=== PATIENT | male | born 1995 | race Caucasian/White ===

== ENCOUNTER 2020-06-29 09:13 | Outpatient (REF) | payer OTHER, SELFPAY ==
[2020-06-29 10:14] LABS: MANUAL DIFF FLAG NO
[2020-06-29 10:26] LABS: Basophils Percent Auto 0.3 % (0-2); Eosinophils Absolute Auto 1.6 X10*3/uL (0.0-0.4); Eosinophils Percent Auto 12.5 % (0-4); Hemoglobin 11.7 g/dl (14.0-18.0); Imm Gran Abs Auto 0.05 X10*3/uL (0.00-0.03); Imm Gran Pct Auto 0.4 % (0.0-0.4); Lymphocytes Absolute Auto 2.5 X10*3/uL (1.2-4.9); Lymphocytes Percent Auto 20.1 % (20-40); Mean Corpuscular HGB Conc 30.8 g/dl (31.0-36.0); Mean Corpuscular Hemoglobin 24.1 pg (27.0-33.0); Mean Corpuscular Volume 78.2 fL (80-98); Mean Platelet Volume 10.4 fL (9.4-12.4); Monocytes Absolute Auto 0.8 X10*3/uL (0.1-1.2); Monocytes Percent Auto 6.5 % (2-11); Neutrophils Absolute Auto 7.6 X10*3/uL (2.0-8.3); Neutrophils Percent Auto 60.2 % (45-73); Platelet Count 355 X10*3/uL (160-400); Red Blood Count 4.86 X10*6/uL (4.60-5.80); Red Cell Distribution Width 15.2 % (11.0-16.0); White Blood Count 12.6 X10*3/uL (4.8-10.8)
[2020-06-29 10:36] LABS: Estimated Average Glucose 120 mg/dL; Hemoglobin A1c % 5.8 %; Total Hemoglobin (HGBA1C) 3124.3799 umol/L
[2020-06-29 10:47] LABS: Alanine Aminotransferase 30 U/L (0-40); Albumin Level 3.9 g/dL (3.5-5.0); Alkaline Phosphatase 106 U/L (39-117); Anion Gap 12 (12-20); Aspartate Amino Transferase 20 U/L (5-37); Bilirubin Total 0.4 mg/dL (0.0-1.0); Blood Urea Nitrogen 6 mg/dL (9-16); Calcium 9.1 mg/dL (8.4-10.2); Carbon Dioxide 25 mmol/L (22-29); Chloride 106 mmol/L (96-108); Cholesterol 170 mg/dL; Estimated Glomerular Filt Rate > 60; Glucose Fasting 97 mg/dL (60-99); HDL Cholesterol 33 mg/dL; LDL Cholesterol Calculated 105 mg/dl; Potassium 4.4 mmol/l (3.3-5.1); Sodium 139 mmol/L (135-145); Total Protein 7.9 g/dL (6.5-8.0); Triglycerides 164 mg/dL
[2020-06-29 10:54] LABS: TSH reflex Free T4 2.85 mIU/mL (0.32-4.0)
== END 2020-06-29 09:14 | disposition home or self-care (01) ==
LOC: HO.LAB 09:13
PROVIDERS: PCP Physician Assistant; Visit Provider Physician Assistant
DX: L73.9 Follicular disorder, unspecified (principal); E66.01 Morbid (severe) obesity due to excess calories; Z68.41 Body mass index [BMI] 40.0-44.9, adult
CPT/HCPCS: 36415; 80053; 80061; 83036; 84443; 85025

== ENCOUNTER 2020-11-12 15:00 | Outpatient (REF) | payer OTHER, SELFPAY ==
[2020-11-12 15:21] LABS: Hematocrit 32.6 % (42-52); Hemoglobin 9.6 g/dl (14.0-18.0); Mean Corpuscular HGB Conc 29.4 g/dl (31.0-36.0); Mean Corpuscular Hemoglobin 20.9 pg (27.0-33.0); Mean Platelet Volume 9.4 fL (9.4-12.4); Platelet Count 561 X10*3/uL (160-400); Red Blood Count 4.59 X10*6/uL (4.60-5.80); Red Cell Distribution Width 16.8 % (11.0-16.0); White Blood Count 11.9 X10*3/uL (4.8-10.8)
[2020-11-12 15:48] LABS: Alanine Aminotransferase 26 U/L (0-40); Alkaline Phosphatase 100 U/L (39-117); Anion Gap 12 (12-20); Aspartate Amino Transferase 21 U/L (5-37); Bilirubin Direct < 0.2 mg/dL (0.0-0.5); Bilirubin Total 0.5 mg/dL (0.0-1.0); Blood Urea Nitrogen 7 mg/dL (9-16); C Reactive Protein 0.64 mg/dL (< or = 0.50); Calcium 9.6 mg/dL (8.4-10.2); Carbon Dioxide 24 mmol/L (22-29); Chloride 106 mmol/L (96-108); Cholesterol 165 mg/dL; Estimated Glomerular Filt Rate > 60; Glucose Random 79 mg/dL (60-115); HDL Cholesterol 36 mg/dL; LDL Cholesterol Calculated 96 mg/dl; Potassium 4.4 mmol/L (3.3-5.1); Sodium 138 mmol/L (135-145); Total Protein 8.1 g/dL (6.5-8.0); Triglycerides 167 mg/dL
== END 2020-11-12 15:01 | disposition home or self-care (01) ==
LOC: HO.LAB 15:00
PROVIDERS: PCP Physician Assistant; Visit Provider Internal Medicine
DX: F20.9 Schizophrenia, unspecified (principal); M25.50 Pain in unspecified joint
CPT/HCPCS: 36415; 80048; 80061; 80076; 85027; 86140

== ENCOUNTER 2020-11-24 09:06 | Outpatient (REF) | payer OTHER, SELFPAY ==
[2020-11-24 09:59] LABS: Retic HGB Equivalent 20.1 pg (30.0-35.0); Reticulocyte Percent 1.1 % (0.5-1.8); Reticulocytes Absolute 0.046 X10*6/uL (0.026-0.095)
[2020-11-24 10:51] LABS: Ferritin 11 ng/mL (20-250)
== END 2020-11-24 09:07 | disposition home or self-care (01) ==
LOC: HO.LAB 09:06
PROVIDERS: PCP Physician Assistant; Visit Provider Internal Medicine
DX: D50.9 Iron deficiency anemia, unspecified (principal)
CPT/HCPCS: 36415; 82728; 85045

== ENCOUNTER 2020-12-25 21:27 | Observation (INO) | payer OTHER, SELFPAY ==
[2020-12-25 22:00] VITALS: BP 134/96; PULSE 100; RESP 16; O2SAT 99; BMI 38.0
[2020-12-26] VITALS (11 sets, daily range): BP systolic 105–166; BP diastolic 61–85; PULSE 78–105; RESP 16–20; TEMP 36.4–36.9; O2SAT 97–98
--- NOTE | 2020-12-26 00:01 | ED_ITS ---
HPI - General Adult General Chief complaint: General Medical Stated complaint: HEADACHE,NAUSEA Time Seen by Provider: 12/25/20 23:32 Source: patient Mode of arrival: ambulatory Limitations: no limitations History of Present Illness HPI narrative: Patient comes emergency room complaining of a headache, generalized malaise. Patient states that he is known to have anemia which was diagnosed on December 17. Patient was seen by Hematology/Oncology, patient is scheduled for an iron infusion on January 03. Patient states that ?he cannot make it until his appointment. Patient also complaining of diarrhea for 10 days, states it is black. Patient also has an appointment coming up in 2 days with gastroenterology for colonoscopy. Related Data Home Medications Medication Instructions Recorded Confirmed diphenhydramine HCl 50 mg capsule 50 mg PO BEDTIME 06/05/20 12/17/20 olanzapine 5 mg tablet 5 mg PO BEDTIME 11/12/20 12/17/20 clobetasol 1 appl TOPICAL DAILY 12/17/20 12/17/20 Previous Rx's Medication Instructions Recorded doxycycline hyclate 100 mg tablet 100 mg PO BID 14 Days #28 tab 08/27/20 triamcinolone acetonide 0.1 % 1 appl TOPICAL BID 15 Days #60 ml 12/19/20 lotion Allergies Allergy/AdvReac Type Severity Reaction Status Date / Time aripiprazole [From Abilify] Allergy Unknown Unknown Verified 11/26/20 09:04 asenapine [From Saphris] Allergy Unknown Unknown Verified 11/26/20 09:04 ziprasidone [From Geodon] Allergy Unknown Unknown Verified 11/26/20 09:04 paliperidone [From Invega] Allergy Agitated Verified 12/17/20 10:22 Review of Systems Review of Systems: Constitutional : No Weight loss, No Fever, No Chills, No Night Sweats, complaining of generalized fatigue, malaise ENT/Mouth : No Hearing loss, No Ear Pain, No Nasal Congestion, No Sinus Pain, No Hoarseness, No sore throat, No Rhinorrhea, No Swallowing Difficulty Eyes: No Eye Pain, No Swelling, No Redness, No Foreign Body, No Discharge, No Vision Changes Cardiovascular : No Chest Pain, No SOB, No Dyspnea on Exertion, No Orthopnea, No Edema, No Palpitations Respiratory : No Cough, No Sputum, No Wheezing, No Smoke Exposure, No Dyspnea Gastrointestinal : No Nausea, No Vomiting, No Diarrhea, No Constipation, No abdominal Pain, No Hematochezia, No Melena Genitourinary : no irregular bleeding, No Dysuria, No Urinary Frequency, No Hematuria, No Urinary Incontinence, No Urgency, No Flank Pain, No Urinary Flow Changes, No Hesitancy Musculoskeletal : No joint pain, No Myalgias, No Joint Swelling Skin : No Skin Lesions, No rash Neuro : No Weakness, No Numbness, No Paresthesias, No Loss of Consciousness, complaining of dizziness, lightheadedness, No Headache Psych : No Anxiety/Panic, No Depression, No SI/HI/AH/VH, No Social Issues, Heme/Lymph: No Bruising, No Bleeding,No Lymphadenopathy Endocrine : No Polyuria, No Polydipsia, No Temperature Intolerance PMF Past Medical History Medical History Iron deficiency anemia Surgical History No pertinent past surgical history Family History Family History Father No problems noted. Mother No problems noted. Social History Social History (Updated 12/17/20 @ 10:20 by Angle Rowe) Alcohol intake: never Advance Directives: No Advance Directives Information Provided: No Physical Exam Vital Signs: Vital Signs: Last Vital Signs Pulse 104 H 12/26/20 02:32 Resp 16 12/25/20 22:00 BP 130/81 12/26/20 02:32 Pulse Ox 99 12/25/20 22:00 Body Mass Index 38.0 Appearance: Alert. Oriented X3. No acute distress. Eyes: Pupils equal, round and reactive to light. ENT: Pharynx normal. Neck: Normal inspection. Neck supple. No lymph nodes noted. No crepitus CVS: Normal heart rate and rhythm. Pulses normal. Normal S1 and S2 Respiratory: No respiratory distress. Breath sounds normal. No Wheezing. No rales Abdomen: Soft and nontender. No rigidity. No distention. NOEMI: Brown stool, no palpable hemorrhoids, no external hemorrhoids Skin: Skin warm and dry. Normal skin color. Normal skin turgor. Capillary refill 3 seconds approximately Extremities: No lower extremity edema. No Lacerations. No Rash Neuro: Oriented X 3. No motor deficit. No sensory deficit. Moving all extermities. No slurred speech. Course Course Course Narrative: Patient's hemoglobin keeps dropping. Patient is known to have black stool for several months. Patient states that he does not feel well. I discussed the patient with our hospitalist Dr. Smith, we will get him admitted, try to get the colonoscopy done as soon as possible. Now patient is NPO. Also, there this morning, it is possible that patient may get a Hematology/Oncology consult, to check if we can get the iron infusion started and improve patient's symptoms. At this time, blood transfusion is not indicated. Medical Decision Making Lab Data Result diagrams: 12/26/20 00:44 12/26/20 00:44 Labs: Lab Results 12/26/20 12/26/20 12/26/20 Range/Units 00:19 00:44 00:44 WBC 14.5 H (4.8-10.8) X10*3/uL RBC 4.48 L (4.60-5.80) X10*6/uL Hgb 9.0 L (14.0-18.0) g/dl Hct 29.9 L (42-52) % MCV 66.7 L (80-98) fL MCH 20.1 L (27.0-33.0) pg MCHC 30.1 L (31.0-36.0) g/dl RDW 16.9 H (11.0-16.0) % Plt Count 495 H (160-400) X10*3/uL MPV 9.5 (9.4-12.4) fL Immature Gran % (Auto) 0.6 H (0.0-0.4) % Neut % (Auto) 57.8 (45-73) % Lymph % (Auto) 24.7 (20-40) % [place] % (Auto) 7.5 (2-11) % Eos % (Auto) 9.2 H (0-4) % Baso % (Auto) 0.2 (0-2) % Lymph # (Auto) 3.6 (1.2-4.9) X10*3/uL [place] # (Auto) 1.1 (0.1-1.2) X10*3/uL Eos # (Auto) 1.3 H (0.0-0.4) X10*3/uL Baso # (Auto) 0.0 (0.0-0.2) X10*3/uL Abs Immat Gran (auto) 0.08 H (0.00-0.03) X10*3/uL Absolute Neuts (auto) 8.4 H (2.0-8.3) X10*3/uL Absolute Nucleated RBC 0.000 (0.0-0.012) X10*3/uL Nucleated RBC % (auto) 0.0 (0.0-0.2) /100WBC Sodium 140 (135-145) mmol/L Potassium 4.6 (3.3-5.1) mmol/L Chloride 105 (96-108) mmol/L Carbon Dioxide 26 (22-29) mmol/L Anion Gap 14 (12-20) BUN 4 L (9-16) mg/dL Creatinine 0.84 (0.5-1.4) mg/dL Estim Creat Clear Calc 162.8 Estimated GFR > 60 Random Glucose 98 (60-115) mg/dL Calcium 9.0 D (8.4-10.2) mg/dL Total Bilirubin 0.3 (0.0-1.0) mg/dL Direct Bilirubin < 0.2 (0.0-0.5) mg/dL AST 13 (5-37) U/L ALT 15 (0-40) U/L Alkaline Phosphatase 113 (39-117) U/L Total Protein 7.4 (6.5-8.0) g/dL Albumin 3.7 (3.5-5.0) g/dL Stool Occult Blood POSITIVE (NEGATIVE) Discharge Plan Discharge Clinical Impression: GI bleed, Anemia, Weakness Patient Disposition: Admitted As Inpatient Prescriptions: No Action triamcinolone acetonide 0.1 % lotion 1 appl topical BID 15 Days Qty: 60 RF: 1 clobetasol 0.05 % solution 1 appl topical DAILY RF: 0 doxycycline hyclate 100 mg tablet 100 mg PO BID 14 Days Qty: 28 RF: 0 olanzapine 5 mg tablet 5 mg PO BEDTIME RF: 0 diphenhydramine HCl 50 mg capsule 50 mg PO BEDTIME RF: 0
[2020-12-26 00:28] LABS: OBS Int Ctl Valid YES; OBS1 POSITIVE (NEGATIVE)
[2020-12-26 00:51] LABS: MANUAL DIFF FLAG NO
[2020-12-26 00:53] LABS: Basophils Percent Auto 0.2 % (0-2); Eosinophils Absolute Auto 1.3 X10*3/uL (0.0-0.4); Eosinophils Percent Auto 9.2 % (0-4); Hematocrit 29.9 % (42-52); Imm Gran Abs Auto 0.08 X10*3/uL (0.00-0.03); Imm Gran Pct Auto 0.6 % (0.0-0.4); Lymphocytes Absolute Auto 3.6 X10*3/uL (1.2-4.9); Lymphocytes Percent Auto 24.7 % (20-40); Mean Corpuscular HGB Conc 30.1 g/dl (31.0-36.0); Mean Corpuscular Hemoglobin 20.1 pg (27.0-33.0); Mean Corpuscular Volume 66.7 fL (80-98); Mean Platelet Volume 9.5 fL (9.4-12.4); Monocytes Absolute Auto 1.1 X10*3/uL (0.1-1.2); Monocytes Percent Auto 7.5 % (2-11); Neutrophils Absolute Auto 8.4 X10*3/uL (2.0-8.3); Neutrophils Percent Auto 57.8 % (45-73); Platelet Count 495 X10*3/uL (160-400); Red Blood Count 4.48 X10*6/uL (4.60-5.80); Red Cell Distribution Width 16.9 % (11.0-16.0); White Blood Count 14.5 X10*3/uL (4.8-10.8)
[2020-12-26 01:23] LABS: Alanine Aminotransferase 15 U/L (0-40); Albumin Level 3.7 g/dL (3.5-5.0); Alkaline Phosphatase 113 U/L (39-117); Anion Gap 14 (12-20); Aspartate Amino Transferase 13 U/L (5-37); Bilirubin Direct < 0.2 mg/dL (0.0-0.5); Bilirubin Total 0.3 mg/dL (0.0-1.0); Blood Urea Nitrogen 4 mg/dL (9-16); Carbon Dioxide 26 mmol/L (22-29); Chloride 105 mmol/L (96-108); Creatinine Clr Calc Pharmacy 162.8; Estimated Glomerular Filt Rate > 60; Glucose Random 98 mg/dL (60-115); Potassium 4.6 mmol/L (3.3-5.1); Sodium 140 mmol/L (135-145); Total Protein 7.4 g/dL (6.5-8.0)
--- NOTE | 2020-12-26 05:51 | P.HPHOSP_ITS ---
History of Present Illness Date of Service: 12/26/20 Chief Complaint: fatigue Past medical history of iron deficiency anemia presents to the hospital with complaints of worsening fatigue, nausea, loss of appetite.. Ricky reports that he has been suffering from iron deficiency anemia and scheduled for iron infusio n but he felt that he was too weak and fatigued and could not wait for his appointment. He reports that he also has had a loss of appetite recently as well as having nausea and vomiting every time he ate. Patient is also complaining of bloody diarrhea for the past 3 weeks. He reports that he also has an appointment with a business applications analyst for evaluation of that. He denies any chest pain, no abdominal pain, no urinary symptoms, and no lower extremity edema. No numbness tingling or weakness. No fever or chills, no recent travel, no recent sick contacts. On arrival to the ED hemodynamically stable with no significant abnormal vitals Labs are significant for WBC count of 14.5, hemoglobin of 9 (dropped from 9.5 on the 24th), MCV of 66.7, stool occult blood positive. Past medical history as below lung confirmed patient Review of Systems Review of Systems: Yes all other systems are reviewed and are negative [facility] Medical History Iron deficiency anemia Family History Father No problems noted. Mother No problems noted. Surgical History No pertinent past surgical history Social History Alcohol intake: never Advance Directives: No Advance Directives Information Provided: No Meds Allergies Allergy/AdvReac Type Severity Reaction Status Date / Time aripiprazole [From Abilify] Allergy Unknown Unknown Verified 11/26/20 09:04 asenapine [From Saphris] Allergy Unknown Unknown Verified 11/26/20 09:04 ziprasidone [From Geodon] Allergy Unknown Unknown Verified 11/26/20 09:04 paliperidone [From Invega] Allergy Agitated Verified 12/17/20 10:22 Home Medications Medication Instructions Recorded Confirmed Last Taken Type olanzapine 5 mg tablet 5 mg PO BEDTIME 11/12/20 12/26/20 1 Day Ago History ~12/25/20 clobetasol 1 appl TOPICAL DAILY 12/17/20 12/26/20 Unknown History Physical Exam Vital Signs and Narrative: Vital Signs: Last Vital Signs Temp 98.5 F 12/26/20 03:49 Pulse 88 12/26/20 03:49 Resp 18 12/26/20 04:00 BP 139/67 12/26/20 03:49 Pulse Ox 98 12/26/20 03:49 Body Mass Index 38.0 Const: General: cooperative and no acute distress Orientation/consciousness: patient oriented x3 Eyes: General: appearance normal, both eyes and all related structures Resp: Effort & Inspection: normal respiratory effort and able to speak in complete sentences Cardio: Rate: regular rate Rhythm: regular rhythm GI: Palpation (GI): Soft to palpation Auscultation: normal bowel sounds Skin: General skin exam: no rashes or lesions noted Neuro: General: patient oriented x3 Cognition (Neuro): normal cognition Extrem: General: Yes normal to inspection and Yes no pedal edema Results Labs CBC and Chem 7: 12/26/20 00:44 12/26/20 00:44 Labs: Laboratory Results - last 24 hr 12/26/20 12/26/20 12/26/20 00:19 00:44 00:44 MCV 66.7 L MCH 20.1 L MCHC 30.1 L RDW 16.9 H Plt Count 495 H MPV 9.5 Immature Gran % (Auto) 0.6 H Neut % (Auto) 57.8 Lymph % (Auto) 24.7 [place] % (Auto) 7.5 Eos % (Auto) 9.2 H Baso % (Auto) 0.2 Lymph # (Auto) 3.6 [place] # (Auto) 1.1 Eos # (Auto) 1.3 H Baso # (Auto) 0.0 Abs Immat Gran (auto) 0.08 H Absolute Neuts (auto) 8.4 H Absolute Nucleated RBC 0.000 Nucleated RBC % (auto) 0.0 Anion Gap 14 Estim Creat Clear Calc 162.8 Estimated GFR > 60 Random Glucose 98 Calcium 9.0 D Total Bilirubin 0.3 Direct Bilirubin < 0.2 AST 13 ALT 15 Alkaline Phosphatase 113 Total Protein 7.4 Albumin 3.7 Stool Occult Blood POSITIVE Assessment and Plan (1) GI bleed: Status: Acute (2) Weakness: Status: Acute (3) Iron deficiency anemia: Status: Acute This is a 25-year-old male with past medical history of iron deficiency anemia presents the hospital with complaints of fatigue as well as bloody diarrhea # iron deficiency anemia - patient is scheduled for parenteral iron infusion but reports that he was feeling too fatigued to wait for his appointment - will consult Hematology-Oncology - continue iron supplement orally - hemoglobin currently stable at 9, dropped from 9.5 about 1 week ago - will infuse with a threshold of hemoglobin less than 7 # hematochezia - denies any abdominal pain but given his bloody diarrhea possibly secondary to use IBD versus internal hemorrhoids - patient has an appointment with Gastroenterology outpatient but given his anemia and fatigue will consult Gastroenterology for possible inpatient procedure - denies any use of NSAIDs # weakness - most likely secondary to dehydration including diarrhea as well as fatigue secondary to iron deficiency anemia - Hematology-Oncology in Gastroenterology both consulted for the above recent DVT prophylaxis: Early ambulation
[2020-12-26 07:56] LABS: COVID-19 Test Negative (Negative)
--- NOTE | 2020-12-26 08:36 | PC.NURSE ---
This RN did not administer patients 9am doxycycline today, upon attempting to administer the medication patient states that he already took it today. This RN made patient aware not to take home meds while in the hospital, patient states he does not have any more medication with him.
[2020-12-26] MEDS: 0.9 % Sodium Chloride Flush 3 ML SYRINGE IVFLUSH ×2 (08:38→16:54)
--- NOTE | 2020-12-26 10:02 | PC.NURSE ---
called [facility], awaiting call back to give report
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
--- NOTE | 2020-12-26 13:02 | MHC.SHP ---
Pre-Procedural Eval Section B Chief Complaint: Iron def anemia Allergies: Allergies Allergy/AdvReac Type Severity Reaction Status Date / Time aripiprazole [From Abilify] Allergy Unknown Unknown Verified 11/26/20 09:04 asenapine [From Saphris] Allergy Unknown Unknown Verified 11/26/20 09:04 ziprasidone [From Geodon] Allergy Unknown Unknown Verified 11/26/20 09:04 paliperidone [From Invega] Allergy Agitated Verified 12/17/20 10:22 Plan I have reviewed the history and physical and performed a pertinent physical examination on my patient. No changes have occurred unless specified.
--- NOTE | 2020-12-26 14:21 | MHC.SHP ---
Pre-Procedural Eval Section A The patient is an INPATIENT: Yes Changes since office visit: No Cold of Flu in the past 2 weeks, No New Medical Problems, No Changes in Medication and No Patient answered all questions The History & Physical has been completed within 30 days and I have reviewed it.: Yes Section B Chief Complaint: Iron def anemia Allergies: Allergies Allergy/AdvReac Type Severity Reaction Status Date / Time aripiprazole [From Abilify] Allergy Unknown Unknown Verified 11/26/20 09:04 asenapine [From Saphris] Allergy Unknown Unknown Verified 11/26/20 09:04 ziprasidone [From Geodon] Allergy Unknown Unknown Verified 11/26/20 09:04 paliperidone [From Invega] Allergy Agitated Verified 12/17/20 10:22 Plan I have reviewed the history and physical and performed a pertinent physical examination on my patient. No changes have occurred unless specified.
--- NOTE | 2020-12-26 14:22 | PM.EVENT ---
Event Note Date of Service: 12/26/20 Event Note: GI consult dictated Iron def anemia and heme positive stools with n&v x 2 days and hematochezia x 6 years EGD and colonoscopy scheduled for tomorrow for further evaluation Pt understands risks and benefits and agrees to proceed.
[2020-12-26] MEDS: PEG 3350/Na Sulf,Bicarb,Cl/KCL 4,000 ML SOLN.RECON 240 ML PO (16:49)
[2020-12-26] MEDS: OLANZapine 5 MG TABLET PO (20:07)
--- NOTE | 2020-12-26 20:31 | PC.NURSE ---
patient drank [id number] ml of the bowel prep. Pt is refusing to drink more of the bowel prep,stated that he has been having loose stools all day. Pt is not refusing the procedure that is ordered but he is refusing to drink more of the bowel prep. RN educated patient regarding the purpose of the bowel prep.
[2020-12-27] VITALS (8 sets, daily range): BP systolic 103–153; BP diastolic 63–94; PULSE 84–110; RESP 12–20; TEMP 36.1–36.7; O2SAT 97–99
[2020-12-27] MEDS: 0.9 % Sodium Chloride Flush 3 ML SYRINGE IVFLUSH ×2 (01:01→09:10)
--- NOTE | 2020-12-27 01:03 | CONS_ITS ---
DATE OF SERVICE: 12/26/2020 REFERRING PHYSICIAN: Mary Smith REASON FOR CONSULTATION: Anemia and Hemoccult-positive stools. HISTORY OF PRESENT ILLNESS: The patient is a pleasant 25-year-old man who was admitted to the hospital after presenting to the emergency room with complaints of generalized weakness, fatigue, and nausea and vomiting for 24 to 48 hours prior to admission. He reports chronic hematochezia over the last 6 years with bright red blood associated with bowel movements, usually in the amount of approximately half a cup by his report. There has been no associated rectal bleeding, although stools have been loose over the past several weeks prior to admission. He was evaluated as an outpatient and found to be anemic with a hematocrit of 32.6 earlier in November, this was slightly lower at 29.9 on evaluation in the ER yesterday. MCV was low at 66.7, and iron studies showed a saturation of 3% with a ferritin of 4. He was started on oral iron supplementation and referred for GI evaluation. He was also scheduled to have intravenous iron infusion. The patient denies any melena. He has had hematochezia as above, which has been a chronic problem. He denies a prior history of peptic ulcer disease and does not use NSAIDs, tobacco or alcohol on a regular basis. He has no chronic GERD symptoms. PAST MEDICAL HISTORY: 1. Iron deficiency anemia. 2. Schizophrenia with depressive component. 3. Folliculitis. CURRENT MEDICATIONS: His current medication list is reviewed in the chart. ALLERGIES: MULTIPLE PSYCHIATRIC MEDICATION ALLERGIES ARE REVIEWED FAMILY HISTORY: He denies any family history of GI malignancy. SOCIAL HISTORY: There is no current tobacco, alcohol, or substance abuse. He does not work. REVIEW OF SYSTEMS: SKIN: No pruritus. HEENT: Negative. CARDIOPULMONARY: He denies shortness of breath or chest pain. GASTROINTESTINAL: As above. GENITOURINARY: Negative. NEUROPSYCHIATRIC: Negative. PHYSICAL EXAMINATION: GENERAL: Shows a pleasant male, lying comfortably in bed. VITAL SIGNS: Reviewed in the electronic medical record and are stable. SKIN: Anicteric. HEENT: Shows no scleral icterus. NECK: Without lymphadenopathy or thyromegaly. LUNGS: Clear. HEART: Shows a regular rate and rhythm. S1, S2. No murmur. ABDOMEN: Soft without focal masses or tenderness. Bowel sounds are present. No organomegaly is noted. EXTREMITIES: Without edema. LABORATORY DATA: Reviewed. He had no imaging studies on admission. IMPRESSION: Iron deficiency anemia with Hemoccult-positive stools in the setting of recent upper gastrointestinal symptoms and chronic hematochezia. At this point, he appears stable and has not required blood transfusion. There has been no GI bleeding reported since admission. He should have further evaluation including upper GI endoscopy as well as colonoscopy because of his iron deficiency anemia. Hemoccult-positive stools and multiple GI complaints. I have discussed this with him including risks and benefits of both procedures. He understands and agrees to proceed. This will be arranged for tomorrow. Thanks for asking me to see him. I will follow him in the hospital with you. MD KATJA Ryan/DARLYN / [phone]
[2020-12-27 06:25] LABS: MANUAL DIFF FLAG NO
[2020-12-27 06:48] LABS: Basophils Percent Auto 0.2 % (0-2); Eosinophils Absolute Auto 1.3 X10*3/uL (0.0-0.4); Eosinophils Percent Auto 10.2 % (0-4); Hematocrit 28.9 % (42-52); Hemoglobin 8.6 g/dl (14.0-18.0); Imm Gran Abs Auto 0.06 X10*3/uL (0.00-0.03); Imm Gran Pct Auto 0.5 % (0.0-0.4); Lymphocytes Absolute Auto 2.4 X10*3/uL (1.2-4.9); Lymphocytes Percent Auto 18.8 % (20-40); Mean Corpuscular HGB Conc 29.8 g/dl (31.0-36.0); Mean Corpuscular Hemoglobin 19.9 pg (27.0-33.0); Mean Corpuscular Volume 66.7 fL (80-98); Monocytes Absolute Auto 1.1 X10*3/uL (0.1-1.2); Monocytes Percent Auto 8.1 % (2-11); Neutrophils Absolute Auto 8.1 X10*3/uL (2.0-8.3); Neutrophils Percent Auto 62.2 % (45-73); Platelet Count 490 X10*3/uL (160-400); Red Blood Count 4.33 X10*6/uL (4.60-5.80)
[2020-12-27 06:55] LABS: Anion Gap 11 (12-20); Blood Urea Nitrogen 4 mg/dL (9-16); Calcium 9.1 mg/dL (8.4-10.2); Carbon Dioxide 28 mmol/L (22-29); Chloride 106 mmol/L (96-108); Creatinine Clr Calc Pharmacy 179.9; Estimated Glomerular Filt Rate > 60; Glucose Random 87 mg/dL (60-115); Potassium 4.5 mmol/L (3.3-5.1); Sodium 140 mmol/L (135-145)
--- NOTE | 2020-12-27 07:13 | HO.ANESPROP2 ---
[facility] Active Problems Active Problems: All Active Problems (Updated 12/26/20 @ 03:10 by More Boyd MD) GI bleed (Acute) Anemia (Acute) Weakness (Acute) Iron deficiency anemia (Acute) Arthralgia (Acute) Obese (Acute) HLD (hyperlipidemia) (Acute) Folliculitis (Acute) Schizophrenia (Acute) Annual physical exam (Acute) Past Medical History Medical History Iron deficiency anemia Family History Family History Father No problems noted. Mother No problems noted. Surgical History Surgical History No pertinent past surgical history Social History Social History Alcohol intake: never Patient Tobacco Use Status: Never used Tobacco Use of substances other than those prescribed or required for medical reasons: No Are you DNR?: No Advance Directives: No Advance Directives Information Provided: No Meds Allergies Allergy/AdvReac Type Severity Reaction Status Date / Time aripiprazole [From Abilify] Allergy Unknown Unknown Verified 11/26/20 09:04 asenapine [From Saphris] Allergy Unknown Unknown Verified 11/26/20 09:04 ziprasidone [From Geodon] Allergy Unknown Unknown Verified 11/26/20 09:04 paliperidone [From Invega] Allergy Agitated Verified 12/17/20 10:22 Active Medications: Current Medications Generic Name Dose Route Start Last Admin Trade Name Freq PRN Reason Stop Dose Admin Acetaminophen 650 mg 12/26/20 05:59 Acetaminophen 325 Mg Tablet PO Q6H PRN Pain, Mild (Pain Scale 1-3) Docusate Sodium 100 mg 12/26/20 05:59 Docusate Sodium 100 Mg Capsule PO DAILY PRN Constipation Doxycycline Hyclate 100 mg 12/26/20 09:00 12/26/20 20:07 Doxycycline Hyclate 100 Mg Tablet PO 100 mg BID EVIN Administration Olanzapine 5 mg 12/26/20 21:00 12/26/20 20:07 Olanzapine 5 Mg Tablet PO 5 mg BEDTIME EVIN Administration Ondansetron HCl 4 mg 12/26/20 05:59 Ondansetron Hcl 4 Mg/2 Ml Vial IVPUSH Q8H PRN Nausea and Vomiting Sodium Chloride 3 ml 12/26/20 08:00 12/27/20 01:01 0.9 % Sodium Chloride Flush 3 Ml Sy[facility] Administration Home Medications Medication Instructions Recorded Confirmed Last Taken Type olanzapine 5 mg tablet 5 mg PO BEDTIME 11/12/20 12/26/20 1 Day Ago History ~12/25/20 clobetasol 1 appl TOPICAL DAILY 12/17/20 12/26/20 Unknown History ketoconazole 1 appl TOPICAL DIRECTED 12/26/20 12/26/20 Unknown History Exam Exam Date and Time: December 27, 2020 0713 Height,Weight and Vital Signs: Height 5 ft 8 in Weight 113.398 kg Last Vital Signs Temp 97.9 F 12/27/20 06:47 Pulse 95 12/27/20 06:47 Resp 18 12/27/20 06:47 BP 153/92 H 12/27/20 06:47 Pulse Ox 97 12/27/20 06:47 Pertinent Lab Results Pertinent Lab Results: Laboratory Tests 12/26/20 12/26/20 12/26/20 00:19 00:44 00:44 WBC 14.5 H RBC 4.48 L Hgb 9.0 L Hct 29.9 L MCV 66.7 L MCH 20.1 L MCHC 30.1 L RDW 16.9 H Plt Count 495 H MPV 9.5 Immature Gran % (Auto) 0.6 H Neut % (Auto) 57.8 Lymph % (Auto) 24.7 [place] % (Auto) 7.5 Eos % (Auto) 9.2 H Baso % (Auto) 0.2 Lymph # (Auto) 3.6 [place] # (Auto) 1.1 Eos # (Auto) 1.3 H Baso # (Auto) 0.0 Abs Immat Gran (auto) 0.08 H Absolute Neuts (auto) 8.4 H Absolute Nucleated RBC 0.000 Nucleated RBC % (auto) 0.0 Sodium 140 Potassium 4.6 Chloride 105 Carbon Dioxide 26 Anion Gap 14 BUN 4 L Creatinine 0.84 Estim Creat Clear Calc 162.8 Estimated GFR > 60 Random Glucose 98 Calcium 9.0 D Total Bilirubin 0.3 Direct Bilirubin < 0.2 AST 13 ALT 15 Alkaline Phosphatase 113 Total Protein 7.4 Albumin 3.7 Stool Occult Blood POSITIVE COVID-19 (SHANITA) COVID-19 Clin Com 12/26/20 12/27/20 12/27/20 07:20 05:40 05:40 WBC 13.0 H RBC 4.33 L Hgb 8.6 L Hct 28.9 L MCV 66.7 L MCH 19.9 L MCHC 29.8 L RDW 17.0 H Plt Count 490 H MPV 10.0 Immature Gran % (Auto) 0.5 H Neut % (Auto) 62.2 Lymph % (Auto) 18.8 L [place] % (Auto) 8.1 Eos % (Auto) 10.2 H Baso % (Auto) 0.2 Lymph # (Auto) 2.4 [place] # (Auto) 1.1 Eos # (Auto) 1.3 H Baso # (Auto) 0.0 Abs Immat Gran (auto) 0.06 H Absolute Neuts (auto) 8.1 Absolute Nucleated RBC 0.000 Nucleated RBC % (auto) 0.0 Sodium 140 Potassium 4.5 Chloride 106 Carbon Dioxide 28 Anion Gap 11 L BUN 4 L Creatinine 0.76 Estim Creat Clear Calc 179.9 Estimated GFR > 60 Random Glucose 87 Calcium 9.1 Total Bilirubin Direct Bilirubin AST ALT Alkaline Phosphatase Total Protein Albumin Stool Occult Blood COVID-19 (SHANITA) Negative COVID-19 Clin Com See Note Airway Mallampati Class: II TM Dist: >3cm Neck ROM: Full
[2020-12-27] MEDS: Lactated Ringers 1,000 ML 100 ML IVCONT (07:24)
[2020-12-27] MEDS: Sodium Phosphate,Mono-Dibasic 133 ML ENEMA PR (07:33)
--- NOTE | 2020-12-27 07:39 | PC.NURSE ---
PT TO SSS REPORTS ONLY TOOK TWO CUPS OF PREP. REPORTS CLEAR YELLOW. dR AWAD HERE INFORMED. FLEETS ORDERED/GIVEN. PT ANGELITA WELL. CLEAR YELLOW WITH SMALL SPECKS OF STOOL AND A LITTLE BLOOD NOTED. IV INFILTRATED. REMOVED AND NEW ONE ACCESSED.
--- NOTE | 2020-12-27 08:27 | P.BOP_ITS ---
Brief Operative Note Date of Service: 12/27/20 Pre-op diagnosis: sidney, heme pos Post-op diagnosis: same (gastritis, colitis) Procedure: egd colonoscopy with biopsy Surgeon: Jasvir Jorgensen Anesthesia: MAC Was an Project Finance Analyst used for this Procedure?: No Estimated blood loss (mL): 5 Pathology: other (bxs antrum, duodenum, ti, r colon, l colon and rectum) Condition: stable Disposition: PACU
--- NOTE | 2020-12-27 08:29 | PM.EVENT ---
Event Note Date of Service: 12/27/20 Event Note: GI op note dictated EGD shows gastritis pancolitis on colonoscopy c/w possible UC vs acute colitis stool obtained for c&s, o&p biopsies obtained plan start ppi for gastritis mesalamine for colitis f/u biopsies and stool tests.
[2020-12-27] MEDS: Omeprazole 20 MG CAPSULE.DR PO (09:09)
[2020-12-27] MEDS: Mesalamine 400 MG CAP.DRTAB. 800 MG PO ×2 (09:09→14:48)
--- NOTE | 2020-12-27 09:54 | OP_ITS ---
SURGEON: Jasvir Jorgensen MD INDICATIONS: Iron-deficiency anemia and Hemoccult-positive stools. PREOPERATIVE DIAGNOSIS: POSTOPERATIVE DIAGNOSIS: PROCEDURE PERFORMED: 1. Upper endoscopy with biopsy. 2. Colonoscopy to the terminal ileum with biopsy. ESTIMATED BLOOD LOSS: COMPLICATIONS: ANESTHESIA: ASSISTANTS: SPECIMENS: MEDICATIONS: Monitored anesthesia care. DESCRIPTION OF PROCEDURE: History and physical performed. The risks and benefits of the procedure were explained to the patient. Informed consent was obtained. The patient was placed in the left lateral decubitus position. The Olympus video gastroscope was introduced into the esophagus, stomach, and duodenum. Examination was performed and the scope was removed. He was repositioned for colonoscopy. A digital rectal exam was performed and was found to be normal. The Olympus pediatric video colonoscope was introduced into the rectum and advanced to the cecum without difficulty. The cecum was identified by transillumination, palpation, and identification of ileocecal valve. Examination was performed and the scope was removed. He tolerated both procedures well and was taken to recovery area in stable condition. FINDINGS: UPPER ENDOSCOPY: Esophagus: The esophagus was normal. There was no esophagitis. Stomach: The stomach showed gastritis with focal areas of erythema and superficial erosion. There was no ulceration. Biopsies were obtained from the antrum. Duodenum: The bulb and second portion were normal. Biopsies were obtained from the second portion because of the patient's history of iron-deficiency anemia. COLONOSCOPY: The terminal ileum was normal. The visualized colonic mucosa showed a pancolitis with erythema, edema, and superficial ulceration as well as loss of vascular pattern. The mucosa was somewhat friable. The colitis seemed most active in the left colon and sigmoid with lesser inflammatory changes mainly in the right colon. There were no skip areas, although the colitis was somewhat patchy in the sigmoid. Biopsies were obtained from the terminal ileum, which was normal and from the right colon, left colon, and rectum. Retroflexed examination was normal. IMPRESSION: 1. Gastritis. 2. Colitis. RECOMMENDATIONS: 1. Follow up the biopsy results. 2. Begin mesalamine. 3. Proton pump inhibitor for gastritis. 4. Stool specimens were obtained for culture, sensitivity, and parasite testing. MD KATJA Ryan/DARLYN / [id number]
--- NOTE | 2020-12-27 09:54 | MHC.CM.PN ---
pt lives alone in [facility] apt, on the 1st floor of this house is the [facility] office. hence , pt is active c [facility] , the counselors provide transportation for needed appointments and will likely provide transportation home at dc. pt denies the need for vna. he does not use any AD c ambulation. dc plan is to return to [facility] apt. , no other svcs. cm to cont. to follow.
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
--- NOTE | 2020-12-27 18:49 | PC.NURSE ---
IV REMOVED. NURSE TO NURSE FOR INPATIENT PSYCH GIVEN. DISCHARGE PAPERWORK GIVEN TO CARE TEAM. OFF UNIT TO TRANSFER AT 1849.
== END 2020-12-27 18:49 ==
LOC: HO.ED 12-26 03:10 → HO.EDOVER 12-26 06:01 → HO.IMC 12-26 08:48 → HO.PADLT16 12-27 16:21 → HO.IMC 12-27 16:45
PROVIDERS: Internal Medicine Gastroenterology; Admitting Provider Internal Medicine; Emergency Provider Emergency Medicine; PCP Physician Assistant; Visit Provider Internal Medicine
PROC: (CPT 45380; principal; 2020-12-27 07:30)
DX: K92.2 Gastrointestinal hemorrhage, unspecified (principal); R53.1 Weakness; D50.9 Iron deficiency anemia, unspecified; R53.83 Other fatigue; R51.9 Headache, unspecified; K52.9 Noninfective gastroenteritis and colitis, unspecified; R19.5 Other fecal abnormalities; E66.9 Obesity, unspecified; E78.5 Hyperlipidemia, unspecified; L73.9 Follicular disorder, unspecified; F20.9 Schizophrenia, unspecified; Z68.38 Body mass index [BMI] 38.0-38.9, adult; Z20.822 Contact with and (suspected) exposure to COVID-19; Z88.8 Allergy status to other drugs, medicaments and biological substances; Z79.899 Other long term (current) drug therapy
CPT/HCPCS: 45380; 43239; 36415; 80048; 80076; 82272; 85025; 87045; 87046; 87635; 88305; 88341; 88342; 96360; 96361; 96374; 99219; 99222; 99284; 99285; J2250

== ENCOUNTER 2020-12-27 18:51 | Inpatient (IN) | payer OTHER, SELFPAY ==
[2020-12-27 20:44] VITALS: BP 144/72; PULSE 108; RESP 19; TEMP 36.8; O2SAT 98
--- NOTE | 2020-12-27 21:46 | PC.NURSE ---
PT became upset when having to wait for medication. Swearing at staff and talking under his breath at the nurses station. PT redirected, refused to leave the nurses station. PT reached over nurses station and pushed computer monitor off the desk stating doretha valle you think this is a joke, this is my life PT then walked away from nurses station, paced the hallway. Pt returned to nurses station, apologized for pushing monitor and stated I just black out, i've been thinking about it for a while, eventually you don't get your way you just black out Pt agreeable to take his scheduled medications at this time.
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
[2020-12-27] MEDS: OLANZapine 5 MG TABLET PO (21:52)
[2020-12-27] MEDS: Mesalamine 400 MG CAP.DRTAB. 800 MG PO (21:52)
[2020-12-28 06:00] VITALS: BP 116/67; PULSE 97; RESP 18; TEMP 36.4; O2SAT 96
[2020-12-28] MEDS: Omeprazole 20 MG CAPSULE.DR PO (06:45)
[2020-12-28] MEDS: Mesalamine 400 MG CAP.DRTAB. 800 MG PO ×3 (08:19→20:03)
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
[2020-12-28 18:00] VITALS: BP 121/85; PULSE 90; O2SAT 99
[2020-12-28] MEDS: OLANZapine 7.5 MG TABLET PO (20:03)
[2020-12-29 06:00] VITALS: BP 133/76; PULSE 123; RESP 16; O2SAT 98
[2020-12-29] MEDS: Omeprazole 20 MG CAPSULE.DR PO (06:49)
[2020-12-29] MEDS: Mesalamine 400 MG CAP.DRTAB. 800 MG PO ×3 (08:04→20:07)
[2020-12-29] MEDS: OLANZapine 7.5 MG TABLET PO (20:08)
[2020-12-29 20:24] VITALS: BP 139/101; PULSE 121; RESP 18; O2SAT 96
--- NOTE | 2020-12-29 20:50 | HO.PSYCHPN ---
Subjective Subjective Date of Service: 12/29/20 Reason For Visit: Schizophrenia Subjective Notes: Conditional Voluntary Healthcare Proxy: No Guardianship: No Medical Problems Affecting Mental Status: Yes Interim History: Pt reports he is OK . He is concerned that he has an appt for an iron infusion on 01/03 and he will not be able to make the appointment. It is at [facility]. Discussed calling the department on Thursday to inform them he is in patient so they may make arrangements. Medication Compliance: Yes Side effects from medications: No Attending Groups: Intermittent Review of Systems Psychiatric: Reports anxiety, Reports difficulty concentrating and Reports suicidal ideation (denies) Mental Status Exam Mental Status Exam Patient Appearance: Appropriate Patient Orientation: Person, Place, Time and Situation Level of Consciousness: Alert Patient Behavior: Appropriate, Cooperative and Suspicious Mood Description: Withdrawn Affect Description: Withdrawn Patient Cognition Impaired: No Ability to Follow Directions: Good Speech Pattern: Spontaneous Speech Memory Description: Episodic Impaired Hallucinations: None (denies) Delusions: Paranoid Ideation Thought Process: Distracted Thought Content: positive for [place] and positive for Circumstantial Judgement: Fair Diagnostics Vital Signs (24Hr): Vital Signs - 24 hr 12/29/20 06:00 12/29/20 20:24 Pulse Rate 123 H 121 H Respiratory Rate 16 18 Blood Pressure 133/76 139/101 H Pulse Oximetry 98 96 Medications Medications Current Medications Generic Name Dose Route Start Last Admin Trade Name Freq PRN Reason Stop Dose Admin Acetaminophen 650 mg 12/27/20 19:10 Acetaminophen 325 Mg Tablet PO Q6H PRN Pain, Mild (Pain Scale 1-3) Docusate Sodium 100 mg 12/27/20 19:10 Docusate Sodium 100 Mg Capsule PO DAILY PRN Constipation Doxycycline Hyclate 100 mg 12/28/20 09:00 12/29/20 20:08 Doxycycline Hyclate 100 Mg Tablet PO 100 mg Q12H EVIN Administration Mesalamine 800 mg 12/27/20 21:00 12/29/20 20:07 Mesalamine 400 Mg Cap.Drtab. PO 800 mg TID EVIN Administration Non-Formulary Medication 1 appl 12/28/20 09:00 Clobetasol TOPICAL DAILY [facility] Olanzapine 7.5 mg 12/28/20 21:00 12/29/20 20:08 Olanzapine 7.5 Mg Tablet PO 7.5 mg BEDTIME [facility] Administration Olanzapine 5 mg 12/28/20 10:49 Olanzapine 5 Mg Tablet PO Q4H PRN Psychosis Omeprazole 20 mg 12/28/20 06:30 12/29/20 06:49 Omeprazole 20 Mg Capsule. PO 20 mg DAILY@0630 EVIN Administration Trolamine Salicylate/Aloe Vera 1 appl 12/28/20 20:44 12/28/20 21:51 Trolamine Salicylate 10%/Aloe Cream 35.4 Gm TOPICAL 1 appl QID PRN Administration Pain, Moderate (Pain Scale 4-6 Allergies Allergies Allergy/AdvReac Type Severity Reaction Status Date / Time aripiprazole [From Abilify] Allergy Unknown Unknown Verified 11/26/20 09:04 asenapine [From Saphris] Allergy Unknown Unknown Verified 11/26/20 09:04 ziprasidone [From Geodon] Allergy Unknown Unknown Verified 11/26/20 09:04 paliperidone [From Invega] Allergy Agitated Verified 12/17/20 10:22 Assessment & Plan Assessment & Plan (1) Schizophrenia: Qualifiers: Schizophrenia type: paranoid schizophrenia Qualified Code(s): F20.0 - Paranoid schizophrenia Status: Acute Code(s): F20.9 - Schizophrenia, unspecified Assessment and Plan: Young descendant male with Schizophrenia with several admission for psychotic agitation and violence, admitted for exacerbation of aggressive behavior and psychosis after lowering his Zyprexa. Plan: 1 Continue Zyprexa 7.5 mg po qhs 2. Gather collateral information Greater than 50% of the session was spent on counseling and/or coordination of care Reason for contiued inpatient stay Substantial Risk for: harm to self, harm to others, inability to function, rapid decompensation and med/psych decompensation
[2020-12-30] MEDS: Omeprazole 20 MG CAPSULE.DR PO (07:13)
[2020-12-30 08:00] VITALS: BP 151/100; PULSE 122; RESP 18; TEMP 36.8; O2SAT 95
[2020-12-30] MEDS: Mesalamine 400 MG CAP.DRTAB. 800 MG PO ×3 (08:00→20:08)
[2020-12-30 19:54] VITALS: BP 126/79; PULSE 100; RESP 18; O2SAT 98
[2020-12-30] MEDS: OLANZapine 5 MG TABLET PO (20:08)
--- NOTE | 2020-12-30 21:24 | P.PNPSI_ITS ---
Subjective Subjective Date of Service: 12/30/20 Reason For Visit: Schizophrenia Subjective Notes: Conditional Voluntary Healthcare Proxy: No Guardianship: No Medical Problems Affecting Mental Status: No Interim History: Pt expressed anger that Olanzapine was increased on 12/28 without his consent. He demands it be decreased to 5 mg citing all of the work he has put in to bring his medications to a effective level. Medication Compliance: Yes Side effects from medications: No Attending Groups: No Review of Systems Reports behavioral changes Psychiatric: Reports behavioral changes, Reports irritability and Reports suicidal ideation (denies) Mental Status Exam Mental Status Exam Patient Appearance: Appropriate Patient Orientation: Person, Place, Time and Situation Level of Consciousness: Alert Patient Behavior: Talkative and Resistive to Care Mood Description: Angry Affect Description: Flat Patient Cognition Impaired: No Ability to Follow Directions: Fair Speech Pattern: Spontaneous Speech Memory Description: Episodic Impaired Hallucinations: None (denies) Delusions: Paranoid Ideation Thought Process: Rumination Thought Content: positive for [place] and positive for Suicidal Ideation (denies) Depressive Symptoms: Increased Irritability Abnormal Motor Activity Signs and Symptoms: Agitation Judgement: Fair Diagnostics Vital Signs (24Hr): Vital Signs - 24 hr 12/30/20 08:00 12/30/20 19:54 Temperature 98.3 F Pulse Rate 122 H 100 Respiratory Rate 18 18 Blood Pressure 151/100 H 126/79 Pulse Oximetry 95 98 Medications Medications Current Medications Generic Name Dose Route Start Last Admin Trade Name Freq PRN Reason Stop Dose Admin Acetaminophen 650 mg 12/27/20 19:10 Acetaminophen 325 Mg Tablet PO Q6H PRN Pain, Mild (Pain Scale 1-3) Docusate Sodium 100 mg 12/27/20 19:10 Docusate Sodium 100 Mg Capsule PO DAILY PRN Constipation Doxycycline Hyclate 100 mg 12/28/20 09:00 12/30/20 20:09 Doxycycline Hyclate 100 Mg Tablet PO 100 mg Q12H EVIN Administration Mesalamine 800 mg 12/27/20 21:00 12/30/20 20:08 Mesalamine 400 Mg Cap.Drtab. PO 800 mg TID EVIN Administration Non-Formulary Medication 1 appl 12/28/20 09:00 Clobetasol TOPICAL DAILY EVIN Olanzapine 5 mg 12/28/20 10:49 Olanzapine 5 Mg Tablet PO Q4H PRN Psychosis Olanzapine 5 mg 12/30/20 21:00 06/06/21 20:08 Olanzapine 5 Mg Tablet PO 5 mg BEDTIME EVIN Administration Omeprazole 20 mg 12/28/20 06:30 12/30/20 07:13 Omeprazole 20 Mg Capsule. PO 20 mg DAILY@0630 EVIN Administration Trolamine Salicylate/Aloe Vera 1 appl 12/28/20 20:44 12/28/20 21:51 Trolamine Salicylate 10%/Aloe Cream 35.4 Gm TOPICAL 1 appl QID PRN Administration Pain, Moderate (Pain Scale 4-6 Allergies Allergies Allergy/AdvReac Type Severity Reaction Status Date / Time aripiprazole [From Abilify] Allergy Unknown Unknown Verified 11/26/20 09:04 asenapine [From Saphris] Allergy Unknown Unknown Verified 11/26/20 09:04 ziprasidone [From Geodon] Allergy Unknown Unknown Verified 11/26/20 09:04 paliperidone [From Invega] Allergy Agitated Verified 12/17/20 10:22 Assessment & Plan Assessment & Plan (1) Schizophrenia: Qualifiers: Schizophrenia type: paranoid schizophrenia Qualified Code(s): F20.0 - Paranoid schizophrenia Status: Acute Code(s): F20.9 - Schizophrenia, unspecified Assessment and Plan: Young descendant male with Schizophrenia with several admission for psychotic agitation and violence, admitted for exacerbation of aggressive behavior and psychosis after lowering his Zyprexa. Plan: 1 Decrease Zyprexa to 5 mg po qhs- he will only accept this dosage and is angry about the increase on 12/28. 2. Gather collateral information Greater than 50% of the session was spent on counseling and/or coordination of care Reason for contiued inpatient stay Substantial Risk for: inability to function and rapid decompensation
[2020-12-31] MEDS: Omeprazole 20 MG CAPSULE.DR PO (06:10)
[2020-12-31] MEDS: Mesalamine 400 MG CAP.DRTAB. 800 MG PO ×3 (08:27→20:01)
[2020-12-31 08:29] VITALS: BP 143/96; PULSE 106; RESP 17; TEMP 36.6; O2SAT 98
--- NOTE | 2020-12-31 08:36 | HO.PSYCHPN ---
Subjective Subjective Date of Service: 12/31/20 Reason For Visit: Schizophrenia Interim History: The patient remains irritable. He didn't want to go back to Zyprexa 7.5 mg but he was disorganized and psychotic with 5 mg. We will contact his [facility] high risk case manager and ancillary support team. Over the weekend a peer was disruptive and he was angry and agitated but there was no need of PRN. He agreed to keep Zyprexa 5 mg on the meantime until we get collateral information from [facility]. Mental Status Exam Mental Status Exam Patient Appearance: Disheveled and Unkempt Patient Orientation: Person, Place, Time and Situation Level of Consciousness: Awake and Appropriate Patient Behavior: Suspicious Mood Description: Blunted and Angry Affect Description: Labile Patient Cognition Impaired: No Ability to Follow Directions: Fair Speech Pattern: Clear Memory Description: Intact Hallucinations: None Delusions: Not Present Thought Process: Evasive Thought Content: positive for Circumstantial Judgement: Poor Diagnostics Vital Signs (24Hr): Vital Signs - 24 hr 12/30/20 19:54 12/31/20 08:29 Temperature 97.8 F Pulse Rate 100 106 H Respiratory Rate 18 17 Blood Pressure 126/79 143/96 H Pulse Oximetry 98 98 Medications Medications Current Medications Generic Name Dose Route Start Last Admin Trade Name Freq PRN Reason Stop Dose Admin Acetaminophen 650 mg 12/27/20 19:10 Acetaminophen 325 Mg Tablet PO Q6H PRN Pain, Mild (Pain Scale 1-3) Docusate Sodium 100 mg 12/27/20 19:10 Docusate Sodium 100 Mg Capsule PO DAILY PRN Constipation Doxycycline Hyclate 100 mg 12/28/20 09:00 12/31/20 08:27 Doxycycline Hyclate 100 Mg Tablet PO 100 mg Q12H EVIN Administration Mesalamine 800 mg 12/27/20 21:00 12/31/20 08:27 Mesalamine 400 Mg Cap.Drtab. PO 800 mg TID EVIN Administration Non-Formulary Medication 1 appl 12/28/20 09:00 Clobetasol TOPICAL DAILY EVIN Olanzapine 5 mg 12/28/20 10:49 Olanzapine 5 Mg Tablet PO Q4H PRN Psychosis Olanzapine 5 mg 12/30/20 21:00 12/30/20 20:08 Olanzapine 5 Mg Tablet PO 5 mg BEDTIME EVIN Administration Omeprazole 20 mg 12/28/20 06:30 12/31/20 06:10 Omeprazole 20 Mg Capsule. PO 20 mg DAILY@0630 EVIN Administration Trolamine Salicylate/Aloe Vera 1 appl 12/28/20 20:44 12/28/20 21:51 Trolamine Salicylate 10%/Aloe Cream 35.4 Gm TOPICAL 1 appl QID PRN Administration Pain, Moderate (Pain Scale 4-6 Allergies Allergies Allergy/AdvReac Type Severity Reaction Status Date / Time aripiprazole [From Abilify] Allergy Unknown Unknown Verified 11/26/20 09:04 asenapine [From Saphris] Allergy Unknown Unknown Verified 11/26/20 09:04 ziprasidone [From Geodon] Allergy Unknown Unknown Verified 11/26/20 09:04 paliperidone [From Invega] Allergy Agitated Verified 12/17/20 10:22 Assessment & Plan Assessment & Plan (1) Schizophrenia: Qualifiers: Schizophrenia type: paranoid schizophrenia Qualified Code(s): F20.0 - Paranoid schizophrenia Status: Acute Code(s): F20.9 - Schizophrenia, unspecified Assessment and Plan: Young descendant male with Schizophrenia with several admission for psychotic agitation and violence, admitted for exacerbation of aggressive behavior and psychosis after lowering his Zyprexa. Plan: 1 Keep Zyprexa to 5 mg po qhs- he will only accept this dosage until we get collateral information. 2. Gather collateral information Greater than 50% of the session was spent on counseling and/or coordination of care Reason for contiued inpatient stay Substantial Risk for: harm to self, harm to others, inability to function, rapid decompensation and med/psych decompensation
[2020-12-31 18:00] VITALS: RESP 18
[2020-12-31] MEDS: OLANZapine 5 MG TABLET PO (20:01)
[2021-01-01] MEDS: Omeprazole 20 MG CAPSULE.DR PO (08:16)
[2021-01-01] MEDS: Mesalamine 400 MG CAP.DRTAB. 800 MG PO ×2 (08:18→14:34)
[2021-01-01 10:50] VITALS: BP 140/75; PULSE 106; O2SAT 93
--- NOTE | 2021-01-01 13:28 | HO.PSYCHPN ---
Subjective Subjective Date of Service: 01/01/21 Reason For Visit: Schizophrenia Interim History: The patient was active and attended groups but he seems internally preoccupied. He denies auditory hallucinations or delusions. He doesn't want to go back home yet. [facility] staff wanted him to go back to 7.5 mg but so far, he is stable at this dose. Medication Compliance: Yes Side effects from medications: No Attending Groups: Intermittent Mental Status Exam Mental Status Exam Patient Appearance: Disheveled Patient Orientation: Person, Place, Time and Situation Level of Consciousness: Awake Patient Behavior: Appropriate and Cooperative Mood Description: Constricted Affect Description: Constricted Patient Cognition Impaired: No Ability to Follow Directions: Good Speech Pattern: Clear Memory Description: Intact Hallucinations: None Delusions: Ideas of Reference Thought Process: Distracted Thought Content: positive for Poverty of Content and positive for Tangential Judgement: Fair Diagnostics Vital Signs (24Hr): Vital Signs - 24 hr 12/31/20 18:00 01/01/21 10:50 Pulse Rate 106 H Respiratory Rate 18 Blood Pressure 140/75 H Pulse Oximetry 93 Medications Medications Current Medications Generic Name Dose Route Start Last Admin Trade Name Freq PRN Reason Stop Dose Admin Acetaminophen 650 mg 12/27/20 19:10 Acetaminophen 325 Mg Tablet PO Q6H PRN Pain, Mild (Pain Scale 1-3) Docusate Sodium 100 mg 12/27/20 19:10 Docusate Sodium 100 Mg Capsule PO DAILY PRN Constipation Doxycycline Hyclate 100 mg 12/28/20 09:00 01/01/21 08:16 Doxycycline Hyclate 100 Mg Tablet PO 100 mg Q12H EVIN Administration Mesalamine 800 mg 12/27/20 21:00 01/01/21 08:18 Mesalamine 400 Mg Cap.Drtab. PO 800 mg TID EVIN Administration Non-Formulary Medication 1 appl 12/28/20 09:00 Clobetasol TOPICAL DAILY EVIN Olanzapine 5 mg 12/28/20 10:49 Olanzapine 5 Mg Tablet PO Q4H PRN Psychosis Olanzapine 5 mg 12/30/20 21:00 12/31/20 20:01 Olanzapine 5 Mg Tablet PO 5 mg BEDTIME EVIN Administration Omeprazole 20 mg 12/28/20 06:30 01/01/21 08:16 Omeprazole 20 Mg Capsule.Dr PO 20 mg DAILY@0630 EVIN Administration Trolamine Salicylate/Aloe Vera 1 appl 12/28/20 20:44 12/28/20 21:51 Trolamine Salicylate 10%/Aloe Cream 35.4 Gm TOPICAL 1 appl QID PRN Administration Pain, Moderate (Pain Scale 4-6 Allergies Allergies Allergy/AdvReac Type Severity Reaction Status Date / Time aripiprazole [From Abilify] Allergy Unknown Unknown Verified 11/26/20 09:04 asenapine [From Saphris] Allergy Unknown Unknown Verified 11/26/20 09:04 ziprasidone [From Geodon] Allergy Unknown Unknown Verified 11/26/20 09:04 paliperidone [From Invega] Allergy Agitated Verified 12/17/20 10:22 Assessment & Plan Assessment & Plan (1) Schizophrenia: Qualifiers: Schizophrenia type: paranoid schizophrenia Qualified Code(s): F20.0 - Paranoid schizophrenia Status: Acute Code(s): F20.9 - Schizophrenia, unspecified Assessment and Plan: Young descendant male with Schizophrenia with several admission for psychotic agitation and violence, admitted for exacerbation of aggressive behavior and psychosis after lowering his Zyprexa. Plan: 1 Keep Zyprexa to 5 mg po qhs- he will only accept this dosage until we get collateral information. 2. Gather collateral information Greater than 50% of the session was spent on counseling and/or coordination of care Reason for contiued inpatient stay Substantial Risk for: harm to others, inability to function, rapid decompensation and med/psych decompensation
[2021-01-01] MEDS: OLANZapine 5 MG TABLET PO (20:12)
[2021-01-01 22:51] VITALS: BP 167/93; PULSE 94; TEMP 36.6; O2SAT 99
[2021-01-02 08:13] VITALS: BP 136/96; PULSE 97; RESP 18; TEMP 36.4; O2SAT 97
--- NOTE | 2021-01-02 09:32 | HO.PSYCHPN ---
Subjective Subjective Date of Service: 01/02/21 Reason For Visit: Schizophrenia Interim History: The patient didn't have any more altercations in the unit, pleasant at times. He attended to a few groups Mental Status Exam Mental Status Exam Patient Appearance: Disheveled Patient Orientation: Person, Place, Time and Situation Level of Consciousness: Awake Patient Behavior: Restless Mood Description: Suspicious Affect Description: Labile Patient Cognition Impaired: No Ability to Follow Directions: Fair Speech Pattern: Clear and Includes Profanity Memory Description: Intact Hallucinations: None Delusions: Paranoid Ideation Thought Process: Evasive Thought Content: positive for Poverty of Content Judgement: Fair Diagnostics Vital Signs (24Hr): Vital Signs - 24 hr 01/01/21 10:50 01/01/21 22:51 01/02/21 08:13 Temperature 97.9 F 97.6 F Pulse Rate 106 H 94 97 Respiratory Rate 18 Blood Pressure 140/75 H 167/93 H 136/96 H Pulse Oximetry 93 99 97 Medications Medications Current Medications Generic Name Dose Route Start Last Admin Trade Name Freq PRN Reason Stop Dose Admin Acetaminophen 650 mg 12/27/20 19:10 Acetaminophen 325 Mg Tablet PO Q6H PRN Pain, Mild (Pain Scale 1-3) Docusate Sodium 100 mg 12/27/20 19:10 Docusate Sodium 100 Mg Capsule PO DAILY PRN Constipation Doxycycline Hyclate 100 mg 12/28/20 09:00 01/02/21 08:00 Doxycycline Hyclate 100 Mg Tablet PO 100 mg Q12H EVIN Administration Mesalamine 800 mg 12/27/20 21:00 01/02/21 08:12 Mesalamine 400 Mg Cap.Drtab. PO Not Given TID EVIN Non-Formulary Medication 1 appl 12/28/20 09:00 Clobetasol TOPICAL DAILY EVIN Olanzapine 5 mg 12/28/20 10:49 Olanzapine 5 Mg Tablet PO Q4H PRN Psychosis Olanzapine 5 mg 12/30/20 21:00 01/01/21 20:12 Olanzapine 5 Mg Tablet PO 5 mg BEDTIME EVIN Administration Omeprazole 20 mg 12/28/20 06:30 01/02/21 08:12 Omeprazole 20 Mg Capsule.Dr PO Not Given DAILY@0630 EVIN Trolamine Salicylate/Aloe Vera 1 appl 12/28/20 20:44 12/28/20 21:51 Trolamine Salicylate 10%/Aloe Cream 35.4 Gm TOPICAL 1 appl QID PRN Administration Pain, Moderate (Pain Scale 4-6 Allergies Allergies Allergy/AdvReac Type Severity Reaction Status Date / Time aripiprazole [From Abilify] Allergy Unknown Unknown Verified 11/26/20 09:04 asenapine [From Saphris] Allergy Unknown Unknown Verified 11/26/20 09:04 ziprasidone [From Geodon] Allergy Unknown Unknown Verified 11/26/20 09:04 paliperidone [From Invega] Allergy Agitated Verified 12/17/20 10:22 Assessment & Plan Assessment & Plan (1) Schizophrenia: Qualifiers: Schizophrenia type: paranoid schizophrenia Qualified Code(s): F20.0 - Paranoid schizophrenia Status: Acute Code(s): F20.9 - Schizophrenia, unspecified Assessment and Plan: Young descendant male with Schizophrenia with several admission for psychotic agitation and violence, admitted for exacerbation of aggressive behavior and psychosis after lowering his Zyprexa. Plan: 1 Keep Zyprexa to 5 mg po qhs- he will only accept this dosage until we get collateral information. 2. Gather collateral information Greater than 50% of the session was spent on counseling and/or coordination of care Reason for contiued inpatient stay Substantial Risk for: harm to self, harm to others, rapid decompensation and med/psych decompensation
--- NOTE | 2021-01-02 15:05 | P.CONIM_ITS ---
History of Present Illness Data of Consult Service Date: 01/02/21 Primary Care Provider: Unknown Physician HPI Reason for consult: BRBPR 25M recently discharged to inpatient psychiatry after admission for iron defeci ency anemia found to be due to colitis, UC vs infectious, was supposed to be on mesalamine, but is refusing, continues to have BRBPR. denies, fever, chills, sob, n/v. sob, chest pain. Review of Systems Review of Systems: Yes all other systems are reviewed and are negative [facility] Medical History Iron deficiency anemia Family History Father No problems noted. Mother No problems noted. Surgical History No pertinent past surgical history Social History Household Members: Other Household Members Other:: [facility] managed apartment Housing: Apartment Do you presently have visiting nurse or other home services: Yes Alcohol intake: never Patient Tobacco Use Status: Never used Tobacco Use of substances other than those prescribed or required for medical reasons: No Currently Displaying Signs/Symptoms of Drug Intoxication Withdrawal: No Have you been hit, kicked, punched, or otherwise hurt by someone within the past year? If so, by whom?: No Do you feel safe in your current relationship?: No Current Relationship Is there a partner from a previous relationship who is making you feel unsafe now?: No Are you made to feel afraid or neglected: No Spiritual Healthcare Practices: n/a Moravian Healthcare Practices: n/a Cultural Healthcare Practices: n/a Advance Directives: No Advance Directives Information Provided: No Do you have thoughts of harming others: None Do you have a plan to hurt others: No Plan Recently lost weight without trying: No Nutrition Risks: No Nutritional Risk Poor oral hygiene: No service: No Current occupational status: unemployed Sexual orientation: did not discuss Meds Allergies Allergy/AdvReac Type Severity Reaction Status Date / Time aripiprazole [From Abilify] Allergy Unknown Unknown Verified 11/26/20 09:04 asenapine [From Saphris] Allergy Unknown Unknown Verified 11/26/20 09:04 ziprasidone [From Geodon] Allergy Unknown Unknown Verified 11/26/20 09:04 paliperidone [From Invega] Allergy Agitated Verified 12/17/20 10:22 Active Medications: Current Medications Generic Name Dose Route Start Last Admin Trade Name Freq PRN Reason Stop Dose Admin Acetaminophen 650 mg 12/27/20 19:10 Acetaminophen 325 Mg Tablet PO Q6H PRN Pain, Mild (Pain Scale 1-3) Docusate Sodium 100 mg 12/27/20 19:10 Docusate Sodium 100 Mg Capsule PO DAILY PRN Constipation Doxycycline Hyclate 100 mg 12/28/20 09:00 01/02/21 08:00 Doxycycline Hyclate 100 Mg Tablet PO 100 mg Q12H EVIN Administration Mesalamine 800 mg 12/27/20 21:00 01/02/21 08:12 Mesalamine 400 Mg Cap.Drtab. PO Not Given TID EVIN Non-Formulary Medication 1 appl 12/28/20 09:00 Clobetasol TOPICAL DAILY EVIN Olanzapine 5 mg 12/28/20 10:49 Olanzapine 5 Mg Tablet PO Q4H PRN Psychosis Olanzapine 5 mg 12/30/20 21:00 01/01/21 20:12 Olanzapine 5 Mg Tablet PO 5 mg BEDTIME EVIN Administration Omeprazole 20 mg 12/28/20 06:30 01/02/21 08:12 Omeprazole 20 Mg Capsule.Dr PO Not Given DAILY@0630 [facility] Trolamine Salicylate/Aloe Vera 1 appl 12/28/20 20:44 12/28/20 21:51 Trolamine Salicylate 10%/Aloe Cream 35.4 Gm TOPICAL 1 appl QID PRN Administration Pain, Moderate (Pain Scale 4-6 Home Medications Medication Instructions Recorded Confirmed Last Taken Type olanzapine 5 mg tablet 5 mg PO BEDTIME 11/12/20 12/26/20 1 Day Ago History ~12/25/20 clobetasol 1 appl TOPICAL DAILY 12/17/20 12/26/20 Unknown History ketoconazole 1 appl TOPICAL DIRECTED 12/26/20 12/26/20 Unknown History Physical Exam Vital Signs and Narrative: Vital Signs: Last Vital Signs Temp 97.6 F 01/02/21 08:13 Pulse 97 01/02/21 08:13 Resp 18 01/02/21 08:13 BP 136/96 H 01/02/21 08:13 Pulse Ox 97 01/02/21 08:13 General: AO X 3, no acute distress Resp: CTA bilateral CVS: S1,S2,RRR GI: soft, non tender, non distended Neuro: motor grossly intact Psych: appropriate affect Assessment and Plan (1) GI bleed: Status: Acute 25m with brpbr brbpr due to colitis refusing mesalamine would get GI eval (dr ramirez)
[2021-01-02] MEDS: OLANZapine 5 MG TABLET PO (20:03)
[2021-01-02 21:26] VITALS: BP 117/66; PULSE 94; RESP 18; O2SAT 98
[2021-01-03 08:30] VITALS: BP 139/70; PULSE 103; RESP 17; TEMP 36.5; O2SAT 99
--- NOTE | 2021-01-03 13:48 | HO.PSYCHPN ---
Subjective Subjective Date of Service: 01/03/21 Reason For Visit: Schizophrenia Interim History: The patient attended groups, he was active in the unit, attended a couple of groups but he looks internally preoccupied and labile at times. He has refused his GI medications and had blood on stools so we called Dr. Jorgensen to assess him Mental Status Exam Mental Status Exam Patient Appearance: Disheveled Patient Orientation: Person, Place, Time and Situation Level of Consciousness: Awake Patient Behavior: Guarded Mood Description: Withdrawn Affect Description: Labile Patient Cognition Impaired: No Ability to Follow Directions: Good Speech Pattern: Clear Memory Description: Intact Hallucinations: None Delusions: Paranoid Ideation Thought Process: Distracted Thought Content: positive for Poverty of Content Judgement: Fair Diagnostics Vital Signs (24Hr): Vital Signs - 24 hr 01/02/21 21:26 Pulse Rate 94 Respiratory Rate 18 Blood Pressure 117/66 Pulse Oximetry 98 Medications Medications Current Medications Generic Name Dose Route Start Last Admin Trade Name Freq PRN Reason Stop Dose Admin Acetaminophen 650 mg 12/27/20 19:10 Acetaminophen 325 Mg Tablet PO Q6H PRN Pain, Mild (Pain Scale 1-3) Docusate Sodium 100 mg 12/27/20 19:10 Docusate Sodium 100 Mg Capsule PO DAILY PRN Constipation Doxycycline Hyclate 100 mg 12/28/20 09:00 01/03/21 07:59 Doxycycline Hyclate 100 Mg Tablet PO 100 mg Q12H EVIN Administration Mesalamine 800 mg 12/27/20 21:00 01/03/21 08:02 Mesalamine 400 Mg Cap.Drtab. PO Not Given TID EVIN Olanzapine 5 mg 12/28/20 10:49 Olanzapine 5 Mg Tablet PO Q4H PRN Psychosis Olanzapine 5 mg 12/30/20 21:00 01/02/21 20:03 Olanzapine 5 Mg Tablet PO 5 mg BEDTIME EVIN Administration Omeprazole 20 mg 12/28/20 06:30 01/03/21 08:02 Omeprazole 20 Mg Capsule.Dr PO Not Given DAILY@0630 EVIN Trolamine Salicylate/Aloe Vera 1 appl 12/28/20 20:44 12/28/20 21:51 Trolamine Salicylate 10%/Aloe Cream 35.4 Gm TOPICAL 1 appl QID PRN Administration Pain, Moderate (Pain Scale 4-6 Allergies Allergies Allergy/AdvReac Type Severity Reaction Status Date / Time aripiprazole [From Abilify] Allergy Unknown Unknown Verified 11/26/20 09:04 asenapine [From Saphris] Allergy Unknown Unknown Verified 11/26/20 09:04 ziprasidone [From Geodon] Allergy Unknown Unknown Verified 11/26/20 09:04 paliperidone [From Invega] Allergy Agitated Verified 12/17/20 10:22 Assessment & Plan Assessment & Plan (1) GI bleed: Status: Acute Code(s): K92.2 - Gastrointestinal hemorrhage, unspecified Assessment and Plan: 25m with brpbr brbpr due to colitis refusing mesalamine would get GI eval (dr jorgensen) (2) Schizophrenia: Qualifiers: Schizophrenia type: paranoid schizophrenia Qualified Code(s): F20.0 - Paranoid schizophrenia Status: Acute Code(s): F20.9 - Schizophrenia, unspecified Assessment and Plan: Young descendant male with Schizophrenia with a previous history of Schizophrenia, institutionalized. Plan: Keeps same treatment Greater than 50% of the session was spent on counseling and/or coordination of care Reason for contiued inpatient stay Substantial Risk for: inability to function, rapid decompensation and med/psych decompensation
[2021-01-03 18:00] VITALS: BP 123/78; PULSE 107; RESP 20; TEMP 36.8; O2SAT 97
[2021-01-03] MEDS: OLANZapine 5 MG TABLET PO (20:03)
--- NOTE | 2021-01-04 00:18 | CONS_ITS ---
DATE OF SERVICE: 01/03/2021 REFERRING PROVIDER: Dr. Earl. REASON FOR CONSULTATION: Colitis and gastritis. HISTORY OF PRESENT ILLNESS: The patient is a 25-year-old man, known to me from recent evaluation. He was hospitalized earlier in the month with iron-deficiency anemia and Hemoccult-positive stools. Because of upper GI symptoms and lower GI symptoms, he underwent upper endoscopy on December 27, which showed gastritis and colitis. Biopsies were remarkable for eroded antral type mucosa with chronic active inflammation and no H pylori. Colon biopsy showed mild to severely active colitis. Most activity was present in the rectum. The patient was prescribed mesalamine and omeprazole, which he stopped taking after 2 days because he said the mesalamine made his muscles ache, bones ache, and back ache. He continues to have hematochezia with his bowel movements. He denies abdominal pain. He has not had any hematemesis. He states his bowel movements are approximately 2 to 3 times per day as they were at baseline. PAST MEDICAL HISTORY: 1. Colitis and gastritis as above. 2. Iron-deficiency anemia. 3. Schizophrenia with depression. 4. Folliculitis. CURRENT MEDICATIONS: His current medication list is reviewed in the chart. ALLERGIES: THERE ARE MULTIPLE MEDICATION ALLERGIES THAT ARE REVIEWED. FAMILY HISTORY: This is reviewed with the patient. SOCIAL HISTORY: There is no current tobacco, alcohol, or substance abuse. He does not work. REVIEW OF SYSTEMS: This is not reliably obtainable. PHYSICAL EXAMINATION: GENERAL: Shows a pleasant male, lying on the hospital bed. He makes limited eye contact. VITAL SIGNS: Reviewed in the electronic medical record and are stable. SKIN: Anicteric. HEENT: Shows no scleral icterus. NECK: Without lymphadenopathy or thyromegaly. LUNGS: Clear. HEART: Shows regular rate and rhythm. S1, S2. No murmur. ABDOMEN: Soft without focal masses or tenderness. Bowel sounds are present. No organomegaly is noted. EXTREMITIES: Without edema. LABORATORY DATA: Includes a white blood cell count of 13 on December 27, hematocrit 28.9. Stool occult blood test was positive on December 26. Chemistries are unremarkable. IMPRESSION: 1. Gastritis. 2. Colitis. I did discuss with the patient the rationale for taking mesalamine, he continues to refuse this. At this point, I would recommend restarting this and not using an alternative means of treating the colitis as it is likely that prednisone would have significant psychiatric side effects and stronger immunosuppressive should not really be used until he has had a fair trial of mesalamine. I discussed with him that the side effects that he described are unusual with this medication as most of it is acting topically in the colon and very little is absorbed. I did recommend he restart at a lower dose such as 1 tablet 3 times daily or 2 tablets once a day, but he declined this as well. He did agree to take omeprazole for his gastritis. Thanks for asking me to see him. He can follow up as an outpatient. MD KATJA Ryan/DARLYN / [phone]
[2021-01-04] MEDS: Omeprazole 20 MG CAPSULE.DR PO (06:59)
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
[2021-01-04 20:05] VITALS: BP 138/92; PULSE 118; RESP 22; TEMP 36.5; O2SAT 98
[2021-01-04] MEDS: OLANZapine 5 MG TABLET PO (20:05)
[2021-01-05] MEDS: Omeprazole 20 MG CAPSULE.DR PO (08:00)
[2021-01-05 08:05] VITALS: BP 143/89; PULSE 122; RESP 17; TEMP 36.8; O2SAT 98
[2021-01-05] MEDS: OLANZapine 10 MG VIAL IM (13:00)
[2021-01-05] MEDS: LORazepam 2 MG/ML VIAL IM (13:00)
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
[2021-01-05] MEDS: LORazepam 1 MG TABLET 2 MG PO (14:24)
[2021-01-05] MEDS: chlorproMAZINE HCl 100 MG TABLET PO (14:24)
[2021-01-05 20:20] VITALS: BP 129/71; PULSE 134; RESP 18; O2SAT 97
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
[2021-01-06] MEDS: Omeprazole 20 MG CAPSULE.DR PO (08:06)
[2021-01-06 08:24] VITALS: BP 131/81; PULSE 128; RESP 18; TEMP 36.8; O2SAT 100
--- NOTE | 2021-01-06 14:47 | P.PNPSI_ITS ---
Subjective Subjective Date of Service: 01/06/21 Reason For Visit: Schizophrenia Interim History: No significant issues since yesterday. Is accepting medications. Is tachycardic. Slept well. Today seen in room. Reports no significant concerns. Not agitated. Did not discuss other peers on the unit appeared less paranoid. Regarding tachycardia, reports he has experienced that in the past and has been happening for months and states that it is related to his hemoglobin levels and are. Denies feeling lethargic, having any pain, dizziness or shortness of breath. Did not want any further evaluation or repeat vitals etc.. Medication Compliance: Yes Side effects from medications: No Review of Systems Review of Systems Tachycardia, reports he has experienced that in the past and has been happening for months and states that it is related to his hemoglobin levels and are. Denies feeling lethargic, having any pain, dizziness or shortness of breath Mental Status Exam Mental Status Exam Narrative: Seen in room. Denies feeling agitated or depressed. Appeared less guarded and paranoid. No agitation noted. No evidence of SI or HI. Insight and judgment still appears limited Diagnostics Vital Signs (24Hr): Vital Signs - 24 hr 01/05/21 20:20 01/06/21 08:24 Temperature 98.2 F Pulse Rate 134 H 128 H Respiratory Rate 18 18 Blood Pressure 129/71 131/81 Pulse Oximetry 97 100 Medications Medications Current Medications Generic Name Dose Route Start Last Admin Trade Name Freq PRN Reason Stop Dose Admin Acetaminophen 650 mg 12/27/20 19:10 Acetaminophen 325 Mg Tablet PO Q6H PRN Pain, Mild (Pain Scale 1-3) Docusate Sodium 100 mg 12/27/20 19:10 Docusate Sodium 100 Mg Capsule PO DAILY PRN Constipation Doxycycline Hyclate 100 mg 01/04/21 21:00 01/06/21 08:06 Doxycycline Hyclate 100 Mg Tablet PO 100 mg Q12H EVIN Administration Mesalamine 800 mg 12/27/20 21:00 01/06/21 08:10 Mesalamine 400 Mg Cap.Drtab. PO Not Given TID EVIN Olanzapine 5 mg 12/28/20 10:49 Olanzapine 5 Mg Tablet PO Q4H PRN Psychosis Olanzapine 5 mg 12/30/20 21:00 01/05/21 20:02 Olanzapine 5 Mg Tablet PO Not Given BEDTIME EVIN Omeprazole 20 mg 12/28/20 06:30 01/06/21 08:06 Omeprazole 20 Mg Capsule. PO 20 mg DAILY@0630 EVIN Administration Trolamine Salicylate/Aloe Vera 1 appl 12/28/20 20:44 12/28/20 21:51 Trolamine Salicylate 10%/Aloe Cream 35.4 Gm TOPICAL 1 appl QID PRN Administration Pain, Moderate (Pain Scale 4-6 Allergies Allergies Allergy/AdvReac Type Severity Reaction Status Date / Time aripiprazole [From Abilify] Allergy Unknown Unknown Verified 11/26/20 09:04 asenapine [From Saphris] Allergy Unknown Unknown Verified 11/26/20 09:04 ziprasidone [From Geodon] Allergy Unknown Unknown Verified 11/26/20 09:04 paliperidone [From Invega] Allergy Agitated Verified 12/17/20 10:22 Assessment & Plan Assessment & Plan (1) GI bleed: Status: Acute Code(s): K92.2 - Gastrointestinal hemorrhage, unspecified Assessment and Plan: 25m with brpbr brbpr due to colitis refusing mesalamine would get GI eval (dr ramirez) (2) Schizophrenia: Qualifiers: Schizophrenia type: paranoid schizophrenia Qualified Code(s): F20.0 - Paranoid schizophrenia Status: Acute Code(s): F20.9 - Schizophrenia, unspecified Assessment and Plan: No changes to current regimen. Did appear despondent responded to Thorazine and and perhaps Ativan when agitated on 01/05/2021, should this happen again in the future. Plan: primary team to review with patient and community providers around current [facility] order and adjusting medications a scheduled basis. Greater than 50% of the session was spent on counseling and/or coordination of care Reason for contiued inpatient stay Substantial Risk for: harm to others and rapid decompensation
[2021-01-06 19:45] VITALS: BP 134/88; PULSE 125; RESP 18; TEMP 37.3; O2SAT 94
[2021-01-06] MEDS: OLANZapine 5 MG TABLET PO (20:10)
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
[2021-01-07 16:40] VITALS: BP 127/66; PULSE 113; TEMP 36.6
[2021-01-07] MEDS: OLANZapine 7.5 MG TABLET PO (19:54)
[2021-01-08 08:33] VITALS: BP 138/83; PULSE 122; RESP 16; TEMP 36.5; O2SAT 100
--- NOTE | 2021-01-08 12:27 | P.PNPSI_ITS ---
Subjective Subjective Date of Service: 01/08/21 Reason For Visit: Schizophrenia Interim History: The patietn denies new symptoms, labiel and upset since he was transferred to due to aggressive behavior. Still labile and angry , disorganized at itmes Medication Compliance: Yes Side effects from medications: No Attending Groups: No Mental Status Exam Mental Status Exam Patient Appearance: Inappropriate and Unkempt Patient Orientation: Person, Place, Time and Situation Level of Consciousness: Awake Patient Behavior: Passive and Suspicious Mood Description: Constricted Affect Description: Withdrawn and Hostile Patient Cognition Impaired: No Ability to Follow Directions: Good Speech Pattern: Clear Hallucinations: None Delusions: Paranoid Ideation Thought Process: Intact Thought Content: positive for Circumstantial and positive for Poverty of Content Depressive Symptoms: Increased Anxiety Judgement: Poor Diagnostics Vital Signs (24Hr): Vital Signs - 24 hr 01/07/21 16:40 01/08/21 08:33 Temperature 98 F 97.7 F Pulse Rate 113 H 122 H Respiratory Rate 16 Blood Pressure 127/66 138/83 Pulse Oximetry 100 Medications Medications Current Medications Generic Name Dose Route Start Last Admin Trade Name Freq PRN Reason Stop Dose Admin Acetaminophen 650 mg 12/27/20 19:10 Acetaminophen 325 Mg Tablet PO Q6H PRN Pain, Mild (Pain Scale 1-3) Docusate Sodium 100 mg 12/27/20 19:10 Docusate Sodium 100 Mg Capsule PO DAILY PRN Constipation Doxycycline Hyclate 100 mg 01/08/21 08:00 01/08/21 08:08 Doxycycline Hyclate 100 Mg Tablet PO 100 mg Q12H EVIN Administration Mesalamine 800 mg 12/27/20 21:00 01/08/21 08:09 Mesalamine 400 Mg Cap.Drtab. PO Not Given TID EVIN Olanzapine 5 mg 12/28/20 10:49 Olanzapine 5 Mg Tablet PO Q4H PRN Psychosis Olanzapine 7.5 mg 01/07/21 21:00 01/07/21 19:54 Olanzapine 7.5 Mg Tablet PO 7.5 mg BEDTIME EVIN Administration Omeprazole 20 mg 12/28/20 06:30 01/08/21 08:09 Omeprazole 20 Mg Capsule.Dr PO Not Given DAILY@0630 EVIN Trolamine Salicylate/Aloe Vera 1 appl 12/28/20 20:44 12/28/20 21:51 Trolamine Salicylate 10%/Aloe Cream 35.4 Gm TOPICAL 1 appl QID PRN Administration Pain, Moderate (Pain Scale 4-6 Allergies Allergies Allergy/AdvReac Type Severity Reaction Status Date / Time aripiprazole [From Abilify] Allergy Unknown Unknown Verified 11/26/20 09:04 asenapine [From Saphris] Allergy Unknown Unknown Verified 11/26/20 09:04 ziprasidone [From Geodon] Allergy Unknown Unknown Verified 11/26/20 09:04 paliperidone [From Invega] Allergy Agitated Verified 12/17/20 10:22 Assessment & Plan Assessment & Plan (1) GI bleed: Status: Acute Code(s): K92.2 - Gastrointestinal hemorrhage, unspecified Assessment and Plan: 25m with brpbr brbpr due to colitis refusing mesalamine would get GI eval (dr ramirez) (2) Schizophrenia: Qualifiers: Schizophrenia type: paranoid schizophrenia Qualified Code(s): F20.0 - Paranoid schizophrenia Status: Acute Code(s): F20.9 - Schizophrenia, unspecified Assessment and Plan: No changes to current regimen. Did appear despondent responded to Thorazine and and perhaps Ativan when agitated on 01/05/2021, should this happen again in the future. Plan: primary team to review with patient and community providers around current [facility] order and adjusting medications a scheduled basis. Greater than 50% of the session was spent on counseling and/or coordination of care Reason for contiued inpatient stay Substantial Risk for: harm to others, inability to function, rapid decompensation and med/psych decompensation
[2021-01-08 17:32] VITALS: BP 121/84; PULSE 111; TEMP 36.2; O2SAT 97
[2021-01-08] MEDS: OLANZapine 7.5 MG TABLET PO (20:01)
[2021-01-09 06:00] VITALS: BP 128/61; PULSE 85; RESP 16; TEMP 36.4; O2SAT 97
--- NOTE | 2021-01-09 14:18 | HO.PSYCHPN ---
Subjective Subjective Date of Service: 01/09/21 Reason For Visit: Schizophrenia Interim History: The patient denies new symptoms, no behavioral disturbances, slightly oversedated with Zyprexa 7.5 mg Medication Compliance: Yes Side effects from medications: Yes (oversedation) Attending Groups: No Mental Status Exam Mental Status Exam Patient Appearance: Fatigued and Disheveled Patient Orientation: Person, Place, Time and Situation Level of Consciousness: Awake Patient Behavior: Cooperative Mood Description: Calm and Withdrawn Affect Description: Constricted Patient Cognition Impaired: No Ability to Follow Directions: Good Speech Pattern: Clear Memory Description: Intact Hallucinations: None Delusions: Paranoid Ideation Thought Process: Goal Oriented Thought Content: positive for Poverty of Content Judgement: Fair Diagnostics Vital Signs (24Hr): Vital Signs - 24 hr 01/08/21 17:32 01/09/21 06:00 Temperature 97.1 F 97.6 F Pulse Rate 111 H 85 Respiratory Rate 16 Blood Pressure 121/84 128/61 Pulse Oximetry 97 97 Medications Medications Current Medications Generic Name Dose Route Start Last Admin Trade Name Freq PRN Reason Stop Dose Admin Acetaminophen 650 mg 12/27/20 19:10 Acetaminophen 325 Mg Tablet PO Q6H PRN Pain, Mild (Pain Scale 1-3) Docusate Sodium 100 mg 12/27/20 19:10 Docusate Sodium 100 Mg Capsule PO DAILY PRN Constipation Doxycycline Hyclate 100 mg 01/08/21 08:00 01/09/21 08:28 Doxycycline Hyclate 100 Mg Tablet PO 100 mg Q12H EVIN Administration Mesalamine 800 mg 12/27/20 21:00 01/09/21 08:55 Mesalamine 400 Mg Cap.Drtab. PO Not Given TID EVIN Olanzapine 5 mg 12/28/20 10:49 Olanzapine 5 Mg Tablet PO Q4H PRN Psychosis Olanzapine 7.5 mg 01/07/21 21:00 01/08/21 20:01 Olanzapine 7.5 Mg Tablet PO 7.5 mg BEDTIME EVIN Administration Omeprazole 20 mg 12/28/20 06:30 01/09/21 08:29 Omeprazole 20 Mg Capsule.Dr PO Not Given DAILY@0630 EVIN Trolamine Salicylate/Aloe Vera 1 appl 12/28/20 20:44 12/28/20 21:51 Trolamine Salicylate 10%/Aloe Cream 35.4 Gm TOPICAL 1 appl QID PRN Administration Pain, Moderate (Pain Scale 4-6 Allergies Allergies Allergy/AdvReac Type Severity Reaction Status Date / Time aripiprazole [From Abilify] Allergy Unknown Unknown Verified 11/26/20 09:04 asenapine [From Saphris] Allergy Unknown Unknown Verified 11/26/20 09:04 ziprasidone [From Geodon] Allergy Unknown Unknown Verified 11/26/20 09:04 paliperidone [From Invega] Allergy Agitated Verified 12/17/20 10:22 Assessment & Plan Assessment & Plan (1) GI bleed: Status: Acute Code(s): K92.2 - Gastrointestinal hemorrhage, unspecified Assessment and Plan: 26m with brpbr brbpr due to colitis refusing mesalamine would get GI eval (dr ramirez) (2) Schizophrenia: Qualifiers: Schizophrenia type: paranoid schizophrenia Qualified Code(s): F20.0 - Paranoid schizophrenia Status: Acute Code(s): F20.9 - Schizophrenia, unspecified Assessment and Plan: No changes to current regimen. Did appear despondent responded to Thorazine and and perhaps Ativan when agitated on 01/05/2021, should this happen again in the future. Plan: primary team to review with patient and community providers around [facility] and adjusting medications a scheduled basis. Greater than 50% of the session was spent on counseling and/or coordination of care Reason for contiued inpatient stay Substantial Risk for: rapid decompensation and med/psych decompensation
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
[2021-01-09 18:00] VITALS: BP 156/65; PULSE 109; RESP 18; TEMP 36.3; O2SAT 97
[2021-01-09] MEDS: OLANZapine 7.5 MG TABLET PO (20:15)
--- NOTE | 2021-01-10 10:19 | PC.NURSE ---
PT VERBALIZES FEELING SAFE. PT DENIES URGES TO HARM HIMSELF OR OTHERS. HE APPEARS TO BE RESPONDING TO INTERNAL STIMULI BUT IT IS IMPROVING. PT IS ONLY TAKING ONE OF HIS MEDICATIONS. PT HAS BEEN IN BEHAVIORAL CONTROL. HE HAS BEEN VISIBLE ON THE UNIT AND SOCIAL WITH PEERS. PT IS GOAL ORIENTED. HE DENIES ANY CURRENT DEPRESSION OR ANXIETY. PT DENIES ANY AUDITORY OR VISUAL HALLUCINATIONS BUT HAS BEEN SEEN TALKING TO/LAUGHING TO SELF. PT IS EATING AND SLEEPING ADEQUATELY. HE IS ATTENDING TO HIS ADLS. PT HAS BEEN ATTENDING SOME GROUPS. PTS PAPERWORK WILL BE FAXED TO PROVIDERS PER PROTOCOL.
--- NOTE | 2021-01-10 10:44 | HO.PSYCHPN ---
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 Beavers who has scheduled patient for discharge today. Patient seems detached, but denies any SI or HI. He also denies auditory hallucinations. He says he is safe and feels ready for discharge. Diagnostics Vital Signs (24Hr): Vital Signs - 24 hr 01/09/21 18:00 Temperature 97.3 F Pulse Rate 109 H Respiratory Rate 18 Blood Pressure 156/65 H Pulse Oximetry 97 Medications Medications Current Medications Generic Name Dose Route Start Last Admin Trade Name Freq PRN Reason Stop Dose Admin Acetaminophen 650 mg 12/27/20 19:10 Acetaminophen 325 Mg Tablet PO Q6H PRN Pain, Mild (Pain Scale 1-3) Docusate Sodium 100 mg 12/27/20 19:10 Docusate Sodium 100 Mg Capsule PO DAILY PRN Constipation Doxycycline Hyclate 100 mg 01/08/21 08:00 01/10/21 08:05 Doxycycline Hyclate 100 Mg Tablet PO 100 mg Q12H EVIN Administration Mesalamine 800 mg 12/27/20 21:00 01/10/21 08:07 Mesalamine 400 Mg Cap.Drtab. PO Not Given TID EVIN Olanzapine 5 mg 12/28/20 10:49 Olanzapine 5 Mg Tablet PO Q4H PRN Psychosis Olanzapine 7.5 mg 01/07/21 21:00 01/09/21 20:15 Olanzapine 7.5 Mg Tablet PO 7.5 mg BEDTIME EVIN Administration Omeprazole 20 mg 12/28/20 06:30 01/10/21 08:07 Omeprazole 20 Mg Capsule.Dr PO Not Given DAILY@0630 EVIN Trolamine Salicylate/Aloe Vera 1 appl 12/28/20 20:44 12/28/20 21:51 Trolamine Salicylate 10%/Aloe Cream 35.4 Gm TOPICAL 1 appl QID PRN Administration Pain, Moderate (Pain Scale 4-6 Allergies Allergies Allergy/AdvReac Type Severity Reaction Status Date / Time aripiprazole [From Abilify] Allergy Unknown Unknown Verified 11/26/20 09:04 asenapine [From Saphris] Allergy Unknown Unknown Verified 11/26/20 09:04 ziprasidone [From Geodon] Allergy Unknown Unknown Verified 11/26/20 09:04 paliperidone [From Invega] Allergy Agitated Verified 12/17/20 10:22 Assessment & Plan Assessment & Plan (1) GI bleed: Status: Acute Code(s): K92.2 - Gastrointestinal hemorrhage, unspecified Assessment and Plan: 26m with brpbr brbpr due to colitis refusing mesalamine would get GI eval (dr ramirez) (2) Schizophrenia: Qualifiers: Schizophrenia type: paranoid schizophrenia Qualified Code(s): F20.0 - Paranoid schizophrenia Status: Acute Code(s): F20.9 - Schizophrenia, unspecified Assessment and Plan: No changes to current regimen. Did appear despondent responded to Thorazine and and perhaps Ativan when agitated on 01/05/2021, should this happen again in the future. Plan: primary team to review with patient and community providers around current [facility] order and adjusting medications a scheduled basis. Greater than 50% of the session was spent on counseling and/or coordination of care Reason for contiued inpatient stay Substantial Risk for: stable for discharge
== END 2021-01-10 13:07 | disposition home or self-care (01) | DRG 750 ==
LOC: HO.PADLT16 01-05 00:15 → HO.PM5 01-07 14:02
PROVIDERS: Admitting Provider Psychiatry & Neurology Psychiatry; Visit Provider Psychiatry & Neurology Psychiatry
DX: F20.0 Paranoid schizophrenia (principal); K29.71 Gastritis, unspecified, with bleeding; K52.9 Noninfective gastroenteritis and colitis, unspecified; Z91.14 Patient's other noncompliance with medication regimen; Z79.899 Other long term (current) drug therapy
CPT/HCPCS: J2060

== ENCOUNTER 2021-01-24 07:55 | Outpatient (REF) | payer OTHER, SELFPAY | END 2021-01-24 07:56 | disposition home or self-care (01) | LOC: HO.MDS 07:55 | PROVIDERS: PCP Physician Assistant; Visit Provider Internal Medicine | DX: D50.9 Iron deficiency anemia, unspecified (principal) | CPT/HCPCS: 96365; 96366; J1200; J1750; Q0163 ==

== ENCOUNTER 2021-04-15 22:13 | Inpatient (IN) | payer OTHER, SELFPAY ==
--- NOTE | ~2021-04-15 | CT_ITS ---
EXAMINATION: NONCONTRAST HEAD CT NONCONTRAST FACIAL BONES CT INDICATION INFORMATION: Head trauma, facial swelling COMPARISON: 08/18/2012 TECHNIQUE: Separate noncontrast CT examinations of the head and maxillofacial bones were performed. Coronal and sagittal images were created for each examination at the technologist workstation. DOSE LOWERING TECHNIQUES: This CT examination was performed using dose optimization techniques as appropriate, variously including the following: - Automated exposure control - Adjustment of mA and/or kV according to patient size (this includes techniques or standardized protocols for targeted exams were dose is matched to indication/reason for exam; i.e. extremities or head) - Use of iterative reconstruction technique DLP: 1367 mGy-cm FINDINGS: Head: There is no evidence of acute intracranial hemorrhage or territorial infarction. No abnormal mass-effect or midline shift is seen. Barraza to white matter differentiation is well preserved. No extra-axial fluid collections are identified. The ventricles are normal in size. Small peripheral calcification in the left middle cranial fossa is unchanged, suggestive of a small meningioma. There is no abnormal attenuation within the brain parenchyma. The osseous structures and soft tissues are normal. The mastoid air cells are well aerated. Maxillofacial: No acute maxillofacial fractures are seen. Subcutaneous edema is noted bilaterally overlying the zygomaticomaxillary regions. The frontal, maxillary, ethmoid, and sphenoid sinuses are well aerated. The uncinate process is normal bilaterally. The infundibula and middle meati are patent. The nasal septum is midline. The mandibular condyles are well-seated in the condylar fossa. The orbits demonstrate a normal appearance bilaterally. The globes are intact, and there are no suspicious findings to suggest retrobulbar hemorrhage. CT/CT facial bones wo con IMPRESSION: No acute intracranial findings. No facial fracture identified. Bilateral facial edema along the zygomaticomaxillary regions.
[2021-04-15 22:26] VITALS: BP 106/70; PULSE 74; RESP 18; TEMP 36.5; O2SAT 96; BMI 30.4
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
[2021-04-15 23:13] LABS: COVID-19 Test Negative (Negative)
--- NOTE | 2021-04-16 | ECG_ITS ---
Test Reason : MED CLEARANCE Blood Pressure : / mmHG Vent. Rate : 058 BPM Atrial Rate : 058 BPM P-R Int : 138 ms QRS Dur : 082 ms QT Int : 382 ms P-R-T Axes : 048 049 039 degrees QTc Int : 374 ms Sinus bradycardia Otherwise normal ECG No previous ECGs available Referred By: Elizabeth Us Electronically Signed By:HUSAM ACEVEDO
[2021-04-16 00:24] LABS: Basophils Percent Auto 0.5 % (0-2); Imm Gran Abs Auto 0.01 X10*3/uL (0.00-0.03); Imm Gran Pct Auto 0.2 % (0.0-0.4); Monocytes Absolute Auto 0.6 X10*3/uL (0.1-1.2); Red Cell Distribution Width 21.9 % (11.0-16.0); SCAN SMEAR FLAG 1
[2021-04-16 00:25] LABS: Eosinophils Absolute Auto 0.6 X10*3/uL (0.0-0.4); Eosinophils Percent Auto 11.3 % (0-4); Hematocrit 40.3 % (42-52); Hemoglobin 12.6 g/dl (14.0-18.0); Lymphocytes Percent Auto 35.6 % (20-40); Mean Corpuscular HGB Conc 31.3 g/dl (31.0-36.0); Mean Corpuscular Hemoglobin 23.4 pg (27.0-33.0); Mean Corpuscular Volume 74.9 fL (80-98); Monocytes Percent Auto 10.8 % (2-11); Neutrophils Absolute Auto 2.4 X10*3/uL (2.0-8.3); Neutrophils Percent Auto 41.6 % (45-73); Platelet Count 304 X10*3/uL (160-400); Red Blood Count 5.38 X10*6/uL (4.60-5.80); White Blood Count 5.7 X10*3/uL (4.8-10.8)
[2021-04-16 00:27] LABS: PLT ABN DIST 1
[2021-04-16 00:28] LABS: MANUAL DIFF FLAG NO
[2021-04-16 00:34] LABS: Ethanol < 10 mg/dL
[2021-04-16 00:38] LABS: Alanine Aminotransferase 27 U/L (0-40); Albumin Level 3.9 g/dL (3.5-5.0); Alkaline Phosphatase 99 U/L (39-117); Anion Gap 11 (12-20); Aspartate Amino Transferase 21 U/L (5-37); Bilirubin Direct < 0.2 mg/dL (0.0-0.5); Bilirubin Total 0.5 mg/dL (0.0-1.0); Blood Urea Nitrogen 4 mg/dL (9-16); Calcium 9.2 mg/dL (8.4-10.2); Carbon Dioxide 22 mmol/L (22-29); Chloride 109 mmol/L (96-108); Creatinine Clr Calc Pharmacy 113.7; Estimated Glomerular Filt Rate > 60; Glucose Random 93 mg/dL (60-115); Sodium 138 mmol/L (135-145); Total Protein 6.4 g/dL (6.5-8.0)
[2021-04-16 01:44] LABS: Amphetamine Screen Urine Not Detected (Not Detect); Barbiturates, Urine Not Detected (Not Detect); Benzodiazepines Screen Urine Not Detected (Not Detect); Cannabinoid Screen Urine Not Detected (Not Detect); Cocaine Screen Urine Not Detected (Not Detect); Fentanyl, urine Not Detected (Not Detect); Opiate Screen Urine Not Detected (Not Detect); Phencyclidine Screen Urine Not Detected (Not Detect)
--- NOTE | 2021-04-16 06:18 | PC.NURSE ---
Patient slept through the night, no distress observed/reported, patient is up to date on his medication, behavior appropriate, patient was very engaged with [facility] patient's disposition per [facility] is section 12 inpatient bed search, will continue to monitor.
[2021-04-16 06:46] VITALS: RESP 17
--- NOTE | 2021-04-16 07:11 | PC.NURSE ---
patient appears to remain at rest at present respirations are even and unlabored, patient appears in no distress.
[2021-04-16] MEDS: Sulfamethox/Trimeth 800/160 TABLET 1 TAB PO ×2 (08:01→20:00)
[2021-04-16] MEDS: Ferrous Sulfate 324 MG TABLET.DR PO ×2 (08:02→20:00)
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
[2021-04-16] MEDS: OLANZapine 7.5 MG TABLET PO (20:00)
--- NOTE | 2021-04-16 20:03 | PC.NURSE ---
Patient compliant with his nighttime medication, behavior calm and quiet, no distress observed/reported, will continue to monitor.
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
[2021-04-16] MEDS: Haloperidol Lactate 5 MG/ML VIAL 10 MG IM (23:25)
[2021-04-16] MEDS: Benztropine Mesylate 2 MG/2 ML VIAL 1 MG IM (23:25)
[2021-04-16] MEDS: LORazepam 2 MG/ML VIAL IM (23:25)
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
[2021-04-16] MEDS: traZODone HCL 50 MG TABLET PO (23:54)
[2021-04-17 02:55] VITALS: BP 128/74; PULSE 82; RESP 16; TEMP 36.5; O2SAT 98
[2021-04-17] MEDS: Ferrous Sulfate 324 MG TABLET.DR PO ×2 (09:03→20:09)
[2021-04-17] MEDS: Sulfamethox/Trimeth 800/160 TABLET 1 TAB PO ×2 (09:03→20:09)
[2021-04-17] MEDS: QUEtiapine Fumarate 50 MG TABLET PO (09:03)
[2021-04-17] MEDS: OLANZapine 7.5 MG TABLET 15 MG PO (11:07)
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
--- NOTE | 2021-04-17 17:27 | HO.PM.IMCN ---
History of Present Illness Data of Consult Service Date: 04/17/21 Primary Care Provider: Unknown Physician HPI Reason for consult: Med management 25-year-old male with known schizophrenia admitted to the psychiatric unit for med titration. No acute medical issues. Review of Systems Review of Systems: Denies chest pain Denies shortness of breath Denies nausea vomiting PMFSH Medical History Iron deficiency anemia Family History Father No problems noted. Mother No problems noted. Pertinent family history: none Surgical History No pertinent past surgical history Social History Household Members: None Household Members Other:: [facility] managed apartment Housing: Apartment Do you presently have visiting nurse or other home services: No Alcohol intake: never Patient Tobacco Use Status: Never used Tobacco Smoked in Last 30 Days: No Patient Interested in Nicotine Replacement: No Patient Given Instructions on How to Stop Smoking: No Second Hand Smoke Exposure: No Use of substances other than those prescribed or required for medical reasons: No Currently Displaying Signs/Symptoms of Drug Intoxication Withdrawal: No Any prior treatment program specific to substance use: No Have you been hit, kicked, punched, or otherwise hurt by someone within the past year? If so, by whom?: No Do you feel safe in your current relationship?: No Current Relationship Is there a partner from a previous relationship who is making you feel unsafe now?: No Are you made to feel afraid or neglected: No Advance Directives: No Advance Directives Information Provided: No Advance Directives on File: No Do you have thoughts of harming others: Frequent Do you have a plan to hurt others: No Plan Recently lost weight without trying: No Eating poorly because of decreased appetite: No Poor oral hygiene: No service: No Current occupational status: unemployed Sexual orientation: did not discuss Meds Allergies Allergy/AdvReac Type Severity Reaction Status Date / Time aripiprazole [From Abilify] Allergy Unknown Unknown Verified 01/23/21 11:53 asenapine [From Saphris] Allergy Unknown Unknown Verified 01/23/21 11:53 ziprasidone [From Geodon] Allergy Unknown Unknown Verified 01/23/21 11:53 paliperidone [From Invega] Allergy Agitated Verified 01/23/21 11:53 Active Medications: Current Medications Acetaminophen (Acetaminophen 325 Mg Tablet) 650 mg PO Q6H PRN PRN Reason: Headache/Pain Mild Scale (1-3) Al Hydroxide/Mg Hydroxide (Magnesium Hydrox/Alum Hydrox 30 Ml Oral.Susp) 30 ml PO Q6H PRN PRN Reason: Heartburn/Nausea Benztropine Mesylate (Benztropine Mesylate 1 Mg Tablet) 1 mg PO BID PRN PRN Reason: EPS Ferrous Sulfate (Ferrous Sulfate 324 Mg Tablet.) 324 mg PO BID [facility] Last Admin: 04/17/21 09:03 Dose: 324 mg Documented by: Haloperidol (Haloperidol 5 Mg Tablet) 5 mg PO Q4H PRN PRN Reason: psychotic agitation Hydroxyzine HCl (Hydroxyzine Hcl 25 Mg Tablet) 25 mg PO BEDTIME PRN PRN Reason: Anxiety Lorazepam (Lorazepam 1 Mg Tablet) 1 mg PO Q4H PRN PRN Reason: agitation, anxiety Magnesium Hydroxide (Milk Of Magnesia 30 Ml Oral.Susp) 30 ml PO DAILY PRN PRN Reason: Constipation Olanzapine (Olanzapine 5 Mg Tablet) 5 mg PO BEDTIME [facility] Quetiapine Fumarate (Quetiapine Fumarate 50 Mg Tablet) 50 mg PO Q4H PRN PRN Reason: agitation Last Admin: 04/17/21 09:03 Dose: 50 mg Documented by: Trazodone HCl (Trazodone Hcl 50 Mg Tablet) 50 mg PO BEDTIME PRN PRN Reason: Insomnia Last Admin: 04/16/21 23:54 Dose: 50 mg Documented by: Trimethoprim/Sulfamethoxazole (Sulfamethox/Trimeth 800/160 Tablet) 1 tab PO BID [facility] Last Admin: 04/17/21 09:03 Dose: 1 tab Documented by: Home Medications Medication Instructions Recorded Confirmed Last Taken Type ketoconazole 2 % shampoo 1 appl TOPICAL DIRECTED 12/26/20 03/18/21 Unknown History betamethasone dipropionate 0.05 % 1 appl TOPICAL NEEDED 03/18/21 03/18/21 Unknown History topical cream ferrous sulfate 325 mg (65 mg 1 tab PO BID 04/15/21 04/15/21 04/15/21 21:00 History iron) tablet,delayed release olanzapine 7.5 mg tablet 1 tab PO BEDTIME 04/15/21 04/15/21 Unknown History sulfamethoxazole 800 1 tab PO BID 04/15/21 04/15/21 04/15/21 21:00 History mg-trimethoprim 160 mg tablet Physical Exam Vital Signs and Narrative: Vital Signs: Last Vital Signs Temp 97.7 F 04/17/21 02:55 Pulse 82 04/17/21 02:55 Resp 16 04/17/21 02:55 BP 128/74 04/17/21 02:55 Pulse Ox 98 04/17/21 02:55 Body Mass Index 30.4 Const: General: no acute distress HENMT: Other: Membranes moist Resp: Auscultation: clear to auscultation bilaterally, no rales, no rhonchi and no wheezes Cardio: Rate: regular rate Rhythm: regular rhythm Heart sounds: S1 normal heart sound present, S2 normal heart sound present and no murmurs GI: Other: Soft nontender nondistended with normoactive bowel sounds Neuro: Other: Age-appropriate nonfocal Extrem: General: Yes normal to inspection Results Labs CBC and Chem 7: 04/16/21 00:11 04/16/21 00:12 Assessment and Plan (1) Schizophrenia: Status: Acute No acute medical issues. Will follow on p.r.n. basis. Call if issues arise
[2021-04-17] MEDS: OLANZapine 5 MG TABLET PO (20:09)
[2021-04-18 06:00] VITALS: BP 128/67; PULSE 98; TEMP 36.2
[2021-04-18 07:00] VITALS: BMI 36.1
[2021-04-18] MEDS: QUEtiapine Fumarate 50 MG TABLET PO (08:34)
[2021-04-18] MEDS: Sulfamethox/Trimeth 800/160 TABLET 1 TAB PO ×2 (08:34→20:01)
[2021-04-18] MEDS: Ferrous Sulfate 324 MG TABLET.DR PO ×2 (08:34→20:02)
[2021-04-18] MEDS: OLANZapine 10 MG TABLET PO ×2 (10:16→20:02)
[2021-04-18] MEDS: Magnesium Hydrox/Alum Hydrox 30 ML ORAL.SUSP PO (17:06)
[2021-04-18 18:00] VITALS: BP 104/59; PULSE 83; TEMP 36.5
--- NOTE | 2021-04-18 21:19 | P.PNPSI_ITS ---
Subjective Subjective Date of Service: 04/18/21 Reason For Visit: Schizophrenia, Antisocial traits Subjective Notes: Conditional Voluntary Healthcare Proxy: No Guardianship: No Medical Problems Affecting Mental Status: No Interim History: Pt able to meet with tw and Timym CHRISTINE. Reflects that he is unsure what happened but knew he needed to come into hospital given the feelings he was experiencing-feeling like hurting self and others. States he believes his life to be going well-comfortable in his home-new pet snake that he enjoys but worries about care while he is in hospital-will ask [facility] to help with his care, named Brielle . Concerned about antibiotics given by dermatology that he needs to continue-reviewed ongoing order with pt. States these are for treatment of folliculitis. Today, denies active sx of SI, suicidality, homicidality, psychosis-tolerating regime at this time. Medication Compliance: Yes Side effects from medications: No Attending Groups: No Review of Systems Acute medical concerns: No Medical Review of Systems: unchanged Review of Systems Reports behavioral changes Psychiatric: Reports behavioral changes, Reports homicidal ideation (denies) and Reports suicidal ideation (denies) Mental Status Exam Mental Status Exam Patient Appearance: Fatigued and Appropriate Patient Orientation: Person, Place and Situation Level of Consciousness: Alert Patient Behavior: Talkative, Fatigued, Isolative and Good Eye Contact Mood Description: Flat Affect Description: Flat Patient Cognition Impaired: No Ability to Follow Directions: Good Speech Pattern: Spontaneous Speech Memory Description: Remote Impaired and Episodic Impaired Hallucinations: None (denies, but questionable) Thought Process: Goal Oriented Thought Content: positive for Suicidal Ideation (denies) and positive for Homic idal Ideation (denies) Depressive Symptoms: Diff. Making Decisions, Increased Fatigue, Loss of Energy and Difficulty Concentrating Judgement: Fair Diagnostics Vital Signs (24Hr): Vital Signs - 24 hr 04/18/21 06:00 04/18/21 18:00 Temperature 97.2 F 97.7 F Pulse Rate 98 83 Blood Pressure 128/67 104/59 L Body Mass Index 36.1 Labs Results: 04/16/21 00:11 04/16/21 00:12 Imaging Radiology Impressions: ITS Impressions Face CT 04/15/21 22:33 IMPRESSION: No acute intracranial findings. No facial fracture identified. Bilateral facial edema along the zygomaticomaxillary regions. Head CT 04/15/21 22:33 IMPRESSION: No acute intracranial findings. No facial fracture identified. Bilateral facial edema along the zygomaticomaxillary regions. Medications Medications Current Medications Acetaminophen (Acetaminophen 325 Mg Tablet) 650 mg PO Q6H PRN PRN Reason: Headache/Pain Mild Scale (1-3) Al Hydroxide/Mg Hydroxide (Magnesium Hydrox/Alum Hydrox 30 Ml Oral.Susp) 30 ml PO Q6H PRN PRN Reason: Heartburn/Nausea Last Admin: 04/18/21 17:06 Dose: 30 ml Documented by: Benztropine Mesylate (Benztropine Mesylate 1 Mg Tablet) 1 mg PO BID PRN PRN Reason: EPS Ferrous Sulfate (Ferrous Sulfate 324 Mg Tablet.Dr) 324 mg PO BID [facility] Last Admin: 04/18/21 20:02 Dose: 324 mg Documented by: Hydroxyzine HCl (Hydroxyzine Hcl 25 Mg Tablet) 25 mg PO BEDTIME PRN PRN Reason: Anxiety Lorazepam (Lorazepam 1 Mg Tablet) 1 mg PO Q4H PRN PRN Reason: agitation, anxiety Magnesium Hydroxide (Milk Of Magnesia 30 Ml Oral.Susp) 30 ml PO DAILY PRN PRN Reason: Constipation Olanzapine (Olanzapine 10 Mg Tablet) 10 mg PO BID [facility] Last Admin: 04/18/21 20:02 Dose: 10 mg Documented by: Olanzapine (Olanzapine 10 Mg Tablet) 10 mg PO BID PRN PRN Reason: psychotic agitation Quetiapine Fumarate (Quetiapine Fumarate 50 Mg Tablet) 50 mg PO Q4H PRN PRN Reason: agitation Last Admin: 04/18/21 08:34 Dose: 50 mg Documented by: Trazodone HCl (Trazodone Hcl 50 Mg Tablet) 50 mg PO BEDTIME PRN PRN Reason: Insomnia Last Admin: 04/16/21 23:54 Dose: 50 mg Documented by: Trimethoprim/Sulfamethoxazole (Sulfamethox/Trimeth 800/160 Tablet) 1 tab PO BID [facility] Last Admin: 04/18/21 20:01 Dose: 1 tab Documented by: Allergies Allergies Allergy/AdvReac Type Severity Reaction Status Date / Time aripiprazole [From Abilify] Allergy Unknown Unknown Verified 01/23/21 11:53 asenapine [From Saphris] Allergy Unknown Unknown Verified 01/23/21 11:53 ziprasidone [From Geodon] Allergy Unknown Unknown Verified 01/23/21 11:53 paliperidone [From Invega] Allergy Agitated Verified 01/23/21 11:53 Assessment & Plan Assessment & Plan (1) Schizophrenia: Status: Acute Code(s): F20.9 - Schizophrenia, unspecified Assessment and Plan: Discussed with team. Change Olanzapine to 10 mg bid Greater than 50% of the session was spent on counseling and/or coordination of care Patient educated on: therapeutic strategies Informed Consent: understands Reason for contiued inpatient stay Substantial Risk for: harm to self, harm to others, inability to function and rapid decompensation
[2021-04-19] MEDS: Sulfamethox/Trimeth 800/160 TABLET 1 TAB PO ×2 (08:27→19:51)
[2021-04-19] MEDS: Ferrous Sulfate 324 MG TABLET.DR PO ×2 (08:27→19:51)
[2021-04-19] MEDS: OLANZapine 10 MG TABLET PO ×2 (08:27→19:51)
[2021-04-19 18:00] VITALS: BP 110/78; PULSE 74; TEMP 36.6
--- NOTE | 2021-04-19 18:58 | P.PNPSI_ITS ---
Subjective Subjective Date of Service: 04/19/21 Reason For Visit: Schizophrenia, Antisocial traits Subjective Notes: Conditional Voluntary Interim History: Kris reports he is feeling improved. We discussed medications, dosages and discharge for next week. He is interested in leaving by as he believes we are on the right path with his plan of care. He will have a meeting with the team and his [facility] team on 04/22/21. Medication Compliance: Yes Side effects from medications: No Attending Groups: Yes Review of Systems Acute medical concerns: No Medical Review of Systems: unchanged Review of Systems Psychiatric: Reports no additional psychiatric complaints Mental Status Exam Mental Status Exam Patient Appearance: Fatigued and Appropriate Patient Orientation: Person, Place and Situation Level of Consciousness: Alert Patient Behavior: Talkative, Fatigued, Isolative and Good Eye Contact Mood Description: Flat Affect Description: Flat Patient Cognition Impaired: No Ability to Follow Directions: Good Speech Pattern: Spontaneous Speech Memory Description: Remote Impaired and Episodic Impaired Hallucinations: None (denies, but questionable) Thought Process: Goal Oriented Thought Content: positive for Suicidal Ideation (denies) and positive for Homicidal Ideation (denies) Depressive Symptoms: Diff. Making Decisions, Increased Fatigue, Loss of Energy and Difficulty Concentrating Judgement: Fair Diagnostics Vital Signs (24Hr): Body Mass Index 36.1 Labs Results: 04/16/21 00:11 04/16/21 00:12 Imaging Radiology Impressions: ITS Impressions Face CT 04/15/21 22:33 IMPRESSION: No acute intracranial findings. No facial fracture identified. Bilateral facial edema along the zygomaticomaxillary regions. Head CT 04/15/21 22:33 IMPRESSION: No acute intracranial findings. No facial fracture identified. Bilateral facial edema along the zygomaticomaxillary regions. Medications Medications Current Medications Acetaminophen (Acetaminophen 325 Mg Tablet) 650 mg PO Q6H PRN PRN Reason: Headache/Pain Mild Scale (1-3) Al Hydroxide/Mg Hydroxide (Magnesium Hydrox/Alum Hydrox 30 Ml Oral.Susp) 30 ml PO Q6H PRN PRN Reason: Heartburn/Nausea Last Admin: 04/18/21 17:06 Dose: 30 ml Documented by: Benztropine Mesylate (Benztropine Mesylate 1 Mg Tablet) 1 mg PO BID PRN PRN Reason: EPS Ferrous Sulfate (Ferrous Sulfate 324 Mg Tablet.) 324 mg PO BID [facility] Last Admin: 04/19/21 08:27 Dose: 324 mg Documented by: Hydroxyzine HCl (Hydroxyzine Hcl 25 Mg Tablet) 25 mg PO BEDTIME PRN PRN Reason: Anxiety Lorazepam (Lorazepam 1 Mg Tablet) 1 mg PO Q4H PRN PRN Reason: agitation, anxiety Magnesium Hydroxide (Milk Of Magnesia 30 Ml Oral.Susp) 30 ml PO DAILY PRN PRN Reason: Constipation Olanzapine (Olanzapine 10 Mg Tablet) 10 mg PO BID [facility] Last Admin: 04/19/21 08:27 Dose: 10 mg Documented by: Olanzapine (Olanzapine 10 Mg Tablet) 10 mg PO BID PRN PRN Reason: psychotic agitation Quetiapine Fumarate (Quetiapine Fumarate 50 Mg Tablet) 50 mg PO Q4H PRN PRN Reason: agitation Last Admin: 04/18/21 08:34 Dose: 50 mg Documented by: Trazodone HCl (Trazodone Hcl 50 Mg Tablet) 50 mg PO BEDTIME PRN PRN Reason: Insomnia Last Admin: 04/16/21 23:54 Dose: 50 mg Documented by: Trimethoprim/Sulfamethoxazole (Sulfamethox/Trimeth 800/160 Tablet) 1 tab PO BID [facility] Last Admin: 04/19/21 08:27 Dose: 1 tab Documented by: Allergies Allergies Allergy/AdvReac Type Severity Reaction Status Date / Time aripiprazole [From Abilify] Allergy Unknown Unknown Verified 01/23/21 11:53 asenapine [From Saphris] Allergy Unknown Unknown Verified 01/23/21 11:53 ziprasidone [From Geodon] Allergy Unknown Unknown Verified 01/23/21 11:53 paliperidone [From Invega] Allergy Agitated Verified 01/23/21 11:53 Assessment & Plan Assessment & Plan (1) Schizophrenia: Status: Acute Code(s): F20.9 - Schizophrenia, unspecified Assessment and Plan: Continue current regime. Greater than 50% of the session was spent on counseling and/or coordination of care Patient educated on: medication risk/benefits and therapeutic strategies Informed Consent: understands Reason for contiued inpatient stay Substantial Risk for: harm to self, harm to others, inability to function and rapid decompensation
[2021-04-20] MEDS: Sulfamethox/Trimeth 800/160 TABLET 1 TAB PO ×2 (08:26→20:02)
[2021-04-20] MEDS: Ferrous Sulfate 324 MG TABLET.DR PO ×2 (08:26→20:02)
[2021-04-20] MEDS: OLANZapine 10 MG TABLET PO ×2 (08:26→20:02)
--- NOTE | 2021-04-20 13:28 | HO.PSYCHPN ---
Subjective Subjective Date of Service: 04/20/21 Reason For Visit: Schizophrenia, Antisocial traits Interim History: Patient lying in bed. He briefly opens his eyes to look at keno writer but then closes them again while talking. He says that he is tired. Otherwise he says his mood is ?good.? He denies any SI, HI or AVH. Patient thinks keno writer but says he wants to continue sleeping. Mental Status Exam Mental Status Exam Narrative: Patient Appearance:?Fatigued, unkempt Patient Orientation:?Person, Place and Situation Level of Consciousness:?Alert Patient Behavior:?calm, minimally cooperative poor Eye Contact Mood Description:? good' Affect Description:?Flat Patient Cognition Impaired:?No Ability to Follow Directions:?Good Speech Pattern:?Spontaneous Speech Hallucinations:?None (denies) Thought Process:?Goal Oriented Thought Content:?denies SI or HI Judgement:?Fair Diagnostics Vital Signs (24Hr): Vital Signs - 24 hr 04/19/21 18:00 Temperature 98 F Pulse Rate 74 Blood Pressure 110/78 Body Mass Index 36.1 Labs Results: 04/16/21 00:11 04/16/21 00:12 Imaging Radiology Impressions: ITS Impressions Face CT 04/15/21 22:33 IMPRESSION: No acute intracranial findings. No facial fracture identified. Bilateral facial edema along the zygomaticomaxillary regions. Head CT 04/15/21 22:33 IMPRESSION: No acute intracranial findings. No facial fracture identified. Bilateral facial edema along the zygomaticomaxillary regions. Medications Medications Current Medications Acetaminophen (Acetaminophen 325 Mg Tablet) 650 mg PO Q6H PRN PRN Reason: Headache/Pain Mild Scale (1-3) Al Hydroxide/Mg Hydroxide (Magnesium Hydrox/Alum Hydrox 30 Ml Oral.Susp) 30 ml PO Q6H PRN PRN Reason: Heartburn/Nausea Last Admin: 04/18/21 17:06 Dose: 30 ml Documented by: Benztropine Mesylate (Benztropine Mesylate 1 Mg Tablet) 1 mg PO BID PRN PRN Reason: EPS Ferrous Sulfate (Ferrous Sulfate 324 Mg Tablet.) 324 mg PO BID [facility] Last Admin: 04/20/21 08:26 Dose: 324 mg Documented by: Hydroxyzine HCl (Hydroxyzine Hcl 25 Mg Tablet) 25 mg PO BEDTIME PRN PRN Reason: Anxiety Lorazepam (Lorazepam 1 Mg Tablet) 1 mg PO Q4H PRN PRN Reason: agitation, anxiety Magnesium Hydroxide (Milk Of Magnesia 30 Ml Oral.Susp) 30 ml PO DAILY PRN PRN Reason: Constipation Olanzapine (Olanzapine 10 Mg Tablet) 10 mg PO BID [facility] Last Admin: 04/20/21 08:26 Dose: 10 mg Documented by: Olanzapine (Olanzapine 10 Mg Tablet) 10 mg PO BID PRN PRN Reason: psychotic agitation Quetiapine Fumarate (Quetiapine Fumarate 50 Mg Tablet) 50 mg PO Q4H PRN PRN Reason: agitation Last Admin: 04/18/21 08:34 Dose: 50 mg Documented by: Trazodone HCl (Trazodone Hcl 50 Mg Tablet) 50 mg PO BEDTIME PRN PRN Reason: Insomnia Last Admin: 04/16/21 23:54 Dose: 50 mg Documented by: Trimethoprim/Sulfamethoxazole (Sulfamethox/Trimeth 800/160 Tablet) 1 tab PO BID [facility] Last Admin: 04/20/21 08:26 Dose: 1 tab Documented by: Allergies Allergies Allergy/AdvReac Type Severity Reaction Status Date / Time aripiprazole [From Abilify] Allergy Unknown Unknown Verified 01/23/21 11:53 asenapine [From Saphris] Allergy Unknown Unknown Verified 01/23/21 11:53 ziprasidone [From Geodon] Allergy Unknown Unknown Verified 01/23/21 11:53 paliperidone [From Invega] Allergy Agitated Verified 01/23/21 11:53 Assessment & Plan Assessment & Plan (1) Schizophrenia: Status: Acute Code(s): F20.9 - Schizophrenia, unspecified Assessment and Plan: Supervisor Wet End covering 04/20 No changes to treatment plan Continue current regime. Greater than 50% of the session was spent on counseling and/or coordination of care Reason for contiued inpatient stay Substantial Risk for: rapid decompensation
[2021-04-20 18:00] VITALS: BP 120/86; PULSE 117; TEMP 36.2; O2SAT 95
[2021-04-21 06:00] VITALS: BP 128/78; PULSE 61; TEMP 35.9; O2SAT 98
[2021-04-21] MEDS: Ferrous Sulfate 324 MG TABLET.DR PO ×2 (07:47→20:03)
[2021-04-21] MEDS: OLANZapine 10 MG TABLET PO ×2 (07:47→20:04)
[2021-04-21] MEDS: Sulfamethox/Trimeth 800/160 TABLET 1 TAB PO ×2 (07:47→20:04)
--- NOTE | 2021-04-21 22:03 | P.PNPSI_ITS ---
Subjective Subjective Date of Service: 04/21/21 Reason For Visit: Schizophrenia, Antisocial traits Interim History: pt lying in bed; awake on approach; pt does not want to get out of bed to talk. He denies SI, HI and AVH. He says he's good and has no complaints of requests. Mental Status Exam Mental Status Exam Narrative: Patient Appearance:?Fatigued, unkempt Patient Orientation:?Person, Place and Situation Level of Consciousness:?Alert Patient Behavior:?calm, minimally cooperative poor Eye Contact Mood Description:? good' Affect Description:?constricted Patient Cognition Impaired:?No Ability to Follow Directions:?Good Speech Pattern:?Spontaneous Speech Hallucinations:?None (denies) Thought Process:?Goal Oriented Thought Content:?denies SI or HI Judgement:?Fair Diagnostics Vital Signs (24Hr): Vital Signs - 24 hr 04/21/21 06:00 Temperature 96.7 F L Pulse Rate 61 Blood Pressure 128/78 Pulse Oximetry 98 Body Mass Index 36.1 Labs Results: 04/16/21 00:11 04/16/21 00:12 Imaging Radiology Impressions: ITS Impressions Face CT 04/15/21 22:33 IMPRESSION: No acute intracranial findings. No facial fracture identified. Bilateral facial edema along the zygomaticomaxillary regions. Head CT 04/15/21 22:33 IMPRESSION: No acute intracranial findings. No facial fracture identified. Bilateral facial edema along the zygomaticomaxillary regions. Medications Medications Current Medications Acetaminophen (Acetaminophen 325 Mg Tablet) 650 mg PO Q6H PRN PRN Reason: Headache/Pain Mild Scale (1-3) Al Hydroxide/Mg Hydroxide (Magnesium Hydrox/Alum Hydrox 30 Ml Oral.Susp) 30 ml PO Q6H PRN PRN Reason: Heartburn/Nausea Last Admin: 04/18/21 17:06 Dose: 30 ml Documented by: Benztropine Mesylate (Benztropine Mesylate 1 Mg Tablet) 1 mg PO BID PRN PRN Reason: EPS Ferrous Sulfate (Ferrous Sulfate 324 Mg Tablet.) 324 mg PO BID [facility] Last Admin: 04/21/21 20:03 Dose: 324 mg Documented by: Hydroxyzine HCl (Hydroxyzine Hcl 25 Mg Tablet) 25 mg PO BEDTIME PRN PRN Reason: Anxiety Lorazepam (Lorazepam 1 Mg Tablet) 1 mg PO Q4H PRN PRN Reason: agitation, anxiety Magnesium Hydroxide (Milk Of Magnesia 30 Ml Oral.Susp) 30 ml PO DAILY PRN PRN Reason: Constipation Olanzapine (Olanzapine 10 Mg Tablet) 10 mg PO BID [facility] Last Admin: 04/21/21 20:04 Dose: 10 mg Documented by: Olanzapine (Olanzapine 10 Mg Tablet) 10 mg PO BID PRN PRN Reason: psychotic agitation Quetiapine Fumarate (Quetiapine Fumarate 50 Mg Tablet) 50 mg PO Q4H PRN PRN Reason: agitation Last Admin: 04/18/21 08:34 Dose: 50 mg Documented by: Trazodone HCl (Trazodone Hcl 50 Mg Tablet) 50 mg PO BEDTIME PRN PRN Reason: Insomnia Last Admin: 04/16/21 23:54 Dose: 50 mg Documented by: Trimethoprim/Sulfamethoxazole (Sulfamethox/Trimeth 800/160 Tablet) 1 tab PO BID [facility] Last Admin: 04/21/21 20:04 Dose: 1 tab Documented by: Allergies Allergies Allergy/AdvReac Type Severity Reaction Status Date / Time aripiprazole [From Abilify] Allergy Unknown Unknown Verified 01/23/21 11:53 asenapine [From Saphris] Allergy Unknown Unknown Verified 01/23/21 11:53 ziprasidone [From Geodon] Allergy Unknown Unknown Verified 01/23/21 11:53 paliperidone [From Invega] Allergy Agitated Verified 01/23/21 11:53 Assessment & Plan Assessment & Plan (1) Schizophrenia: Status: Acute Code(s): F20.9 - Schizophrenia, unspecified Assessment and Plan: Dry Ice Maker covering 04/21 No changes to treatment plan Continue current regime. Greater than 50% of the session was spent on counseling and/or coordination of care Reason for contiued inpatient stay Substantial Risk for: med/psych decompensation
[2021-04-22] MEDS: OLANZapine 10 MG TABLET PO (08:41)
[2021-04-22] MEDS: Sulfamethox/Trimeth 800/160 TABLET 1 TAB PO ×2 (08:41→20:10)
[2021-04-22] MEDS: Ferrous Sulfate 324 MG TABLET.DR PO ×2 (08:42→20:10)
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
[2021-04-22] MEDS: OLANZapine 5 MG TABLET PO (20:10)
[2021-04-23] MEDS: Ferrous Sulfate 324 MG TABLET.DR PO ×2 (08:55→20:10)
[2021-04-23] MEDS: OLANZapine 5 MG TABLET PO ×2 (08:55→20:10)
[2021-04-23] MEDS: Sulfamethox/Trimeth 800/160 TABLET 1 TAB PO ×2 (08:55→20:45)
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
[2021-04-23 20:37] VITALS: BP 125/78; PULSE 67; TEMP 37.1
[2021-04-24] MEDS: Ferrous Sulfate 324 MG TABLET.DR PO ×2 (08:06→20:00)
[2021-04-24] MEDS: Sulfamethox/Trimeth 800/160 TABLET 1 TAB PO ×2 (09:04→20:00)
[2021-04-24 09:59] VITALS: BP 136/93; PULSE 66; TEMP 29.4; O2SAT 99
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
[2021-04-24 18:00] VITALS: BP 128/68; PULSE 72; RESP 16; TEMP 36; O2SAT 98
[2021-04-24] MEDS: OLANZapine 7.5 MG TABLET PO (20:01)
[2021-04-24] MEDS: traZODone HCL 50 MG TABLET PO (22:59)
[2021-04-25] MEDS: Sulfamethox/Trimeth 800/160 TABLET 1 TAB PO (08:21)
[2021-04-25] MEDS: Ferrous Sulfate 324 MG TABLET.DR PO (08:21)
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
== END 2021-04-25 13:53 | disposition home or self-care (01) | DRG 750 ==
LOC: HO.ED 04-16 19:01 → HO.PM5 04-16 20:33
PROVIDERS: Nurse Practitioner Family; Admitting Provider Psychiatry & Neurology Psychiatry; Emergency Provider Emergency Medicine Emergency Medical Services; Visit Provider Psychiatry & Neurology Psychiatry
DX: F20.0 Paranoid schizophrenia (principal); R45.851 Suicidal ideations; Z20.822 Contact with and (suspected) exposure to COVID-19; D50.9 Iron deficiency anemia, unspecified; Z79.899 Other long term (current) drug therapy
CPT/HCPCS: 36415; 70450; 70486; 80048; 80076; 80307; 82077; 85025; 87635; 93005; 99285; J0515; J2060

== ENCOUNTER 2021-06-03 11:47 | Emergency (ER) | payer OTHER, SELFPAY ==
--- NOTE | ~2021-06-03 | XR_ITS ---
EXAMINATION: XR LUMBOSACRAL SPINE CLINICAL INFORMATION: Lumbar area pain COMPARISON: Lumbar spine x-rays 04/26/2019 and 07/28/2018 TECHNIQUE: Three views of the lumbosacral spine. FINDINGS: Minimal retrolisthesis of L5 on S1 again demonstrated. Alignment is otherwise unremarkable. Vertebral body heights are maintained. Disc spaces are well-maintained. XR/XR lumbar spine 2-3V IMPRESSION: Stable examination demonstrating no acute abnormality or significant degenerative changes.
[2021-06-03 12:01] VITALS: BP 116/64; PULSE 74; RESP 16; TEMP 36.8; O2SAT 98; BMI 33.4
--- NOTE | 2021-06-03 13:29 | ED_ITS ---
HPI - Back Pain/Injury General Chief Complaint: Back Pain/Injury Stated Complaint: back pain Time Seen by Provider: 06/03/21 13:14 Source: patient Mode of arrival: ambulatory Limitations: no limitations History of Present Illness HPI Narrative: 25-year-old male came in for evaluation of low back pain for 8 years. Patient declined any recent trauma to his back, but the pain is getting worse for the past 8 years, declined any fever or chills, no history of IV drug abuser, no neurological symptoms, no urinary or stool incontinence, no loss of sensation, no motor deficit. Related Data Home Medications Medication Instructions Recorded Confirmed ketoconazole 2 % shampoo 1 appl TOPICAL DIRECTED 12/26/20 03/18/21 betamethasone dipropionate 0.05 % 1 appl TOPICAL NEEDED 03/18/21 03/18/21 topical cream sulfamethoxazole 800 1 tab PO BID 04/15/21 04/15/21 mg-trimethoprim 160 mg tablet Previous Rx's Medication Instructions Recorded clobetasol 0.05 % scalp solution 1 appl TOPICAL DAILY 30 Days #15 ml 01/09/21 mesalamine 400 mg capsule (with 800 mg PO QAM 30 Days #60 ea 01/23/21 delayed release tablets inside) (Delzicol) ferrous sulfate 325 mg (65 mg 325 mg PO BID #60 tab 03/19/21 iron) tablet (Iron (ferrous sulfate)) olanzapine 2.5 mg tablet 2.5 mg PO QID PRN 30 Days #60 tab 04/25/21 olanzapine 7.5 mg tablet 7.5 mg PO BEDTIME 30 Days #30 tab 04/25/21 trazodone 50 mg tablet 50 mg PO BEDTIME PRN 30 Days #30 04/25/21 tab Allergies Allergy/AdvReac Type Severity Reaction Status Date / Time aripiprazole [From Abilify] Allergy Unknown Unknown Verified 01/23/21 11:53 asenapine [From Saphris] Allergy Unknown Unknown Verified 01/23/21 11:53 ziprasidone [From Geodon] Allergy Unknown Unknown Verified 01/23/21 11:53 paliperidone [From Invega] Allergy Agitated Verified 01/23/21 11:53 Review of Systems Review of Systems: All other systems are reviewed and are negative Constitutional: Reports as per HPI and Reports no additional constitutional complaints Eyes: Reports as per HPI and Reports no additional eye complaints Reports system reviewed and no additional complaints, except as documented Cardiovascular: Reports as per HPI and Reports no additional cardiovascular complaints Respiratory: Reports as per HPI and Reports no additional respiratory complaints Gastrointestinal: Reports as per HPI and Reports no additional gastrointestinal complaints Genitourinary: Reports no additional female genitourinary complaints Musculoskeletal: Reports no additional musculoskeletal complaints Skin/Breast: Reports system reviewed and no additional complaints, except as docu Psychiatric: Reports no additional psychiatric complaints Endocrine: Reports no additional endocrine complaints Hematologic/Lymphatic: Reports no additional hematologic/lymphatic complaints Allergic/Immunologic: Reports no additional allergic/immunologic complaints Reports system reviewed and no additional complaints, except as documented and Reports Abnormal speech present [facility] Past Medical History Medical History Iron deficiency anemia Surgical History No pertinent past surgical history Family History Family History Father No problems noted. Mother No problems noted. Social History Social History Household Members: None Household Members Other:: [facility] managed apartment Housing: Apartment Do you presently have visiting nurse or other home services: No Alcohol intake: never Patient Tobacco Use Status: Never used Tobacco Second Hand Smoke Exposure: No Advance Directives: No Advance Directives Information Provided: No service: No Current occupational status: unemployed Sexual orientation: did not discuss Physical Exam Vital Signs: Vital Signs: Last Vital Signs Temp 98.2 F 06/03/21 12:01 Pulse 74 06/03/21 12:01 Resp 16 06/03/21 12:01 BP 116/64 06/03/21 12:01 Pulse Ox 98 06/03/21 12:01 Body Mass Index 33.4 Vital signs have been reviewed as appeared to be correct. Blood pressure normal. Heart rate normal. Respiration rate normal. Temperature normal. Oxygen saturation normal. Appearance: Alert. Oriented X3. No acute distress. Head: Normal external exam. Normocephalic. Atraumatic. No Hall signs noted. No raccoon eyes noted Eyes: PERRLA. EOMI. Conjunctiva and sclera normal. Eyelids normal. ENT: TM's Normal. Pharynx normal. Uvula midline. Moist mucous membranes. No trismus noted. No drooling noted. No muffled voice noted. Neck: Normal inspection. Neck supple. FROM. No adenopathy. Thyroid Normal. No meningeal signs. No neck mass noted. CVS: Normal heart rate and rhythm. Heart sound normal. No murmurs noted. Pulses normal throughout. Respiratory: No respiratory distress. Painless inspiration. Breath sounds normal. No wheezes/rales/rhonchi noted. Chest nontender. No accessory muscle usage noted or decreased air movement noted. Abdomen: Soft and nontender. Bowel sounds normal in all 4 quadrants. No distention noted. No organomegaly noted. No visible injury noted. Back: No CVA tenderness. Full range of motion noted. No step-off, no deformity. Skin: Skin warm and dry. Normal skin color. Normal skin turgor. No rashes/lesions/lacerations noted. Extremities: No lower extremity edema. Extremities exhibit normal range of motion. Extremities nontender. Neuro: Oriented X 3. Cranial nerve exam: II-XII are grossly intact No motor deficit. No sensory deficit. Reflexes normal. Course Course Course Narrative: Assessment and plan. Eight years history of low back pain that is worsening without any significant trauma. Physical exam is unremarkable for neurological deficit, will reassure the patient discharged using NSAIDs p.r.n.. MDM - Back Pain/Injury Medical Records Attestation: I reviewed the patient's medical records. Lab Data Attestation: I reviewed the patient's lab results. Imaging Data Lumbar spine x-ray: Radiologist's impression: Stable examination demonstrating no acute abnormality or significant degenerative changes. Discharge Plan Discharge Clinical Impression: Strain of lumbar region Qualifiers: Encounter type: initial encounter Qualified Code(s): S39.012A - Strain of muscle, fascia and tendon of lower back, initial encounter Patient Disposition: Home, Self-Care Instructions: Back Pain (ED) Prescriptions: No Action sulfamethoxazole-trimethoprim 800-160 mg tablet 1 tab PO BID RF: 0 olanzapine 2.5 mg tablet 2.5 mg PO QID PRN (Reason: agitation/anxiety) 30 Days Qty: 60 RF: 0 trazodone 50 mg Tablet 50 mg PO BEDTIME PRN (Reason: Insomnia) 30 Days Qty: 30 RF: 0 olanzapine 7.5 mg tablet 7.5 mg PO BEDTIME 30 Days Qty: 30 RF: 0 betamethasone dipropionate 0.05 % cream 1 appl topical NEEDED RF: 0 ferrous sulfate [Iron (ferrous sulfate)] 325 mg (65 mg iron) Tablet 325 mg PO BID Qty: 60 RF: 6 ketoconazole 2 % shampoo 1 appl topical DIRECTED RF: 0 clobetasol 0.05 % solution 1 appl topical DAILY 30 Days Qty: 15 RF: 0 mesalamine [Delzicol] 400 mg capsule (with del rel tablets) 800 mg PO QAM 30 Days Qty: 60 RF: 0 Referrals: Claus Mendez PA-C [Primary Care Provider] - 2 days
== END 2021-06-03 14:16 | disposition home or self-care (01) ==
LOC: HO.ED 13:37
PROVIDERS: Emergency Provider Emergency Medicine; PCP Physician Assistant
DX: S39.012A Strain of muscle, fascia and tendon of lower back, initial encounter (principal); X58.XXXA Exposure to other specified factors, initial encounter; Y93.9 Activity, unspecified; Y92.9 Unspecified place or not applicable; Y99.9 Unspecified external cause status; Z79.899 Other long term (current) drug therapy
CPT/HCPCS: 72100; 99283

== ENCOUNTER 2021-08-07 02:02 | Emergency (ER) | payer OTHER, SELFPAY ==
[2021-08-07 02:24] VITALS: BP 111/60; PULSE 68; RESP 15; TEMP 37; O2SAT 98; BMI 34.9
[2021-08-07 02:33] VITALS: BP 200/100; PULSE 72; O2SAT 98
[2021-08-07 02:36] VITALS: BP 138/85; PULSE 69; RESP 16; TEMP 36.7; O2SAT 96
[2021-08-07 03:05] LABS: COVID-19 Test Negative (Negative)
--- NOTE | 2021-08-07 03:05 | ED_ITS ---
HPI - General Adult General Chief complaint: General Medical Stated complaint: insomnia Time Seen by Provider: 08/07/21 02:07 Source: patient Mode of arrival: EMS History of Present Illness HPI narrative: This is a 26-year-old male with history of schizophrenia on Zyprexa which he is not taking because he says it makes his eyes red. He is brought in by EMS for complaints insomnia for the past 4-5 days. He denies any drug or alcohol use, denies AVH and denies suicidal ideation but that he is depressed. He denies being COVID-19 vaccinated and also reports some mild nausea with headache and cough. Related Data Home Medications Medication Instructions Recorded Confirmed betamethasone dipropionate 0.05 % 1 appl TOPICAL NEEDED 03/18/21 06/10/21 topical cream Previous Rx's Medication Instructions Recorded mesalamine 400 mg capsule (with 800 mg PO QAM 30 Days #60 ea 01/23/21 delayed release tablets inside) (Delzicol) ferrous sulfate 325 mg (65 mg 325 mg PO BID #60 tab 03/19/21 iron) tablet (Iron (ferrous sulfate)) olanzapine 2.5 mg tablet 2.5 mg PO QID PRN 30 Days #60 tab 04/25/21 olanzapine 7.5 mg tablet 7.5 mg PO BEDTIME 30 Days #30 tab 04/25/21 trazodone 100 mg tablet 100 mg PO BEDTIME PRN 90 Days #90 08/06/21 tab hydroxyzine HCl 10 mg tablet 10 mg PO BEDTIME PRN #7 tab 08/07/21 Allergies Allergy/AdvReac Type Severity Reaction Status Date / Time aripiprazole [From Abilify] Allergy Unknown Unknown Verified 08/06/21 11:18 asenapine [From Saphris] Allergy Unknown Unknown Verified 08/06/21 11:18 ziprasidone [From Geodon] Allergy Unknown Unknown Verified 08/06/21 11:18 paliperidone [From Invega] Allergy Agitated Verified 08/06/21 11:18 Review of Systems Review of Systems: Pertinent positives and negatives as stated in HPI 10 point review of systems is otherwise negative. [facility] Past Medical History Source: nursing notes reviewed Medical History Iron deficiency anemia Surgical History History of dental surgery Family History Family History Father No problems noted. Mother No problems noted. Social History Social History Household Members: None Household Members Other:: [employer] managed apartment Housing: Apartment Do you presently have visiting nurse or other home services: No Alcohol intake: never Patient Tobacco Use Status: Former Tobacco user e-Cigarette/Vaping Use: Never Used Second Hand Smoke Exposure: No Use of substances other than those prescribed or required for medical reasons: No Advance Directives: No service: No Current occupational status: unemployed Sexual orientation: did not discuss Cognitive needs: No Hearing needs: No Vision needs: No Physical Exam Vital Signs: Vital Signs: Last Vital Signs Temp 98.0 F 08/07/21 02:36 Pulse 69 08/07/21 02:36 Resp 16 08/07/21 02:36 BP 138/85 08/07/21 02:36 Pulse Ox 96 08/07/21 02:36 BMI result Body Mass Index 34.9 VITAL SIGNS: Reviewed. GENERAL: Well developed, well nourished, in no acute distress. HEAD: Normocephalic/atraumatic EYES: PERRLA, EOMI OROPHARYNX: no oral lesions noted, posterior pharynx clear LUNGS: Normal breath sounds. No adventitious sounds or accessory muscle use. SpO2<96> CARDIOVASCULAR: Regular rate and rhythm without noted murmurs ABDOMEN: Soft, non-tender, non-distended with bowel sounds. SKIN: Inspection of the skin reveals no rashes NEUROLOGIC: Alert and oriented x 4. Strength and sensation to light touch were grossly intact x 4. PSYCH: Flat affect, calm no observed anxiety Course Course Course Narrative: 26-year-old male with history and clinical presentation consistent with insomnia as well as viral symptoms and reporting that he has scalp folliculitis ?again?. Patient reportedly not taking his prescribed medications and reporting that he is smoking marijuana and is noted to tolerate oral intake vomiting. On evaluation of his scalp folliculitis it appears there is a mild case and will give patient a short course of cephalexin. On review remaining investigations he is noted to be COVID-19 negative, he is not experiencing AVH or suicidal ideation at this time and is making a personal decision not to take the Zyprexa for which he was encouraged to follow-up with his psychiatrist to discuss alternatives. You will receive initial dose of cephalexin here and then be sent home with remaining course. Medical Decision Making Lab Data Labs: Lab Results 08/07/21 08/07/21 Range/Units 02:41 02:41 Urine Opiates Screen Not Detected (Not Detect) Urine Fentanyl Screen Not Detected (Not Detect) Ur Barbiturates Screen Not Detected (Not Detect) Ur Phencyclidine Scrn Not Detected (Not Detect) Ur Amphetamines Screen Not Detected (Not Detect) U Benzodiazepines Scrn Not Detected (Not Detect) Urine Cocaine Screen Not Detected (Not Detect) U Marijuana (THC) Screen POSITIVE H (Not Detect) COVID-19 ([facility]ANITA) Negative (Negative) COVID-19 Clin Com See Note Discharge Plan Discharge Clinical Impression: Viral syndrome, Schizophrenia, Folliculitis, Insomnia Patient Disposition: Home, Self-Care Instructions: Schizophrenia (ED), Folliculitis (ED), Viral Syndrome (ED), Insomnia (ED) Additional Instructions: 1. You should resume your medications as prescribed. Further discuss the concerns you have regarding her medication with your psychiatrist. 2. Follow-up with your primary care provider in the next 1-2 days for re- evaluation. 3. I have sent some medication to your pharmacy for your insomnia. Return to the ER for worsening symptoms. Prescriptions: New hydroxyzine HCl 10 mg tablet 10 mg PO BEDTIME PRN (Reason: insomnia) Qty: 7 RF: 0 No Action olanzapine 2.5 mg tablet 2.5 mg PO QID PRN (Reason: agitation/anxiety) 30 Days Qty: 60 RF: 0 olanzapine 7.5 mg tablet 7.5 mg PO BEDTIME 30 Days Qty: 30 RF: 0 betamethasone dipropionate 0.05 % cream 1 appl topical NEEDED RF: 0 ferrous sulfate [Iron (ferrous sulfate)] 325 mg (65 mg iron) Tablet 325 mg PO BID Qty: 60 RF: 6 mesalamine [Delzicol] 400 mg capsule (with del rel tablets) 800 mg PO QAM 30 Days Qty: 60 RF: 0 trazodone 100 mg tablet 100 mg PO BEDTIME PRN (Reason: sleep) 90 Days Qty: 90 RF: 1 Referrals: Claus Mendez PA-C [Primary Care Provider] - 1 day
[2021-08-07 03:09] LABS: Amphetamine Screen Urine Not Detected (Not Detect); Barbiturates, Urine Not Detected (Not Detect); Benzodiazepines Screen Urine Not Detected (Not Detect); Cannabinoid Screen Urine POSITIVE (Not Detect); Cocaine Screen Urine Not Detected (Not Detect); Fentanyl, urine Not Detected (Not Detect); Opiate Screen Urine Not Detected (Not Detect); Phencyclidine Screen Urine Not Detected (Not Detect)
[2021-08-07] MEDS: Acetaminophen 325 MG TABLET 975 MG PO (03:32)
[2021-08-07] MEDS: Ibuprofen 400 MG TABLET PO (03:33)
--- NOTE | 2021-08-07 03:38 | PC.NURSE ---
medicated pt Mar, pt resting to stay here to sleep, informed him I would notified the provider due to limited beds not sure if that possible but would rely request to provider. Dr. Landon aware. Pt give sandwich and a drink No n/v at this time.
[2021-08-07 04:14] VITALS: BP 128/80; PULSE 78; RESP 16; TEMP 36.9; O2SAT 98
[2021-08-07] MEDS: cephALEXin 500 MG CAPSULE PO (04:25)
--- NOTE | 2021-08-07 04:35 | PC.NURSE ---
pt not wanting to leave and requesting sleeping medication. Provider is aware and going into discuss pt.
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
== END 2021-08-07 05:06 | disposition home or self-care (01) ==
PROVIDERS: Emergency Provider Student in an Organized Health Care Education/Training Program; PCP Physician Assistant
DX: B34.9 Viral infection, unspecified (principal); F20.9 Schizophrenia, unspecified; L73.9 Follicular disorder, unspecified; G47.00 Insomnia, unspecified; Z20.822 Contact with and (suspected) exposure to COVID-19; F32.A Depression, unspecified; F12.90 Cannabis use, unspecified, uncomplicated; Z79.899 Other long term (current) drug therapy
CPT/HCPCS: 80307; 87635; 99284

== ENCOUNTER 2021-10-17 12:19 | Outpatient (REF) | payer OTHER, SELFPAY ==
[2021-10-17 12:52] LABS: Hematocrit 43.9 % (42.0-52.0); Hemoglobin 13.8 g/dl (14.0-18.0); Mean Corpuscular HGB Conc 31.4 g/dl (31.0-36.0); Mean Corpuscular Hemoglobin 27.4 pg (27.0-33.0); Mean Corpuscular Volume 87.3 fL (80.0-98.0); Mean Platelet Volume 9.8 fL (9.4-12.4); Platelet Count 329 X10*3/uL (160-400); Red Blood Count 5.03 X10*6/uL (4.60-5.80); Red Cell Distribution Width 13.3 % (11.0-16.0)
[2021-10-17 13:26] LABS: Iron 123 mcg/dL (45-160); Percent Iron Saturation 30 % (15-50); Total Iron Binding Capacity 412 mcg/dL (228-428); Unsaturated Iron Binding 289 ug/dL
== END 2021-10-17 12:20 | disposition home or self-care (01) ==
LOC: HO.LAB 12:19
PROVIDERS: PCP Physician Assistant; Visit Provider Internal Medicine
DX: D64.9 Anemia, unspecified (principal)
CPT/HCPCS: 36415; 83540; 85027

== ENCOUNTER 2021-11-14 11:05 | Outpatient (REF) | payer OTHER, SELFPAY ==
--- NOTE | ~2021-11-14 | XR_ITS ---
EXAMINATION: XR lumbar spine 2-3V, XR cervical spine 3V CLINICAL INFORMATION: Spondylosis, cervicalgia COMPARISON: Lumbar spine radiographs 06/03/2021 TECHNIQUE: 3 views of the cervical spine and 3 views of the lumbar spine FINDINGS: CERVICAL SPINE: The cervical spine is visualized to the level of C7 on the lateral view. Loss of the usual cervical spine lordosis which may be due to positioning or muscle spasm. Vertebral body heights are maintained. Lateral masses of C1 are well aligned on C2. Visualized portion of the dens is intact. Disc space heights are maintained. No prevertebral soft tissue swelling. LUMBAR SPINE: Transitional lumbosacral anatomy. There are 4 nonrib-bearing lumbar-type vertebral bodies with sacralization of L5 and rudimentary L5-S1 disc space. The last well-formed disc space will be referred to as L4-L5. Vertebral body heights are maintained. Stable minimal retrolisthesis of L4 on L5. Disc space heights are maintained. Paravertebral soft tissues are unremarkable. XR/XR lumbar spine 2-3V IMPRESSION: Transitional lumbosacral anatomy with 4 nonrib-bearing lumbar-type vertebral bodies, and the last well-formed disc space will be referred to as L4-L5 for the purposes of numbering. If intervention is being considered recommend total spine radiographs to ensure accurate numbering. Stable minimal retrolisthesis of L4 on L5. Loss of the usual cervical spine lordosis which may be due to positioning or muscle spasm.
--- NOTE | ~2021-11-14 | XR_ITS ---
EXAMINATION: XR lumbar spine 2-3V, XR cervical spine 3V CLINICAL INFORMATION: Spondylosis, cervicalgia COMPARISON: Lumbar spine radiographs 06/03/2021 TECHNIQUE: 3 views of the cervical spine and 3 views of the lumbar spine FINDINGS: CERVICAL SPINE: The cervical spine is visualized to the level of C7 on the lateral view. Loss of the usual cervical spine lordosis which may be due to positioning or muscle spasm. Vertebral body heights are maintained. Lateral masses of C1 are well aligned on C2. Visualized portion of the dens is intact. Disc space heights are maintained. No prevertebral soft tissue swelling. LUMBAR SPINE: Transitional lumbosacral anatomy. There are 4 nonrib-bearing lumbar-type vertebral bodies with sacralization of L5 and rudimentary L5-S1 disc space. The last well-formed disc space will be referred to as L4-L5. Vertebral body heights are maintained. Stable minimal retrolisthesis of L4 on L5. Disc space heights are maintained. Paravertebral soft tissues are unremarkable. XR/XR cervical spine 3V IMPRESSION: Transitional lumbosacral anatomy with 4 nonrib-bearing lumbar-type vertebral bodies, and the last well-formed disc space will be referred to as L4-L5 for the purposes of numbering. If intervention is being considered recommend total spine radiographs to ensure accurate numbering. Stable minimal retrolisthesis of L4 on L5. Loss of the usual cervical spine lordosis which may be due to positioning or muscle spasm.
== END 2021-11-14 11:06 | disposition home or self-care (01) ==
LOC: HO.XRAY 11:05
PROVIDERS: PCP Physician Assistant; Visit Provider Physician Assistant
DX: M47.816 Spondylosis without myelopathy or radiculopathy, lumbar region (principal); M54.2 Cervicalgia
CPT/HCPCS: 72040; 72100

== ENCOUNTER 2022-01-30 11:56 | Outpatient (REF) | payer OTHER, SELFPAY ==
[2022-01-30 12:36] LABS: Basophils Percent Auto 0.3 % (0-2); Eosinophils Absolute Auto 2.5 X10*3/uL (0.0-0.4); Eosinophils Percent Auto 21.1 % (0-4); Hematocrit 42.2 % (42.0-52.0); Hemoglobin 13.7 g/dl (14.0-18.0); Imm Gran Abs Auto 0.05 X10*3/uL (0.00-0.03); Imm Gran Pct Auto 0.4 % (0.0-0.4); Lymphocytes Absolute Auto 2.3 X10*3/uL (1.2-4.9); Lymphocytes Percent Auto 19.4 % (20-40); MANUAL DIFF FLAG SCAN; Mean Corpuscular HGB Conc 32.5 g/dl (31.0-36.0); Mean Corpuscular Hemoglobin 27.5 pg (27.0-33.0); Mean Corpuscular Volume 84.7 fL (80.0-98.0); Mean Platelet Volume 9.2 fL (9.4-12.4); Monocytes Percent Auto 8.6 % (2-11); Neutrophils Absolute Auto 5.9 x10*3/uL (2.0-8.3); Neutrophils Percent Auto 50.2 % (45-73); Platelet Count 366 X10*3/uL (160-400); Red Blood Count 4.98 X10*6/uL (4.60-5.80); Red Cell Distribution Width 13.8 % (11.0-16.0); SCAN SMEAR FLAG 1; White Blood Count 11.7 X10*3/uL (4.8-10.8)
[2022-01-30 12:57] LABS: Estimated Average Glucose 105 mg/dL; Hemoglobin A1c % 5.3 %
[2022-01-30 13:06] LABS: SLIDE REVIEW VERIFIED
[2022-01-30 13:13] LABS: Alanine Aminotransferase 18 U/L (0-40); Albumin Level 3.8 g/dL (3.5-5.0); Alkaline Phosphatase 95 U/L (39-117); Anion Gap 10 (12-20); Aspartate Amino Transferase 14 U/L (5-37); Bilirubin Total 0.4 mg/dL (0.0-1.0); Blood Urea Nitrogen 4 mg/dL (9-16); Calcium 9.2 mg/dL (8.4-10.2); Carbon Dioxide 27 mmol/L (22-29); Chloride 108 mmol/L (96-108); Cholesterol 156 mg/dL; Estimated Glomerular Filt Rate > 60; Glucose Fasting 88 mg/dL (60-99); HDL Cholesterol 30 mg/dL; Iron 80 mcg/dL (45-160); LDL Cholesterol Calculated 102 mg/dl; Percent Iron Saturation 25 % (15-50); Potassium 4.8 mmol/L (3.3-5.1); Sodium 140 mmol/L (135-145); Total Iron Binding Capacity 325 mcg/dL (228-428); Total Protein 7.2 g/dL (6.5-8.0); Triglycerides 124 mg/dL; Unsaturated Iron Binding 245 ug/dL
[2022-01-30 13:25] LABS: TSH reflex Free T4 0.91 uIU/mL (0.32-4.0)
== END 2022-01-30 11:57 | disposition home or self-care (01) ==
LOC: HO.LAB 11:56
PROVIDERS: Absent Provider Physician Assistant; PCP Physician Assistant; Visit Provider Internal Medicine
DX: E78.1 Pure hyperglyceridemia (principal); D64.9 Anemia, unspecified; E66.01 Morbid (severe) obesity due to excess calories; Z68.41 Body mass index [BMI] 40.0-44.9, adult
CPT/HCPCS: 36415; 80053; 80061; 83036; 83540; 84443; 85025

== ENCOUNTER 2022-08-25 23:26 | Emergency (ER) | payer OTHER, SELFPAY ==
[2022-08-25 23:29] VITALS: BP 123/79; PULSE 80; RESP 17; TEMP 37.2; O2SAT 98; BMI 27.3
[2022-08-25 23:59] LABS: Basophils Percent Auto 0.4 % (0-2); Eosinophils Absolute Auto 0.3 X10*3/uL (0.0-0.4); Eosinophils Percent Auto 2.5 % (0-4); Hematocrit 41.3 % (42.0-52.0); Hemoglobin 13.5 g/dl (14.0-18.0); Imm Gran Abs Auto 0.03 X10*3/uL (0.00-0.03); Imm Gran Pct Auto 0.3 % (0.0-0.4); Lymphocytes Absolute Auto 3.2 X10*3/uL (1.2-4.9); Lymphocytes Percent Auto 30.3 % (20-40); MANUAL DIFF FLAG NO; Mean Corpuscular HGB Conc 32.7 g/dl (31.0-36.0); Mean Corpuscular Hemoglobin 27.9 pg (27.0-33.0); Mean Corpuscular Volume 85.3 fL (80.0-98.0); Mean Platelet Volume 9.8 fL (9.4-12.4); Monocytes Absolute Auto 0.6 X10*3/uL (0.1-1.2); Monocytes Percent Auto 5.1 % (2-11); Neutrophils Absolute Auto 6.6 x10*3/uL (2.0-8.3); Neutrophils Percent Auto 61.4 % (45-73); Platelet Count 309 X10*3/uL (160-400); Red Blood Count 4.84 X10*6/uL (4.60-5.80); Red Cell Distribution Width 13.8 % (11.0-16.0); White Blood Count 10.7 X10*3/uL (4.8-10.8)
[2022-08-26 00:11] LABS: Amphetamine Screen Urine Not Detected (Not Detect); Barbiturates, Urine Not Detected (Not Detect); Benzodiazepines Screen Urine Not Detected (Not Detect); Cannabinoid Screen Urine Not Detected (Not Detect); Cocaine Screen Urine Not Detected (Not Detect); Fentanyl, urine Not Detected (Not Detect); Opiate Screen Urine Not Detected (Not Detect); Phencyclidine Screen Urine Not Detected (Not Detect)
[2022-08-26 00:15] LABS: Alanine Aminotransferase 34 U/L (0-40); Albumin Level 4.4 g/dL (3.5-5.0); Alkaline Phosphatase 76 U/L (39-117); Anion Gap 13 (12-20); Aspartate Amino Transferase 27 U/L (5-37); Bilirubin Total 0.4 mg/dL (0.0-1.0); Blood Urea Nitrogen 10 mg/dL (9-16); Calcium 9.5 mg/dL (8.4-10.2); Carbon Dioxide 24 mmol/L (22-29); Chloride 108 mmol/L (96-108); Creatinine Clr Calc Pharmacy 125.1; Estimated Glomerular Filt Rate > 60; Glucose Random 86 mg/dL (60-115); Potassium 3.8 mmol/L (3.3-5.1); Sodium 141 mmol/L (135-145); Total Protein 7.7 g/dL (6.5-8.0)
[2022-08-26 00:16] LABS: Ethanol < 10 mg/dL
[2022-08-26 00:19] LABS: COVID-19 Test Negative (Negative); IDNOW Serial# 6674DD1D
--- NOTE | 2022-08-26 05:25 | ED.PSYCH ---
HPI - Psych General Chief Complaint: Psychiatric Symptoms Stated Complaint: , +si Source: patient Mode of arrival: EMS Limitations: no limitations History of Present Illness HPI Narrative: Patient comes to the emergency room complaining of not feeling quite right. Patient states that he lives in his own apartment. Patient states that he was making a lot of noise, not feeling right, punching his own face , hoping to feel better . [facility] went to check on him, police Department was present as well, patient accepts that he did say some suicidal statements. Patient was Section 12 by police department and brought to the emergency room. Patient states that his face does not hurt, patient has no pain with eye movement Related Data Home Medications Medication Instructions Recorded Confirmed olanzapine 10 mg tablet 1 tab PO BEDTIME 08/25/22 08/25/22 trazodone 150 mg tablet 1 tab PO BEDTIME 08/25/22 08/25/22 Allergies Allergy/AdvReac Type Severity Reaction Status Date / Time aripiprazole [From Abilify] Allergy Unknown Unknown Verified 08/08/22 11:48 asenapine [From Saphris] Allergy Unknown Unknown Verified 08/08/22 11:48 ziprasidone [From Geodon] Allergy Unknown Unknown Verified 08/08/22 11:48 paliperidone [From Invega] Allergy Agitated Verified 08/08/22 11:48 Review of Systems Review of Systems: Constitutional : No Weight loss, No Fever, No Chills, No Night Sweats, No Fatigue, No Malaise ENT/Mouth : No Hearing loss, No Ear Pain, No Nasal Congestion, No Sinus Pain, No Hoarseness, No sore throat, No Rhinorrhea, No Swallowing Difficulty Eyes: No Eye Pain, No Swelling, No Redness, No Foreign Body, No Discharge, No Vision Changes Cardiovascular : No Chest Pain, No SOB, No Dyspnea on Exertion, No Orthopnea, No Edema, No Palpitations Respiratory : No Cough, No Sputum, No Wheezing, No Smoke Exposure, No Dyspnea Gastrointestinal : No Nausea, No Vomiting, No Diarrhea, No Constipation, No abdominal Pain, No Hematochezia, No Melena Genitourinary : no irregular bleeding, No Dysuria, No Urinary Frequency, No Hematuria, No Urinary Incontinence, No Urgency, No Flank Pain, No Urinary Flow Changes, No Hesitancy Musculoskeletal : No joint pain, No Myalgias, No Joint Swelling Skin : No Skin Lesions, No rash Neuro : No Weakness, No Numbness, No Paresthesias, No Loss of Consciousness, No Dizziness, No Headache Psych : No Anxiety/Panic, No Depression, back SI, no HI, complaining of feeling strange which trigger to punch himself in the face Heme/Lymph: No Bruising, No Bleeding,No Lymphadenopathy Endocrine : No Polyuria, No Polydipsia, No Temperature Intolerance [facility], [facility] Past Medical History Medical History (Updated 08/26/22 @ 05:30 by More Boyd MD) Iron deficiency anemia Schizophrenia Surgical History History of dental surgery Family History Family History Father No problems noted. Mother No problems noted. Social History Social History Household Members: None Household Members Other:: [facility] managed apartment Housing: Apartment Do you presently have visiting nurse or other home services: No Alcohol intake: never Patient Tobacco Use Status: Former Tobacco user Quit Date: 04/26/22 Years Smoked: 15 e-Cigarette/Vaping Use: Never Used Second Hand Smoke Exposure: No Advance Directives: No service: No Current occupational status: unemployed Sexual orientation: did not discuss Cognitive needs: No Hearing needs: No Vision needs: No Physical Exam Vital Signs: Vital Signs: Last Vital Signs Temp 99 F 08/25/22 23:29 Pulse 80 08/25/22 23:29 Resp 17 08/25/22 23:29 BP 123/79 08/25/22 23:29 Pulse Ox 98 08/25/22 23:29 O2 Del Method 08/25/22 23:29 BMI result Body Mass Index 27.3 Const: Other: Appearance: Alert. Oriented X3. No acute distress. Eyes: Pupils equal, round and reactive to light. Patient has mild swelling around the left eye, patient has normal eye movements, no pain on palpation, no crepitus ENT: Pharynx normal. Neck: Normal inspection. Neck supple. No lymph nodes noted. No crepitus CVS: Normal heart rate and rhythm. Pulses normal. Normal S1 and S2 Respiratory: No respiratory distress. Breath sounds normal. No Wheezing. No rales Abdomen: Soft and nontender. No rigidity. No distention. Skin: Skin warm and dry. Normal skin color. Normal skin turgor. Extremities: No lower extremity edema. No Lacerations. No Rash Neuro: Oriented X 3. No motor deficit. No sensory deficit. Moving all extremities. No slurred speech. CN 2 through 12 grossly intact Psych: calm, cooperative, normal affect Course Course Course Narrative: -patient is on a Section 12, started by police department -blowout fracture is not suspected, patient has normal eye movements, no pain pain even with palpation to the affected area, no crepitus -care team consult pending -physician observation started at 05:30 Medical Decision Making Lab Data 08/25/22 23:52 08/25/22 23:52 Labs: Lab Results 08/25/22 08/25/22 08/25/22 Range/Units 23:52 23:52 23:52 WBC 10.7 (4.8-10.8) X10*3/uL RBC 4.84 (4.60-5.80) X10*6/uL Hgb 13.5 L (14.0-18.0) g/dl Hct 41.3 L (42.0-52.0) % MCV 85.3 (80.0-98.0) fL MCH 27.9 (27.0-33.0) pg MCHC 32.7 (31.0-36.0) g/dl RDW 13.8 (11.0-16.0) % Plt Count 309 (160-400) X10*3/uL MPV 9.8 (9.4-12.4) fL Immature Gran % (Auto) 0.3 (0.0-0.4) % Neut % (Auto) 61.4 (45-73) % Lymph % (Auto) 30.3 (20-40) % [place] % (Auto) 5.1 (2-11) % Eos % (Auto) 2.5 (0-4) % Baso % (Auto) 0.4 (0-2) % Lymph # (Auto) 3.2 (1.2-4.9) X10*3/uL [place] # (Auto) 0.6 (0.1-1.2) X10*3/uL Eos # (Auto) 0.3 (0.0-0.4) X10*3/uL Baso # (Auto) 0.0 (0.0-0.2) X10*3/uL Abs Immat Gran (auto) 0.03 (0.00-0.03) X10*3/uL Absolute Neuts (auto) 6.6 (2.0-8.3) x10*3/uL Absolute Nucleated RBC 0.000 (0.0-0.012) X10*3/uL Nucleated RBC % (auto) 0.0 (0.0-0.2) /100WBC Sodium 141 (135-145) mmol/L Potassium 3.8 D (3.3-5.1) mmol/L Chloride 108 (96-108) mmol/L Carbon Dioxide 24 (22-29) mmol/L Anion Gap 13 (12-20) BUN 10 (9-16) mg/dL Creatinine 0.85 (0.5-1.4) mg/dL Estim Creat Clear Calc 125.1 Estimated GFR > 60 Random Glucose 86 (60-115) mg/dL Calcium 9.5 (8.4-10.2) mg/dL Total Bilirubin 0.4 (0.0-1.0) mg/dL AST 27 (5-37) U/L ALT 34 (0-40) U/L Alkaline Phosphatase 76 (39-117) U/L Total Protein 7.7 (6.5-8.0) g/dL Albumin 4.4 (3.5-5.0) g/dL Urine Opiates Screen (Not Detect) Urine Fentanyl Screen (Not Detect) Ur Barbiturates Screen (Not Detect) Ur Phencyclidine Scrn (Not Detect) Ur Amphetamines Screen (Not Detect) U Benzodiazepines Scrn (Not Detect) Urine Cocaine Screen (Not Detect) U Marijuana (THC) Screen (Not Detect) Ethyl Alcohol mg/dL COVID-19 (SHANITA) Negative (Negative) COVID-19 Clin Com See Note 08/25/22 08/25/22 Range/Units 23:52 23:52 WBC (4.8-10.8) X10*3/uL RBC (4.60-5.80) X10*6/uL Hgb (14.0-18.0) g/dl Hct (42.0-52.0) % MCV (80.0-98.0) fL MCH (27.0-33.0) pg MCHC (31.0-36.0) g/dl RDW (11.0-16.0) % Plt Count (160-400) X10*3/uL MPV (9.4-12.4) fL Immature Gran % (Auto) (0.0-0.4) % Neut % (Auto) (45-73) % Lymph % (Auto) (20-40) % [place] % (Auto) (2-11) % Eos % (Auto) (0-4) % Baso % (Auto) (0-2) % Lymph # (Auto) (1.2-4.9) X10*3/uL [place] # (Auto) (0.1-1.2) X10*3/uL Eos # (Auto) (0.0-0.4) X10*3/uL Baso # (Auto) (0.0-0.2) X10*3/uL Abs Immat Gran (auto) (0.00-0.03) X10*3/uL Absolute Neuts (auto) (2.0-8.3) x10*3/uL Absolute Nucleated RBC (0.0-0.012) X10*3/uL Nucleated RBC % (auto) (0.0-0.2) /100WBC Sodium (135-145) mmol/L Potassium (3.3-5.1) mmol/L Chloride (96-108) mmol/L Carbon Dioxide (22-29) mmol/L Anion Gap (12-20) BUN (9-16) mg/dL Creatinine (0.5-1.4) mg/dL Estim Creat Clear Calc Estimated GFR Random Glucose (60-115) mg/dL Calcium (8.4-10.2) mg/dL Total Bilirubin (0.0-1.0) mg/dL AST (5-37) U/L ALT (0-40) U/L Alkaline Phosphatase (39-117) U/L Total Protein (6.5-8.0) g/dL Albumin (3.5-5.0) g/dL Urine Opiates Screen Not Detected (Not Detect) Urine Fentanyl Screen Not Detected (Not Detect) Ur Barbiturates Screen Not Detected (Not Detect) Ur Phencyclidine Scrn Not Detected (Not Detect) Ur Amphetamines Screen Not Detected (Not Detect) U Benzodiazepines Scrn Not Detected (Not Detect) Urine Cocaine Screen Not Detected (Not Detect) U Marijuana (THC) Screen Not Detected (Not Detect) Ethyl Alcohol < 10 mg/dL COVID-19 (SHANITA) (Negative) COVID-19 Clin Com Discharge Plan Discharge Clinical Impression: Agitation Patient Disposition: Still a Patient Prescriptions: No Action olanzapine 10 mg tablet 1 tab PO BEDTIME trazodone 150 mg tablet 1 tab PO BEDTIME Interventions: Brickeys-Suicide Risk Severity Scale Last Done: 08/26/22 00:53
--- NOTE | 2022-08-26 06:16 | PC.NURSE ---
patient struggled to fall sleep, snacked numerously, sleeping since 0330, VSS, med rec completed/pending provider's approval, behavior non concerning, awaiting care team evaluation in the morning, will continue to monitor.
[2022-08-26 07:23] VITALS: RESP 18
--- NOTE | 2022-08-26 09:21 | PC.NURSE ---
care team evaluating now.
== END 2022-08-26 12:02 | disposition home or self-care (01) ==
PROVIDERS: Emergency Medicine; Emergency Provider Emergency Medicine; PCP Physician Assistant
DX: R45.1 Restlessness and agitation (principal); R45.851 Suicidal ideations; S00.12XA Contusion of left eyelid and periocular area, initial encounter; X83.8XXA Intentional self-harm by other specified means, initial encounter; D50.9 Iron deficiency anemia, unspecified; E78.5 Hyperlipidemia, unspecified; F20.9 Schizophrenia, unspecified; Z20.822 Contact with and (suspected) exposure to COVID-19; Z87.891 Personal history of nicotine dependence; Z79.899 Other long term (current) drug therapy; Y93.89 Activity, other specified; Y92.039 Unspecified place in apartment as the place of occurrence of the external cause; Y99.9 Unspecified external cause status
CPT/HCPCS: 36415; 80053; 80307; 82077; 85025; 87635; 99284; 99285; S9485

== ENCOUNTER 2022-08-27 22:12 | Emergency (ER) | payer OTHER, SELFPAY ==
[2022-08-27 22:27] VITALS: BP 160/90; PULSE 83; O2SAT 100
[2022-08-27 22:33] VITALS: BP 137/74; PULSE 70; RESP 16; TEMP 36.6; O2SAT 95; BMI 28.8
[2022-08-28 04:39] VITALS: BP 123/80; PULSE 64; RESP 13; TEMP 36.6; O2SAT 98
[2022-08-28 08:40] LABS: MANUAL DIFF FLAG NO
[2022-08-28 08:42] LABS: Basophils Absolute Auto 0.1 X10*3/uL (0.0-0.2); Basophils Percent Auto 0.6 % (0-2); Eosinophils Absolute Auto 0.4 X10*3/uL (0.0-0.4); Hematocrit 40.5 % (42.0-52.0); Imm Gran Abs Auto 0.01 X10*3/uL (0.00-0.03); Imm Gran Pct Auto 0.1 % (0.0-0.4); Lymphocytes Absolute Auto 3.4 X10*3/uL (1.2-4.9); Lymphocytes Percent Auto 41.6 % (20-40); Mean Corpuscular HGB Conc 32.1 g/dl (31.0-36.0); Mean Corpuscular Hemoglobin 28.3 pg (27.0-33.0); Mean Platelet Volume 10.2 fL (9.4-12.4); Monocytes Absolute Auto 0.6 X10*3/uL (0.1-1.2); Monocytes Percent Auto 7.4 % (2-11); Neutrophils Absolute Auto 3.7 x10*3/uL (2.0-8.3); Neutrophils Percent Auto 45.3 % (45-73); Platelet Count 303 X10*3/uL (160-400); Red Cell Distribution Width 13.9 % (11.0-16.0); White Blood Count 8.2 X10*3/uL (4.8-10.8)
[2022-08-28 08:46] LABS: Appearance Urine Clear; Color Urine Yellow; Glucose Urine UA Negative (Negative); Leukocyte Esterase Urine Negative (Negative); Nitrite Urine Negative (Negative); PH 6.5 (5.0-9.0); Specific Gravity - Urine <= 1.005 (1.005-1.025); Urine Blood Negative (Negative); Urine Ketones Negative (Negative); Urine Protein Negative (Neg-Trace)
[2022-08-28 08:57] LABS: COVID-19 Test Negative (Negative); IDNOW Serial# 16C4AD1C
[2022-08-28 08:59] LABS: Alanine Aminotransferase 59 U/L (0-40); Albumin Level 4.4 g/dL (3.5-5.0); Alkaline Phosphatase 77 U/L (39-117); Anion Gap 10 (12-20); Aspartate Amino Transferase 39 U/L (5-37); Bilirubin Total 0.6 mg/dL (0.0-1.0); Blood Urea Nitrogen 9 mg/dL (9-16); Calcium 9.6 mg/dL (8.4-10.2); Carbon Dioxide 28 mmol/L (22-29); Chloride 105 mmol/L (96-108); Creatinine Clr Calc Pharmacy 118.6; Estimated Glomerular Filt Rate > 60; Glucose Random 87 mg/dL (60-115); Potassium 3.7 mmol/L (3.3-5.1); Sodium 139 mmol/L (135-145); Total Protein 7.5 g/dL (6.5-8.0)
[2022-08-28 09:02] LABS: Amphetamine Screen Urine Not Detected (Not Detect); Barbiturates, Urine Not Detected (Not Detect); Benzodiazepines Screen Urine Not Detected (Not Detect); Cannabinoid Screen Urine Not Detected (Not Detect); Cocaine Screen Urine Not Detected (Not Detect); Fentanyl, urine Not Detected (Not Detect); Opiate Screen Urine Not Detected (Not Detect); Phencyclidine Screen Urine Not Detected (Not Detect)
[2022-08-28 09:11] VITALS: BP 134/85; PULSE 71; RESP 18; TEMP 36.4; O2SAT 97
--- NOTE | 2022-08-28 09:13 | PC.NURSE ---
patient a&o to person/place, pt pacing in room but is compliant with this nurse requests, vss, pt wanting to eat and requesting to see provider, pt was reassured he will see a provider as soon as possible, call mcqueen within reach, will continue to monitor
--- NOTE | 2022-08-28 10:04 | ED_ITS ---
HPI - General Adult General Chief complaint: General Medical Stated complaint: Med Reaction making feel weird Time Seen by Provider: 08/28/22 07:12 Source: patient Limitations: no limitations History of Present Illness HPI narrative: 27-year-old male with previous psychiatric diagnosis presents for evaluation for some symptoms he was experiencing last night. Proximally 90 minutes after taking Zyprexa, a new pill formulation, he developed some multiple systemic symptoms including lightheadedness, dizziness, generalized fatigue and weakness. His symptoms have significantly resolved. He reports he is feeling 95+ % better at this time. He denies any fevers, chills, cough or mucus production. Denies any nausea, vomiting or diarrhea. His appetite is appropriate. He denies any focal neurologic deficits. ER for no additional complaints at this time. Related Data Home Medications Medication Instructions Recorded Confirmed olanzapine 10 mg tablet 1 tab PO BEDTIME 08/25/22 08/25/22 trazodone 150 mg tablet 1 tab PO BEDTIME 08/25/22 08/25/22 clotrimazole-betamethasone 1 1 appl topical DIRECTED 08/26/22 08/26/22 %-0.05 % topical cream Allergies Allergy/AdvReac Type Severity Reaction Status Date / Time aripiprazole [From Abilify] Allergy Unknown Unknown Verified 08/08/22 11:48 asenapine [From Saphris] Allergy Unknown Unknown Verified 08/08/22 11:48 ziprasidone [From Geodon] Allergy Unknown Unknown Verified 08/08/22 11:48 paliperidone [From Invega] Allergy Agitated Verified 08/08/22 11:48 Review of Systems Review of Systems: Yes all other systems are reviewed and are negative Constitutional: Constitutional: Reports no additional constitutional complaints, Reports fatigue, Reports malaise and Reports weakness Eyes: Eyes: Reports no additional eye complaints ENT: Reports system reviewed and no additional complaints, except as documented, Reports vertigo and Reports dizziness Cardiovascular: Cardiovascular: Reports no additional cardiovascular complaints Respiratory: Respiratory: Reports no additional respiratory complaints Gastrointestinal: Gastrointestinal: Reports no additional gastrointestinal complaints Genitourinary: Genitourinary: Reports no additional male genitourinary complaints Musculoskeletal: Musculoskeletal: Reports no additional musculoskeletal complaints Integumentary/Breasts: Skin/Breast: Reports system reviewed and no additional complaints, except as docu Neurologic: Reports vertigo, Reports dizziness and Reports weakness Psychiatric: Psychiatric: Reports no additional psychiatric complaints Endocrine: Endocrine: Reports no additional endocrine complaints and Reports fatigue Hematologic/Lymphatic: Hematologic/Lymphatic: Reports no additional hematologic/lymphatic complaints Allergic/Immunologic: Allergic/Immunologic: Reports no additional allergic/immunologic complaints [facility] Past Medical History Medical History Iron deficiency anemia Schizophrenia Surgical History History of dental surgery Family History Family History Father No problems noted. Mother No problems noted. Social History Social History Household Members: None Household Members Other:: [facility] managed apartment Housing: Apartment Do you presently have visiting nurse or other home services: No Alcohol intake: unknown Patient Tobacco Use Status: Former Tobacco user Quit Date: 04/26/22 Years Smoked: 15 e-Cigarette/Vaping Use: Never Used Second Hand Smoke Exposure: No Advance Directives: No service: No Current occupational status: unemployed Sexual orientation: did not discuss Cognitive needs: No Hearing needs: No Vision needs: No Physical Exam ED Vital Signs: Vital Signs - 24 hr 08/27/22 22:33 08/28/22 04:39 08/28/22 09:11 Temperature 97.8 F 97.9 F 97.5 F Pulse Rate 70 64 71 Respiratory Rate 16 13 18 Blood Pressure 137/74 123/80 134/85 Pulse Oximetry 95 98 97 Oxygen Delivery Method Room Air Room Air Room Air BMI result Body Mass Index 28.8 Const General: cooperative, healthy appearing, comfortable and no acute distress Orientation/consciousness: oriented to person, oriented to place and oriented to time HENMT Head: Yes normal to inspection Ears: hearing grossly normal bilaterally, external ears normal and TM's normal bilaterally Eyes General: appearance normal, both eyes and all related structures Neck Neck: Yes normal visual inspection Resp Effort & Inspection: normal respiratory effort Auscultation: clear to auscultation bilaterally Cardio Rhythm: regular rhythm Heart sounds: S1 normal heart sound present GI Palpation (GI): Soft to palpation and nontender Skin General skin exam: no rashes or lesions noted Neuro General: oriented to person, oriented to place, oriented to time, no focal motor deficits and CN's II-XI intact bilaterally Extrem General: Yes normal to inspection Psych Mental Status: mental status grossly normal Course Course Course Narrative: 27-year-old male with constellation of symptoms including dizziness, lightheadedness, generalized fatigue and malaise. He reports this occurred approximately 90 minutes after taking a new formulation of Zyprexa. Unclear whether this represents an adverse reaction to new formulation of his previous medication. His symptoms by and large resolved. Will perform routine laboratory analysis, check for COVID and re-evaluate patient. At this time, there is no evidence for medication management I will continue monitor for possible need for intervention. Reevaluation(s) Reevaluation #1: Discussed all results with the patient including the elevated LFTs. We discu ssed the possibility that this could be a reaction to component of the new form of Zyprexa he is taking. I recommend he contact his psychiatrist and his pharmacist to see if there are other formulations available. As he is feeling much better, ambulatory no focal neurologic deficits, no evidence of severe metabolic disorder, will discharge. Time: 10:08 Medical Decision Making Medical Decision Making [facility] Narrative: 27-year-old male with history of schizophrenia on Zyprexa presents for possible reaction to medication. Symptoms started approximately 90 minutes after taking a new formulation is hypoxic. Currently is feeling much much better without intervention. Multiple differential diagnosis have been considered and will be evaluated. Patient is likely to be able to be discharged home with follow-up with a psychiatrist in his pharmacist. Differential Diagnosis Differential Diagnoses: The differential diagnosis associated with the presentation includes (Adverse reaction to medication, electrolyte abnormality, anemia, anxiety, psychiatric disorder, COVID infection) Lightheadedness, possible medication reaction Admission/Observation Consideration of admission/observation: Escalation of care including admission/observation considered (Symptoms have significantly resolved and there were no significant life-threatening conditions reside requiring hospitalization) Lab Data [facility] Lab Attestation statement: I reviewed the patient's lab results. 08/28/22 08:28 08/28/22 08:28 Labs: Lab Results 08/28/22 08/28/22 08/28/22 Range/Units 08:28 08:28 08:28 WBC 8.2 (4.8-10.8) X10*3/uL RBC 4.60 (4.60-5.80) X10*6/uL Hgb 13.0 L (14.0-18.0) g/dl Hct 40.5 L (42.0-52.0) % MCV 88.0 (80.0-98.0) fL MCH 28.3 (27.0-33.0) pg MCHC 32.1 (31.0-36.0) g/dl RDW 13.9 (11.0-16.0) % Plt Count 303 (160-400) X10*3/uL MPV 10.2 (9.4-12.4) fL Immature Gran % (Auto) 0.1 (0.0-0.4) % Neut % (Auto) 45.3 (45-73) % Lymph % (Auto) 41.6 H (20-40) % [place] % (Auto) 7.4 (2-11) % Eos % (Auto) 5.0 H (0-4) % Baso % (Auto) 0.6 (0-2) % Lymph # (Auto) 3.4 (1.2-4.9) X10*3/uL [place] # (Auto) 0.6 (0.1-1.2) X10*3/uL Eos # (Auto) 0.4 (0.0-0.4) X10*3/uL Baso # (Auto) 0.1 (0.0-0.2) X10*3/uL Abs Immat Gran (auto) 0.01 (0.00-0.03) X10*3/uL Absolute Neuts (auto) 3.7 (2.0-8.3) x10*3/uL Absolute Nucleated RBC 0.000 (0.0-0.012) X10*3/uL Nucleated RBC % (auto) 0.0 (0.0-0.2) /100WBC Sodium 139 (135-145) mmol/L Potassium 3.7 (3.3-5.1) mmol/L Chloride 105 (96-108) mmol/L Carbon Dioxide 28 (22-29) mmol/L Anion Gap 10 L (12-20) BUN 9 (9-16) mg/dL Creatinine 0.99 (0.5-1.4) mg/dL Estim Creat Clear Calc 118.6 Estimated GFR > 60 Random Glucose 87 (60-115) mg/dL Calcium 9.6 (8.4-10.2) mg/dL Total Bilirubin 0.6 (0.0-1.0) mg/dL AST 39 H (5-37) U/L ALT 59 H (0-40) U/L Alkaline Phosphatase 77 (39-117) U/L Total Protein 7.5 (6.5-8.0) g/dL Albumin 4.4 (3.5-5.0) g/dL Urine Color Urine Appearance Urine pH (5.0-9.0) Ur Specific [place] (1.005-1.025) Urine Protein (Neg-Trace) mg/dL Urine Glucose (UA) (Negative) mg/dL Urine Ketones (Negative) mg/dL Urine Blood (Negative) Urine Nitrite (Negative) Ur Leukocyte Esterase (Negative) Urine Opiates Screen (Not Detect) Urine Fentanyl Screen (Not Detect) Ur Barbiturates Screen (Not Detect) Ur Phencyclidine Scrn (Not Detect) Ur Amphetamines Screen (Not Detect) U Benzodiazepines Scrn (Not Detect) Urine Cocaine Screen (Not Detect) U Marijuana (THC) Screen (Not Detect) COVID-19 (SHANITA) Negative (Negative) COVID-19 Clin Com See Note 08/28/22 08/28/22 Range/Units 08:28 08:28 WBC (4.8-10.8) X10*3/uL RBC (4.60-5.80) X10*6/uL Hgb (14.0-18.0) g/dl Hct (42.0-52.0) % MCV (80.0-98.0) fL MCH (27.0-33.0) pg MCHC (31.0-36.0) g/dl RDW (11.0-16.0) % Plt Count (160-400) X10*3/uL MPV (9.4-12.4) fL Immature Gran % (Auto) (0.0-0.4) % Neut % (Auto) (45-73) % Lymph % (Auto) (20-40) % [place] % (Auto) (2-11) % Eos % (Auto) (0-4) % Baso % (Auto) (0-2) % Lymph # (Auto) (1.2-4.9) X10*3/uL [place] # (Auto) (0.1-1.2) X10*3/uL Eos # (Auto) (0.0-0.4) X10*3/uL Baso # (Auto) (0.0-0.2) X10*3/uL Abs Immat Gran (auto) (0.00-0.03) X10*3/uL Absolute Neuts (auto) (2.0-8.3) x10*3/uL Absolute Nucleated RBC (0.0-0.012) X10*3/uL Nucleated RBC % (auto) (0.0-0.2) /100WBC Sodium (135-145) mmol/L Potassium (3.3-5.1) mmol/L Chloride (96-108) mmol/L Carbon Dioxide (22-29) mmol/L Anion Gap (12-20) BUN (9-16) mg/dL Creatinine (0.5-1.4) mg/dL Estim Creat Clear Calc Estimated GFR Random Glucose (60-115) mg/dL Calcium (8.4-10.2) mg/dL Total Bilirubin (0.0-1.0) mg/dL AST (5-37) U/L ALT (0-40) U/L Alkaline Phosphatase (39-117) U/L Total Protein (6.5-8.0) g/dL Albumin (3.5-5.0) g/dL Urine Color Yellow Urine Appearance Clear Urine pH 6.5 (5.0-9.0) Ur Specific [place] <= 1.005 (1.005-1.025) Urine Protein Negative (Neg-Trace) mg/dL Urine Glucose (UA) Negative (Negative) mg/dL Urine Ketones Negative (Negative) mg/dL Urine Blood Negative (Negative) Urine Nitrite Negative (Negative) Ur Leukocyte Esterase Negative (Negative) Urine Opiates Screen Not Detected (Not Detect) Urine Fentanyl Screen Not Detected (Not Detect) Ur Barbiturates Screen Not Detected (Not Detect) Ur Phencyclidine Scrn Not Detected (Not Detect) Ur Amphetamines Screen Not Detected (Not Detect) U Benzodiazepines Scrn Not Detected (Not Detect) Urine Cocaine Screen Not Detected (Not Detect) U Marijuana (THC) Screen Not Detected (Not Detect) COVID-19 (SHANITA) (Negative) COVID-19 Clin Com Discharge Plan Discharge Clinical Impression: Medication reaction, Lightheadedness, Elevated LFTs Patient Disposition: Home, Self-Care Instructions: Lightheadedness (ED) Additional Instructions: You were seen in the emergency department for number of systemic complaints including lightheadedness, vision changes, weakness. This occurred approximately 90 minutes after taking a new formulation of years apraxia. Unclear whether this actually represents an adverse medication reaction or some other set of symptoms. We performed routine laboratory analysis including COVID testing which was negative. You did have a minor abnormality of your elevated liver enzymes which can be followed up with her primary care provider in 4 weeks for repeat blood work. You can discuss care with her psychiatrist to see if there is another formulation of the Zyprexa or contact her pharmacy to discuss potential adverse reaction to see if they have any other brands available to you. For worsening symptoms do not hesitate to return to emergency department otherwise continue usual care. Prescriptions: No Action olanzapine 10 mg tablet 1 tab PO BEDTIME trazodone 150 mg tablet 1 tab PO BEDTIME clotrimazole-betamethasone 1-0.05 % cream 1 appl topical DIRECTED Referrals: Claus Mendez PA-C [Primary Care Provider] -
== END 2022-08-28 10:17 | disposition home or self-care (01) ==
PROVIDERS: Emergency Provider Emergency Medicine; PCP Physician Assistant
DX: R42 Dizziness and giddiness (principal); R53.1 Weakness; R79.89 Other specified abnormal findings of blood chemistry; T43.595A Adverse effect of other antipsychotics and neuroleptics, initial encounter; Y92.039 Unspecified place in apartment as the place of occurrence of the external cause; Z20.822 Contact with and (suspected) exposure to COVID-19; E78.5 Hyperlipidemia, unspecified; F20.9 Schizophrenia, unspecified; Z79.899 Other long term (current) drug therapy
CPT/HCPCS: 80053; 80307; 81003; 85025; 87635; 99283

== ENCOUNTER 2022-09-02 19:04 | Emergency (ER) | payer OTHER, SELFPAY ==
[2022-09-02 19:10] VITALS: BP 136/84; PULSE 82; RESP 16; TEMP 37; O2SAT 99; BMI 28.8
--- NOTE | 2022-09-02 19:34 | ED_ITS ---
HPI - Psych General Chief Complaint: Psychiatric Symptoms Stated Complaint: Crisis/Section 12 Time Seen by Provider: 09/02/22 19:07 Source: patient Mode of arrival: ambulatory Limitations: other (Vague historian) History of Present Illness HPI Narrative: This is a 27-year-old male history of schizophrenia, insomnia, GERD, hyperlipidemia, obesity presenting to the emergency department via ambulance with EMS and police on a Section 12 for suicidal ideation. Patient tells me he has been feeling suicidal for a while and he tells me does not want to elaborate on anything. He does time he cut himself with a knife to left biceps. Therefore linear lacerations that were wrapped by EMS. Patient tells me he is not up-to-date on a tetanus shot. Refusing to answer all other questions however denies medical complaints. Related Data Home Medications Medication Instructions Recorded Confirmed olanzapine 10 mg tablet 1 tab PO BEDTIME 08/25/22 09/02/22 trazodone 150 mg tablet 1 tab PO BEDTIME 08/25/22 09/02/22 sulfamethoxazole 800 1 tab PO DAILY 09/02/22 09/02/22 mg-trimethoprim 160 mg tablet Allergies Allergy/AdvReac Type Severity Reaction Status Date / Time aripiprazole [From Abilify] Allergy Unknown Unknown Verified 08/08/22 11:48 asenapine [From Saphris] Allergy Unknown Unknown Verified 08/08/22 11:48 ziprasidone [From Geodon] Allergy Unknown Unknown Verified 08/08/22 11:48 paliperidone [From Invega] Allergy Agitated Verified 08/08/22 11:48 Review of Systems Review of Systems: Constitutional : No Weight loss, No Fever, No Chills, No Fatigue, No Malaise ENT/Mouth : No sore throat, No Rhinorrhea Eyes: No Eye Pain, No Swelling, No Redness Cardiovascular : No Chest Pain, No SOB, No Dyspnea on Exertion, No Orthopnea, No Edema, No Palpitations Respiratory : No Cough, No Sputum, No Wheezing Gastrointestinal : No Nausea, No Vomiting, No Diarrhea, No Constipation, No abdominal Pain, No Hematochezia, No Melena Genitourinary : No Dysuria, No Urinary Frequency, No Hematuria, Musculoskeletal : No joint pain, No Myalgias, No Joint Swelling Skin : No Skin Lesions, No rash, + laceration Neuro : No Weakness, No Numbness, No Dizziness, No Headache Psych : + Anxiety/Panic, + Depression, + SI All other systems reviewed and are negative Yes all other systems are reviewed and are negative [facility] Past Medical History Attestation statement: The following information was validated with the patient. Source: old records reviewed and nursing notes reviewed Medical History Iron deficiency anemia Schizophrenia Surgical History History of dental surgery Family History Family History Father No problems noted. Mother No problems noted. Social History Social History Household Members: None Household Members Other:: [facility] managed apartment Housing: Apartment Do you presently have visiting nurse or other home services: No Alcohol intake: unknown Patient Tobacco Use Status: Former Tobacco user Quit Date: 04/26/22 Years Smoked: 15 e-Cigarette/Vaping Use: Never Used Second Hand Smoke Exposure: No Advance Directives: No Advance Directives Information Provided: No service: No Current occupational status: unemployed Sexual orientation: did not discuss Cognitive needs: No Hearing needs: No Vision needs: No Physical Exam Vital Signs: Vital Signs: Last Vital Signs Temp 98.6 F 09/02/22 19:10 Pulse 82 09/02/22 19:10 Resp 16 09/02/22 19:10 BP 136/84 09/02/22 19:10 Pulse Ox 99 09/02/22 19:10 O2 Del Method 09/02/22 19:10 BMI result Body Mass Index 28.8 Vital signs stable Appearance: Alert.? Oriented X3.? No acute distress.? Head: Normocephalic, atraumatic, no step-offs or deformities Eyes: Pupils equal, round and reactive to light.? CVS: Normal heart rate and rhythm.? Pulses normal.? Respiratory: No respiratory distress.? Breath sounds normal.? Abdomen: Soft and nontender.? Skin: Skin warm and dry.? Normal skin color.? Normal skin turgor.?+ there are 4 superficial linear lacerations to left forearm. 2+ radial pulses equal bilateral. Normal capillary refill. No wrist drop. Normal sensation to bilateral upper extremities. Extremities: No lower extremity edema.? No calf ttp. 5/5 strength to bilateral upper and lower extremities Back: No midline tenderness, no C-spine tenderness, full range of motion, no CVA tenderness bilaterally Neuro: Oriented X 3.? No motor deficit.? No sensory deficit. CN 2-12 intact Course Reevaluation(s) Reevaluation #1: Patient's CBC appears to be around his baseline with a normocytic anemia. Chemistry with no acute electrolyte abnormalities requiring intervention. Patient's urine clean. Salicylates, acetaminophen, ethanol negative. Urine toxicology negative. Patient noted to be positive for COVID-19 however denies any upper respiratory symptoms, is vital signs are stable and he saturating 99% on room air. At this time patient will be placed into physician observation to allow more time to be evaluated by the care team. At time observation was started patient common cooperative no acute distress. To note, lacerations were closed using Steri-Strips. Time: 21:34 Medications Administered Generic Name Dose Route Start Last Admin Trade Name Freq PRN Reason Stop Dose Admin Olanzapine 10 mg 09/02/22 21:00 09/02/22 20:12 Olanzapine 10 Mg Tablet PO 10 mg BEDTIME EVIN Administration Trazodone HCl 150 mg 09/02/22 21:00 09/02/22 20:13 Trazodone Hcl 50 Mg Tablet PO Not Given BEDTIME EVIN Trimethoprim/Sulfamethoxazole 1 tab 09/03/22 09:00 09/02/22 20:12 Sulfamethox/Trimeth 800/160 Tablet PO 1 tab DAILY EVIN Administration Medical Decision Making Medical Decision Making [facility] Narrative: 1910 27-year-old male presents on a Section 12 for suicidal ideation and self- inflicted wounds to left forearm. Patient vague/poor historian. Physical exam significant for for linear lacerations to left forearm. Neurovascular status intact. No foreign bodies visualized. Likely schizophrenia concerns for possible non med compliance. Will rule out electrolyte abnormalities, and polysubstance abuse. I do not suspect infection or metabolic causes. Plan medical clearance evaluation by the behavioral health team Differential Diagnosis Differential Diagnoses: The differential diagnosis associated with the presentation includes Likely schizophrenia concerns for possible non med compliance. Will rule out electrolyte abnormalities, and polysubstance abuse. I do not suspect infection or metabolic causes. Admission/Observation Consideration of admission/observation: Escalation of care including admission/observation considered Lab Data 09/02/22 20:27 09/02/22 20:27 Labs: Lab Results 09/02/22 09/02/22 09/02/22 Range/Units 19:22 20:27 20:27 WBC 4.8 (4.8-10.8) X10*3/uL RBC 4.52 L (4.60-5.80) X10*6/uL Hgb 12.9 L (14.0-18.0) g/dl Hct 38.6 L (42.0-52.0) % MCV 85.4 (80.0-98.0) fL MCH 28.5 (27.0-33.0) pg MCHC 33.4 (31.0-36.0) g/dl RDW 13.9 (11.0-16.0) % Plt Count 231 (160-400) X10*3/uL MPV 10.3 (9.4-12.4) fL Immature Gran % (Auto) 0.0 (0.0-0.4) % Neut % (Auto) 55.4 (45-73) % Lymph % (Auto) 29.6 (20-40) % Graham % (Auto) 12.7 H (2-11) % Eos % (Auto) 1.7 (0-4) % Baso % (Auto) 0.6 (0-2) % Lymph # (Auto) 1.4 (1.2-4.9) X10*3/uL Graham # (Auto) 0.6 (0.1-1.2) X10*3/uL Eos # (Auto) 0.1 (0.0-0.4) X10*3/uL Baso # (Auto) 0.0 (0.0-0.2) X10*3/uL Abs Immat Gran (auto) 0.00 (0.00-0.03) X10*3/uL Absolute Neuts (auto) 2.7 (2.0-8.3) x10*3/uL Absolute Nucleated RBC 0.000 (0.0-0.012) X10*3/uL Nucleated RBC % (auto) 0.0 (0.0-0.2) /100WBC Sodium 138 (135-145) mmol/L Potassium 3.7 (3.3-5.1) mmol/L Chloride 106 (96-108) mmol/L Carbon Dioxide 20 L (22-29) mmol/L Anion Gap 16 (12-20) BUN 10 (9-16) mg/dL Creatinine 0.85 (0.5-1.4) mg/dL Estim Creat Clear Calc 138.1 Estimated GFR > 60 Random Glucose 127 H (60-115) mg/dL Calcium 9.1 (8.4-10.2) mg/dL Total Bilirubin 0.4 (0.0-1.0) mg/dL AST 25 (5-37) U/L ALT 41 H (0-40) U/L Alkaline Phosphatase 73 (39-117) U/L Total Protein 7.1 (6.5-8.0) g/dL Albumin 4.1 (3.5-5.0) g/dL Urine Color Urine Appearance Urine pH (5.0-9.0) Ur Specific [place] (1.005-1.025) Urine Protein (Neg-Trace) mg/dL Urine Glucose (UA) (Negative) mg/dL Urine Ketones (Negative) mg/dL Urine Blood (Negative) Urine Nitrite (Negative) Ur Leukocyte Esterase (Negative) Salicylates < 5.0 L (15-30) mg/dL Urine Opiates Screen (Not Detect) Urine Fentanyl Screen (Not Detect) Acetaminophen < 17 (<30) mcg/mL Ur Barbiturates Screen (Not Detect) Ur Phencyclidine Scrn (Not Detect) Ur Amphetamines Screen (Not Detect) U Benzodiazepines Scrn (Not Detect) Urine Cocaine Screen (Not Detect) U Marijuana (THC) Screen (Not Detect) Ethyl Alcohol < 10 mg/dL COVID-19 (SHANITA) Positive A (Negative) COVID-19 Clin Com See Note 09/02/22 09/02/22 09/02/22 Range/Units 20:27 20:57 20:57 WBC (4.8-10.8) X10*3/uL RBC (4.60-5.80) X10*6/uL Hgb (14.0-18.0) g/dl Hct (42.0-52.0) % MCV (80.0-98.0) fL MCH (27.0-33.0) pg MCHC (31.0-36.0) g/dl RDW (11.0-16.0) % Plt Count (160-400) X10*3/uL MPV (9.4-12.4) fL Immature Gran % (Auto) (0.0-0.4) % Neut % (Auto) (45-73) % Lymph % (Auto) (20-40) % Graham % (Auto) (2-11) % Eos % (Auto) (0-4) % Baso % (Auto) (0-2) % Lymph # (Auto) (1.2-4.9) X10*3/uL Graham # (Auto) (0.1-1.2) X10*3/uL Eos # (Auto) (0.0-0.4) X10*3/uL Baso # (Auto) (0.0-0.2) X10*3/uL Abs Immat Gran (auto) (0.00-0.03) X10*3/uL Absolute Neuts (auto) (2.0-8.3) x10*3/uL Absolute Nucleated RBC (0.0-0.012) X10*3/uL Nucleated RBC % (auto) (0.0-0.2) /100WBC Sodium (135-145) mmol/L Potassium (3.3-5.1) mmol/L Chloride (96-108) mmol/L Carbon Dioxide (22-29) mmol/L Anion Gap (12-20) BUN (9-16) mg/dL Creatinine (0.5-1.4) mg/dL Estim Creat Clear Calc Estimated GFR Random Glucose (60-115) mg/dL Calcium (8.4-10.2) mg/dL Total Bilirubin (0.0-1.0) mg/dL AST (5-37) U/L ALT (0-40) U/L Alkaline Phosphatase (39-117) U/L Total Protein (6.5-8.0) g/dL Albumin (3.5-5.0) g/dL Urine Color Yellow Urine Appearance Clear Urine pH 6.0 (5.0-9.0) Ur Specific [place] 1.020 (1.005-1.025) Urine Protein Negative (Neg-Trace) mg/dL Urine Glucose (UA) Negative (Negative) mg/dL Urine Ketones Negative (Negative) mg/dL Urine Blood Negative (Negative) Urine Nitrite Negative (Negative) Ur Leukocyte Esterase Negative (Negative) Salicylates (15-30) mg/dL Urine Opiates Screen Not Detected (Not Detect) Urine Fentanyl Screen Not Detected (Not Detect) Acetaminophen (<30) mcg/mL Ur Barbiturates Screen Not Detected (Not Detect) Ur Phencyclidine Scrn Not Detected (Not Detect) Ur Amphetamines Screen Not Detected (Not Detect) U Benzodiazepines Scrn Not Detected (Not Detect) Urine Cocaine Screen Not Detected (Not Detect) U Marijuana (THC) Screen Not Detected (Not Detect) Ethyl Alcohol mg/dL COVID-19 (SHANITA) Positive A (Negative) COVID-19 Clin Com See Note Core Measures AMI core measures followed: Yes Measure exclusions: not indicated Critical Care Time Critical Care Time Critical Care Time: No Discharge Plan Discharge Clinical Impression: Suicide ideation, Laceration of forehead Patient Disposition: Still a Patient Prescriptions: No Action olanzapine 10 mg tablet 1 tab PO BEDTIME trazodone 150 mg tablet 1 tab PO BEDTIME sulfamethoxazole-trimethoprim 800-160 mg tablet 1 tab PO DAILY Interventions: Carter-Suicide Risk Severity Scale Last Done: 09/02/22 19:16
[2022-09-02 19:41] LABS: COVID-19 Test Positive (Negative); IDNOW Serial# 16C4AD1C
[2022-09-02] MEDS: OLANZapine 10 MG TABLET PO (20:12)
[2022-09-02] MEDS: Sulfamethox/Trimeth 800/160 TABLET 1 TAB PO (20:12)
[2022-09-02 20:33] LABS: MANUAL DIFF FLAG NO
[2022-09-02 20:35] LABS: Basophils Percent Auto 0.6 % (0-2); Eosinophils Absolute Auto 0.1 X10*3/uL (0.0-0.4); Eosinophils Percent Auto 1.7 % (0-4); Hematocrit 38.6 % (42.0-52.0); Hemoglobin 12.9 g/dl (14.0-18.0); Lymphocytes Absolute Auto 1.4 X10*3/uL (1.2-4.9); Lymphocytes Percent Auto 29.6 % (20-40); Mean Corpuscular HGB Conc 33.4 g/dl (31.0-36.0); Mean Corpuscular Hemoglobin 28.5 pg (27.0-33.0); Mean Corpuscular Volume 85.4 fL (80.0-98.0); Mean Platelet Volume 10.3 fL (9.4-12.4); Monocytes Absolute Auto 0.6 X10*3/uL (0.1-1.2); Monocytes Percent Auto 12.7 % (2-11); Neutrophils Absolute Auto 2.7 x10*3/uL (2.0-8.3); Neutrophils Percent Auto 55.4 % (45-73); Platelet Count 231 X10*3/uL (160-400); Red Blood Count 4.52 X10*6/uL (4.60-5.80); Red Cell Distribution Width 13.9 % (11.0-16.0); White Blood Count 4.8 X10*3/uL (4.8-10.8)
[2022-09-02 20:56] LABS: COVID-19 Test Positive (Negative); IDNOW Serial# 08D9AD1C
[2022-09-02 21:06] LABS: Acetaminophen LAB < 17 mcg/mL (<30); Alanine Aminotransferase 41 U/L (0-40); Albumin Level 4.1 g/dL (3.5-5.0); Alkaline Phosphatase 73 U/L (39-117); Anion Gap 16 (12-20); Aspartate Amino Transferase 25 U/L (5-37); Bilirubin Total 0.4 mg/dL (0.0-1.0); Blood Urea Nitrogen 10 mg/dL (9-16); Calcium 9.1 mg/dL (8.4-10.2); Carbon Dioxide 20 mmol/L (22-29); Chloride 106 mmol/L (96-108); Creatinine Clr Calc Pharmacy 138.1; Estimated Glomerular Filt Rate > 60; Ethanol < 10 mg/dL; Glucose Random 127 mg/dL (60-115); Potassium 3.7 mmol/L (3.3-5.1); Salicylate < 5.0 mg/dL (15-30); Sodium 138 mmol/L (135-145); Total Protein 7.1 g/dL (6.5-8.0)
[2022-09-02 21:07] LABS: Appearance Urine Clear; Color Urine Yellow; Glucose Urine UA Negative (Negative); Leukocyte Esterase Urine Negative (Negative); Nitrite Urine Negative (Negative); Urine Blood Negative (Negative); Urine Ketones Negative (Negative); Urine Protein Negative (Neg-Trace)
[2022-09-02 21:14] LABS: Amphetamine Screen Urine Not Detected (Not Detect); Barbiturates, Urine Not Detected (Not Detect); Benzodiazepines Screen Urine Not Detected (Not Detect); Cannabinoid Screen Urine Not Detected (Not Detect); Cocaine Screen Urine Not Detected (Not Detect); Fentanyl, urine Not Detected (Not Detect); Opiate Screen Urine Not Detected (Not Detect); Phencyclidine Screen Urine Not Detected (Not Detect)
[2022-09-03 01:04] VITALS: RESP 16
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
--- NOTE | 2022-09-03 07:06 | PC.NURSE ---
patient appears to remain asleep at present respirations are even and unlabored patient appears in no distress.
[2022-09-03 07:50] VITALS: BP 118/76; PULSE 85; RESP 18; TEMP 36.6; O2SAT 99
--- NOTE | 2022-09-03 09:23 | MHC.CARE ---
Crista Cohn casualty claims supervisor from [facility] called and was provided updated on Pt current bed search status. She is requesting call if disposition changes @ [phone].
[2022-09-03] MEDS: OLANZapine 10 MG TABLET PO (20:00)
[2022-09-03] MEDS: Sulfamethox/Trimeth 800/160 TABLET 1 TAB PO (20:00)
[2022-09-03 23:20] VITALS: BP 117/76; PULSE 69; RESP 17; TEMP 36.4; O2SAT 97
--- NOTE | 2022-09-03 23:20 | MHC.EDTECH ---
pt is resting, asking why im taking vitals , i stated once a shift you need it, he said ok
[2022-09-04 03:44] VITALS: BP 116/69; PULSE 71; RESP 17; TEMP 36.3; O2SAT 96
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
--- NOTE | 2022-09-04 08:30 | PC.NURSE ---
Refusing AM meds and VS. A and o x 4.
--- NOTE | 2022-09-04 08:32 | MHC.EDTECH ---
pt refused vitals at this time, rn aware
[2022-09-04 08:33] VITALS: RESP 15
--- NOTE | 2022-09-04 12:28 | PC.NURSE ---
Rich from care team at bedside to speak to patient. Pt in behavioral control at this time.
[2022-09-04 13:17] VITALS: RESP 18
--- NOTE | 2022-09-04 17:53 | PC.NURSE ---
Pt needing redirection multiple times to go back to his room. Pt easily redirected.
--- NOTE | 2022-09-04 18:36 | PC.NURSE ---
Pt continues to leave his room and require redirection back to room and request to close door. Pt requesting new mask and socks. Mask and socks provided.
[2022-09-04] MEDS: Sulfamethox/Trimeth 800/160 TABLET 1 TAB PO (19:51)
[2022-09-04] MEDS: OLANZapine 10 MG TABLET PO (19:52)
[2022-09-04 20:08] VITALS: BP 133/72; PULSE 69; RESP 16; TEMP 36.4; O2SAT 97
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
[2022-09-05 06:26] VITALS: BP 128/74; PULSE 66; RESP 16; TEMP 36.6; O2SAT 96
--- NOTE | 2022-09-05 09:05 | MHC.CARE ---
left message w Crista Dominguez [phone] re: patient to discuss disposition/ medication schedule
--- NOTE | 2022-09-05 11:25 | MHC.CARE ---
Crista Dominguez requesting call back following consult w [employer]/ psychiatry and review of whether mbr can be held on section 12 still.
--- NOTE | 2022-09-05 12:23 | MHC.CARE ---
Crista daley [facility] given the fax number to send patient's [facility] Order.
[2022-09-05] MEDS: LORazepam 1 MG TABLET 2 MG PO (13:12)
[2022-09-05 14:11] VITALS: BP 143/82; PULSE 64; RESP 16; TEMP 36.2; O2SAT 99
--- NOTE | 2022-09-05 14:57 | MHC.CARE ---
[facility] inpatient bed[facility] exhausted.
[2022-09-05] MEDS: Sulfamethox/Trimeth 800/160 TABLET 1 TAB PO (20:03)
[2022-09-05] MEDS: OLANZapine 7.5 MG TABLET 15 MG PO (20:03)
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
[2022-09-06 06:25] VITALS: RESP 16
--- NOTE | 2022-09-06 16:39 | MHC.CARE ---
Patient requesting to leave Thursday if he continues to be behaviorally compliant and medication compliant. Documenting this at patient's request.
[2022-09-06 19:01] VITALS: BP 139/79; PULSE 78; RESP 20; TEMP 36.6; O2SAT 99
[2022-09-06] MEDS: Sulfamethox/Trimeth 800/160 TABLET 1 TAB PO (19:45)
[2022-09-06] MEDS: OLANZapine 7.5 MG TABLET 15 MG PO (19:45)
[2022-09-06] MEDS: LORazepam 1 MG TABLET 2 MG PO (19:46)
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
[2022-09-07 06:44] VITALS: RESP 16
[2022-09-07] MEDS: LORazepam 1 MG TABLET 2 MG PO (15:46)
[2022-09-07] MEDS: OLANZapine 7.5 MG TABLET 15 MG PO (19:44)
[2022-09-07] MEDS: Sulfamethox/Trimeth 800/160 TABLET 1 TAB PO (19:44)
--- NOTE | 2022-09-07 19:46 | PC.NURSE ---
Pt. requested night time medications. Administered zyprexa and bactrim. Pt. refused trazadone at this time.
[2022-09-07 19:58] VITALS: BP 115/76; PULSE 79; RESP 18; TEMP 36.6; O2SAT 95
--- NOTE | 2022-09-07 21:48 | PC.NURSE ---
Pt. offered trazadone again and continues to decline medication. Pt. was compliant with other nighttime medications.
--- NOTE | 2022-09-08 06:21 | PC.NURSE ---
Pt. asleep at 2200 and pt. remains sleeping at this time. Pt. medication and behaviorally compliant. Pt. plans to speak with CARE team about possible d/c today. Will continue to monitor.
[2022-09-08 08:25] VITALS: BP 106/67; PULSE 71; RESP 12; TEMP 36.4; O2SAT 96
[2022-09-08 10:15] LABS: COVID-19 Test Positive (Negative); IDNOW Serial# 16C4AD1C
== END 2022-09-08 14:02 | disposition home or self-care (01) ==
PROVIDERS: Emergency Medicine; Physician Assistant; Emergency Provider Emergency Medicine Emergency Medical Services; PCP Physician Assistant
DX: S46.222A Laceration of muscle, fascia and tendon of other parts of biceps, left arm, initial encounter (principal); S51.812A Laceration without foreign body of left forearm, initial encounter; R45.851 Suicidal ideations; U07.1 COVID-19; F20.9 Schizophrenia, unspecified; X78.9XXA Intentional self-harm by unspecified sharp object, initial encounter; Y93.9 Activity, unspecified; Y92.9 Unspecified place or not applicable; Y99.9 Unspecified external cause status; Z79.899 Other long term (current) drug therapy; Z87.891 Personal history of nicotine dependence
CPT/HCPCS: 80053; 80143; 80179; 80307; 81003; 82077; 85025; 87635; 99285; S9485

== ENCOUNTER 2022-09-26 22:11 | Emergency (ER) | payer OTHER, SELFPAY ==
[2022-09-26 22:31] VITALS: BP 122/72; BP 142/90; PULSE 76; PULSE 86; RESP 16; TEMP 36.7; O2SAT 98; BMI 28.8
--- NOTE | 2022-09-27 00:37 | PC.NURSE ---
Pt not in [facility] when called. Unable to LWT patient from the tracker as a Wilbarger Scale is required. This RN did not have any contact with patient, Wilbarger Scale not documented by knotter hand. This RN unable to ask patient the questions on the Wilbarger Scale as pt is no longer at the ED. This RN referring to Triage by Irasema HUNT where it was documented he was not SI/HI.
== END 2022-09-27 00:39 | disposition left against medical advice (07) ==
PROVIDERS: Emergency Provider Emergency Medicine
DX: F41.1 Generalized anxiety disorder (principal); R51.9 Headache, unspecified
CPT/HCPCS: 99281; 99283

== ENCOUNTER 2023-01-06 19:38 | Emergency (ER) | payer OTHER, SELFPAY ==
[2023-01-06 19:45] VITALS: BP 123/72; PULSE 70; RESP 14; TEMP 36.6; O2SAT 97; BMI 27.4
[2023-01-06 20:15] LABS: MANUAL DIFF FLAG NO
[2023-01-06 20:18] LABS: Basophils Percent Auto 0.3 % (0-2); Eosinophils Percent Auto 0.3 % (0-4); Hematocrit 39.6 % (42.0-52.0); Hemoglobin 12.5 g/dl (14.0-18.0); Imm Gran Abs Auto 0.02 X10*3/uL (0.00-0.03); Imm Gran Pct Auto 0.2 % (0.0-0.4); Lymphocytes Absolute Auto 1.5 X10*3/uL (1.2-4.9); Lymphocytes Percent Auto 16.6 % (20-40); Mean Corpuscular HGB Conc 31.6 g/dl (31.0-36.0); Mean Corpuscular Hemoglobin 27.2 pg (27.0-33.0); Mean Corpuscular Volume 86.3 fL (80.0-98.0); Mean Platelet Volume 10.4 fL (9.4-12.4); Monocytes Absolute Auto 0.5 X10*3/uL (0.1-1.2); Monocytes Percent Auto 5.1 % (2-11); Neutrophils Absolute Auto 7.1 x10*3/uL (2.0-8.3); Neutrophils Percent Auto 77.5 % (45-73); Platelet Count 250 X10*3/uL (160-400); Red Blood Count 4.59 X10*6/uL (4.60-5.80); Red Cell Distribution Width 14.7 % (11.0-16.0); White Blood Count 9.2 X10*3/uL (4.8-10.8)
[2023-01-06 20:30] LABS: Amphetamine Screen Urine Not Detected (Not Detect); Barbiturates, Urine Not Detected (Not Detect); Benzodiazepines Screen Urine Not Detected (Not Detect); Cannabinoid Screen Urine POSITIVE (Not Detect); Cocaine Screen Urine Not Detected (Not Detect); Fentanyl, urine Not Detected (Not Detect); Opiate Screen Urine Not Detected (Not Detect); Phencyclidine Screen Urine Not Detected (Not Detect)
[2023-01-06 20:45] LABS: Ethanol < 10 mg/dL
--- NOTE | 2023-01-06 21:35 | ED.GENADULT ---
HPI - General Adult General Chief complaint: Psychiatric Symptoms Stated complaint: CRISIS Time Seen by Provider: 01/06/23 21:05 Source: patient, RN notes reviewed and old records reviewed Mode of arrival: EMS Limitations: no limitations History of Present Illness HPI narrative: 27-year-old male past medical history significant for schizophrenia, anxiety presents for evaluation of ?I got anxious. ? Patient is coming from [facility]. He states that prior to arrival he punched a closet door due to ?anxiety. ? At the time of my evaluation the patient is calm and cooperative He reports that he punched a door with his right hand and denies any injury to the hand He has no complaints or concerns at this time Patient specifically denies any ideation to harm himself or anybody else Related Data Home Medications Medication Instructions Recorded Confirmed sulfamethoxazole 800 1 tab PO DAILY 09/02/22 01/06/23 mg-trimethoprim 160 mg tablet hydroxyzine pamoate 50 mg capsule 50 mg PO TID 12/05/22 01/06/23 lorazepam 2 mg tablet 2 mg PO BID PRN Anxiety 12/05/22 01/06/23 melatonin 3 mg tablet 3 mg PO DAILY 12/05/22 01/06/23 olanzapine 10 mg tablet 10 mg PO BEDTIME 01/06/23 01/06/23 Allergies Allergy/AdvReac Type Severity Reaction Status Date / Time aripiprazole [From Abilify] Allergy Unknown Unknown Verified 08/08/22 11:48 asenapine [From Saphris] Allergy Unknown Unknown Verified 08/08/22 11:48 ziprasidone [From Geodon] Allergy Unknown Unknown Verified 08/08/22 11:48 paliperidone [From Invega] Allergy Agitated Verified 08/08/22 11:48 Review of Systems Constitutional: Constitutional: Reports as per HPI, Denies chills, Denies fatigue, Denies fever(s) and Denies headache(s) ENT: Denies headache(s) Cardiovascular: Cardiovascular: Denies chest pain and Denies dyspnea Respiratory: Respiratory: Denies cough and Denies dyspnea Gastrointestinal: Gastrointestinal: Denies abdominal pain, Denies constipation and Denies vomiting Genitourinary: Genitourinary: Denies difficulty urinating and Denies dysuria Neurologic: Denies headache(s) and Denies focal weakness Psychiatric: Psychiatric: Reports anxiety Endocrine: Endocrine: Denies fatigue PMFSH Past Medical History Medical History Iron deficiency anemia Schizophrenia Surgical History History of dental surgery Family History Family History Father No problems noted. Mother No problems noted. Social History Social History (Updated 12/05/22 @ 12:38 by Jaky Miller) Household Members: None Household Members Other:: [facility] managed apartment Housing: Apartment Do you presently have visiting nurse or other home services: No Alcohol intake: unknown Patient Tobacco Use Status: Former Tobacco user Quit Date: 04/26/22 Years Smoked: 15 e-Cigarette/Vaping Use: Never Used Second Hand Smoke Exposure: No Advance Directives: No Advance Directives Information Provided: No Healthcare Proxy: No Guardian: Yes (Alee) service: No Current occupational status: unemployed Sexual orientation: did not discuss Cognitive needs: No Hearing needs: No Vision needs: No Physical Exam ED Vital Signs: Vital Signs - 24 hr 01/06/23 19:45 Temperature 97.9 F Pulse Rate 70 Respiratory Rate 14 Blood Pressure 123/72 Pulse Oximetry 97 Oxygen Delivery Method Room Air BMI result Body Mass Index 27.4 Const General: comfortable, no acute distress, alert and awake Nutritional Appearance: well nourished Orientation/consciousness: patient oriented x3 HENMT Head: Yes normocephalic and Yes atraumatic Eyes Eyelids: Yes eyelids normal Conjunctivae: conjunctivae normal Sclerae: sclerae normal Corneas: corneas normal Pupils: Equal, round and reactive pupils present EOM: EOMs intact bilaterally Neck Neck: Yes full ROM Resp Effort & Inspection: normal respiratory effort, able to speak in complete sentences and not labored Skin General skin exam: no rashes or lesions noted and elasticity normal Neuro General: patient oriented x3 Cranial nerves: Yes Equal, round and reactive pupils present and Yes Bilaterally intact EOM present Cognition (Neuro): normal cognition Extrem Other: Moving all extremities well without any obvious deformities. No tenderness with palpation of the patient's entire right hand and wrist. He has full range of motion to the wrist and all fingers of the right hand. Course Reevaluation(s) Reevaluation #1: Patient seen by care team and will be held overnight on a Section 12. He will need to be re-evaluated tomorrow for safety planning. Apparently the patient has a previous history of adverse reactions to marijuana use in the patient's U tox was positive for marijuana Time: 23:38 Medications Administered Generic Name Dose Route Start Last Admin Trade Name Juan David PRN Reason Stop Dose Admin Hydroxyzine HCl 50 mg 01/06/23 21:15 01/06/23 21:55 Hydroxyzine Hcl 50 Mg Tablet PO Not Given TID EVIN Lorazepam 2 mg 01/06/23 21:14 01/06/23 21:55 Lorazepam 1 Mg Tablet PO 2 mg BID PRN Administration Anxiety Melatonin 3 mg 01/07/23 09:00 01/06/23 21:53 Melatonin 3 Mg Tablet PO 3 mg DAILY EVIN Administration Olanzapine 10 mg 01/06/23 21:15 01/06/23 21:53 Olanzapine 10 Mg Tablet PO 10 mg BEDTIME EVIN Administration Medical Decision Making Medical Decision Making [facility] Narrative: Given the patient's episode of aggression, and requiring care to evaluation. The patient currently, cooperative, he is medically cleared for care team evaluation. Differential Diagnosis Anxiety Schizophrenia Depression Agitation Mood disorder Lab Data [facility] Lab Attestation statement: I reviewed the patient's lab results. 01/06/23 20:09 Labs: Lab Results 01/06/23 01/06/23 01/06/23 Range/Units 20:09 20:09 20:09 WBC 9.2 (4.8-10.8) X10*3/uL RBC 4.59 L (4.60-5.80) X10*6/uL Hgb 12.5 L (14.0-18.0) g/dl Hct 39.6 L (42.0-52.0) % MCV 86.3 (80.0-98.0) fL MCH 27.2 (27.0-33.0) pg MCHC 31.6 (31.0-36.0) g/dl RDW 14.7 (11.0-16.0) % Plt Count 250 (160-400) X10*3/uL MPV 10.4 (9.4-12.4) fL Immature Gran % (Auto) 0.2 (0.0-0.4) % Neut % (Auto) 77.5 H (45-73) % Lymph % (Auto) 16.6 L (20-40) % Vermilion % (Auto) 5.1 (2-11) % Eos % (Auto) 0.3 (0-4) % Baso % (Auto) 0.3 (0-2) % Lymph # (Auto) 1.5 (1.2-4.9) X10*3/uL Vermilion # (Auto) 0.5 (0.1-1.2) X10*3/uL Eos # (Auto) 0.0 (0.0-0.4) X10*3/uL Baso # (Auto) 0.0 (0.0-0.2) X10*3/uL Abs Immat Gran (auto) 0.02 (0.00-0.03) X10*3/uL Absolute Neuts (auto) 7.1 (2.0-8.3) x10*3/uL Absolute Nucleated RBC 0.000 (0.0-0.012) X10*3/uL Nucleated RBC % (auto) 0.0 (0.0-0.2) /100WBC Sodium 141 (135-145) mmol/L Potassium 3.9 (3.3-5.1) mmol/L Chloride 108 (96-108) mmol/L Carbon Dioxide 21 L (22-29) mmol/L Anion Gap 16 (12-20) BUN 11 (9-16) mg/dL Creatinine 0.92 (0.5-1.4) mg/dL Estim Creat Clear Calc 120.7 Estimated GFR > 60 Random Glucose 78 (60-115) mg/dL Calcium 9.4 (8.4-10.2) mg/dL Total Bilirubin 0.7 (0.0-1.0) mg/dL AST 29 (5-37) U/L ALT 70 H (0-40) U/L Alkaline Phosphatase 64 (39-117) U/L Total Protein 7.5 (6.5-8.0) g/dL Albumin 4.4 (3.5-5.0) g/dL Urine Opiates Screen (Not Detect) Urine Fentanyl Screen (Not Detect) Ur Barbiturates Screen (Not Detect) Ur Phencyclidine Scrn (Not Detect) Ur Amphetamines Screen (Not Detect) U Benzodiazepines Scrn (Not Detect) Urine Cocaine Screen (Not Detect) U Marijuana (THC) Screen (Not Detect) Ethyl Alcohol < 10 mg/dL 01/06/23 Range/Units 20:10 WBC (4.8-10.8) X10*3/uL RBC (4.60-5.80) X10*6/uL Hgb (14.0-18.0) g/dl Hct (42.0-52.0) % MCV (80.0-98.0) fL MCH (27.0-33.0) pg MCHC (31.0-36.0) g/dl RDW (11.0-16.0) % Plt Count (160-400) X10*3/uL MPV (9.4-12.4) fL Immature Gran % (Auto) (0.0-0.4) % Neut % (Auto) (45-73) % Lymph % (Auto) (20-40) % Vermilion % (Auto) (2-11) % Eos % (Auto) (0-4) % Baso % (Auto) (0-2) % Lymph # (Auto) (1.2-4.9) X10*3/uL Vermilion # (Auto) (0.1-1.2) X10*3/uL Eos # (Auto) (0.0-0.4) X10*3/uL Baso # (Auto) (0.0-0.2) X10*3/uL Abs Immat Gran (auto) (0.00-0.03) X10*3/uL Absolute Neuts (auto) (2.0-8.3) x10*3/uL Absolute Nucleated RBC (0.0-0.012) X10*3/uL Nucleated RBC % (auto) (0.0-0.2) /100WBC Sodium (135-145) mmol/L Potassium (3.3-5.1) mmol/L Chloride (96-108) mmol/L Carbon Dioxide (22-29) mmol/L Anion Gap (12-20) BUN (9-16) mg/dL Creatinine (0.5-1.4) mg/dL Estim Creat Clear Calc Estimated GFR Random Glucose (60-115) mg/dL Calcium (8.4-10.2) mg/dL Total Bilirubin (0.0-1.0) mg/dL AST (5-37) U/L ALT (0-40) U/L Alkaline Phosphatase (39-117) U/L Total Protein (6.5-8.0) g/dL Albumin (3.5-5.0) g/dL Urine Opiates Screen Not Detected (Not Detect) Urine Fentanyl Screen Not Detected (Not Detect) Ur Barbiturates Screen Not Detected (Not Detect) Ur Phencyclidine Scrn Not Detected (Not Detect) Ur Amphetamines Screen Not Detected (Not Detect) U Benzodiazepines Scrn Not Detected (Not Detect) Urine Cocaine Screen Not Detected (Not Detect) U Marijuana (THC) Screen POSITIVE H (Not Detect) Ethyl Alcohol mg/dL Discharge Plan Discharge Clinical Impression: Schizoaffective disorder Patient Disposition: Still a Patient Instructions: Schizoaffective Disorder (ED) Prescriptions: No Action hydroxyzine pamoate 50 mg capsule 50 mg PO TID melatonin 3 mg tablet 3 mg PO DAILY lorazepam 2 mg tablet 2 mg PO BID PRN (Reason: Anxiety) sulfamethoxazole-trimethoprim 800-160 mg tablet 1 tab PO DAILY olanzapine 10 mg tablet 10 mg PO BEDTIME
[2023-01-06] MEDS: OLANZapine 10 MG TABLET PO (21:53)
[2023-01-06] MEDS: Melatonin 3 MG TABLET PO (21:53)
[2023-01-06 21:55] LABS: Alanine Aminotransferase 70 U/L (0-40); Albumin Level 4.4 g/dL (3.5-5.0); Alkaline Phosphatase 64 U/L (39-117); Anion Gap 16 (12-20); Aspartate Amino Transferase 29 U/L (5-37); Bilirubin Total 0.7 mg/dL (0.0-1.0); Blood Urea Nitrogen 11 mg/dL (9-16); Calcium 9.4 mg/dL (8.4-10.2); Carbon Dioxide 21 mmol/L (22-29); Chloride 108 mmol/L (96-108); Creatinine Clr Calc Pharmacy 120.7; Estimated Glomerular Filt Rate > 60; Glucose Random 78 mg/dL (60-115); Potassium 3.9 mmol/L (3.3-5.1); Sodium 141 mmol/L (135-145); Total Protein 7.5 g/dL (6.5-8.0)
[2023-01-06] MEDS: LORazepam 1 MG TABLET 2 MG PO (21:55)
--- NOTE | 2023-01-07 06:03 | PC.NURSE ---
Patient slept through the night, no distress observed/reported, behavior non concerning, medication compliant, patient was seen by care team, disposition pending, re-evaluation by care team in the morning, VSS, will continue to monitor.
[2023-01-07 06:05] VITALS: BP 119/71; PULSE 76; RESP 17; TEMP 36.8; O2SAT 99
--- NOTE | 2023-01-07 07:06 | PC.NURSE ---
resumed care of patient this morning, he is currently resting, awaiting care team to touch base with jail
[2023-01-07 08:34] VITALS: BP 111/68; PULSE 59; RESP 16; TEMP 37.1; O2SAT 99
--- NOTE | 2023-01-07 08:44 | PC.NURSE ---
Patient was observed resting in bed with TV on, no volume. Patient declined his 0900 medication stating that he never took hydroxyzine due to having PRN lorazepam. Patient also stated that he just completed a month of taking Bactrim; therefore declined that medication. made aware.
[2023-01-07] MEDS: LORazepam 1 MG TABLET 2 MG PO (09:55)
== END 2023-01-07 10:39 | disposition home or self-care (01) ==
PROVIDERS: Emergency Provider Emergency Medicine; PCP Internal Medicine
DX: F25.9 Schizoaffective disorder, unspecified (principal); Z79.899 Other long term (current) drug therapy
CPT/HCPCS: 36415; 80053; 80307; 85025; 99284; S9485

== ENCOUNTER 2023-02-19 19:08 | Emergency (ER) | payer OTHER, SELFPAY ==
[2023-02-19 19:27] VITALS: BP 129/87; PULSE 99; O2SAT 100; BMI 29.6
--- NOTE | 2023-02-19 19:31 | ECG_ITS ---
Test Reason : CHEST PAIN Blood Pressure : / mmHG Vent. Rate : 057 BPM Atrial Rate : 057 BPM P-R Int : 150 ms QRS Dur : 094 ms QT Int : 376 ms P-R-T Axes : 052 062 056 degrees QTc Int : 365 ms Sinus bradycardia Otherwise normal ECG When compared with ECG of 16-APR-2021 15:09, No significant change was found Referred By: Generic ED Physician Electronically Signed By:SAMANTHA BLAIR MD
[2023-02-19 19:45] LABS: MANUAL DIFF FLAG NO
[2023-02-19 19:47] LABS: Basophils Percent Auto 0.4 % (0-2); Eosinophils Absolute Auto 0.1 X10*3/uL (0.0-0.4); Hemoglobin 14.1 g/dl (14.0-18.0); Imm Gran Abs Auto 0.02 X10*3/uL (0.00-0.03); Imm Gran Pct Auto 0.2 % (0.0-0.4); Lymphocytes Absolute Auto 3.4 X10*3/uL (1.2-4.9); Lymphocytes Percent Auto 35.2 % (20-40); Mean Corpuscular Hemoglobin 27.8 pg (27.0-33.0); Mean Corpuscular Volume 86.6 fL (80.0-98.0); Monocytes Absolute Auto 0.6 X10*3/uL (0.1-1.2); Monocytes Percent Auto 6.2 % (2-11); Neutrophils Absolute Auto 5.5 x10*3/uL (2.0-8.3); Platelet Count 289 X10*3/uL (160-400); Red Blood Count 5.08 X10*6/uL (4.60-5.80); Red Cell Distribution Width 13.5 % (11.0-16.0); White Blood Count 9.7 X10*3/uL (4.8-10.8)
[2023-02-19 20:07] LABS: Anion Gap 16 (12-20); Blood Urea Nitrogen 12 mg/dL (9-16); Calcium 9.9 mg/dL (8.4-10.2); Carbon Dioxide 22 mmol/L (22-29); Chloride 107 mmol/L (96-108); Creatinine Clr Calc Pharmacy 126.3; Estimated Glomerular Filt Rate > 60; Glucose Random 92 mg/dL (60-115); Potassium 3.9 mmol/L (3.3-5.1); Sodium 141 mmol/L (135-145)
[2023-02-19 20:35] LABS: Troponin-I High Sensitivity < 2.7 ng/L (<3.5-35.0)
[2023-02-19] MEDS: hydrOXYzine HCL 50 MG TABLET PO (20:38)
--- NOTE | 2023-02-19 20:39 | ED_ITS ---
HPI - Anxiety General Chief Complaint: Anxiety Stated Complaint: ANXIETY Time Seen by Provider: 02/19/23 19:34 Source: patient Mode of arrival: EMS Limitations: no limitations History of Present Illness HPI narrative: [facility] complaining of anxiety. Patient called 911 multiple times, but when talked to PD or EMS. Finally patient picked up the phone, spoke with them, told him that he was having a panic attack and chest pressure. Patient states that he usually has Ativan scheduled and he may take p.r.n. early. However, patient did not want to take his 3rd dose of the day earlier otherwise he would have nothing throughout the night. Patient denies shortness of breath. Patient states he no longer has chest pain. Related Data Home Medications Medication Instructions Recorded Confirmed sulfamethoxazole 800 1 tab PO DAILY 09/02/22 01/06/23 mg-trimethoprim 160 mg tablet hydroxyzine pamoate 50 mg capsule 50 mg PO TID 12/05/22 01/06/23 lorazepam 2 mg tablet 2 mg PO BID PRN Anxiety 12/05/22 01/06/23 melatonin 3 mg tablet 3 mg PO DAILY 12/05/22 01/06/23 olanzapine 10 mg tablet 10 mg PO BEDTIME 01/06/23 01/06/23 Allergies Allergy/AdvReac Type Severity Reaction Status Date / Time aripiprazole [From Abilify] Allergy Unknown Unknown Verified 08/08/22 11:48 asenapine [From Saphris] Allergy Unknown Unknown Verified 08/08/22 11:48 ziprasidone [From Geodon] Allergy Unknown Unknown Verified 08/08/22 11:48 paliperidone [From Invega] Allergy Agitated Verified 08/08/22 11:48 Review of Systems Review of Systems: Constitutional : No Weight loss, No Fever, No Chills, No Night Sweats, No Fatigue, No Malaise ENT/Mouth : No Hearing loss, No Ear Pain, No Nasal Congestion, No Sinus Pain, No Hoarseness, No sore throat, No Rhinorrhea, No Swallowing Difficulty Eyes: No Eye Pain, No Swelling, No Redness, No Foreign Body, No Discharge, No Vision Changes Cardiovascular : Complaining of chest pressure without No Chest Pain, No SOB, No Dyspnea on Exertion, No Orthopnea, No Edema, No Palpitations Respiratory : No Cough, No Sputum, No Wheezing, No Smoke Exposure, No Dyspnea Gastrointestinal : No Nausea, No Vomiting, No Diarrhea, No Constipation, No abdominal Pain, No Hematochezia, No Melena Genitourinary : no irregular bleeding, No Dysuria, No Urinary Frequency, No Hematuria, No Urinary Incontinence, No Urgency, No Flank Pain, No Urinary Flow Changes, No Hesitancy Musculoskeletal : No joint pain, No Myalgias, No Joint Swelling Skin : No Skin Lesions, No rash Neuro : No Weakness, No Numbness, No Paresthesias, No Loss of Consciousness, No Dizziness, No Headache Psych : Complaining of anxiety/panic attack No Depression, No SI/HI/AH/VH, No Social Issues, Heme/Lymph: No Bruising, No Bleeding,No Lymphadenopathy Endocrine : No Polyuria, No Polydipsia, No Temperature Intolerance [facility] Past Medical History Medical History Iron deficiency anemia Schizophrenia Surgical History History of dental surgery Family History Family History Father No problems noted. Mother No problems noted. Social History Social History (Updated 12/05/22 @ 12:38 by Jaky Miller) Household Members: None Household Members Other:: [facility] managed apartment Housing: Apartment Do you presently have visiting nurse or other home services: No Alcohol intake: unknown Patient Tobacco Use Status: Former Tobacco user Quit Date: 04/26/22 Years Smoked: 15 e-Cigarette/Vaping Use: Never Used Second Hand Smoke Exposure: No service: No Current occupational status: unemployed Sexual orientation: did not discuss Cognitive needs: No Hearing needs: No Vision needs: No Physical Exam Vital Signs: Vital Signs: BMI result Body Mass Index 29.6 Const: Other: Appearance: Alert. Oriented X3. No acute distress. Eyes: Pupils equal, round and reactive to light. ENT: Pharynx normal. Neck: Normal inspection. Neck supple. No lymph nodes noted. No crepitus CVS: Normal heart rate and rhythm. Pulses normal. Normal S1 and S2 Respiratory: No respiratory distress. Breath sounds normal. No Wheezing. No rales Abdomen: Soft and nontender. No rigidity. No distention. Skin: Skin warm and dry. Normal skin color. Normal skin turgor. Extremities: No lower extremity edema. No Lacerations. No Rash Neuro: Oriented X 3. No motor deficit. No sensory deficit. Moving all extremities. No slurred speech. CN 2 through 12 grossly intact Psych: calm, cooperative, anxious Medications Administered Discontinued Medications Generic Name Dose Route Start Last Admin Trade Name Patricq PRN Reason Stop Dose Admin Hydroxyzine HCl 50 mg 02/19/23 20:30 02/19/23 20:38 Hydroxyzine Hcl 50 Mg Tablet PO 02/19/23 20:31 50 mg ONCE ONE Administration Medical Decision Making Medical Decision Making [facility] Narrative: -My interpretation of EKG: Sinus bradycardia, heart rate 57, no ST segment depression or elevation, no T-wave inversion, QTC 365 - troponin negative - patient is symptomatic - wells criteria score for pulmonary embolism 0 - patient's symptoms likely secondary to anxiety / panic attack - patient did well with 1 dose of Atarax Differential Diagnosis Differential Diagnoses: The differential diagnosis associated with the presentation includes ( ACS, anxiety, musculoskeletal, costochondritis, pleurisy) Admission/Observation Consideration of admission/observation: Escalation of care including admission/observation considered (initially when patient came in was complaining of chest pain. Admission was considered.) Lab Data [facility] Lab Attestation statement: I reviewed the patient's lab results. 02/19/23 19:42 02/19/23 19:42 Labs: Lab Results 02/19/23 02/19/23 02/19/23 Range/Units 19:42 19:42 19:42 WBC 9.7 (4.8-10.8) X10*3/uL RBC 5.08 (4.60-5.80) X10*6/uL Hgb 14.1 (14.0-18.0) g/dl Hct 44.0 (42.0-52.0) % MCV 86.6 (80.0-98.0) fL MCH 27.8 (27.0-33.0) pg MCHC 32.0 (31.0-36.0) g/dl RDW 13.5 (11.0-16.0) % Plt Count 289 (160-400) X10*3/uL MPV 10.0 (9.4-12.4) fL Immature Gran % (Auto) 0.2 (0.0-0.4) % Neut % (Auto) 57.0 (45-73) % Lymph % (Auto) 35.2 (20-40) % Roberts % (Auto) 6.2 (2-11) % Eos % (Auto) 1.0 (0-4) % Baso % (Auto) 0.4 (0-2) % Lymph # (Auto) 3.4 (1.2-4.9) X10*3/uL Roberts # (Auto) 0.6 (0.1-1.2) X10*3/uL Eos # (Auto) 0.1 (0.0-0.4) X10*3/uL Baso # (Auto) 0.0 (0.0-0.2) X10*3/uL Abs Immat Gran (auto) 0.02 (0.00-0.03) X10*3/uL Absolute Neuts (auto) 5.5 (2.0-8.3) x10*3/uL Absolute Nucleated RBC 0.000 (0.0-0.012) X10*3/uL Nucleated RBC % (auto) 0.0 (0.0-0.2) /100WBC Sodium 141 (135-145) mmol/L Potassium 3.9 (3.3-5.1) mmol/L Chloride 107 (96-108) mmol/L Carbon Dioxide 22 (22-29) mmol/L Anion Gap 16 (12-20) BUN 12 (9-16) mg/dL Creatinine 0.94 (0.5-1.4) mg/dL Estim Creat Clear Calc 126.3 Estimated GFR > 60 Random Glucose 92 (60-115) mg/dL Calcium 9.9 (8.4-10.2) mg/dL Troponin I High Sens < 2.7 (<3.5-35.0) ng/L Independent Interpretation I performed an independent interpretation of an: EKG Discharge Plan Discharge Clinical Impression: Acute anxiety, Anxiety, Chest pressure Patient Disposition: Home, Self-Care Instructions: Generalized Anxiety Disorder (ED), Chest Pain (ED), Anxiety (ED) Additional Instructions: Please follow-up with your primary care physician tomorrow. If you have any worsening or new symptoms, please return to the emergency room or call 911 Prescriptions: No Action hydroxyzine pamoate 50 mg capsule 50 mg PO TID melatonin 3 mg tablet 3 mg PO DAILY lorazepam 2 mg tablet 2 mg PO BID PRN (Reason: Anxiety) sulfamethoxazole-trimethoprim 800-160 mg tablet 1 tab PO DAILY olanzapine 10 mg tablet 10 mg PO BEDTIME Interventions: ED Discharge Assessment Last Done: 02/19/23 20:44 Discharge Date/Time: 02/19/23 20:44
== END 2023-02-19 20:44 | disposition home or self-care (01) ==
PROVIDERS: Emergency Provider Emergency Medicine
DX: F41.9 Anxiety disorder, unspecified (principal); R07.89 Other chest pain; F41.1 Generalized anxiety disorder; F43.0 Acute stress reaction; Z79.899 Other long term (current) drug therapy
CPT/HCPCS: 36415; 80048; 84484; 85025; 93005; 99283; 99284

== ENCOUNTER → 2023-02-19 19:31 | Outpatient (BNV) | payer OTHER, SELFPAY | PROVIDERS: Emergency Provider Emergency Medicine; Visit Provider Internal Medicine Cardiovascular Disease | DX: R07.9 Chest pain, unspecified (principal) | CPT/HCPCS: 93010 ==

== ENCOUNTER 2023-03-20 09:22 | Outpatient (AMB) | payer OTHER, SELFPAY ==
[2023-03-20 09:25] VITALS: BP 138/88; PULSE 75; O2SAT 98; BMI 30.3
--- NOTE | 2023-03-20 09:25 | A.OFFPC_ITS ---
Vital Signs 03/20/23 09:25 Height 5 ft 8 in Weight 199 lb 2 oz BMI 30.3 BP 138/88 Blood Pressure Location Lt brachial Position Sitting Pulse 75 Pulse Source Pulse Oximeter Pulse Oximetry (%) 98 Oxygen Delivery Method Room Air Intake Visit Reasons: Small Boil Below the Belly Button Intake Note: Pt is here for small boil below the belly button. Hydro Generation Supervisor Required: No Accompanied by: Self / Same As Patient Allergies aripiprazole [From Abilify] Allergy (Unknown, Verified 03/20/23 09:36) Unknown asenapine [From Saphris] Allergy (Unknown, Verified 03/20/23 09:36) Unknown ziprasidone [From Geodon] Allergy (Unknown, Verified 03/20/23 09:36) Unknown paliperidone [From Invega] Allergy (Verified 03/20/23 09:36) Agitated Medication List - Last Reconciled 03/20/23 by WINDY Cabrera betamethasone dipropionate 0.05% 1 appl topical DAILY PRN lorazepam 2 mg PO BID PRN melatonin 3 mg PO DAILY olanzapine 10 mg PO BEDTIME olanzapine (Zyprexa) 2.5 mg PO DAILY Tobacco use date assessed: 08/08/22 Dental Screening Dental Screen Date: 03/20/23 Did you have a dental visit in the last 12 months?: Yes Did you have a dental problem in the last 6 months where you did not have access to dental care?: No Was dental information given to patient?: Patient has dentist HPI Small Boil Below the Belly Button HPI Details Patient is a 27-year-old male who presents today with small black area below his umbilicus for about 4 years now. Patient of SHABNAM Mendez. patient reports that this black area he removes sometimes and then it is just keeps coming back. Denies pain. No shortness of breath or chest pain. [facility] Medical History Iron deficiency anemia Schizophrenia Surgical History History of dental surgery Family History Father No problems noted. Mother No problems noted. Social History Household Members: None Household Members Other:: [facility] managed apartment Housing: Apartment Do you presently have visiting nurse or other home services: No Alcohol intake: unknown Patient Tobacco Use Status: Former Tobacco user Quit Date: 04/26/22 Years Smoked: 15 e-Cigarette/Vaping Use: Never Used Second Hand Smoke Exposure: No service: No Current occupational status: unemployed Sexual orientation: did not discuss Cognitive needs: No Hearing needs: No Vision needs: No Questionnaire Thrive Questionnaire Date Thrive assessed: 08/08/22 DANA-7 AMB Questionnaire DANA-7 Date DANA - 7 assessed: 08/06/21 Source: Developed by Drs. Devon Foy, Jennifer Stanley, Dallas Villegas and colleagues, with an educational ambrosio from [employer]. Review of Systems Const Denies body aches, Denies chills, Denies fever(s) and Denies headache(s) Eyes Denies change in vision ENT Denies dizziness, Denies otalgia, Denies headache(s), Denies nasal discharge, Denies sinus pain and Denies sore throat Card Denies chest pain, Denies edema, Denies lightheadedness and Denies dyspnea Resp Denies dyspnea and Denies wheezing GI Denies abdominal pain Denies dysuria Musc Denies myalgias Skin/Breast Reports as per HPI and Denies rash Neuro Denies dizziness and Denies headache(s) Aller/Immun Denies wheezing Physical exam (Primary Care) Vital Signs: Last Vital Signs Pulse 75 03/20/23 09:25 BP 138/88 03/20/23 09:25 Pulse Ox 98 03/20/23 09:25 Oxygen Delivery Method Room Air 03/20/23 09:25 BMI result Body Mass Index 30.3 Tobacco/Smoking Status: Tobacco use Status Tobacco use date assessed 08/08/22 03/20/23 09:25 Patient Tobacco Use Status Former Tobacco user 03/20/23 09:25 e-Cigarette/Vaping Use Never Used 03/20/23 09:25 Thrive Assessment: Date of Thrive Assessment Date Thrive assessed 08/08/22 03/20/23 09:25 Const General: cooperative and no acute distress Orientation/consciousness: patient oriented x3 HENMT Head: Yes normocephalic and Yes atraumatic Throat: Yes posterior oropharynx normal Eyes General: appearance normal, both eyes and all related structures Neck Neck: Yes normal visual inspection and Yes full ROM Resp Effort & Inspection: normal respiratory effort and able to speak in complete sentences Auscultation: clear to auscultation bilaterally, no crackles, no rales, no rhonchi and no wheezes Cardio Rate: regular rate Rhythm: regular rhythm Heart sounds: S1 normal heart sound present and S2 normal heart sound present GI Auscultation: normal bowel sounds Skin Other: Right abdomen below umbilicus open comedone about 2mm in diameter, nontender, no discharge, no signs of infection noted Neuro General: patient oriented x3 Gait exam (Neuro): Normal gait present Extrem General: Yes full ROM and No edema Assessment and Plan Assessment & Plan (1) [place]head: Code(s): L70.0 - Acne vulgaris Plan: Right abdomen below umbilicus open comedone about 2mm in diameter, nontender, no discharge, no signs of infection noted Dermatology referral for an evaluation and treatment Patient agreed with the plan Orders: Referrals Dermatology Referral L70.0 - Acne vulgaris Coding Level of Care Code Est Pt Level 3 (38887) Diagnoses [place]head L70.0
== END 2023-03-20 09:46 | disposition home or self-care (01) ==
PROVIDERS: Visit Provider Nurse Practitioner Family
DX: L70.0 Acne vulgaris (principal)
CPT/HCPCS: 99213

== ENCOUNTER 2023-03-25 15:40 | Inpatient (IN) | payer OTHER, SELFPAY ==
[2023-03-25 15:50] VITALS: BP 138/82; BP 160/90; PULSE 71; PULSE 86; RESP 18; TEMP 36.3; O2SAT 96; O2SAT 99; BMI 30.4
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
[2023-03-25 16:48] LABS: MANUAL DIFF FLAG NO
[2023-03-25 16:54] LABS: Basophils Percent Auto 0.3 % (0-2); Eosinophils Absolute Auto 0.1 X10*3/uL (0.0-0.4); Eosinophils Percent Auto 1.7 % (0-4); Hematocrit 38.1 % (42.0-52.0); Hemoglobin 12.5 g/dl (14.0-18.0); Imm Gran Abs Auto 0.02 X10*3/uL (0.00-0.03); Imm Gran Pct Auto 0.3 % (0.0-0.4); Lymphocytes Absolute Auto 1.7 X10*3/uL (1.2-4.9); Lymphocytes Percent Auto 21.3 % (20-40); Mean Corpuscular HGB Conc 32.8 g/dl (31.0-36.0); Mean Corpuscular Hemoglobin 28.1 pg (27.0-33.0); Mean Corpuscular Volume 85.6 fL (80.0-98.0); Mean Platelet Volume 10.2 fL (9.4-12.4); Monocytes Absolute Auto 0.5 X10*3/uL (0.1-1.2); Monocytes Percent Auto 5.9 % (2-11); Neutrophils Absolute Auto 5.5 x10*3/uL (2.0-8.3); Neutrophils Percent Auto 70.5 % (45-73); Platelet Count 244 X10*3/uL (160-400); Red Blood Count 4.45 X10*6/uL (4.60-5.80); Red Cell Distribution Width 13.2 % (11.0-16.0); White Blood Count 7.7 X10*3/uL (4.8-10.8)
[2023-03-25 17:05] LABS: Alanine Aminotransferase 38 U/L (0-40); Albumin Level 3.8 g/dL (3.5-5.0); Alkaline Phosphatase 53 U/L (39-117); Anion Gap 12 (12-20); Aspartate Amino Transferase 18 U/L (5-37); Bilirubin Total 0.4 mg/dL (0.0-1.0); Blood Urea Nitrogen 8 mg/dL (9-16); Calcium 8.7 mg/dL (8.4-10.2); Carbon Dioxide 23 mmol/L (22-29); Chloride 109 mmol/L (96-108); Creatinine Clr Calc Pharmacy 158.2; Estimated Glomerular Filt Rate > 60; Glucose Random 108 mg/dL (60-115); Potassium 3.4 mmol/L (3.3-5.1); Sodium 141 mmol/L (135-145); Total Protein 6.6 g/dL (6.5-8.0)
[2023-03-25 17:07] LABS: Acetaminophen LAB < 17 mcg/mL (<30); Ethanol < 10 mg/dL; Salicylate < 5.0 mg/dL (15-30)
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
[2023-03-25 20:23] LABS: Appearance Urine Clear; Color Urine Yellow; Glucose Urine UA Negative (Negative); Leukocyte Esterase Urine Negative (Negative); Nitrite Urine Negative (Negative); PH 6.5 (5.0-9.0); Urine Blood Negative (Negative); Urine Ketones Negative (Negative); Urine Protein Negative (Neg-Trace)
[2023-03-25 20:26] LABS: Bacteria Urine None Seen (None Seen); Hyaline Casts Urine 0-2 /LPF (0-2); RBC Urine 0-2 /HPF (0-2); Squamous Epithelial Cell Urine 0-2 /HPF (0-2); WBC Urine 0-5 /HPF (0-5)
[2023-03-25 20:35] LABS: Amphetamine Screen Urine Not Detected (Not Detect); Barbiturates, Urine Not Detected (Not Detect); Benzodiazepines Screen Urine Not Detected (Not Detect); Cannabinoid Screen Urine POSITIVE (Not Detect); Cocaine Screen Urine Not Detected (Not Detect); Fentanyl, urine Not Detected (Not Detect); Opiate Screen Urine Not Detected (Not Detect); Phencyclidine Screen Urine Not Detected (Not Detect)
[2023-03-25] MEDS: OLANZapine 10 MG TABLET PO (20:38)
[2023-03-25] MEDS: Melatonin 3 MG TABLET 6 MG PO (20:41)
[2023-03-25] MEDS: LORazepam 1 MG TABLET 2 MG PO (20:42)
[2023-03-25 22:36] LABS: COVID-19 Test Negative (Negative); IDNOW Serial# BCCEAD1C
--- NOTE | 2023-03-26 05:55 | PC.NURSE ---
Patient slept through the night, no distress observed/reported, behavior non concerning but unpredictable, medication compliant, disposition per care team is section 12 inpatient bed search, labs completed/resulted, VSS, labs completed/resulted, will continue to monitor.
[2023-03-26] MEDS: clonazePAM 1 MG TABLET 2 MG PO (12:14)
--- NOTE | 2023-03-26 12:45 | PC.NURSE ---
MEDICAL PRACTITIONERS held zyprexa bc pt reported that higher doses give him GI upset. Held med and Klonapin given per SEP. Awaiting further orders
--- NOTE | 2023-03-26 13:35 | ECG_ITS ---
Test Reason : prolong qt Blood Pressure : / mmHG Vent. Rate : 049 BPM Atrial Rate : 049 BPM P-R Int : 138 ms QRS Dur : 088 ms QT Int : 408 ms P-R-T Axes : 022 069 053 degrees QTc Int : 368 ms Sinus bradycardia Otherwise normal ECG When compared with ECG of 19-FEB-2023 19:35, Heart rate has decreased Referred By: Ren Carrion Electronically Signed By:HUSAM ACEVEDO
[2023-03-26 13:37] VITALS: BP 152/85; PULSE 58; RESP 16; TEMP 36.2; O2SAT 96
[2023-03-26] MEDS: OLANZapine 10 MG TABLET PO ×2 (14:15→22:15)
[2023-03-26 20:47] VITALS: BP 131/71; PULSE 69; TEMP 36.2; O2SAT 97
[2023-03-26] MEDS: Melatonin 3 MG TABLET 6 MG PO (22:15)
--- NOTE | 2023-03-26 22:54 | PC.NURSE ---
PT SIGNED A 3 DAY NOTICE ON Thursday03/26/23. UP ON Thursday04/01/23.
[2023-03-26] MEDS: LORazepam 1 MG TABLET 2 MG PO (23:40)
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
[2023-03-27 09:11] VITALS: BP 103/60; PULSE 52; RESP 16; TEMP 36; O2SAT 97
[2023-03-27 09:18] LABS: Estimated Average Glucose 103 mg/dL; Hemoglobin A1c % 5.2 % (<6.0)
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
[2023-03-27 10:39] LABS: Anion Gap 11 (12-20); Blood Urea Nitrogen 16 mg/dL (9-16); Carbon Dioxide 24 mmol/L (22-29); Chloride 108 mmol/L (96-108); Creatinine Clr Calc Pharmacy 150.3; Estimated Glomerular Filt Rate > 60; Potassium 4.1 mmol/L (3.3-5.1); Sodium 139 mmol/L (135-145)
[2023-03-27 10:40] LABS: Alanine Aminotransferase 48 U/L (0-40); Albumin Level 3.9 g/dL (3.5-5.0); Alkaline Phosphatase 58 U/L (39-117); Aspartate Amino Transferase 33 U/L (5-37); Bilirubin Total 0.3 mg/dL (0.0-1.0); Calcium 9.6 mg/dL (8.4-10.2); Cholesterol 160 mg/dL (<200); Free T4 (Free Thyroxine) 0.89 ng/dL (0.71-1.85); Glucose Fasting 93 mg/dL (60-99); HDL Cholesterol 41 mg/dL (>40); LDL Cholesterol Calculated 101 mg/dL (<100); Magnesium 2.1 mg/dL (1.6-2.6); Thyroid Stimulating Hormone 2.99 uIU/mL (0.32-4.0); Total Protein 6.7 g/dL (6.5-8.0); Triglycerides 91 mg/dL (<150)
[2023-03-27 11:00] LABS: Folate 8.9 ng/mL (> or = 4.0); Vitamin B12 322 pg/mL (200-900)
[2023-03-27] MEDS: Nicotine Polacrilex 2 MG GUM 4 MG BUCCAL (12:54)
[2023-03-27] MEDS: cloZAPine 25 MG TABLET PO (12:59)
[2023-03-27 18:00] VITALS: BP 119/68; PULSE 97; RESP 16; TEMP 36.6; O2SAT 97
[2023-03-27] MEDS: OLANZapine 10 MG TABLET PO (20:31)
[2023-03-27] MEDS: Melatonin 3 MG TABLET 6 MG PO (20:31)
[2023-03-27] MEDS: clonazePAM 0.5 MG TABLET PO (22:37)
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
[2023-03-28 10:09] VITALS: BP 136/77; PULSE 98; RESP 16; TEMP 36.4; O2SAT 97
[2023-03-28] MEDS: Nicotine Polacrilex 2 MG GUM 4 MG BUCCAL (15:18)
[2023-03-28] MEDS: Nicotine Polacrilex 2 MG GUM BUCCAL (20:31)
[2023-03-28] MEDS: OLANZapine 10 MG TABLET PO (21:21)
[2023-03-28] MEDS: Melatonin 3 MG TABLET 6 MG PO (21:22)
[2023-03-28] MEDS: cloZAPine ODT 25 MG TAB.RAPDIS 50 MG PO (21:22)
[2023-03-28] MEDS: clonazePAM 0.5 MG TABLET PO (21:29)
[2023-03-28 21:30] VITALS: BP 124/78; PULSE 70; TEMP 36.2
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
[2023-03-29] MEDS: Nicotine Polacrilex 2 MG GUM BUCCAL ×2 (10:10→16:57)
[2023-03-29 10:42] VITALS: BP 172/85; PULSE 84; RESP 18; TEMP 36.4; O2SAT 96
[2023-03-29] MEDS: Acetaminophen 325 MG TABLET 650 MG PO (12:36)
[2023-03-29] MEDS: oxyCODONE HCl Immed Release 5 MG TABLET PO ×3 (12:36→21:19)
[2023-03-29 19:29] VITALS: BP 132/82; PULSE 81; RESP 18; TEMP 36.3; O2SAT 98
[2023-03-29] MEDS: OLANZapine 10 MG TABLET PO (21:20)
[2023-03-29] MEDS: Melatonin 3 MG TABLET 6 MG PO (21:20)
[2023-03-29] MEDS: cloZAPine ODT 25 MG TAB.RAPDIS 75 MG PO (21:20)
[2023-03-29] MEDS: clonazePAM 0.5 MG TABLET PO (21:23)
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
[2023-03-30 11:24] VITALS: BP 142/84; PULSE 82; RESP 16; TEMP 36.4; O2SAT 98
[2023-03-30] MEDS: oxyCODONE HCl Immed Release 5 MG TABLET PO ×2 (12:50→19:37)
[2023-03-30] MEDS: Nicotine Polacrilex 2 MG GUM BUCCAL (15:31)
[2023-03-30 18:00] VITALS: BP 122/78; PULSE 78; RESP 18; TEMP 36.4; O2SAT 97
[2023-03-30] MEDS: Melatonin 3 MG TABLET 6 MG PO (19:38)
[2023-03-30] MEDS: cloZAPine ODT 25 MG TAB.RAPDIS 100 MG PO (19:38)
[2023-03-30] MEDS: OLANZapine 10 MG TABLET PO (19:38)
[2023-03-30] MEDS: clonazePAM 0.5 MG TABLET PO (21:55)
[2023-03-31 09:15] VITALS: BP 132/80; PULSE 82; RESP 18; TEMP 36.8; O2SAT 99
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
[2023-03-31] MEDS: oxyCODONE HCl Immed Release 5 MG TABLET PO ×2 (11:39→17:14)
[2023-03-31] MEDS: Acetaminophen 325 MG TABLET PO (11:39)
[2023-03-31] MEDS: Nicotine Polacrilex 2 MG GUM BUCCAL (11:41)
[2023-03-31] MEDS: Nicotine 14 MG PATCH.TD24 TRANSDERMA (13:22)
[2023-03-31 18:00] VITALS: BP 148/89; PULSE 85; TEMP 36.8; O2SAT 99
[2023-03-31] MEDS: cloZAPine ODT 25 MG TAB.RAPDIS 125 MG PO (20:32)
[2023-03-31] MEDS: Melatonin 3 MG TABLET 6 MG PO (20:33)
[2023-03-31] MEDS: OLANZapine 10 MG TABLET PO (20:33)
[2023-04-01 09:36] LABS: Neut%MD 42.9 %; Neutrophils Absolute Auto 3.4 x10*3/uL (2.0-8.3); WBCANC 7.9 X10*3/uL
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
[2023-04-01] MEDS: oxyCODONE HCl Immed Release 5 MG TABLET PO ×2 (11:01→18:48)
[2023-04-01] MEDS: Acetaminophen 325 MG TABLET PO (11:01)
[2023-04-01 11:05] VITALS: BP 143/73; PULSE 112; RESP 20; TEMP 36.3; O2SAT 98
[2023-04-01] MEDS: Nicotine Polacrilex 2 MG GUM BUCCAL ×2 (13:49→20:18)
[2023-04-01] MEDS: Nicotine 14 MG PATCH.TD24 TRANSDERMA (16:26)
[2023-04-01 19:10] VITALS: BP 130/72; PULSE 98; TEMP 36.3; O2SAT 98
[2023-04-01] MEDS: OLANZapine 10 MG TABLET PO (21:05)
[2023-04-01] MEDS: Melatonin 3 MG TABLET 6 MG PO (21:05)
[2023-04-01] MEDS: cloZAPine ODT 25 MG TAB.RAPDIS 125 MG PO (21:06)
[2023-04-01] MEDS: clonazePAM 0.5 MG TABLET PO (21:08)
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
[2023-04-02 10:36] VITALS: BP 141/86; PULSE 91; RESP 18; TEMP 36.1; O2SAT 98
[2023-04-02] MEDS: Acetaminophen 325 MG TABLET PO ×2 (11:34→15:56)
[2023-04-02] MEDS: oxyCODONE HCl Immed Release 5 MG TABLET PO ×2 (11:34→15:56)
[2023-04-02 11:39] VITALS: BMI 30.4
[2023-04-02 16:27] VITALS: BP 137/71; PULSE 88; RESP 18; TEMP 36.1; O2SAT 94
[2023-04-02] MEDS: Nicotine Polacrilex 2 MG GUM BUCCAL (16:56)
[2023-04-02] MEDS: Melatonin 3 MG TABLET 6 MG PO (21:22)
[2023-04-02] MEDS: cloZAPine 100 MG TABLET PO (21:23)
[2023-04-02] MEDS: OLANZapine 10 MG TABLET PO (21:23)
[2023-04-02] MEDS: cloZAPine 25 MG TABLET 50 MG PO (21:23)
[2023-04-02] MEDS: clonazePAM 0.5 MG TABLET PO (21:27)
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
[2023-04-03 11:12] VITALS: BP 159/83; PULSE 100; TEMP 36.4; O2SAT 98
[2023-04-03] MEDS: oxyCODONE HCl Immed Release 5 MG TABLET PO ×2 (12:08→20:09)
[2023-04-03] MEDS: Nicotine 14 MG PATCH.TD24 TRANSDERMA (12:08)
[2023-04-03] MEDS: Acetaminophen 325 MG TABLET PO ×2 (12:08→20:12)
[2023-04-03] MEDS: Nicotine Polacrilex 2 MG GUM BUCCAL (12:33)
[2023-04-03 20:00] VITALS: BP 139/73; PULSE 107; TEMP 35.8
[2023-04-03] MEDS: OLANZapine 7.5 MG TABLET PO (21:52)
[2023-04-03] MEDS: Melatonin 3 MG TABLET 6 MG PO (21:52)
[2023-04-03] MEDS: cloZAPine 100 MG TABLET PO (21:53)
[2023-04-03] MEDS: cloZAPine 25 MG TABLET 50 MG PO (21:53)
[2023-04-03] MEDS: clonazePAM 0.5 MG TABLET PO (21:55)
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
[2023-04-04 10:53] VITALS: RESP 18
[2023-04-04] MEDS: oxyCODONE HCl Immed Release 5 MG TABLET PO ×2 (12:59→18:24)
[2023-04-04] MEDS: Acetaminophen 325 MG TABLET PO ×2 (13:00→18:25)
[2023-04-04 16:30] VITALS: RESP 16
[2023-04-04] MEDS: Melatonin 3 MG TABLET 6 MG PO (21:43)
[2023-04-04] MEDS: OLANZapine 7.5 MG TABLET PO (21:43)
[2023-04-04] MEDS: cloZAPine 100 MG TABLET 150 MG PO (21:44)
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
[2023-04-05] MEDS: Acetaminophen 325 MG TABLET PO ×2 (11:52→18:50)
[2023-04-05] MEDS: oxyCODONE HCl Immed Release 5 MG TABLET PO ×2 (11:54→18:49)
[2023-04-05] MEDS: Melatonin 3 MG TABLET 6 MG PO (22:02)
[2023-04-05] MEDS: OLANZapine 7.5 MG TABLET PO (22:02)
[2023-04-06 06:00] VITALS: RESP 20
[2023-04-06] MEDS: Acetaminophen 325 MG TABLET PO (14:35)
[2023-04-06] MEDS: oxyCODONE HCl Immed Release 5 MG TABLET PO (14:35)
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
[2023-04-06 16:53] LABS: Neut%MD 58.7 %; WBCANC 6.8 X10*3/uL
== END 2023-04-06 17:25 | disposition home or self-care (01) | DRG 750 ==
LOC: HO.ED 16:28 → HO.PM5 03-26 20:03
PROVIDERS: Clinical Nurse Specialist Psychiatric/Mental Health, Adult; Admitting Provider Psychiatry & Neurology Psychiatry; Emergency Provider Emergency Medicine; PCP Internal Medicine; Visit Provider Psychiatry & Neurology Psychiatry
DX: F20.0 Paranoid schizophrenia (principal); Z20.822 Contact with and (suspected) exposure to COVID-19; Z79.899 Other long term (current) drug therapy; Z87.891 Personal history of nicotine dependence
CPT/HCPCS: 36415; 80053; 80061; 80143; 80179; 80307; 81001; 82607; 82746; 83036; 83735; 84439; 84443; 85025; 85048; 87635; 93005; 99285; S9485

== ENCOUNTER → 2023-03-26 20:00 | Outpatient (BNV) | payer OTHER, SELFPAY | PROVIDERS: Admitting Provider Psychiatry & Neurology Psychiatry; Emergency Provider Emergency Medicine; PCP Internal Medicine; Visit Provider Psychiatry & Neurology Psychiatry | DX: F20.0 Paranoid schizophrenia (principal) | CPT/HCPCS: 90792; 99231; 99232; 99238 ==

== ENCOUNTER 2023-04-22 13:51 | Outpatient (REF) | payer OTHER, SELFPAY ==
[2023-04-22 14:09] LABS: MANUAL DIFF FLAG NO
[2023-04-22 15:08] LABS: Basophils Percent Auto 0.5 % (0-2); Eosinophils Percent Auto 0.5 % (0-4); Hematocrit 40.2 % (42.0-52.0); Hemoglobin 13.1 g/dl (14.0-18.0); Imm Gran Abs Auto 0.02 X10*3/uL (0.00-0.03); Imm Gran Pct Auto 0.2 % (0.0-0.4); Lymphocytes Absolute Auto 1.6 X10*3/uL (1.2-4.9); Lymphocytes Percent Auto 19.6 % (20-40); Mean Corpuscular HGB Conc 32.6 g/dl (31.0-36.0); Mean Corpuscular Hemoglobin 27.8 pg (27.0-33.0); Mean Corpuscular Volume 85.4 fL (80.0-98.0); Mean Platelet Volume 10.1 fL (9.4-12.4); Monocytes Absolute Auto 0.8 X10*3/uL (0.1-1.2); Monocytes Percent Auto 9.6 % (2-11); Neutrophils Absolute Auto 5.8 x10*3/uL (2.0-8.3); Neutrophils Percent Auto 69.6 % (45-73); Platelet Count 345 X10*3/uL (160-400); Red Blood Count 4.71 X10*6/uL (4.60-5.80); Red Cell Distribution Width 13.8 % (11.0-16.0); White Blood Count 8.4 X10*3/uL (4.8-10.8)
== END 2023-04-22 13:52 | disposition home or self-care (01) ==
LOC: HO.LABR 13:51
PROVIDERS: Psychiatry & Neurology Psychiatry; PCP Physician Assistant; Visit Provider Clinical Nurse Specialist Psychiatric/Mental Health, Adult
DX: Z79.899 Other long term (current) drug therapy (principal)
CPT/HCPCS: 36415; 85025

== ENCOUNTER 2023-04-30 11:34 | Outpatient (REF) | payer OTHER, SELFPAY | END 2023-04-30 11:35 | disposition home or self-care (01) | LOC: HO.LABR 11:34 | PROVIDERS: Visit Provider Psychiatry & Neurology Psychiatry | DX: Z79.899 Other long term (current) drug therapy (principal) | CPT/HCPCS: 36415; 85025 ==

== ENCOUNTER 2023-05-14 12:29 | Outpatient (REF) | payer OTHER, SELFPAY ==
[2023-05-14 13:45] LABS: Neut%MD 64.3 %; Neutrophils Absolute Auto 4.7 x10*3/uL (2.0-8.3); WBCANC 7.3 X10*3/uL
== END 2023-05-14 12:30 | disposition home or self-care (01) ==
LOC: HO.LAB 12:29
PROVIDERS: PCP Physician Assistant; Visit Provider Psychiatry & Neurology Psychiatry
DX: Z51.81 Encounter for therapeutic drug level monitoring (principal)
CPT/HCPCS: 36415; 85048

== ENCOUNTER 2023-05-22 13:12 | Outpatient (REF) | payer OTHER, SELFPAY ==
[2023-05-22 14:22] LABS: Hematocrit 40.6 % (42.0-52.0); Hemoglobin 13.4 g/dl (14.0-18.0); Mean Corpuscular Hemoglobin 28.7 pg (27.0-33.0); Mean Corpuscular Volume 86.9 fL (80.0-98.0); Mean Platelet Volume 10.7 fL (9.4-12.4); Platelet Count 335 X10*3/uL (160-400); Red Blood Count 4.67 X10*6/uL (4.60-5.80); White Blood Count 9.1 X10*3/uL (4.8-10.8)
[2023-05-22 15:05] LABS: Alanine Aminotransferase 125 U/L (0-40); Albumin Level 4.2 g/dL (3.5-5.0); Alkaline Phosphatase 80 U/L (39-117); Anion Gap 11 (12-20); Aspartate Amino Transferase 70 U/L (5-37); Bilirubin Total 0.3 mg/dL (0.0-1.0); Blood Urea Nitrogen 5 mg/dL (9-16); Calcium 9.6 mg/dL (8.4-10.2); Carbon Dioxide 25 mmol/L (22-29); Chloride 107 mmol/L (96-108); Estimated Glomerular Filt Rate > 60; Glucose Fasting 108 mg/dL (60-99); Potassium 3.5 mmol/L (3.3-5.1); Sodium 139 mmol/L (135-145); Total Protein 7.6 g/dL (6.5-8.0)
[2023-05-22 15:20] LABS: TSH reflex Free T4 1.49 uIU/mL (0.32-4.0)
== END 2023-05-22 13:13 | disposition home or self-care (01) ==
LOC: HO.LAB 13:12
PROVIDERS: PCP Physician Assistant; Visit Provider Psychiatry & Neurology Psychiatry
DX: Z13.1 Encounter for screening for diabetes mellitus (principal); Z13.29 Encounter for screening for other suspected endocrine disorder; Z79.899 Other long term (current) drug therapy
CPT/HCPCS: 36415; 80053; 84443; 85027

== ENCOUNTER 2023-05-27 11:11 | Outpatient (REF) | payer OTHER, SELFPAY ==
[2023-05-27 11:52] LABS: Neut%MD 69.2 %; Neutrophils Absolute Auto 5.9 x10*3/uL (2.0-8.3); WBCANC 8.5 X10*3/uL
== END 2023-05-27 11:12 | disposition home or self-care (01) ==
LOC: HO.LAB 11:11
PROVIDERS: PCP Physician Assistant; Visit Provider Psychiatry & Neurology Psychiatry
DX: Z51.81 Encounter for therapeutic drug level monitoring (principal)
CPT/HCPCS: 36415; 85048

== ENCOUNTER 2023-06-04 12:38 | Emergency (ER) | payer OTHER, SELFPAY ==
[2023-06-04 12:42] VITALS: BP 135/87; PULSE 102; RESP 20; TEMP 37.3; O2SAT 98; BMI 32.2
--- NOTE | 2023-06-04 12:45 | ED.GENADULT ---
HPI - General Adult General Chief complaint: GI Bleed Stated complaint: Abdominal pain History of Present Illness HPI narrative: Left without complete treatment Related Data Previous Rx's Medication Instructions Recorded acetaminophen 500 mg tablet 500 mg PO Q6H PRN pain #60 tabs 04/06/23 clonazepam 0.5 mg tablet 0.5 mg PO BEDTIME PRN Anxiety 30 04/06/23 days #30 tabs clozapine 100 mg tablet 100 mg PO BEDTIME 30 days #30 tabs 04/06/23 clozapine 50 mg tablet 50 mg PO BEDTIME 30 days #30 tabs 04/06/23 melatonin 3 mg tablet 6 mg (2 x 3 mg) PO DAILY 30 days 04/06/23 #60 tabs nicotine (polacrilex) 2 mg gum 2 mg buccal Q2H PRN nicotine 04/06/23 cravings 30 days #100 ea olanzapine 2.5 mg tablet (Zyprexa) 2.5 mg PO BID PRN agitation 30 04/06/23 days #60 tabs olanzapine 7.5 mg tablet 7.5 mg PO BEDTIME 30 days #30 tabs 04/06/23 Allergies Allergy/AdvReac Type Severity Reaction Status Date / Time aripiprazole [From Abilify] Allergy Unknown Unknown Verified 06/04/23 12:42 asenapine [From Saphris] Allergy Unknown Unknown Verified 06/04/23 12:42 ziprasidone [From Geodon] Allergy Unknown Unknown Verified 06/04/23 12:42 paliperidone [From Invega] Allergy Agitated Verified 06/04/23 12:42 [facility] Past Medical History Medical History Iron deficiency anemia Schizophrenia Surgical History History of dental surgery Family History Family History Father No problems noted. Mother No problems noted. Social History Social History Household Members: Other Household Members Other:: [facility] managed apartment Housing: Other Housing Other:: shelter Do you presently have visiting nurse or other home services: Yes (lives in a [facility]) Alcohol intake: unknown Patient Tobacco Use Status: Former Tobacco user Quit Date: 04/26/22 Tobacco use type: Cigarette Cigarette Packs Per Day: 1 Cigarettes Per Day: 20.0 Years Smoked: 15 e-Cigarette/Vaping Use: Never Used Second Hand Smoke Exposure: Yes Substance Use Type: Marijuana and Caffiene service: No Current occupational status: unemployed Sexual orientation: Straight/Heterosexual Cognitive needs: No Hearing needs: No Vision needs: No Physical Exam ED Vital Signs: BMI result Body Mass Index 32.2 Course Course Course Narrative: RmE: 27 yold male presents to the ED for one week of abdominal pain and rectal bleeding when defecating for one week. patient deneis any trauma, wekaness, fever, or chills. Labs ordered Medical Decision Making Lab Data 06/04/23 14:03 06/04/23 14:03 Labs: Lab Results 06/04/23 Range/Units 14:03 WBC 14.8 H (4.8-10.8) X10*3/uL RBC 4.83 (4.60-5.80) X10*6/uL Hgb 13.6 L (14.0-18.0) g/dl Hct 41.8 L (42.0-52.0) % MCV 86.5 (80.0-98.0) fL MCH 28.2 (27.0-33.0) pg MCHC 32.5 (31.0-36.0) g/dl RDW 14.3 (11.0-16.0) % Plt Count 262 (160-400) X10*3/uL MPV 9.4 (9.4-12.4) fL Immature Gran % (Auto) 1.8 H (0.0-0.4) % Neut % (Auto) 62.2 (45-73) % Lymph % (Auto) 16.1 L (20-40) % [place] % (Auto) 7.2 (2-11) % Eos % (Auto) 12.4 H (0-4) % Baso % (Auto) 0.3 (0-2) % Lymph # (Auto) 2.4 (1.2-4.9) X10*3/uL [place] # (Auto) 1.1 (0.1-1.2) X10*3/uL Eos # (Auto) 1.8 H (0.0-0.4) X10*3/uL Baso # (Auto) 0.1 (0.0-0.2) X10*3/uL Abs Immat Gran (auto) 0.27 H (0.00-0.03) X10*3/uL Absolute Neuts (auto) 9.2 H (2.0-8.3) x10*3/uL Absolute Nucleated RBC 0.000 (0.0-0.012) X10*3/uL Nucleated RBC % (auto) 0.0 (0.0-0.2) /100WBC PT 11.2 (11.1-13.3) SEC INR 0.9 (0.9-1.1) APTT 30.1 (26.0-36.4) SEC Sodium 139 (135-145) mmol/L Potassium 4.1 (3.3-5.1) mmol/L Chloride 106 (96-108) mmol/L Carbon Dioxide 26 (22-29) mmol/L Anion Gap 11 L (12-20) BUN 6 L (9-16) mg/dL Creatinine 0.79 (0.5-1.4) mg/dL Estim Creat Clear Calc 156.5 Estimated GFR > 60 Random Glucose 102 (60-115) mg/dL Calcium 9.0 D (8.4-10.2) mg/dL Total Bilirubin 0.2 (0.0-1.0) mg/dL AST 21 (5-37) U/L ALT 29 (0-40) U/L Alkaline Phosphatase 88 (39-117) U/L Total Protein 7.5 (6.5-8.0) g/dL Albumin 3.9 (3.5-5.0) g/dL Discharge Plan Discharge Clinical Impression: Abdominal pain Patient Disposition: Left W/O Completing Treatment Prescriptions: No Action nicotine (polacrilex) 2 mg Gum 2 mg buccal Q2H PRN (Reason: nicotine cravings) 30 Days Qty: 100 0RF acetaminophen 500 mg tablet 500 mg PO Q6H PRN (Reason: pain) Qty: 60 0RF clonazepam 0.5 mg Tablet 0.5 mg PO BEDTIME PRN (Reason: Anxiety) 30 Days Qty: 30 0RF clozapine 100 mg Tablet 100 mg PO BEDTIME 30 Days Qty: 30 0RF clozapine 50 mg tablet 50 mg PO BEDTIME 30 Days Qty: 30 0RF melatonin 3 mg tablet 6 mg PO DAILY 30 Days Qty: 60 0RF olanzapine [Zyprexa] 2.5 mg tablet 2.5 mg PO BID PRN (Reason: agitation) 30 Days Qty: 60 0RF olanzapine 7.5 mg tablet 7.5 mg PO BEDTIME 30 Days Qty: 30 0RF Discharge Date/Time: 06/04/23 20:24
[2023-06-04 14:09] LABS: MANUAL DIFF FLAG NO
[2023-06-04 14:12] LABS: Basophils Absolute Auto 0.1 X10*3/uL (0.0-0.2); Basophils Percent Auto 0.3 % (0-2); Eosinophils Absolute Auto 1.8 X10*3/uL (0.0-0.4); Eosinophils Percent Auto 12.4 % (0-4); Hematocrit 41.8 % (42.0-52.0); Hemoglobin 13.6 g/dl (14.0-18.0); Imm Gran Abs Auto 0.27 X10*3/uL (0.00-0.03); Imm Gran Pct Auto 1.8 % (0.0-0.4); Lymphocytes Absolute Auto 2.4 X10*3/uL (1.2-4.9); Lymphocytes Percent Auto 16.1 % (20-40); Mean Corpuscular HGB Conc 32.5 g/dl (31.0-36.0); Mean Corpuscular Hemoglobin 28.2 pg (27.0-33.0); Mean Corpuscular Volume 86.5 fL (80.0-98.0); Mean Platelet Volume 9.4 fL (9.4-12.4); Monocytes Absolute Auto 1.1 X10*3/uL (0.1-1.2); Monocytes Percent Auto 7.2 % (2-11); Neutrophils Absolute Auto 9.2 x10*3/uL (2.0-8.3); Neutrophils Percent Auto 62.2 % (45-73); Platelet Count 262 X10*3/uL (160-400); Red Blood Count 4.83 X10*6/uL (4.60-5.80); Red Cell Distribution Width 14.3 % (11.0-16.0); White Blood Count 14.8 X10*3/uL (4.8-10.8)
[2023-06-04 14:21] LABS: INTERNATIONAL NORM RATIO 0.9 (0.9-1.1); Prothrombin Time 11.2 SEC (11.1-13.3)
[2023-06-04 14:24] LABS: Partial Thromboplastin Time 30.1 SEC (26.0-36.4)
[2023-06-04 14:26] LABS: Alanine Aminotransferase 29 U/L (0-40); Albumin Level 3.9 g/dL (3.5-5.0); Alkaline Phosphatase 88 U/L (39-117); Anion Gap 11 (12-20); Aspartate Amino Transferase 21 U/L (5-37); Bilirubin Total 0.2 mg/dL (0.0-1.0); Blood Urea Nitrogen 6 mg/dL (9-16); Carbon Dioxide 26 mmol/L (22-29); Chloride 106 mmol/L (96-108); Creatinine Clr Calc Pharmacy 156.5; Estimated Glomerular Filt Rate > 60; Glucose Random 102 mg/dL (60-115); Potassium 4.1 mmol/L (3.3-5.1); Sodium 139 mmol/L (135-145); Total Protein 7.5 g/dL (6.5-8.0)
== END 2023-06-04 20:24 | disposition left against medical advice (07) ==
LOC: HO.ED 20:24
PROVIDERS: Physician Assistant; Emergency Provider Emergency Medicine; PCP Physician Assistant
DX: R10.9 Unspecified abdominal pain (principal); K62.5 Hemorrhage of anus and rectum; F12.90 Cannabis use, unspecified, uncomplicated; Z87.891 Personal history of nicotine dependence
CPT/HCPCS: 36415; 80053; 85025; 85610; 85730; 99281; 99283

== ENCOUNTER 2023-06-05 15:07 | Outpatient (REF) | payer OTHER, SELFPAY ==
[2023-06-05 15:21] LABS: Neut%MD 59.9 %
== END 2023-06-05 15:08 | disposition home or self-care (01) ==
LOC: HO.LAB 15:07
PROVIDERS: PCP Physician Assistant; Visit Provider Psychiatry & Neurology Psychiatry
DX: Z51.81 Encounter for therapeutic drug level monitoring (principal)
CPT/HCPCS: 36415; 85048

== ENCOUNTER 2023-06-12 12:31 | Outpatient (REF) | payer OTHER, SELFPAY ==
[2023-06-12 14:12] LABS: Neutrophils Absolute Auto 7.6 x10*3/uL (2.0-8.3); WBCANC 13.5 X10*3/uL
== END 2023-06-12 12:32 | disposition home or self-care (01) ==
LOC: HO.LAB 12:31
PROVIDERS: PCP Physician Assistant; Visit Provider Psychiatry & Neurology Psychiatry
DX: Z79.899 Other long term (current) drug therapy (principal)
CPT/HCPCS: 36415; 85048

== ENCOUNTER 2023-06-25 12:16 | Outpatient (REF) | payer OTHER, SELFPAY ==
[2023-06-25 12:35] LABS: MANUAL DIFF FLAG NO
[2023-06-25 13:04] LABS: Basophils Absolute Auto 0.1 X10*3/uL (0.0-0.2); Eosinophils Absolute Auto 0.8 X10*3/uL (0.0-0.4); Eosinophils Percent Auto 13.1 % (0-4); Hematocrit 41.8 % (42.0-52.0); Hemoglobin 13.9 g/dl (14.0-18.0); Lymphocytes Absolute Auto 1.8 X10*3/uL (1.2-4.9); Lymphocytes Percent Auto 31.2 % (20-40); Mean Corpuscular HGB Conc 33.3 g/dl (31.0-36.0); Mean Corpuscular Hemoglobin 29.1 pg (27.0-33.0); Mean Corpuscular Volume 87.6 fL (80.0-98.0); Mean Platelet Volume 9.8 fL (9.4-12.4); Monocytes Absolute Auto 0.8 X10*3/uL (0.1-1.2); Neut%MD 41.7 %; Neutrophils Absolute Auto 2.4 x10*3/uL (2.0-8.3); Neutrophils Percent Auto 41.7 % (45-73); Platelet Count 351 X10*3/uL (160-400); Red Blood Count 4.77 X10*6/uL (4.60-5.80); Red Cell Distribution Width 14.1 % (11.0-16.0); WBCANC 5.9 X10*3/uL; White Blood Count 5.9 X10*3/uL (4.8-10.8)
[2023-06-28 15:23] LABS: Clozapine (Clozaril) 74 mcg/L; Norclozapine 45 mcg/L (25-400)
== END 2023-06-25 12:17 | disposition home or self-care (01) ==
LOC: HO.LABR 12:16
PROVIDERS: Visit Provider Psychiatry & Neurology Psychiatry
DX: Z79.899 Other long term (current) drug therapy (principal)
CPT/HCPCS: 36415; 80159; 85025

== ENCOUNTER 2023-07-03 10:56 | Outpatient (REF) | payer OTHER, SELFPAY ==
[2023-07-03 11:05] LABS: MANUAL DIFF FLAG NO
[2023-07-03 11:35] LABS: Basophils Absolute Auto 0.1 X10*3/uL (0.0-0.2); Basophils Percent Auto 0.7 % (0-2); Eosinophils Absolute Auto 0.5 X10*3/uL (0.0-0.4); Eosinophils Percent Auto 6.3 % (0-4); Hemoglobin 13.4 g/dl (14.0-18.0); Imm Gran Abs Auto 0.02 X10*3/uL (0.00-0.03); Imm Gran Pct Auto 0.2 % (0.0-0.4); Lymphocytes Absolute Auto 2.9 X10*3/uL (1.2-4.9); Lymphocytes Percent Auto 36.2 % (20-40); Mean Corpuscular HGB Conc 31.2 g/dl (31.0-36.0); Mean Corpuscular Hemoglobin 27.8 pg (27.0-33.0); Mean Corpuscular Volume 89.2 fL (80.0-98.0); Mean Platelet Volume 9.5 fL (9.4-12.4); Monocytes Absolute Auto 0.8 X10*3/uL (0.1-1.2); Monocytes Percent Auto 9.6 % (2-11); Neutrophils Absolute Auto 3.8 x10*3/uL (2.0-8.3); Platelet Count 350 X10*3/uL (160-400); Red Blood Count 4.82 X10*6/uL (4.60-5.80); Red Cell Distribution Width 13.7 % (11.0-16.0); White Blood Count 8.1 X10*3/uL (4.8-10.8)
== END 2023-07-03 10:57 | disposition home or self-care (01) ==
LOC: HO.LABR 10:56
PROVIDERS: PCP Physician Assistant; Visit Provider Psychiatry & Neurology Psychiatry
DX: Z79.899 Other long term (current) drug therapy (principal)
CPT/HCPCS: 36415; 85025

== ENCOUNTER 2023-07-04 20:48 | Emergency (ER) | payer OTHER, SELFPAY ==
[2023-07-04 21:03] VITALS: BP 137/70; BP 162/98; PULSE 104; PULSE 58; RESP 18; O2SAT 96; O2SAT 98; BMI 31.3
--- NOTE | 2023-07-04 21:14 | PC.NURSE ---
pt refusing to speak to staff to explain concerns/visit to er. resp even and unlabored.
--- NOTE | 2023-07-04 21:15 | ECG_ITS ---
Test Reason : DIZZINESS Blood Pressure : / mmHG Vent. Rate : 090 BPM Atrial Rate : 090 BPM P-R Int : 118 ms QRS Dur : 082 ms QT Int : 332 ms P-R-T Axes : 020 058 052 degrees QTc Int : 406 ms Normal sinus rhythm Normal ECG When compared with ECG of 26-MAR-2023 14:38, Vent. rate has increased BY 41 BPM Referred By: Nelly Parham Electronically Signed By:ANDREA DOS SANTOS
--- NOTE | 2023-07-04 21:27 | ED_ITS ---
HPI - Male Genitourinary General Chief complaint: Urogenital-Male Stated complaint: Dizzy Time Seen by Provider: 07/04/23 21:14 Source: EMS Mode of arrival: EMS History of Present Illness HPI Narrative: 27-year-old male brought in from sober home and not speaking to anyone but reportedly told EMS that he was having scrotum pain. Related Data Previous Rx's Medication Instructions Recorded acetaminophen 500 mg tablet 500 mg PO Q6H PRN pain #60 tabs 04/06/23 clonazepam 0.5 mg tablet 0.5 mg PO BEDTIME PRN Anxiety 30 04/06/23 days #30 tabs clozapine 100 mg tablet 100 mg PO BEDTIME 30 days #30 tabs 04/06/23 clozapine 50 mg tablet 50 mg PO BEDTIME 30 days #30 tabs 04/06/23 melatonin 3 mg tablet 6 mg (2 x 3 mg) PO DAILY 30 days 04/06/23 #60 tabs nicotine (polacrilex) 2 mg gum 2 mg buccal Q2H PRN nicotine 04/06/23 cravings 30 days #100 ea olanzapine 2.5 mg tablet (Zyprexa) 2.5 mg PO BID PRN agitation 30 04/06/23 days #60 tabs olanzapine 7.5 mg tablet 7.5 mg PO BEDTIME 30 days #30 tabs 04/06/23 Allergies Allergy/AdvReac Type Severity Reaction Status Date / Time aripiprazole [From Abilify] Allergy Unknown Unknown Verified 06/04/23 12:42 asenapine [From Saphris] Allergy Unknown Unknown Verified 06/04/23 12:42 ziprasidone [From Geodon] Allergy Unknown Unknown Verified 06/04/23 12:42 paliperidone [From Invega] Allergy Agitated Verified 06/04/23 12:42 Review of Systems 2 Review of Systems: Pertinent positives and negatives as stated in H PI from EMS as patient is not currently reply to anyone. [facility] Past Medical History Source: nursing notes reviewed Medical History Iron deficiency anemia Schizophrenia Surgical History History of dental surgery Family History Family History Father No problems noted. Mother No problems noted. Social History Social History Household Members: Other Household Members Other:: [facility] managed apartment Housing: Other Housing Other:: jail Do you presently have visiting nurse or other home services: Yes (lives in a [facility]) Alcohol intake: unknown Comment: obs Patient Tobacco Use Status: Former Tobacco user Quit Date: 04/26/22 Tobacco use type: Cigarette Cigarette Packs Per Day: 1 Cigarettes Per Day: 20.0 Years Smoked: 15 e-Cigarette/Vaping Use: Never Used Second Hand Smoke Exposure: Yes Substance Use Type: Marijuana and Caffiene Advance Directives: No Advance Directives Information Provided: No service: No Current occupational status: unemployed Sexual orientation: Straight/Heterosexual Cognitive needs: No Hearing needs: No Vision needs: No Physical Exam 2 Vital Signs: Vital Signs: Last Vital Signs Temp 99.0 F 07/04/23 22:14 Pulse 76 07/04/23 22:14 Resp 16 07/04/23 22:14 BP 108/56 L 07/04/23 22:14 Pulse Ox 97 07/04/23 22:14 O2 Del Method Room Air 07/04/23 22:14 BMI result Body Mass Index 31.3 VITAL SIGNS: Reviewed. GENERAL: Well developed, well nourished, in no acute distress. HEAD: Normocephalic/atraumatic EYES: PERRLA, EOMI, has hands over face EARS: Ext canals without abnormality, TMs non-bulging and non-erythematous NOSE: Nares patent bilateral OROPHARYNX: no oral lesions noted, posterior pharynx clear and non-erythematous without noted tonsillar enlargement/erythema/exudates NECK: Supple, no adenopathy LUNGS: Normal breath sounds. No adventitious sounds or accessory muscle use. SpO2<98> CARDIOVASCULAR: Regular rate and rhythm without noted murmurs ABDOMEN: Soft, non-tender, non-distended with bowel sounds. MUSCULOSKELETAL: No tenderness, deformities, or effusions noted on gross inspection. EXTREMITIES: No cyanosis, clubbing or edema. SKIN: Inspection of the skin reveals no rashes NEUROLOGIC: Alert and strength and sensation to light touch were grossly intact x 4. 2313: : [Step Down Nurse-Ben] uncircumcised penis without lesions to the head, no drainage, palpation over bilateral epididymis without pain, testicles without pain on palpation, scrotum is not erythematous/there is no rash/there are no lesions Medical Decision Making Medical Decision Making [facility] Narrative: 27-year-old male with history and clinical presentation suggestive of possible substance use versus decompensation of underlying psychiatric issue. Unable to perform exam at this time as he is not reply in to anyone but is not groaning or appearing to be in pain. Will get labs, EKG. I reviewed all investigations and hematologic indices are grossly stable without evidence of leukocytosis/left shift or thrombocytopenia. Patient has a stable microcytic anemia. Chemistry indices are grossly stable without NORBERT her electrolyte/liver enzyme derangements. Viral testing is negative for influenza and COVID-19. Patient has decided that he is going to communicate with us and so exam was performed, I have no concern for testicular torsion, scrotal cellulitis, epididymitis. Awaiting urinalysis. Urinalysis negative for UTI or hematuria, patient has eloped. Differential Diagnosis Differential Diagnoses: The differential diagnosis associated with the presentation includes Please see the discussion above Admission/Observation Consideration of admission/observation: Escalation of care including admission/observation considered Please see the discussion above Lab Data [facility] Lab Attestation statement: I reviewed the patient's lab results. Please see the discussion above 07/04/23 21:50 07/04/23 21:54 Labs: Lab Results 07/04/23 07/04/23 07/05/23 Range/Units 21:50 21:54 00:23 WBC 9.9 (4.8-10.8) X10*3/uL RBC 4.60 (4.60-5.80) X10*6/uL Hgb 13.1 L (14.0-18.0) g/dl Hct 40.4 L (42.0-52.0) % MCV 87.8 (80.0-98.0) fL MCH 28.5 (27.0-33.0) pg MCHC 32.4 (31.0-36.0) g/dl RDW 13.3 (11.0-16.0) % Plt Count 349 (160-400) X10*3/uL MPV 9.5 (9.4-12.4) fL Immature Gran % (Auto) 0.3 (0.0-0.4) % Neut % (Auto) 59.5 (45-73) % Lymph % (Auto) 30.2 (20-40) % [place] % (Auto) 6.7 (2-11) % Eos % (Auto) 2.7 (0-4) % Baso % (Auto) 0.6 (0-2) % Lymph # (Auto) 3.0 (1.2-4.9) X10*3/uL [place] # (Auto) 0.7 (0.1-1.2) X10*3/uL Eos # (Auto) 0.3 (0.0-0.4) X10*3/uL Baso # (Auto) 0.1 (0.0-0.2) X10*3/uL Abs Immat Gran (auto) 0.03 (0.00-0.03) X10*3/uL Absolute Neuts (auto) 5.9 (2.0-8.3) x10*3/uL Absolute Nucleated RBC 0.000 (0.0-0.012) X10*3/uL Nucleated RBC % (auto) 0.0 (0.0-0.2) /100WBC Sodium 140 (135-145) mmol/L Potassium 4.0 (3.3-5.1) mmol/L Chloride 110 H (96-108) mmol/L Carbon Dioxide 23 (22-29) mmol/L Anion Gap 11 L (12-20) BUN 11 (9-16) mg/dL Creatinine 0.69 (0.5-1.4) mg/dL Estim Creat Clear Calc 171.2 Estimated GFR > 60 Random Glucose 84 (60-115) mg/dL Calcium 9.3 (8.4-10.2) mg/dL Total Bilirubin 0.3 (0.0-1.0) mg/dL AST 20 (5-37) U/L ALT 44 H (0-40) U/L Alkaline Phosphatase 83 (39-117) U/L Total Protein 7.4 (6.5-8.0) g/dL Albumin 3.9 (3.5-5.0) g/dL Urine Color Yellow Urine Appearance Turbid Urine pH 7.0 (5.0-9.0) Ur Specific Ranger 1.025 (1.005-1.025) Urine Protein Negative (Neg-Trace) mg/dL Urine Glucose (UA) Negative (Negative) mg/dL Urine Ketones Negative (Negative) mg/dL Urine Blood Negative (Negative) Urine Nitrite Negative (Negative) Ur Leukocyte Esterase Negative (Negative) COVID-19 (SHANITA) Negative (Negative) COVID-19 Clin Com See Note Influenza Type A (LESLIE) Negative (Negative) Influenza Type B (LESLIE) Negative (Negative) Influenza A & B Note See Note Independent Interpretation I performed an independent interpretation of an: EKG Interpretation: Normal sinus rhythm, HR -90, no STEMI, NJ/QRS/QTC are within normal limits. External Record Review External record reviewed: Outpatient record and Prior outpatient labs Chronic Conditions Patient?s care impacted by: Other Schizophrenia Discharge Plan Discharge Clinical Impression: Schizophrenia, Penis pain Patient Disposition: Elopement Instructions: Schizophrenia (ED) Prescriptions: No Action nicotine (polacrilex) 2 mg Gum 2 mg buccal Q2H PRN (Reason: nicotine cravings) 30 Days Qty: 100 0RF acetaminophen 500 mg tablet 500 mg PO Q6H PRN (Reason: pain) Qty: 60 0RF clonazepam 0.5 mg Tablet 0.5 mg PO BEDTIME PRN (Reason: Anxiety) 30 Days Qty: 30 0RF clozapine 100 mg Tablet 100 mg PO BEDTIME 30 Days Qty: 30 0RF clozapine 50 mg tablet 50 mg PO BEDTIME 30 Days Qty: 30 0RF melatonin 3 mg tablet 6 mg PO DAILY 30 Days Qty: 60 0RF olanzapine [Zyprexa] 2.5 mg tablet 2.5 mg PO BID PRN (Reason: agitation) 30 Days Qty: 60 0RF olanzapine 7.5 mg tablet 7.5 mg PO BEDTIME 30 Days Qty: 30 0RF
[2023-07-04 21:51] VITALS: BP 118/70; PULSE 85
[2023-07-04 21:52] VITALS: BP 123/76; PULSE 98
[2023-07-04 21:55] VITALS: BP 130/98; PULSE 96
[2023-07-04 21:56] LABS: MANUAL DIFF FLAG NO
--- NOTE | 2023-07-04 21:58 | PC.NURSE ---
pt responds non verbally. pt denies drug/alcohol use. pt denies si/hi. pt unable to state whats wrong. pt denies cp/sob.n.v.d. labs and ekg obtained. orthos as documented. nsr on monitor. sats 97% on RA. pt changed into hospital gown.
[2023-07-04 22:10] LABS: Alanine Aminotransferase 44 U/L (0-40); Albumin Level 3.9 g/dL (3.5-5.0); Alkaline Phosphatase 83 U/L (39-117); Anion Gap 11 (12-20); Aspartate Amino Transferase 20 U/L (5-37); Bilirubin Total 0.3 mg/dL (0.0-1.0); Blood Urea Nitrogen 11 mg/dL (9-16); Calcium 9.3 mg/dL (8.4-10.2); Carbon Dioxide 23 mmol/L (22-29); Chloride 110 mmol/L (96-108); Creatinine Clr Calc Pharmacy 171.2; Estimated Glomerular Filt Rate > 60; Glucose Random 84 mg/dL (60-115); Sodium 140 mmol/L (135-145); Total Protein 7.4 g/dL (6.5-8.0)
[2023-07-04 22:14] VITALS: BP 108/56; PULSE 76; RESP 16; TEMP 37.2; O2SAT 97
[2023-07-04 22:18] LABS: Basophils Absolute Auto 0.1 X10*3/uL (0.0-0.2); Basophils Percent Auto 0.6 % (0-2); Eosinophils Absolute Auto 0.3 X10*3/uL (0.0-0.4); Eosinophils Percent Auto 2.7 % (0-4); Hematocrit 40.4 % (42.0-52.0); Hemoglobin 13.1 g/dl (14.0-18.0); Imm Gran Abs Auto 0.03 X10*3/uL (0.00-0.03); Imm Gran Pct Auto 0.3 % (0.0-0.4); Lymphocytes Percent Auto 30.2 % (20-40); Mean Corpuscular HGB Conc 32.4 g/dl (31.0-36.0); Mean Corpuscular Hemoglobin 28.5 pg (27.0-33.0); Mean Corpuscular Volume 87.8 fL (80.0-98.0); Mean Platelet Volume 9.5 fL (9.4-12.4); Monocytes Absolute Auto 0.7 X10*3/uL (0.1-1.2); Monocytes Percent Auto 6.7 % (2-11); Neutrophils Absolute Auto 5.9 x10*3/uL (2.0-8.3); Neutrophils Percent Auto 59.5 % (45-73); Platelet Count 349 X10*3/uL (160-400); Red Cell Distribution Width 13.3 % (11.0-16.0); White Blood Count 9.9 X10*3/uL (4.8-10.8)
[2023-07-04 22:34] LABS: COVID-19 Test Negative (Negative); IDNOW Serial# 08D9AD1C; IDNOW Serial# BCCEAD1C
[2023-07-04 22:35] LABS: Influenza A Negative (Negative); Influenza B2 Negative (Negative)
--- NOTE | 2023-07-04 23:45 | PC.NURSE ---
pt became axox4 verbally responsive approx 2340 continued to respond with same answers as noted in previous note. neuros intact. pt able to provide urine sample.
[2023-07-05 00:31] LABS: Appearance Urine Turbid; Color Urine Yellow; Glucose Urine UA Negative (Negative); Leukocyte Esterase Urine Negative (Negative); Nitrite Urine Negative (Negative); Specific Gravity - Urine 1.025 (1.005-1.025); Urine Blood Negative (Negative); Urine Ketones Negative (Negative); Urine Protein Negative (Neg-Trace)
[2023-07-05 00:38] LABS: Amphetamine Screen Urine Not Detected (Not Detect); Barbiturates, Urine Not Detected (Not Detect); Benzodiazepines Screen Urine Not Detected (Not Detect); Cannabinoid Screen Urine POSITIVE (Not Detect); Cocaine Screen Urine Not Detected (Not Detect); Fentanyl, urine Not Detected (Not Detect); Opiate Screen Urine Not Detected (Not Detect); Phencyclidine Screen Urine Not Detected (Not Detect)
--- NOTE | 2023-07-05 00:51 | PC.NURSE ---
Addendum entered by Norman Rojas 07/05/23 00:52: last saw pt resting comfortably in stretcher resp even and unlabored had denied pain/need for anything to this RN. Original Note: pt walked out unwitnessed by staff
== END 2023-07-05 00:55 | disposition left against medical advice (07) ==
PROVIDERS: Emergency Provider Student in an Organized Health Care Education/Training Program
DX: F20.9 Schizophrenia, unspecified (principal); N50.82 Scrotal pain; N48.89 Other specified disorders of penis; R42 Dizziness and giddiness; D50.9 Iron deficiency anemia, unspecified
CPT/HCPCS: 80053; 80307; 81003; 85025; 87502; 87635; 93005; 99284

== ENCOUNTER → 2023-07-04 21:15 | Outpatient (BNV) | payer OTHER, SELFPAY | PROVIDERS: Emergency Provider Student in an Organized Health Care Education/Training Program; Visit Provider Internal Medicine | DX: R42 Dizziness and giddiness (principal) | CPT/HCPCS: 93010 ==

== ENCOUNTER 2023-07-10 12:09 | Outpatient (REF) | payer OTHER, SELFPAY ==
[2023-07-10 12:17] LABS: MANUAL DIFF FLAG NO
[2023-07-10 12:27] LABS: Basophils Absolute Auto 0.1 X10*3/uL (0.0-0.2); Basophils Percent Auto 0.5 % (0-2); Eosinophils Absolute Auto 0.2 X10*3/uL (0.0-0.4); Eosinophils Percent Auto 2.3 % (0-4); Hematocrit 43.9 % (42.0-52.0); Imm Gran Abs Auto 0.03 X10*3/uL (0.00-0.03); Imm Gran Pct Auto 0.3 % (0.0-0.4); Lymphocytes Absolute Auto 2.8 X10*3/uL (1.2-4.9); Lymphocytes Percent Auto 30.1 % (20-40); Mean Corpuscular HGB Conc 31.9 g/dl (31.0-36.0); Mean Corpuscular Hemoglobin 27.7 pg (27.0-33.0); Mean Corpuscular Volume 86.8 fL (80.0-98.0); Mean Platelet Volume 9.3 fL (9.4-12.4); Monocytes Absolute Auto 0.6 X10*3/uL (0.1-1.2); Monocytes Percent Auto 6.2 % (2-11); Neutrophils Absolute Auto 5.7 x10*3/uL (2.0-8.3); Neutrophils Percent Auto 60.6 % (45-73); Platelet Count 361 X10*3/uL (160-400); Red Blood Count 5.06 X10*6/uL (4.60-5.80); Red Cell Distribution Width 13.5 % (11.0-16.0); White Blood Count 9.4 X10*3/uL (4.8-10.8)
== END 2023-07-10 12:10 | disposition home or self-care (01) ==
LOC: HO.LABR 12:09
PROVIDERS: PCP Physician Assistant; Visit Provider Psychiatry & Neurology Psychiatry
DX: Z79.899 Other long term (current) drug therapy (principal)
CPT/HCPCS: 36415; 85025

== ENCOUNTER 2023-07-15 16:02 | Outpatient (AMB) | payer OTHER, SELFPAY ==
--- NOTE | 2023-07-15 16:04 | A.OFFPC_ITS ---
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 Accompanied by: Self / Same As Patient Allergies aripiprazole [From Abilify] Allergy (Unknown, Verified 07/15/23 16:35) Unknown asenapine [From Saphris] Allergy (Unknown, Verified 07/15/23 16:35) Unknown ziprasidone [From Geodon] Allergy (Unknown, Verified 07/15/23 16:35) Unknown paliperidone [From Invega] Allergy (Verified 07/15/23 16:35) Agitated Medication List - Last Reconciled 07/15/23 by Claus Mendez PA-C acetaminophen 500 mg PO Q6H PRN clonazepam 0.5 mg PO BEDTIME PRN 30 days clozapine 100 mg PO BEDTIME 30 days clozapine 50 mg PO BEDTIME 30 days melatonin 6 mg (2 x 3 mg) PO DAILY 30 days nicotine (polacrilex) 2 mg buccal Q2H PRN 30 days olanzapine 7.5 mg PO BEDTIME 30 days olanzapine (Zyprexa) 2.5 mg PO BID PRN 30 days Tobacco use date assessed: 08/08/22 Dental Screening Dental Screen Date: 07/15/23 Did you have a dental visit in the last 12 months?: Yes Did you have a dental problem in the last 6 months where you did not have access to dental care?: No Was dental information given to patient?: Patient has dentist HPI Liver Enzyme F/U HPI Details Patient is a 27-year-old male here today for a follow-up visit.? Patient has a past medical history significant for schizophrenia, insomnia, GERD, history of anemia secondary to GI blood loss, history of severe scalp folliculitis, hyperlipidemia, obesity. We did note elevations in his liver enzymes and April of 2023, he reports he has reduced his soda intake drastically and only drinks water and juice. His most recent liver enzymes done in early June 2023 have much improved. He does report feeling somewhat fatigued and would like his blood iron. Otherwise denies any bright red blood per rectum which was his reason for anemia in the past. Concern--> he reports by low ear congestion and itchiness. Today in office flushed both ears. .. Schizophrenia:? Continues to follow a psychiatrist and has been stable on his current doses of Zyprexa. Has also been started on Clozaril to which he has been getting his CBC checked on every 2 week basis. White blood cell count has been stable .. Insomnia:? Has been taken off trazodone and has been using 6 mg of melatonin at night.. Hyperlipidemia--:=> Does have a distant history of hyperlipidemia those been able to reduce his cholesterol with lifestyle management.? Has lost weight since last year. Laboratory Tests 05/22/23 07/04/23 13:21 21:54 AST 70 H 20 ALT 125 H 44 H PFSH Medical History Iron deficiency anemia Schizophrenia Surgical History History of dental surgery Family History Father No problems noted. Mother No problems noted. Social History Household Members: Other Household Members Other:: [facility] managed apartment Housing: Other Housing Other:: long term Do you presently have visiting nurse or other home services: Yes (lives in a [facility]) Alcohol intake: unknown Comment: obs Patient Tobacco Use Status: Former Tobacco user Quit Date: 04/26/22 Tobacco use type: Cigarette Cigarette Packs Per Day: 1 Cigarettes Per Day: 20.0 Years Smoked: 15 e-Cigarette/Vaping Use: Never Used Second Hand Smoke Exposure: Yes Substance Use Type: Marijuana and Caffiene service: No Current occupational status: unemployed Sexual orientation: Straight/Heterosexual Cognitive needs: No Hearing needs: No Vision needs: No Questionnaire Thrive Questionnaire Date Thrive assessed: 03/27/23 DANA-7 AMB Questionnaire DANA-7 Date DANA - 7 assessed: 07/15/23 Feeling nervous, anxious, or on edge: 0 = Not at all Not being able to stop or control worryin = Not at all Worrying too much about different things: 0 = Not at all Trouble relaxin = Not at all Being so restless that it is hard to sit still: 0 = Not at all Becoming easily annoyed or irritable: 0 = Not at all Feeling afraid as if something awful might happen: 0 = Not at all Total DANA-7 score (0-4 normal; 5-9 mild; 10-14 moderate; 15-21 severe): 0 Source: Developed by Drs. Devon Foy, Jennifer Stanley, Dallas Villegas and colleagues, with an educational ambrosio from [employer]. DANA-7 Assessment Billing DANA-7 Assessment Tool: DANA-7 Assessment 98151 Review of Systems Const Denies headache(s) Eyes Denies loss of vision ENT Denies vertigo, Denies dizziness, Denies headache(s) and Denies sore throat Card Denies chest pain, Denies leg edema and Denies lightheadedness Resp Denies cough, Denies hemoptysis and Denies wheezing GI Denies abdominal pain, Denies melena, Denies constipation, Denies diarrhea and Denies vomiting Denies dysuria, Denies urinary frequency and Denies urinary urgency Musc Denies arthralgias, Denies joint swelling, Denies numbness and Denies tingling Neuro Denies Abnormal speech present, Denies behavioral changes, Denies vertigo, Denies dizziness, Denies headache(s), Denies loss of vision, Denies memory loss, Denies numbness and Denies tingling Psych Denies anxiety, Denies behavioral changes, Denies depression, Denies memory loss and Denies panic attacks Juan David/Lymph Denies easy bleeding and Denies easy bruising Aller/Immun Denies wheezing Physical exam (Primary Care) Vital Signs: Last Vital Signs Pulse 103 H 07/15/23 16:05 Resp 16 07/15/23 16:05 BP 130/80 07/15/23 16:39 Pulse Ox 99 07/15/23 16:05 Oxygen Delivery Method Room Air 07/15/23 16:05 BMI result Body Mass Index 32.8 BMI Assessment/Plan discussion: High Tobacco/Smoking Status: Tobacco use Status Tobacco use date assessed 08/08/22 07/15/23 16:06 Patient Tobacco Use Status Former Tobacco user 07/15/23 16:06 Tobacco use type Cigarette 07/15/23 16:06 e-Cigarette/Vaping Use Never Used 07/15/23 16:06 Thrive Assessment: Date of Thrive Assessment Date Thrive assessed 03/27/23 07/15/23 16:06 Const General: healthy appearing, no acute distress, alert and awake Nutritional Appearance: well nourished Orientation/consciousness: oriented to person, oriented to place and oriented to time HENMT Other: BILATERAL HEEL CANALS IMPACTED WITH CERUMEN, AFTER LAVAGE EXTERNAL CANALS CLEAR. Ears: TM's normal bilaterally General nose exam: Normal nasal mucous membranes and turbinates present Eyes Conjunctivae: conjunctivae normal Sclerae: sclerae normal Pupils: Equal, round and reactive pupils present Neck Neck: Yes no lymphadenopathy and Yes no JVD Thyroid: Thyroid normal Carotids: no bruits Resp Effort & Inspection: normal respiratory effort and not tachypneic Auscultation: no crackles, no rales, no rhonchi and no wheezes Cardio Rate: regular rate Rhythm: regular rhythm Heart sounds: no murmurs and normal S1 and S2 GI Palpation (GI): Soft to palpation, nontender, no hepatomegaly and no splenomegaly Auscultation: normal bowel sounds Skin General skin exam: no rashes or lesions noted and dry skin Neuro General: oriented to person, oriented to place and oriented to time Cranial nerves: Yes Equal, round and reactive pupils present Speech: No Abnormal speech present Gait exam (Neuro): Normal gait present Motor exam (neuro): no tremor noted Extrem Right upper extremity: full ROM Left upper extremity: full ROM Right lower extremity: full ROM; no edema Left lower extremity: full ROM; no edema Psych Mental Status: mental status grossly normal Speech and movement: Normal speech and movement present Affect: normal affect Attitude: cooperative Thought process: Normal thought process present Office Procedures Cerumen Removal From which ear canal was the cerumen removed: left Removal: irrigation and otoscope w/curette Notes: patient tolerated procedure well and no complications [id number] Irrigation/Lavage Assessment and Plan Assessment & Plan (1) Schizophrenia: Code(s): F20.9 - Schizophrenia, unspecified Qualifiers: Schizophrenia type: paranoid schizophrenia Qualified Code(s): F20.0 - Paranoid schizophrenia Plan: Patient is followed by psychiatrist and continues on Clozaril, Zyprexa that has been able to manage his schizophrenia symptoms fairly well. Her had been some concern about patient's aggressive behavior in his apartment. His Clozaril dose has been increased over last several months. His CBC has been followed and white blood cell count has been stable. (2) HLD (hyperlipidemia): Code(s): E78.5 - Hyperlipidemia, unspecified Qualifiers: Hyperlipidemia type: pure hypertriglyceridemia Qualified Code(s): E78.1 - Pure hyperglyceridemia Plan: Patient does have history hyperlipidemia. Continues to try to manage his cholesterol with lifestyle modifications. Reports he has been eating better and drinking less soda. Has lost some weight. Most likely secondary to antipsychotic medication. Will continue to follow fasting lipid panel. (3) Obese: Code(s): E66.9 - Obesity, unspecified Qualifiers: Obesity type: due to excess calories Obesity classification: adult class 1 (BMI 30 - 34.9) Serious obesity comorbidity presence: without serious comorbidity Body mass index: BMI 32.0-32.9 Qualified Code(s): E66.09 - Other obesity due to excess calories; Z68.32 - Body mass index [BMI] 32.0-32.9, adult Plan: He does understand his BMI is over 30, has been working on being more physically active and adapting to better eating habits to reduce his weight. (4) Elevated liver enzymes: Code(s): R74.8 - Abnormal levels of other serum enzymes Plan: Liver enzymes have improved drastically over the last 2 months. He has been working on better eating habits and reduce his weight. (5) Impacted cerumen, bilateral: Code(s): H61.23 - Impacted cerumen, bilateral Plan: Bilateral ear lavage done today in office with large amounts of cerumen disimpacted. Orders: Orders IRON PROFILE 07/15/23 D50.0 - Iron deficiency anemia secondary to blood loss (chronic), D50.9 - Iron deficiency anemia, unspecified Complete Blood Count no Diff 07/15/23 D50.0 - Iron deficiency anemia secondary to blood loss (chronic) Comprehensive [place]. Panel Fast 6 Weeks Z13.1 - Encounter for screening for diabetes mellitus Lipid Panel 6 Weeks E78.1 - Pure hyperglyceridemia Coding Level of Care Code Est Pt Level 4 (12041) Diagnoses Paranoid schizophrenia F20.0 Schizophrenia type: paranoid schizophrenia Pure hypertriglyceridemia E78.1 Hyperlipidemia type: pure hypertriglyceridemia Class 1 obesity due to excess calories without serious comorbidity with body mass index (BMI) of 32.0 to 32.9 in adult E66.09; Z68.32 Obesity type: due to excess calories Obesity classification: adult class 1 (BMI 30 - 34.9) Serious obesity comorbidity presence: without serious comorbidity Body mass index: BMI 32.0-32.9 Elevated liver enzymes R74.8 Impacted cerumen, bilateral H61.23 CPT Codes Office Procedure - CPT: 00157-Bon Irrigation/Lavage ([id number]) Additional Codes DANA-7 Assessment Billing - DANA-7 Assessment Tool: DANA-7 Assessment [id number] ([id number])
[2023-07-15 16:05] VITALS: BP 140/62; PULSE 103; RESP 16; O2SAT 99; BMI 32.8
[2023-07-15 16:39] VITALS: BP 130/80
== END 2023-07-15 16:57 | disposition home or self-care (01) ==
LOC: HO.HMGH 16:02
PROVIDERS: PCP Physician Assistant; Visit Provider Physician Assistant
DX: F20.0 Paranoid schizophrenia (principal); E78.1 Pure hyperglyceridemia; E66.09 Other obesity due to excess calories; Z68.32 Body mass index [BMI] 32.0-32.9, adult; R74.8 Abnormal levels of other serum enzymes; H61.23 Impacted cerumen, bilateral
CPT/HCPCS: 69210; 99214

== ENCOUNTER 2023-07-17 12:17 | Outpatient (REF) | payer OTHER, SELFPAY ==
[2023-07-17 12:47] LABS: Hematocrit 43.4 % (42.0-52.0); Hemoglobin 14.1 g/dl (14.0-18.0); Mean Corpuscular HGB Conc 32.5 g/dl (31.0-36.0); Mean Corpuscular Hemoglobin 27.6 pg (27.0-33.0); Mean Corpuscular Volume 85.1 fL (80.0-98.0); Mean Platelet Volume 9.9 fL (9.4-12.4); Platelet Count 353 X10*3/uL (160-400); Red Cell Distribution Width 13.2 % (11.0-16.0); White Blood Count 7.9 X10*3/uL (4.8-10.8)
[2023-07-17 13:07] LABS: Iron 56 mcg/dL (45-160); Percent Iron Saturation 15 % (15-50); Total Iron Binding Capacity 382 mcg/dL (228-428); Unsaturated Iron Binding 326 ug/dL
== END 2023-07-17 12:18 | disposition home or self-care (01) ==
LOC: HO.LABR 12:17
PROVIDERS: Absent Provider Physician Assistant; PCP Physician Assistant; Visit Provider Psychiatry & Neurology Psychiatry
DX: D50.0 Iron deficiency anemia secondary to blood loss (chronic) (principal); D50.9 Iron deficiency anemia, unspecified; Z79.899 Other long term (current) drug therapy
CPT/HCPCS: 36415; 83540; 85027

== ENCOUNTER 2023-07-23 13:11 | Outpatient (REF) | payer OTHER, SELFPAY ==
[2023-07-23 13:20] LABS: MANUAL DIFF FLAG NO
[2023-07-23 14:02] LABS: Basophils Absolute Auto 0.1 X10*3/uL (0.0-0.2); Basophils Percent Auto 0.5 % (0-2); Eosinophils Absolute Auto 0.2 X10*3/uL (0.0-0.4); Eosinophils Percent Auto 1.9 % (0-4); Hemoglobin 14.3 g/dl (14.0-18.0); Imm Gran Abs Auto 0.03 X10*3/uL (0.00-0.03); Imm Gran Pct Auto 0.3 % (0.0-0.4); Lymphocytes Absolute Auto 3.7 X10*3/uL (1.2-4.9); Lymphocytes Percent Auto 33.4 % (20-40); Mean Corpuscular HGB Conc 31.8 g/dl (31.0-36.0); Mean Corpuscular Hemoglobin 27.9 pg (27.0-33.0); Mean Corpuscular Volume 87.9 fL (80.0-98.0); Mean Platelet Volume 10.7 fL (9.4-12.4); Monocytes Absolute Auto 0.7 X10*3/uL (0.1-1.2); Monocytes Percent Auto 5.9 % (2-11); Neutrophils Absolute Auto 6.4 x10*3/uL (2.0-8.3); Platelet Count 328 X10*3/uL (160-400); Red Blood Count 5.12 X10*6/uL (4.60-5.80); Red Cell Distribution Width 13.2 % (11.0-16.0)
== END 2023-07-23 13:12 | disposition home or self-care (01) ==
LOC: HO.LABR 13:11
PROVIDERS: PCP Physician Assistant; Visit Provider Psychiatry & Neurology Psychiatry
DX: Z79.899 Other long term (current) drug therapy (principal)
CPT/HCPCS: 36415; 85025

== ENCOUNTER 2023-07-31 11:38 | Outpatient (REF) | payer OTHER, SELFPAY | END 2023-07-31 11:39 | disposition home or self-care (01) | LOC: HO.LAB 11:38 | PROVIDERS: PCP Physician Assistant; Visit Provider Psychiatry & Neurology Psychiatry | DX: Z79.899 Other long term (current) drug therapy (principal) | CPT/HCPCS: 36415; 85025 ==

== ENCOUNTER 2023-08-06 11:18 | Outpatient (REF) | payer OTHER, SELFPAY | END 2023-08-06 11:19 | disposition home or self-care (01) | LOC: HO.LABR 11:18 | PROVIDERS: Visit Provider Psychiatry & Neurology Psychiatry | DX: Z13.89 Encounter for screening for other disorder (principal) ==

== ENCOUNTER 2023-08-14 14:35 | Outpatient (REF) | payer OTHER, SELFPAY ==
[2023-08-14 15:57] LABS: Alanine Aminotransferase 116 U/L (0-40); Albumin Level 4.2 g/dL (3.5-5.0); Alkaline Phosphatase 79 U/L (39-117); Anion Gap 10 (12-20); Aspartate Amino Transferase 80 U/L (5-37); Bilirubin Total 0.2 mg/dL (0.0-1.0); Blood Urea Nitrogen 9 mg/dL (9-16); Calcium 9.2 mg/dL (8.4-10.2); Carbon Dioxide 26 mmol/L (22-29); Chloride 110 mmol/L (96-108); Cholesterol 204 mg/dL (<200); Estimated Glomerular Filt Rate > 60; Glucose Fasting 110 mg/dL (60-99); HDL Cholesterol 58 mg/dL (>40); LDL Cholesterol Calculated 132 mg/dL (<100); Potassium 4.1 mmol/L (3.3-5.1); Sodium 142 mmol/L (135-145); Total Protein 7.7 g/dL (6.5-8.0); Triglycerides 72 mg/dL (<150)
== END 2023-08-14 14:36 | disposition home or self-care (01) ==
LOC: HO.LABR 14:35
PROVIDERS: PCP Physician Assistant; Visit Provider Psychiatry & Neurology Psychiatry
DX: Z13.1 Encounter for screening for diabetes mellitus (principal); E78.1 Pure hyperglyceridemia; Z79.899 Other long term (current) drug therapy
CPT/HCPCS: 36415; 80053; 80061

== ENCOUNTER 2023-08-20 13:44 | Outpatient (REF) | payer OTHER, SELFPAY ==
[2023-08-20 13:58] LABS: MANUAL DIFF FLAG NO
[2023-08-20 14:44] LABS: Basophils Absolute Auto 0.1 X10*3/uL (0.0-0.2); Basophils Percent Auto 0.5 % (0-2); Eosinophils Absolute Auto 0.1 X10*3/uL (0.0-0.4); Eosinophils Percent Auto 0.7 % (0-4); Hemoglobin 13.7 g/dl (14.0-18.0); Imm Gran Abs Auto 0.03 X10*3/uL (0.00-0.03); Imm Gran Pct Auto 0.3 % (0.0-0.4); Lymphocytes Absolute Auto 1.6 X10*3/uL (1.2-4.9); Lymphocytes Percent Auto 15.7 % (20-40); Mean Corpuscular HGB Conc 31.9 g/dl (31.0-36.0); Mean Corpuscular Hemoglobin 27.4 pg (27.0-33.0); Mean Platelet Volume 10.2 fL (9.4-12.4); Monocytes Absolute Auto 0.9 X10*3/uL (0.1-1.2); Monocytes Percent Auto 8.8 % (2-11); Neutrophils Absolute Auto 7.6 x10*3/uL (2.0-8.3); Platelet Count 351 X10*3/uL (160-400); Red Cell Distribution Width 13.6 % (11.0-16.0); White Blood Count 10.3 X10*3/uL (4.8-10.8)
== END 2023-08-20 13:45 | disposition home or self-care (01) ==
LOC: HO.LABR 13:44
PROVIDERS: Visit Provider Psychiatry & Neurology Psychiatry
DX: Z79.899 Other long term (current) drug therapy (principal)
CPT/HCPCS: 36415; 85025

== ENCOUNTER 2023-08-27 12:23 | Outpatient (REF) | payer OTHER, SELFPAY ==
[2023-08-27 12:44] LABS: MANUAL DIFF FLAG NO
[2023-08-27 13:28] LABS: Basophils Percent Auto 0.3 % (0-2); Eosinophils Absolute Auto 0.1 X10*3/uL (0.0-0.4); Eosinophils Percent Auto 0.8 % (0-4); Hematocrit 42.8 % (42.0-52.0); Hemoglobin 13.8 g/dl (14.0-18.0); Imm Gran Abs Auto 0.02 X10*3/uL (0.00-0.03); Imm Gran Pct Auto 0.2 % (0.0-0.4); Lymphocytes Absolute Auto 2.4 X10*3/uL (1.2-4.9); Lymphocytes Percent Auto 27.9 % (20-40); Mean Corpuscular HGB Conc 32.2 g/dl (31.0-36.0); Mean Corpuscular Hemoglobin 27.1 pg (27.0-33.0); Mean Corpuscular Volume 83.9 fL (80.0-98.0); Mean Platelet Volume 9.9 fL (9.4-12.4); Monocytes Absolute Auto 0.6 X10*3/uL (0.1-1.2); Monocytes Percent Auto 6.3 % (2-11); Neut%MD 64.5 %; Neutrophils Absolute Auto 5.6 x10*3/uL (2.0-8.3); Neutrophils Percent Auto 64.5 % (45-73); Platelet Count 366 X10*3/uL (160-400); Red Cell Distribution Width 13.3 % (11.0-16.0); WBCANC 8.7 X10*3/uL; White Blood Count 8.7 X10*3/uL (4.8-10.8)
== END 2023-08-27 12:24 | disposition home or self-care (01) ==
LOC: HO.LABR 12:23
PROVIDERS: Visit Provider Psychiatry & Neurology Psychiatry
DX: Z79.899 Other long term (current) drug therapy (principal)
CPT/HCPCS: 36415; 85025

== ENCOUNTER 2023-09-04 11:21 | Outpatient (REF) | payer OTHER, SELFPAY ==
[2023-09-04 11:36] LABS: MANUAL DIFF FLAG NO
[2023-09-04 12:19] LABS: Basophils Percent Auto 0.3 % (0-2); Eosinophils Absolute Auto 0.2 X10*3/uL (0.0-0.4); Eosinophils Percent Auto 1.2 % (0-4); Hematocrit 44.1 % (42.0-52.0); Hemoglobin 14.2 g/dl (14.0-18.0); Imm Gran Abs Auto 0.05 X10*3/uL (0.00-0.03); Imm Gran Pct Auto 0.4 % (0.0-0.4); Lymphocytes Percent Auto 23.4 % (20-40); Mean Corpuscular HGB Conc 32.2 g/dl (31.0-36.0); Mean Corpuscular Hemoglobin 27.4 pg (27.0-33.0); Monocytes Absolute Auto 0.9 X10*3/uL (0.1-1.2); Monocytes Percent Auto 7.1 % (2-11); Neut%MD 67.6 %; Neutrophils Absolute Auto 8.6 x10*3/uL (2.0-8.3); Neutrophils Percent Auto 67.6 % (45-73); Platelet Count 348 X10*3/uL (160-400); Red Blood Count 5.19 X10*6/uL (4.60-5.80); Red Cell Distribution Width 13.7 % (11.0-16.0); WBCANC 12.8 X10*3/uL; White Blood Count 12.8 X10*3/uL (4.8-10.8)
== END 2023-09-04 11:22 | disposition home or self-care (01) ==
LOC: HO.LABR 11:21
PROVIDERS: Visit Provider Psychiatry & Neurology Psychiatry
DX: Z79.899 Other long term (current) drug therapy (principal)
CPT/HCPCS: 36415; 85025

== ENCOUNTER 2023-09-11 10:19 | Outpatient (REF) | payer OTHER, SELFPAY ==
[2023-09-11 12:21] LABS: Basophils Absolute Auto 0.1 X10*3/uL (0.0-0.2); Basophils Percent Auto 0.6 % (0-2); Eosinophils Absolute Auto 0.2 X10*3/uL (0.0-0.4); Eosinophils Percent Auto 2.3 % (0-4); Hematocrit 41.4 % (42.0-52.0); Hemoglobin 13.5 g/dl (14.0-18.0); Imm Gran Abs Auto 0.03 X10*3/uL (0.00-0.03); Imm Gran Pct Auto 0.4 % (0.0-0.4); Lymphocytes Absolute Auto 2.8 X10*3/uL (1.2-4.9); Lymphocytes Percent Auto 32.2 % (20-40); MANUAL DIFF FLAG NO; Mean Corpuscular HGB Conc 32.6 g/dl (31.0-36.0); Mean Corpuscular Hemoglobin 27.8 pg (27.0-33.0); Mean Corpuscular Volume 85.2 fL (80.0-98.0); Mean Platelet Volume 10.4 fL (9.4-12.4); Monocytes Absolute Auto 0.7 X10*3/uL (0.1-1.2); Monocytes Percent Auto 8.4 % (2-11); Neut%MD 56.1 %; Neutrophils Absolute Auto 4.8 x10*3/uL (2.0-8.3); Neutrophils Percent Auto 56.1 % (45-73); Platelet Count 357 X10*3/uL (160-400); Red Blood Count 4.86 X10*6/uL (4.60-5.80); Red Cell Distribution Width 13.7 % (11.0-16.0); WBCANC 8.5 X10*3/uL; White Blood Count 8.5 X10*3/uL (4.8-10.8)
== END 2023-09-11 10:20 | disposition home or self-care (01) ==
LOC: HO.LABR 10:19
PROVIDERS: Visit Provider Psychiatry & Neurology Psychiatry
DX: Z79.899 Other long term (current) drug therapy (principal)
CPT/HCPCS: 36415; 85025

== ENCOUNTER 2023-09-17 13:00 | Outpatient (REF) | payer OTHER, SELFPAY | END 2023-09-17 13:01 | disposition home or self-care (01) | LOC: HO.LABR 13:00 | PROVIDERS: Visit Provider Psychiatry & Neurology Psychiatry | DX: Z13.89 Encounter for screening for other disorder (principal) ==

== ENCOUNTER 2023-09-18 13:33 | Outpatient (REF) | payer OTHER, SELFPAY ==
[2023-09-18 13:45] LABS: MANUAL DIFF FLAG NO
[2023-09-18 14:17] LABS: Basophils Percent Auto 0.5 % (0-2); Eosinophils Absolute Auto 0.2 X10*3/uL (0.0-0.4); Eosinophils Percent Auto 2.7 % (0-4); Hematocrit 43.9 % (42.0-52.0); Hemoglobin 14.3 g/dl (14.0-18.0); Imm Gran Abs Auto 0.02 X10*3/uL (0.00-0.03); Imm Gran Pct Auto 0.3 % (0.0-0.4); Lymphocytes Absolute Auto 2.5 X10*3/uL (1.2-4.9); Lymphocytes Percent Auto 32.4 % (20-40); Mean Corpuscular HGB Conc 32.6 g/dl (31.0-36.0); Mean Corpuscular Hemoglobin 27.7 pg (27.0-33.0); Mean Corpuscular Volume 84.9 fL (80.0-98.0); Mean Platelet Volume 9.6 fL (9.4-12.4); Monocytes Absolute Auto 0.6 X10*3/uL (0.1-1.2); Monocytes Percent Auto 7.3 % (2-11); Neut%MD 56.8 %; Neutrophils Absolute Auto 4.5 x10*3/uL (2.0-8.3); Neutrophils Percent Auto 56.8 % (45-73); Platelet Count 373 X10*3/uL (160-400); Red Blood Count 5.17 X10*6/uL (4.60-5.80); Red Cell Distribution Width 14.1 % (11.0-16.0); WBCANC 7.8 X10*3/uL; White Blood Count 7.8 X10*3/uL (4.8-10.8)
== END 2023-09-18 13:34 | disposition home or self-care (01) ==
LOC: HO.LAB 13:33
PROVIDERS: PCP Physician Assistant; Visit Provider Psychiatry & Neurology Psychiatry
DX: Z79.899 Other long term (current) drug therapy (principal)
CPT/HCPCS: 36415; 85025

== ENCOUNTER 2023-09-25 11:10 | Outpatient (REF) | payer OTHER, SELFPAY ==
[2023-09-25 11:17] LABS: MANUAL DIFF FLAG NO
[2023-09-25 11:55] LABS: Basophils Absolute Auto 0.1 X10*3/uL (0.0-0.2); Basophils Percent Auto 0.5 % (0-2); Eosinophils Absolute Auto 0.4 X10*3/uL (0.0-0.4); Eosinophils Percent Auto 3.2 % (0-4); Hematocrit 42.8 % (42.0-52.0); Hemoglobin 14.2 g/dl (14.0-18.0); Imm Gran Abs Auto 0.03 X10*3/uL (0.00-0.03); Imm Gran Pct Auto 0.3 % (0.0-0.4); Lymphocytes Absolute Auto 3.4 X10*3/uL (1.2-4.9); Lymphocytes Percent Auto 30.4 % (20-40); Mean Corpuscular HGB Conc 33.2 g/dl (31.0-36.0); Mean Corpuscular Hemoglobin 27.5 pg (27.0-33.0); Mean Corpuscular Volume 82.9 fL (80.0-98.0); Mean Platelet Volume 9.4 fL (9.4-12.4); Monocytes Absolute Auto 0.8 X10*3/uL (0.1-1.2); Monocytes Percent Auto 7.6 % (2-11); Neutrophils Absolute Auto 6.5 x10*3/uL (2.0-8.3); Platelet Count 396 X10*3/uL (160-400); Red Blood Count 5.16 X10*6/uL (4.60-5.80); WBCANC 11.1 X10*3/uL; White Blood Count 11.1 X10*3/uL (4.8-10.8)
== END 2023-09-25 11:11 | disposition home or self-care (01) ==
LOC: HO.LAB 11:10
PROVIDERS: PCP Physician Assistant; Visit Provider Psychiatry & Neurology Psychiatry
DX: Z79.899 Other long term (current) drug therapy (principal)
CPT/HCPCS: 36415; 85025

== ENCOUNTER 2023-10-09 15:54 | Outpatient (REF) | payer OTHER, SELFPAY ==
[2023-10-09 16:11] LABS: MANUAL DIFF FLAG NO
[2023-10-09 17:46] LABS: Basophils Absolute Auto 0.1 X10*3/uL (0.0-0.2); Basophils Percent Auto 0.5 % (0-2); Eosinophils Absolute Auto 0.4 X10*3/uL (0.0-0.4); Eosinophils Percent Auto 3.6 % (0-4); Hematocrit 42.6 % (42.0-52.0); Imm Gran Abs Auto 0.04 X10*3/uL (0.00-0.03); Imm Gran Pct Auto 0.4 % (0.0-0.4); Lymphocytes Absolute Auto 2.5 X10*3/uL (1.2-4.9); Lymphocytes Percent Auto 25.5 % (20-40); Mean Corpuscular HGB Conc 32.9 g/dl (31.0-36.0); Mean Corpuscular Hemoglobin 27.3 pg (27.0-33.0); Mean Corpuscular Volume 83.2 fL (80.0-98.0); Monocytes Absolute Auto 0.6 X10*3/uL (0.1-1.2); Monocytes Percent Auto 6.5 % (2-11); Neut%MD 63.5 %; Neutrophils Absolute Auto 6.3 x10*3/uL (2.0-8.3); Neutrophils Percent Auto 63.5 % (45-73); Platelet Count 349 X10*3/uL (160-400); Red Blood Count 5.12 X10*6/uL (4.60-5.80); Red Cell Distribution Width 14.3 % (11.0-16.0); WBCANC 9.9 X10*3/uL; White Blood Count 9.9 X10*3/uL (4.8-10.8)
== END 2023-10-09 15:55 | disposition home or self-care (01) ==
LOC: HO.LABR 15:54
PROVIDERS: Visit Provider Psychiatry & Neurology Psychiatry
DX: Z79.899 Other long term (current) drug therapy (principal)
CPT/HCPCS: 36415; 85025

== ENCOUNTER 2023-10-23 14:21 | Outpatient (REF) | payer OTHER, SELFPAY ==
[2023-10-23 14:32] LABS: MANUAL DIFF FLAG NO
[2023-10-23 15:42] LABS: Basophils Percent Auto 0.3 % (0-2); Eosinophils Absolute Auto 0.5 X10*3/uL (0.0-0.4); Eosinophils Percent Auto 4.2 % (0-4); Hematocrit 41.2 % (42.0-52.0); Hemoglobin 13.6 g/dl (14.0-18.0); Imm Gran Abs Auto 0.06 X10*3/uL (0.00-0.03); Imm Gran Pct Auto 0.5 % (0.0-0.4); Lymphocytes Absolute Auto 2.4 X10*3/uL (1.2-4.9); Lymphocytes Percent Auto 20.2 % (20-40); Mean Corpuscular Hemoglobin 27.4 pg (27.0-33.0); Mean Corpuscular Volume 83.1 fL (80.0-98.0); Monocytes Absolute Auto 0.9 X10*3/uL (0.1-1.2); Neutrophils Absolute Auto 7.9 x10*3/uL (2.0-8.3); Neutrophils Percent Auto 66.8 % (45-73); Platelet Count 344 X10*3/uL (160-400); Red Blood Count 4.96 X10*6/uL (4.60-5.80); Red Cell Distribution Width 14.7 % (11.0-16.0); White Blood Count 11.8 X10*3/uL (4.8-10.8)
== END 2023-10-23 14:22 | disposition home or self-care (01) ==
LOC: HO.LABR 14:21
PROVIDERS: PCP Physician Assistant; Visit Provider Psychiatry & Neurology Psychiatry
DX: Z79.899 Other long term (current) drug therapy (principal)
CPT/HCPCS: 36415; 85025

== ENCOUNTER 2023-11-05 10:36 | Outpatient (REF) | payer OTHER, SELFPAY ==
[2023-11-05 10:45] LABS: MANUAL DIFF FLAG NO
[2023-11-05 11:13] LABS: Basophils Percent Auto 0.3 % (0-2); Eosinophils Absolute Auto 1.5 X10*3/uL (0.0-0.4); Eosinophils Percent Auto 11.6 % (0-4); Hematocrit 40.4 % (42.0-52.0); Hemoglobin 13.2 g/dl (14.0-18.0); Imm Gran Abs Auto 0.07 X10*3/uL (0.00-0.03); Imm Gran Pct Auto 0.5 % (0.0-0.4); Lymphocytes Absolute Auto 2.5 X10*3/uL (1.2-4.9); Lymphocytes Percent Auto 19.2 % (20-40); Mean Corpuscular HGB Conc 32.7 g/dl (31.0-36.0); Mean Corpuscular Hemoglobin 27.5 pg (27.0-33.0); Mean Corpuscular Volume 84.2 fL (80.0-98.0); Mean Platelet Volume 9.6 fL (9.4-12.4); Monocytes Absolute Auto 1.1 X10*3/uL (0.1-1.2); Monocytes Percent Auto 8.2 % (2-11); Neutrophils Absolute Auto 7.8 x10*3/uL (2.0-8.3); Neutrophils Percent Auto 60.2 % (45-73); Platelet Count 333 X10*3/uL (160-400); Red Cell Distribution Width 15.4 % (11.0-16.0)
== END 2023-11-05 10:37 | disposition home or self-care (01) ==
LOC: HO.LABR 10:36
PROVIDERS: PCP Physician Assistant; Visit Provider Psychiatry & Neurology Psychiatry
DX: Z79.899 Other long term (current) drug therapy (principal)
CPT/HCPCS: 36415; 85025

== ENCOUNTER 2023-11-06 14:08 | Emergency (ER) | payer OTHER, SELFPAY ==
--- NOTE | ~2023-11-06 | US_ITS ---
EXAMINATION: US SCROTUM CLINICAL INFORMATION: Testicular pain. COMPARISON: None available. TECHNIQUE: A sonogram of the scrotum was performed assessing lawrence-scale appearance and color Doppler flow. Spectral Doppler analysis of the arterial and venous flow were performed in the testes bilaterally. FINDINGS: RIGHT: Right testicle measures 4.3 x 2.4 x 3.2 cm, volume 17 mL. No focal testicular parenchymal lesions are visualized. Spectral Doppler analysis of the arterial and venous flow is normal in the right testis. Right epididymal head is normal in size. No right varicocele is seen. Right epididymal Doppler flow is normal. Small hydrocele. LEFT: Left testicle measures 4.5 x 2.4 x 3.3 cm, volume 19 mL. No focal testicular parenchymal lesions are visualized. Spectral Doppler analysis of the arterial and venous flow is normal in the left testis. Left epididymal head is normal in size. There is a 0.2 cm simple appearing epididymal head cyst. No left varicocele is seen. Left epididymal Doppler flow is normal. Small to moderate hydrocele. US/US scrotum IMPRESSION: Left greater than right hydroceles. Otherwise, no significant abnormality.
[2023-11-06 14:20] VITALS: BP 120/81; PULSE 96; RESP 20; TEMP 36.6; O2SAT 96; BMI 35.8
--- NOTE | 2023-11-06 14:21 | ED_ITS ---
HPI - General Adult General Chief complaint: General Medical Stated complaint: lower abd pain Time Seen by Provider: 11/06/23 16:48 Source: patient Mode of arrival: ambulatory History of Present Illness HPI narrative: 28-year-old male comes in with complaints that when he sits he has pain in the scrotum without overlying erythema or induration, denies any penile discharge, denies any tenderness on palpation Related Data Previous Rx's ?Medication ?Instructions ?Recorded acetaminophen 500 mg tablet 500 mg PO Q6H PRN pain #60 tabs 04/06/23 clonazepam 0.5 mg tablet 0.5 mg PO BEDTIME PRN Anxiety 30 04/06/23 days #30 tabs clozapine 100 mg tablet 100 mg PO BEDTIME 30 days #30 tabs 04/06/23 clozapine 50 mg tablet 50 mg PO BEDTIME 30 days #30 tabs 04/06/23 melatonin 3 mg tablet 6 mg (2 x 3 mg) PO DAILY 30 days 04/06/23 #60 tabs nicotine (polacrilex) 2 mg gum 2 mg buccal Q2H PRN nicotine 04/06/23 cravings 30 days #100 ea olanzapine 2.5 mg tablet (Zyprexa) 2.5 mg PO BID PRN agitation 30 04/06/23 days #60 tabs olanzapine 7.5 mg tablet 7.5 mg PO BEDTIME 30 days #30 tabs 04/06/23 Allergies Allergy/AdvReac Type Severity Reaction Status Date / Time aripiprazole [From Abilify] Allergy Unknown Unknown Verified 11/06/23 14:25 asenapine [From Saphris] Allergy Unknown Unknown Verified 11/06/23 14:25 ziprasidone [From Geodon] Allergy Unknown Unknown Verified 11/06/23 14:25 paliperidone [From Invega] Allergy Agitated Verified 11/06/23 14:25 Review of Systems Review of Systems: Pertinent positives and negatives as stated in HPI [facility] Past Medical History Source: nursing notes reviewed Medical History Iron deficiency anemia Schizophrenia Surgical History History of dental surgery Family History Family History Father No problems noted. Mother No problems noted. Social History Social History Household Members: Other Household Members Other:: [facility] managed apartment Housing: Other Housing Other:: [facility] Do you presently have visiting nurse or other home services: Yes (lives in a [facility]) Alcohol intake: unknown Comment: obs Patient Tobacco Use Status: Former Tobacco user Quit Date: 04/26/22 Tobacco use type: Cigarette Cigarette Packs Per Day: 1 Cigarettes Per Day: 20.0 Years Smoked: 15 e-Cigarette/Vaping Use: Never Used Second Hand Smoke Exposure: Yes Substance Use Type: Marijuana and Caffiene Advance Directives: No Advance Directives Information Provided: No service: No Current occupational status: unemployed Sexual orientation: Straight/Heterosexual Cognitive needs: No Hearing needs: No Vision needs: No Physical Exam ED Vital Signs: Vital Signs - 24 hr 11/06/23 14:20 Temperature 97.8 F Pulse Rate 96 Respiratory Rate 20 Blood Pressure 120/81 Pulse Oximetry 96 Oxygen Delivery Method Room Air BMI result Body Mass Index 35.8 VITAL SIGNS: Reviewed. GENERAL: Well developed, well nourished, in no acute distress. HEAD: Normocephalic/atraumatic EYES: PERRLA, EOMI LUNGS: Normal breath sounds. No adventitious sounds or accessory muscle use. SpO2<96> CARDIOVASCULAR: Regular rate and rhythm without noted murmurs, no JVD or lower extremity edema. ABDOMEN: Soft, non-tender, non-distended with bowel sounds. : [Revit Drafter-Yamile] there is no erythema or induration noted to the scrotum, there are no lesions or ulcerations, there is no tenderness to palpation of testicles or epididymis, patient is uncircumcised and otherwise no lesions or masses noted to penile shaft MUSCULOSKELETAL: No tenderness, deformities, or effusions noted on gross inspection. EXTREMITIES: No cyanosis, clubbing or edema. SKIN: Inspection of the skin reveals no rashes NEUROLOGIC: Alert and oriented x 4. Strength and sensation to light touch were grossly intact x 4. Course Course Course Narrative: This is an RME: Additional HPI, ROS, PE not included below will be deferred to primary provider. Patient is a 28-year-old male reports when sitting, exp eriences testicular pain x 5 months, pressure. He is also experiencing increased testicular pressure when having a bowel movement. Denies any injury, swelling, rash, penile discharge, dysuria. Plan: urinalysis, US Medical Decision Making Medical Decision Making [facility] Narrative: 28-year-old male with history and clinical presentation, DDX: Torsion, UTI, STI felt to be less likely, hydrocele I reviewed all investigations and urinalysis is negative for UTI or hematuria and testicular ultrasound demonstrates hydroceles. All results and findings discussed with patient at bedside. Differential Diagnosis Differential Diagnoses: The differential diagnosis associated with the presentation includes Please see the discussion above Admission/Observation Consideration of admission/observation: Escalation of care including admission/observation considered Please see the discussion above Lab Data [facility] Lab Attestation statement: I reviewed the patient's lab results. Please see the discussion above Labs: Lab Results 11/06/23 Range/Units 16:49 Urine Color Yellow Urine Appearance Clear Urine pH 7.0 (5.0-9.0) Ur Specific [place] 1.025 (1.005-1.025) Urine Protein Negative (Neg-Trace) mg/dL Urine Glucose (UA) Negative (Negative) mg/dL Urine Ketones Negative (Negative) mg/dL Urine Blood Negative (Negative) Urine Nitrite Negative (Negative) Ur Leukocyte Esterase Negative (Negative) Radiology Impression Discussion of test interpretation with radiology: I have reviewed the radiologist's reading. Radiologist Impression: Please see the discussion above External Record Review External record reviewed: Outpatient record, Prior outpatient labs and Prior outpatient radiology Critical Care Time Critical Care Time Critical Care Time: Yes Total Critical Care Time: 30 Attestation: I personally attest to this time spent taking care of the patient. Discharge Plan Discharge Clinical Impression: Hydrocele, Pain, scrotum Patient Disposition: Home, Self-Care Instructions: Hydrocele (ED), Scrotal Pain (ED) Additional Instructions: 1. Recommend [id number] Tylenol/ibuprofen as needed for pain control. 2. Recommend wearing briefs for the next week instead of Boxer's to help provide support for your scrotum, you can also consider a small towel to elevate your scrotum at night while sleeping. 3. Follow-up with your doctor in the next 1-2 days. Return to the ER for any worsening symptoms. Prescriptions: No Action nicotine (polacrilex) 2 mg Gum 2 mg buccal Q2H PRN (Reason: nicotine cravings) 30 Days Qty: 100 0RF acetaminophen 500 mg tablet 500 mg PO Q6H PRN (Reason: pain) Qty: 60 0RF clonazepam 0.5 mg Tablet 0.5 mg PO BEDTIME PRN (Reason: Anxiety) 30 Days Qty: 30 0RF clozapine 100 mg Tablet 100 mg PO BEDTIME 30 Days Qty: 30 0RF clozapine 50 mg tablet 50 mg PO BEDTIME 30 Days Qty: 30 0RF melatonin 3 mg tablet 6 mg PO DAILY 30 Days Qty: 60 0RF olanzapine [Zyprexa] 2.5 mg tablet 2.5 mg PO BID PRN (Reason: agitation) 30 Days Qty: 60 0RF olanzapine 7.5 mg tablet 7.5 mg PO BEDTIME 30 Days Qty: 30 0RF Stand Alone Forms: Work/School Release Print Language: Luxembourgish
[2023-11-06 17:02] LABS: Appearance Urine Clear; Color Urine Yellow; Glucose Urine UA Negative (Negative); Leukocyte Esterase Urine Negative (Negative); Nitrite Urine Negative (Negative); Specific Gravity - Urine 1.025 (1.005-1.025); Urine Blood Negative (Negative); Urine Ketones Negative (Negative); Urine Protein Negative (Neg-Trace)
[2023-11-06 17:30] VITALS: BP 120/81; PULSE 96; RESP 20; TEMP 36.6; O2SAT 96
[2023-11-06 18:33] LABS: CT PCR NOT DETECTED (Not Detect.); NG PCR NOT DETECTED (Not Detect.)
== END 2023-11-06 19:30 | disposition home or self-care (01) ==
PROVIDERS: Nurse Practitioner Family; Emergency Provider Student in an Organized Health Care Education/Training Program
DX: N43.3 Hydrocele, unspecified (principal); N50.819 Testicular pain, unspecified; Z88.8 Allergy status to other drugs, medicaments and biological substances
CPT/HCPCS: 0353U; 76870; 81003; 99282; 99284

== ENCOUNTER 2023-11-21 09:41 | Outpatient (REF) | payer OTHER, SELFPAY ==
[2023-11-21 09:55] LABS: MANUAL DIFF FLAG NO
[2023-11-21 10:13] LABS: Basophils Absolute Auto 0.1 X10*3/uL (0.0-0.2); Basophils Percent Auto 0.6 % (0-2); Eosinophils Absolute Auto 0.7 X10*3/uL (0.0-0.4); Eosinophils Percent Auto 6.4 % (0-4); Hematocrit 41.5 % (42.0-52.0); Hemoglobin 13.5 g/dl (14.0-18.0); Imm Gran Abs Auto 0.04 X10*3/uL (0.00-0.03); Imm Gran Pct Auto 0.4 % (0.0-0.4); Lymphocytes Absolute Auto 2.6 X10*3/uL (1.2-4.9); Lymphocytes Percent Auto 24.7 % (20-40); Mean Corpuscular HGB Conc 32.5 g/dl (31.0-36.0); Mean Corpuscular Hemoglobin 27.7 pg (27.0-33.0); Mean Platelet Volume 9.1 fL (9.4-12.4); Monocytes Percent Auto 9.1 % (2-11); Neutrophils Absolute Auto 6.1 x10*3/uL (2.0-8.3); Neutrophils Percent Auto 58.8 % (45-73); Platelet Count 373 X10*3/uL (160-400); Red Blood Count 4.88 X10*6/uL (4.60-5.80); Red Cell Distribution Width 15.3 % (11.0-16.0); White Blood Count 10.4 X10*3/uL (4.8-10.8)
== END 2023-11-21 09:42 | disposition home or self-care (01) ==
LOC: HO.LABR 09:41
PROVIDERS: PCP Physician Assistant; Visit Provider Psychiatry & Neurology Psychiatry
DX: Z79.899 Other long term (current) drug therapy (principal)
CPT/HCPCS: 36415; 85025

== ENCOUNTER 2023-12-04 13:32 | Outpatient (REF) | payer OTHER, SELFPAY ==
[2023-12-04 13:48] LABS: MANUAL DIFF FLAG NO
[2023-12-04 14:03] LABS: Basophils Absolute Auto 0.1 X10*3/uL (0.0-0.2); Basophils Percent Auto 0.6 % (0-2); Eosinophils Absolute Auto 0.3 X10*3/uL (0.0-0.4); Eosinophils Percent Auto 3.7 % (0-4); Hematocrit 41.5 % (42.0-52.0); Hemoglobin 13.4 g/dl (14.0-18.0); Imm Gran Abs Auto 0.03 X10*3/uL (0.00-0.03); Imm Gran Pct Auto 0.4 % (0.0-0.4); Lymphocytes Absolute Auto 2.1 X10*3/uL (1.2-4.9); Lymphocytes Percent Auto 25.1 % (20-40); Mean Corpuscular HGB Conc 32.3 g/dl (31.0-36.0); Mean Corpuscular Hemoglobin 27.7 pg (27.0-33.0); Mean Corpuscular Volume 85.7 fL (80.0-98.0); Mean Platelet Volume 9.7 fL (9.4-12.4); Monocytes Absolute Auto 0.6 X10*3/uL (0.1-1.2); Neutrophils Absolute Auto 5.3 x10*3/uL (2.0-8.3); Neutrophils Percent Auto 63.2 % (45-73); Platelet Count 316 X10*3/uL (160-400); Red Blood Count 4.84 X10*6/uL (4.60-5.80); Red Cell Distribution Width 14.3 % (11.0-16.0); White Blood Count 8.3 X10*3/uL (4.8-10.8)
== END 2023-12-04 13:33 | disposition home or self-care (01) ==
LOC: HO.LABR 13:32
PROVIDERS: Visit Provider Psychiatry & Neurology Psychiatry
DX: Z79.899 Other long term (current) drug therapy (principal)
CPT/HCPCS: 36415; 85025

== ENCOUNTER 2023-12-12 01:37 | Emergency (ER) | payer OTHER, SELFPAY ==
[2023-12-12 01:44] VITALS: BP 155/72; BP 168/72; PULSE 109; PULSE 120; RESP 18; TEMP 36.5; O2SAT 96; O2SAT 97; BMI 30.4
[2023-12-12 01:51] VITALS: BP 155/72; PULSE 109; RESP 18; TEMP 36.5; O2SAT 97
[2023-12-12 03:45] VITALS: BP 118/57; PULSE 92; RESP 16; TEMP 36.7; O2SAT 97
[2023-12-12 05:13] LABS: Amphetamine Screen Urine Not Detected (Not Detect); Barbiturates, Urine Not Detected (Not Detect); Benzodiazepines Screen Urine Not Detected (Not Detect); Buprenorphine Scr Not Detected (Not Detect); Cannabinoid Screen Urine POSITIVE (Not Detect); Cocaine Screen Urine Not Detected (Not Detect); Fentanyl, urine Not Detected (Not Detect); Methadone Screen, Urine Not Detected (Not Detect); Opiate Screen Urine Not Detected (Not Detect); Oxycodone Screen Urine Not Detected (Not Detect); Phencyclidine Screen Urine Not Detected (Not Detect)
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
--- NOTE | 2023-12-12 06:12 | PC.NURSE ---
pt medically cleared and discharged by MD. this RN called [facility]. [phone]. they stated they do not have staff to come get him try to call back at 9 . auditor in charge aware. pt resting comfortably in stretcher, food provided
[2023-12-12 06:28] VITALS: BP 108/83; PULSE 97; RESP 16; TEMP 36.7; O2SAT 96
[2023-12-12 07:05] VITALS: BP 108/83; PULSE 97; RESP 16; TEMP 36.7; O2SAT 96
== END 2023-12-12 07:18 | disposition home or self-care (01) ==
PROVIDERS: Emergency Provider Emergency Medicine
DX: R45.4 Irritability and anger (principal); M25.512 Pain in left shoulder; Z65.3 Problems related to other legal circumstances
CPT/HCPCS: 80307; 99284

== ENCOUNTER 2023-12-12 12:12 | Emergency (ER) | payer OTHER, SELFPAY ==
[2023-12-12 12:20] VITALS: BP 132/88; BP 161/72; PULSE 102; PULSE 93; RESP 18; TEMP 36.7; O2SAT 96; O2SAT 98; BMI 35.9
[2023-12-12 12:36] LABS: Appearance Urine Clear; Color Urine Yellow; Glucose Urine UA Negative (Negative); Leukocyte Esterase Urine Negative (Negative); Nitrite Urine Negative (Negative); Urine Blood Negative (Negative); Urine Ketones Negative (Negative); Urine Protein Negative (Neg-Trace)
[2023-12-12 12:44] LABS: MANUAL DIFF FLAG NO
[2023-12-12 12:48] LABS: Amphetamine Screen Urine Not Detected (Not Detect); Barbiturates, Urine Not Detected (Not Detect); Benzodiazepines Screen Urine Not Detected (Not Detect); Buprenorphine Scr Not Detected (Not Detect); Cannabinoid Screen Urine POSITIVE (Not Detect); Cocaine Screen Urine Not Detected (Not Detect); Fentanyl, urine Not Detected (Not Detect); Methadone Screen, Urine Not Detected (Not Detect); Opiate Screen Urine Not Detected (Not Detect); Oxycodone Screen Urine Not Detected (Not Detect); Phencyclidine Screen Urine Not Detected (Not Detect)
[2023-12-12 13:02] LABS: Alanine Aminotransferase 54 U/L (0-40); Albumin Level 3.9 g/dL (3.5-5.0); Alkaline Phosphatase 83 U/L (39-117); Anion Gap 12 (12-20); Aspartate Amino Transferase 37 U/L (5-37); Bilirubin Total 0.2 mg/dL (0.0-1.0); Blood Urea Nitrogen 12 mg/dL (9-16); Calcium 8.8 mg/dL (8.4-10.2); Carbon Dioxide 22 mmol/L (22-29); Chloride 109 mmol/L (96-108); Creatinine Clr Calc Pharmacy 193.5; Estimated Glomerular Filt Rate > 60; Glucose Random 110 mg/dL (60-115); Potassium 3.6 mmol/L (3.3-5.1); Sodium 139 mmol/L (135-145); Total Protein 7.2 g/dL (6.5-8.0)
[2023-12-12 13:03] LABS: Ethanol < 10 mg/dL
[2023-12-12 13:08] LABS: Basophils Absolute Auto 0.1 X10*3/uL (0.0-0.2); Basophils Percent Auto 0.6 % (0-2); Eosinophils Absolute Auto 0.3 X10*3/uL (0.0-0.4); Eosinophils Percent Auto 2.9 % (0-4); Hematocrit 38.8 % (42.0-52.0); Hemoglobin 12.7 g/dl (14.0-18.0); Imm Gran Abs Auto 0.03 X10*3/uL (0.00-0.03); Imm Gran Pct Auto 0.4 % (0.0-0.4); Lymphocytes Absolute Auto 2.5 X10*3/uL (1.2-4.9); Lymphocytes Percent Auto 29.5 % (20-40); Mean Corpuscular HGB Conc 32.7 g/dl (31.0-36.0); Mean Corpuscular Volume 85.7 fL (80.0-98.0); Monocytes Absolute Auto 0.8 X10*3/uL (0.1-1.2); Monocytes Percent Auto 8.9 % (2-11); Neutrophils Percent Auto 57.7 % (45-73); Platelet Count 318 X10*3/uL (160-400); Red Blood Count 4.53 X10*6/uL (4.60-5.80); Red Cell Distribution Width 14.2 % (11.0-16.0); White Blood Count 8.6 X10*3/uL (4.8-10.8)
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
--- NOTE | 2023-12-12 14:30 | PC.NURSE ---
Per Susan HAQUE, pt refusing all imaging
[2023-12-12 17:15] VITALS: BP 127/81; PULSE 84; RESP 18; TEMP 36.6; O2SAT 97
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
--- NOTE | 2023-12-12 19:22 | PC.NURSE ---
Assumed care of pt. Pt ambulating around unit with steady gait, no acute distress at this time. Continuing plan of care pending dispo.
[2023-12-12] MEDS: Melatonin 3 MG TABLET 6 MG PO (20:23)
[2023-12-12] MEDS: clonazePAM 0.5 MG TABLET PO (20:24)
[2023-12-12] MEDS: Acetaminophen 325 MG TABLET 650 MG PO (20:24)
[2023-12-12] MEDS: cloZAPine 25 MG TABLET 75 MG PO (20:24)
[2023-12-12] MEDS: OLANZapine 2.5 MG TABLET PO (20:24)
[2023-12-12] MEDS: cloZAPine 100 MG TABLET 200 MG PO (20:24)
[2023-12-13 06:23] VITALS: BP 132/87; PULSE 87; RESP 17; TEMP 36.9; O2SAT 99
--- NOTE | 2023-12-13 06:26 | PC.NURSE ---
Patient slept through the night, no distress observed/reported, no psychiatric symptoms observed/reported, patient was seen by care team, disposition is voluntary respite bed search, no behavior issues, will continue to monitor
--- NOTE | 2023-12-13 09:24 | MHC.CARE ---
Called [facility], they reports they received referral, however it was never activated. They will now activate referral and pt is under review for possible placement. Will f/u as needed.
[2023-12-13 18:02] VITALS: BP 135/87; PULSE 98; RESP 18; TEMP 36.4; O2SAT 97
[2023-12-13 19:04] VITALS: BP 128/78; PULSE 80; RESP 16; TEMP 37; O2SAT 100
== END 2023-12-13 19:07 | disposition home or self-care (01) ==
PROVIDERS: Physician Assistant; Emergency Provider Emergency Medicine
DX: F20.9 Schizophrenia, unspecified (principal); E78.5 Hyperlipidemia, unspecified; K21.9 Gastro-esophageal reflux disease without esophagitis; G47.00 Insomnia, unspecified; D50.9 Iron deficiency anemia, unspecified; F17.210 Nicotine dependence, cigarettes, uncomplicated; F12.90 Cannabis use, unspecified, uncomplicated; E66.9 Obesity, unspecified; Z68.35 Body mass index [BMI] 35.0-35.9, adult; Z79.899 Other long term (current) drug therapy
CPT/HCPCS: 36415; 80053; 80307; 81003; 83735; 85025; 99285; S9485

== ENCOUNTER 2023-12-18 13:36 | Outpatient (REF) | payer OTHER, SELFPAY ==
[2023-12-18 13:49] LABS: MANUAL DIFF FLAG NO
[2023-12-18 14:31] LABS: Basophils Percent Auto 0.5 % (0-2); Eosinophils Absolute Auto 0.1 X10*3/uL (0.0-0.4); Eosinophils Percent Auto 0.9 % (0-4); Hematocrit 43.9 % (42.0-52.0); Hemoglobin 14.3 g/dl (14.0-18.0); Imm Gran Abs Auto 0.02 X10*3/uL (0.00-0.03); Imm Gran Pct Auto 0.2 % (0.0-0.4); Lymphocytes Absolute Auto 1.8 X10*3/uL (1.2-4.9); Lymphocytes Percent Auto 21.3 % (20-40); Mean Corpuscular HGB Conc 32.6 g/dl (31.0-36.0); Mean Corpuscular Hemoglobin 27.7 pg (27.0-33.0); Mean Corpuscular Volume 84.9 fL (80.0-98.0); Mean Platelet Volume 10.2 fL (9.4-12.4); Monocytes Absolute Auto 0.6 X10*3/uL (0.1-1.2); Monocytes Percent Auto 7.5 % (2-11); Neutrophils Absolute Auto 5.9 x10*3/uL (2.0-8.3); Neutrophils Percent Auto 69.6 % (45-73); Platelet Count 346 X10*3/uL (160-400); Red Blood Count 5.17 X10*6/uL (4.60-5.80); Red Cell Distribution Width 13.9 % (11.0-16.0); White Blood Count 8.5 X10*3/uL (4.8-10.8)
== END 2023-12-18 13:37 | disposition home or self-care (01) ==
LOC: HO.LAB 13:36
PROVIDERS: PCP Physician Assistant; Visit Provider Psychiatry & Neurology Psychiatry
DX: Z13.89 Encounter for screening for other disorder (principal)
CPT/HCPCS: 36415; 85025

== ENCOUNTER 2023-12-21 21:41 | Emergency (ER) | payer OTHER, SELFPAY ==
--- NOTE | ~2023-12-21 | XR_ITS ---
EXAMINATION: XR HAND, RIGHT CLINICAL INFORMATION: Hand pain COMPARISON: None available. TECHNIQUE: PA, lateral, and oblique views of the right hand. FINDINGS: There is a horizontal fracture involving the mid fourth metacarpal and a comminuted intra-articular fracture involving the base of the fifth metacarpal route in both of these fractures, there is ventral angulation of distal fracture fragments. No other fractures are seen. XR/XR hand RT min 3V IMPRESSION: Fourth and fifth metacarpal fractures as described above.
[2023-12-21 21:47] VITALS: PULSE 112; O2SAT 99
[2023-12-21 22:15] VITALS: BP 114/90; PULSE 107; RESP 17; TEMP 36.6; O2SAT 97; BMI 37.1
[2023-12-21 23:26] VITALS: BP 139/88; PULSE 86; RESP 14
--- NOTE | 2023-12-22 00:23 | ED.EXTPRO ---
HPI - Extremity Problem General Chief complaint: Extremity Injury, Upper Stated complaint: Hand pain after punching door Time Seen by Provider: 12/21/23 23:50 Source: patient, RN notes reviewed and old records reviewed Mode of arrival: ambulatory Limitations: no limitations History of Present Illness ED Provider: Alfredo ESPANA Narrative: 28-year-old male presents for evaluation of right hand pain. Patient reports that he got upset around 9:00 p.m., OS ago. He punched only been a drawer with his right hand and He reports 8/10 pain Denies any wrist pain No other complaints or injuries Related Data Home Medications ?Medication ?Instructions ?Recorded ?Confirmed clozapine 100 mg tablet 200 mg PO BEDTIME 12/12/23 12/12/23 clozapine 50 mg tablet 75 mg PO BEDTIME 12/12/23 12/12/23 melatonin 3 mg tablet 6 mg PO BEDTIME 12/12/23 12/12/23 olanzapine 2.5 mg tablet (Zyprexa) 2.5 mg PO BEDTIME 12/12/23 12/12/23 Previous Rx's ?Medication ?Instructions ?Recorded acetaminophen 500 mg tablet 500 mg PO Q6H PRN pain #60 tabs 04/06/23 clonazepam 0.5 mg tablet 0.5 mg PO BEDTIME PRN Anxiety 30 04/06/23 days #30 tabs olanzapine 2.5 mg tablet (Zyprexa) 2.5 mg PO BID PRN agitation 30 04/06/23 days #60 tabs oxycodone 5 mg tablet 5 mg PO Q6H PRN severe pain (scale 12/22/23 score 7-10) #12 tabs Allergies Allergy/AdvReac Type Severity Reaction Status Date / Time paliperidone [From Invega] Allergy Mild Agitated Verified 12/21/23 22:19 aripiprazole [From Abilify] Allergy Unknown Unknown Verified 12/21/23 22:19 asenapine [From Saphris] Allergy Unknown Unknown Verified 12/21/23 22:19 ziprasidone [From Geodon] Allergy Unknown Unknown Verified 12/21/23 22:19 Review of Systems Constitutional: Constitutional: Denies body ache(s), Denies chills and Denies fever(s) Cardiovascular: Cardiovascular: Denies chest pain Respiratory: Respiratory: Denies cough Gastrointestinal: Gastrointestinal: Denies abdominal pain, Denies nausea and Denies vomiting Musculoskeletal: Musculoskeletal: Reports arthralgias, Reports joint swelling and Reports limited range of motion Integumentary/Breasts: Skin/Breast: Denies wounds PMFSH Past Medical History Medical History Iron deficiency anemia Schizophrenia Surgical History History of dental surgery Family History Family History Father No problems noted. Mother No problems noted. Social History Social History Household Members: Other Household Members Other:: [facility] managed apartment Housing: Other Housing Other:: prison Do you presently have visiting nurse or other home services: Yes (lives in a [facility]) Alcohol intake: unknown Comment: obs Patient Tobacco Use Status: Former Tobacco user Quit Date: 04/26/22 Tobacco use type: Cigarette Cigarette Packs Per Day: 1 Cigarettes Per Day: 20.0 Years Smoked: 15 Smoked in Last 30 Days: Yes e-Cigarette/Vaping Use: Never Used Second Hand Smoke Exposure: Yes Use of substances other than those prescribed or required for medical reasons: No Substance Use Type: Marijuana Advance Directives: No Advance Directives Information Provided: Yes Do you have a plan to hurt others: No Plan service: No Current occupational status: unemployed Sexual orientation: Straight/Heterosexual Cognitive needs: No Hearing needs: No Vision needs: No Physical Exam Vital Signs: Vital Signs: Last Vital Signs Temp 98 F 12/21/23 22:15 Pulse 86 12/21/23 23:26 Resp 14 12/21/23 23:26 BP 139/88 12/21/23 23:26 Pulse Ox 97 12/21/23 22:15 O2 Del Method Room Air 12/21/23 22:15 BMI result Body Mass Index 37.1 Const: General: healthy appearing, comfortable, no acute distress, alert and awake Nutritional Appearance: well nourished Orientation/consciousness: patient oriented x3 HEENT: Head: Yes normocephalic and Yes atraumatic Eyes: Eyelids: Yes eyelids normal Conjunctivae: conjunctivae normal Sclerae: sclerae normal Corneas: corneas normal Pupils: Equal, round and reactive pupils present EOM: EOMs intact bilaterally Neck: Neck: Yes full ROM Resp: Effort & Inspection: normal respiratory effort, able to speak in complete sentences and not labored Skin: Other: Small superficial abrasion just distal to the right 3rd MCP joint. General skin exam: elasticity normal Neuro: General: patient oriented x3 Cranial nerves: Yes Equal, round and reactive pupils present and Yes Bilaterally intact EOM present Cognition (Neuro): normal cognition Extrem: Other: Patient has significant edema to the right 1st and 2nd metacarpals. These areas are tender to palpation. He is able to wiggle all fingers, capillary refill worse the patient intact to all 5 fingers of the right hand. There is no right wrist tenderness or edema Medical Decision Making Independent Interpretation I performed an independent interpretation of an: Plain X-Ray Interpretation: Agree with Radiology interpretation. Acute right 4th and 5th metacarpal fracture Radiology Impression Discussion of test interpretation with radiology: I have reviewed the radiologist's reading. Radiologist Impression: XR/XR hand RT min 3V IMPRESSION: Fourth and fifth metacarpal fractures as described above. Procedures Orthopedic Splinting/Casting Injury #1: Side: right Upper Extremity Injury Location: hand Upper Extremity Immobilizer: sling/shoulder immobilizer and ulnar gutter Additional Comments: Postprocedure, neurovascular status remains intact Discharge Plan Discharge Clinical Impression: Closed right hand fracture Patient Disposition: Home, Self-Care Instructions: Hand Fracture (ED) Additional Instructions: Fracture to bones of your right hand. Keep the splint on until you follow-up with orthopedics Call the office of Dr. Nathalie Henderson tomorrow morning to schedule follow-up Return for new or worsening symptoms Use ibuprofen/Tylenol as needed for pain Use oxycodone for more severe, breakthrough pain This may make you sleepy, do not drink alcohol or drive after taking Prescriptions: New oxycodone 5 mg tablet 5 mg PO Q6H PRN (Reason: severe pain (scale score 7-10)) Qty: 12 0RF Rx Instructions: Partial Fill upon patient request. No Action acetaminophen 500 mg tablet 500 mg PO Q6H PRN (Reason: pain) Qty: 60 0RF clonazepam 0.5 mg Tablet 0.5 mg PO BEDTIME PRN (Reason: Anxiety) 30 Days Qty: 30 0RF olanzapine [Zyprexa] 2.5 mg tablet 2.5 mg PO BID PRN (Reason: agitation) 30 Days Qty: 60 0RF clozapine 100 mg tablet 200 mg PO BEDTIME Rx Instructions: Take with 75 mg dose melatonin 3 mg tablet 6 mg PO BEDTIME clozapine 50 mg tablet 75 mg PO BEDTIME Rx Instructions: Take with 200mg dose olanzapine [Zyprexa] 2.5 mg Tablet 2.5 mg PO BEDTIME Referrals: Nathalie Henderson MD [Physician] - (Right 4th and 5th metacarpal fracture) Print Language: Lithuanian
[2023-12-22 00:38] VITALS: BP 137/74; PULSE 71; RESP 16; TEMP 36.9; O2SAT 99
[2023-12-22] MEDS: Acetaminophen 325 MG TABLET 975 MG PO (00:45)
[2023-12-22] MEDS: oxyCODONE HCl Immed Release 5 MG TABLET PO (00:45)
[2023-12-22 00:49] VITALS: BP 137/74; PULSE 71; RESP 16; TEMP 36.9; O2SAT 99
== END 2023-12-22 00:49 | disposition home or self-care (01) ==
PROVIDERS: Emergency Provider Internal Medicine; PCP Internal Medicine
DX: S62.304A Unspecified fracture of fourth metacarpal bone, right hand, initial encounter for closed fracture (principal); S62.306A Unspecified fracture of fifth metacarpal bone, right hand, initial encounter for closed fracture; W22.09XA Striking against other stationary object, initial encounter; Y93.9 Activity, unspecified; Y92.9 Unspecified place or not applicable; Y99.9 Unspecified external cause status
CPT/HCPCS: 29125; 73130; 99283; 99284

== ENCOUNTER 2023-12-30 12:36 | Outpatient (REF) | payer OTHER, SELFPAY ==
[2023-12-30 12:47] LABS: MANUAL DIFF FLAG NO
[2023-12-30 14:39] LABS: Basophils Absolute Auto 0.1 X10*3/uL (0.0-0.2); Basophils Percent Auto 0.4 % (0-2); Eosinophils Absolute Auto 0.1 X10*3/uL (0.0-0.4); Eosinophils Percent Auto 1.1 % (0-4); Hematocrit 41.9 % (42.0-52.0); Imm Gran Abs Auto 0.03 X10*3/uL (0.00-0.03); Imm Gran Pct Auto 0.3 % (0.0-0.4); Lymphocytes Absolute Auto 2.3 X10*3/uL (1.2-4.9); Lymphocytes Percent Auto 20.5 % (20-40); Mean Corpuscular HGB Conc 33.4 g/dl (31.0-36.0); Mean Corpuscular Hemoglobin 28.3 pg (27.0-33.0); Mean Corpuscular Volume 84.6 fL (80.0-98.0); Mean Platelet Volume 10.4 fL (9.4-12.4); Neut%MD 68.7 %; Neutrophils Absolute Auto 7.9 x10*3/uL (2.0-8.3); Neutrophils Percent Auto 68.7 % (45-73); Platelet Count 352 X10*3/uL (160-400); Red Blood Count 4.95 X10*6/uL (4.60-5.80); Red Cell Distribution Width 13.6 % (11.0-16.0); WBCANC 11.4 X10*3/uL; White Blood Count 11.4 X10*3/uL (4.8-10.8)
== END 2023-12-30 12:37 | disposition home or self-care (01) ==
LOC: HO.LABR 12:36
PROVIDERS: Visit Provider Psychiatry & Neurology Psychiatry
DX: Z79.899 Other long term (current) drug therapy (principal)
CPT/HCPCS: 36415; 85025

== ENCOUNTER 2024-01-05 11:08 | Outpatient (REF) | payer OTHER, SELFPAY ==
--- NOTE | ~2024-01-05 | XR_ITS ---
EXAMINATION: XR HAND, RIGHT CLINICAL INFORMATION: Pain in right hand, attention fourth and fifth metacarpals. COMPARISON: December 21, 2023. TECHNIQUE: PA, lateral, and oblique views of the right hand. FINDINGS: Bone mineralization is normal. Redemonstration of transverse fracture along the mid fourth metacarpal with increased angulation and displacement. Redemonstration of comminuted, displaced, intra-articular fracture at the base of the fifth metacarpal. XR/XR hand RT min 3V IMPRESSION: 1. Redemonstration of transverse fracture along the mid fourth metacarpal with increased angulation and displacement. 2. Redemonstration of comminuted, displaced, intra-articular fracture at the base of the fifth metacarpal.
== END 2024-01-05 11:09 | disposition home or self-care (01) ==
LOC: HO.HOSX 11:08
DX: S62.324A Displaced fracture of shaft of fourth metacarpal bone, right hand, initial encounter for closed fracture (principal); S62.316A Displaced fracture of base of fifth metacarpal bone, right hand, initial encounter for closed fracture; F20.0 Paranoid schizophrenia
CPT/HCPCS: 73130; 99202

== ENCOUNTER 2024-01-05 13:47 | Outpatient (AMB) | payer OTHER, SELFPAY ==
--- NOTE | 2024-01-05 13:56 | MHC.OFFVIS ---
Intake Visit Reasons: N/P RT 4th&5th MC fx s/p punching a door12/22/23 Intake Note: Kris a 28 year old male presents to the office today for right 4th and 5th MC fx s/p punching a cabinet drawer on 12/22/23. Pt states he is having some pain and soreness. He states he also has swelling still. Allergies paliperidone [From Invega] Allergy (Mild, Verified 01/05/24 13:56) Agitated aripiprazole [From Abilify] Allergy (Unknown, Verified 01/05/24 13:56) Unknown asenapine [From Saphris] Allergy (Unknown, Verified 01/05/24 13:56) Unknown ziprasidone [From Geodon] Allergy (Unknown, Verified 01/05/24 13:56) Unknown HPI HPI N/P RT 4th&5th MC fx s/p punching a door12/22/23: Details: Kris is a 28 year old right hand dominant man who presents with a right hand fracture. He says he punched a drawer on 12/21/23, and was seen in the ED the same day. He was told he had a 4th & 5th metacarpal fracture and placed in an ulnar gutter splint. He presents today with complaints of pain and some swelling. [facility]LY [facility], [facility] Medical History Iron deficiency anemia Schizophrenia Surgical History History of dental surgery Family History Father No problems noted. Mother No problems noted. Social History Household Members: Other Household Members Other:: [facility] Housing: Other Housing Other:: [facility] Do you presently have visiting nurse or other home services: Yes (lives in a [facility]) Alcohol intake: unknown Comment: obs Patient Tobacco Use Status: Former Tobacco user Tobacco use type: Cigarette Cigarette Packs Per Day: 1 Cigarettes Per Day: 20.0 Years Smoked: 15 e-Cigarette/Vaping Use: Never Used Second Hand Smoke Exposure: Yes Substance Use Type: Marijuana service: No Current occupational status: unemployed Sexual orientation: Straight/Heterosexual Cognitive needs: No Hearing needs: No Vision needs: No Review of Systems Const All systems reviewed & are unremarkable except as noted in HPI and below Physical Exam Const General: cooperative, healthy appearing and no acute distress Orientation/consciousness: patient oriented x3 HEENT Head: Yes normocephalic and Yes atraumatic Eyes EOM: EOMs intact bilaterally Resp Effort & Inspection: normal respiratory effort and able to speak in complete sentences Cardio Jugular venous distension: no JVD Skin General skin exam: turgor normal Rashes: no rashes Neuro General: patient oriented x3 Extrem Other: Evaluation of Right Upper Extremity: The patient is alert, oriented, and in no acute distress Neuro: Median, Ulnar, Radial nerves motor and sensory intact Vascular: Cap refill brisk Does have some right hand swelling and resolving ecchymosis. He does have a visible apex dorsal deformity involving the ulnar aspect of the hand. The apex of the 4th metacarpal shaft fracture is palpable but not tenting the skin. He is tender over the 4th metacarpal shaft fracture and also over the base of the 5th metacarpal. He is also tender to palpation over the ulnar aspect of the wrist joint as well as over the distal ulna distal radius and DRUJ. The DRUJ is stable on exam. No lacerations or evidence of open injury No appreciable malrotation though he does have again a significant apex dorsal angulation to the ulnar side of the hand. He can weakly bring his fingers close towards a fist and back into extension. He had been in a splint for the last 2 weeks though he had been taken it off to shower Radiographs: 3 views of the right hand were taken and viewed by me today in clinic. They show a 4th metacarpal shaft fracture with about 45 degrees of apex dorsal angulation. It also shows a highly comminuted and displaced 5th metacarpal base fracture with possible dorsal dislocation of the joint.. Psych Appearance: grossly normal Affect: normal affect Attitude: cooperative Assessment & Plan Assessment & Plan (1) Fracture of fourth metacarpal bone of right hand: Code(s): S62.304A - Unspecified fracture of fourth metacarpal bone, right hand, initial encounter for closed fracture Category: Medical (2) Fracture of fifth metacarpal bone of right hand: Code(s): S62.306A - Unspecified fracture of fifth metacarpal bone, right hand, initial encounter for closed fracture Category: Medical (3) Schizophrenia: Code(s): F20.9 - Schizophrenia, unspecified Category: Medical Qualifiers: Schizophrenia type: paranoid schizophrenia Qualified Code(s): F20.0 - Paranoid schizophrenia Plan Assessment & Plan: 1. Right 4th metacarpal shaft fracture, DOI: 12/21/23 2. Right 5th metacarpal base fracture intra-articular/CMC joint fracture dislocation, DOI: 12/21/23 I educated him and his social services director about these conditions I discussed operative and non-operative treatment options The patient would like to proceed with surgery The risks and benefits of operative treatment were discussed with the patient and the patient wishes to proceed with surgery. These risks include, but are not limited to risk of damage to blood vessels, nerves, tendons, infection, recurrence, incomplete relief of preoperative symptoms, persistent pain, possible need for further surgery and the risks associated with regional blocks and anesthesia. The plan is to take the patient to the operating room sometime on 01/07/24 for the following procedures: 1. Right 4th metacarpal shaft ORIF, under general 2. Right 5th metacarpal base/CMC joint ORIF, under general All of the preoperative paperwork including the consent was reviewed today. All the patient's questions were answered. The patient understands that they will be contacted by our care team coordinator scheduler soon to schedule this procedure He denies Diabetes, blood thinners, asthma, heart, lung, kidney issues He has Schizophrenia, and takes Zyprexa for this Scribed for Nathalie Henderson MD by Lio Mensah, medical collections specialist, on 01/05/24 at 2:10 PM, EST. Orders: Orders XR hand RT min 3V Today M79.641 - Pain in right hand Coding Level of Care Code New Pt Level 4 (05188) Diagnoses Fracture of fourth metacarpal bone of right hand S62.304A Fracture of fifth metacarpal bone of right hand S62.306A Paranoid schizophrenia F20.0 Schizophrenia type: paranoid schizophrenia
== END 2024-01-05 15:12 | disposition home or self-care (01) ==
PROVIDERS: PCP Physician Assistant; Visit Provider Orthopaedic Surgery
DX: S62.304A Unspecified fracture of fourth metacarpal bone, right hand, initial encounter for closed fracture (principal); S62.306A Unspecified fracture of fifth metacarpal bone, right hand, initial encounter for closed fracture; F20.0 Paranoid schizophrenia
CPT/HCPCS: 99204

== ENCOUNTER 2024-01-07 07:47 | Day surgery (SDC) | payer OTHER, SELFPAY ==
--- NOTE | 2024-01-06 13:46 | P.CONAN_ITS ---
Documented by User: Debi Lucero NP 01/06/24 13:49 HPI - Anesthesia Eval Consult details Narrative: 28yo M for Right ?4th Metacarpal ORIF, 5th Metacarpal Flash CMC ORIF PMFSH Active Problems Active Problems: All Active Problems Fracture of fifth metacarpal bone of right hand (Acute) Fracture of fourth metacarpal bone of right hand (Acute) Impacted cerumen, bilateral (Acute) Elevated liver enzymes (Acute) Medication monitoring encounter (Acute) Blackhead (Acute) Suicide ideation (Acute) Laceration of forehead (Acute) COVID-19 (Acute) Schizophrenia (Acute) Tinea cruris (Acute) Screening for hypothyroidism (Acute) Screening for diabetes mellitus (DM) (Acute) Lumbar radiculopathy, chronic (Acute) Annual physical exam (Acute) Tinea unguium (Acute) Cervical spine pain (Acute) Spondylosis of lumbar joint (Acute) Insomnia, unspecified (Acute) Insomnia (Acute) Redness of both eyes (Acute) Pain, dental (Acute) GERD (gastroesophageal reflux disease) (Acute) Proctitis (Acute) GI bleed (Acute) Anemia (Acute) Arthralgia (Acute) Obese (Acute) HLD (hyperlipidemia) (Acute) Folliculitis (Acute) Annual physical exam (Acute) Past Medical History Medical History Iron deficiency anemia Schizophrenia Family History Family History Father No problems noted. Mother No problems noted. Surgical History Surgical History History of dental surgery Social History Social History Household Members: Other Household Members Other:: [facility] apartment Housing: Other Housing Other:: [facility] Do you presently have visiting nurse or other home services: Yes (lives in a [facility]) Alcohol intake: unknown Comment: obs Patient Tobacco Use Status: Current everyday Tobacco user Tobacco use type: Cigarette Cigarette Packs Per Day: 1 Cigarettes Per Day: 2 Years Smoked: 15 e-Cigarette/Vaping Use: Never Used Second Hand Smoke Exposure: Yes Use of substances other than those prescribed or required for medical reasons: Yes Substance Use Type: Marijuana Are you DNR?: No Advance Directives: No Advance Directives Information Provided: Yes service: No Current occupational status: unemployed Sexual orientation: Straight/Heterosexual Cognitive needs: No Hearing needs: No Vision needs: No Meds Allergies Allergy/AdvReac Type Severity Reaction Status Date / Time paliperidone [From Invega] Allergy Mild Agitated Verified 01/07/24 07:56 aripiprazole [From Abilify] Allergy Unknown Unknown Verified 01/07/24 07:56 asenapine [From Saphris] Allergy Unknown Unknown Verified 01/07/24 07:56 ziprasidone [From Geodon] Allergy Unknown Unknown Verified 01/07/24 07:56 Home Medications ?Medication ?Instructions ?Recorded ?Confirmed ?Last Taken ?Type clozapine 100 mg tablet 200 mg PO BEDTIME 12/12/23 01/07/24 12/11/23 20:00 History clozapine 50 mg tablet 100 mg PO BEDTIME 12/12/23 01/07/24 12/11/23 20:00 History melatonin 3 mg tablet 6 mg PO BEDTIME 12/12/23 01/07/24 Unknown History olanzapine 2.5 mg tablet (Zyprexa) 2.5 mg PO BEDTIME 12/12/23 01/07/24 12/11/23 History Exam Pertinent Lab Results Pertinent Lab Results: Laboratory Tests 12/12/23 12/30/23 12:38 12:46 WBC 11.4 H Hgb 14.0 Hct 41.9 L Plt Count 352 Sodium 139 Potassium 3.6 Chloride 109 H Carbon Dioxide 22 BUN 12 Creatinine 0.71 Narrative Narrative: EKG 06/2023 Vent. Rate : 090 BPM Atrial Rate : 090 BPM P-R Int : 118 ms QRS Dur : 082 ms QT Int : 332 ms P-R-T Axes : 020 058 052 degrees QTc Int : 406 ms Normal sinus rhythm Normal ECG When compared with ECG of 26-MAR-2023 14:38, Vent. rate has increased BY 41 BPM Assessment and Plan Assessment Anesthesia Assessment: Chart Reviewed Documented by User: Beatriz Eubanks MD 01/07/24 08:24 [facility] Past Medical History Medical History Iron deficiency anemia Schizophrenia Family History Family History Father No problems noted. Mother No problems noted. Family history of problems with anesthesia: No Surgical History Surgical History History of dental surgery History of Problems with Anesthesia: No Social History Social History Household Members: Other Household Members Other:: [facility] apartment Housing: Other Housing Other:: [facility] Do you presently have visiting nurse or other home services: Yes (lives in a [facility]) Alcohol intake: unknown Comment: obs Patient Tobacco Use Status: Current everyday Tobacco user Tobacco use type: Cigarette Cigarette Packs Per Day: 1 Cigarettes Per Day: 2 Years Smoked: 15 e-Cigarette/Vaping Use: Never Used Second Hand Smoke Exposure: Yes Use of substances other than those prescribed or required for medical reasons: Yes Substance Use Type: Marijuana Are you DNR?: No Advance Directives: No Advance Directives Information Provided: Yes service: No Current occupational status: unemployed Sexual orientation: Straight/Heterosexual Cognitive needs: No Hearing needs: No Vision needs: No Meds Allergies Allergy/AdvReac Type Severity Reaction Status Date / Time paliperidone [From Invega] Allergy Mild Agitated Verified 01/07/24 07:56 aripiprazole [From Abilify] Allergy Unknown Unknown Verified 01/07/24 07:56 asenapine [From Saphris] Allergy Unknown Unknown Verified 01/07/24 07:56 ziprasidone [From Geodon] Allergy Unknown Unknown Verified 01/07/24 07:56 Home Medications ?Medication ?Instructions ?Recorded ?Confirmed ?Last Taken ?Type clozapine 100 mg tablet 200 mg PO BEDTIME 12/12/23 01/07/24 12/11/23 20:00 History clozapine 50 mg tablet 100 mg PO BEDTIME 12/12/23 01/07/24 12/11/23 20:00 H istory melatonin 3 mg tablet 6 mg PO BEDTIME 12/12/23 01/07/24 Unknown History olanzapine 2.5 mg tablet (Zyprexa) 2.5 mg PO BEDTIME 12/12/23 01/07/24 12/11/23 History Exam Airway Mallampati Class: III TM Dist: >3cm Neck ROM: Limited Heart: rrr Lungs: cta Assessment and Plan Assessment Anesthesia Assessment: Anesthesia Plan Discussed Final Anesthetic Review Family History of Problems with Anesthesia: No History of Problems with Anesthesia: No NPO: Yes ASA Class: III Final Preanesthetic Review: No Changes in Pt Med Stat, Meds/Allgs Chart Reviewed, Consent Obtained/Reviewed and Anes Risks/Benef Reviewed Patient Risk: Intermediate Procedure Risk: Low Anesthetic Plan Anesthetic Plan: GA and Regional Block Disposition: Standard PACU
--- NOTE | ~2024-01-07 | FL_ITS ---
EXAMINATION: XR FLUOROSCOPY WITH IMAGES CLINICAL INFORMATION: Finger ORIF. COMPARISON: Right hand 01/05/2024 TECHNIQUE: Fluoroscopy Supervised By: Dr. Nathalie Henderson. Fluoroscopy Time: 121.32 seconds. Cumulative Dose: 3.0602 mGy. DAP: 0.1849 Gycm2. Images: 3. FINDINGS: Intraoperative fluoroscopy and spot films were performed during a procedure in the OR. A single pin is present through the fourth metacarpal with 3 pins present extending through the base of the fifth metacarpal, 2 of which extend into the base of the fourth metacarpal. Please correlate with Dr. Nathalie Henderson's report for complete details. FL/FL guidance in OR IMPRESSION: Intraoperative fluoroscopy and spot films were obtained. Please see Dr. Nathalie Henderson's report for complete details.
[2024-01-07 08:05] VITALS: BP 145/88; PULSE 106; RESP 18; TEMP 36.3; O2SAT 97; BMI 38.9
[2024-01-07 08:11] VITALS: BMI 38.9
[2024-01-07] MEDS: Lactated Ringers 1,000 ML 100 ML IVCONT (08:45)
--- NOTE | 2024-01-07 09:39 | MHC.SHP ---
Pre-Procedural Eval Section A - 24 Hr Update-Section A only Date of Service: 01/07/24 The patient is an INPATIENT: No Changes since office visit: No Cold of Flu in the past 2 weeks, No New Medical Problems, No Changes in Medication and No Patient answered all questions The patient has been examined within 24 hours of the surgical procedure. The History & Physical has been completed within 30 days and I have reviewed it.: Yes Section B - Complete if H&P > 30 days Chief Complaint: Unspecified fracture of fourth metacarpal bone, ri Allergies: Allergies Allergy/AdvReac Type Severity Reaction Status Date / Time paliperidone [From Invega] Allergy Mild Agitated Verified 01/07/24 07:56 aripiprazole [From Abilify] Allergy Unknown Unknown Verified 01/07/24 07:56 asenapine [From Saphris] Allergy Unknown Unknown Verified 01/07/24 07:56 ziprasidone [From Geodon] Allergy Unknown Unknown Verified 01/07/24 07:56 Plan I have reviewed the history and physical and performed a pertinent physical examination on my patient. No changes have occurred unless specified. Time Spent With Patient Time: Total time managing care of this patient today ____ minutes.
--- NOTE | 2024-01-07 09:39 | W.PM.OPN ---
Operative Note Operative Note Date of Service: 01/07/24 Narrative: Operative Note Narrative: Preop diagnosis: 1. Right 4th Metacarpal shaft fracture 2. Right 5th metacarpal base fracture with comminution and dorsal displacement at the CMC joint Postop diagnosis: Same Procedure: 1. Right 4th Metacarpal fracture open reduction internal fixation 2. Right 5th metacarpal base fracture open reduction internal fixation 3. Ulnar nerve block Surgeon: Nathalie Henderson MD Meter And Service Line Inspector: SHABNAM Man Anesthesia: General Anesthesia Findings: Metacarpal fractures x2, with displacement and some evidence of interval bony healing Implants: 0.062 K-wires times 1, 0.054 K-wires x2, 0.045 K-wire x1 Tourniquet time: 40 minutes EBL: Minimal Specimen: None Drains: None Complications: None Disposition: Brought to the recovery room in stable condition Plan: Follow-up in 10-14 days for a wound check, postop radiographs and for placement in a short-arm cast Anticipate K-wire removal in 4 weeks based on interval bony healing Patient has schizophrenia, please continue to remind him to stay on his medications , and to make good choices Indications: The patient is 28 years old with a right 4th metacarpal shaft fracture with significant angulation, and a right 5th metacarpal base fracture dislocation with comminution . The risks and benefits of operative treatment, including but not limited to risk of damage to blood vessels, nerves, tendons, infection, recurrence, delayed or nonunion of fracture, persistent pain or numbness, incomplete resolution of preoperative symptoms, or need for further surgery were discussed with the patient and they wished to proceed with surgery. Procedure: Once consent was obtained patient was brought back to the operating suite and placed in the operating table in a supine position. A regional block was performed by the anesthesia team. Perioperative antibiotics and general anesthesia was administered by the anesthesia team. A tourniquet was applied to the proximal aspect of the right upper extremity and the limb was prepped and draped in a standard surgical fashion. The FluoroScan was used during the case to assist with our fracture reduction and placement of all implants. I attempted to perform a closed reduction 1st on the 4th metacarpal shaft fracture, but found that we needed to perform an open reduction. The limb was elevated and exsanguinated with an Esmarch bandage with the tourniquet inflated to 250 mmHg for a total tourniquet time of 40 minutes. I then made a 2 cm longitudinal incision centered over the 4th metacarpal shaft fracture. The incision was made through the skin to the subcutaneous tissues using a 15. Blade. I then carefully dissected down to the level of the 4th metacarpal shaft fracture, retracting the extensor tendons radially. He had some evidence of early bony healing which was keeping us from obtaining a satisfactory reduction. I used a 15. Blade and a Kenner elevator to free up the fracture site. I then passed a 0.062 K-wire retrograde through the head of the 4th metacarpal and passed it retrograde down the shaft across the fracture site into the base of the 4th metacarpal. Once satisfied with our reduction and implant placement the pin was bent cut short had pin cap applied. I then turned my attention to the 5th metacarpal base fracture. I made a 3 cm longitudinal incision over the 5th metacarpal base. The incision was made through the skin to the subcutaneous tissues using a 15. Blade. I then carefully dissected down to the level of our 5th metacarpal base fracture, retracting the extensor tendons ulnarly. He was essentially developing a malunion of the comminuted 5th metacarpal base fracture. I used a 15. Blade and a Kenner elevator to free up the intra-articular fracture site. This along with some traction then allowed me to better reduce the 5th metacarpal base fracture. I then passed a 0.054 K-wire transversely across the 2 fracture sites and into the 4th metacarpal base. This certainly did improve the alignment of the articular surface. I then placed a 2nd 0.054 K-wire obliquely from the ulnar base of the 5th metacarpal extending obliquely and distally across the fracture site and into the shaft of the 5th metacarpal. I then passed a 0.045 K-wire starting distal to those 2 K-wires through the ulnar shaft extending retrograde and obliquely across the fracture site and then into the base of the 4th metacarpal. Once satisfied with our reduction and placement of all implants the pins were bent cut short had pin caps applied. Final radiographs were then taken. The wounds were copiously irrigated with normal saline. Some 4-0 Vicryl was used to close the capsular ligamentous tissue and periosteum over the 5th metacarpal base fracture. The skin edges for both incisions were then reapproximated with some 4-0 and 5 0 Prolene suture material. An ulnar nerve block was then performed by infiltrating about the ulnar nerve at the wrist with some 1% lidocaine with epinephrine for postop pain control. A Sterile dressing and short volar splint was applied. The patient appears to have tolerated the procedure well and with no complications. All digits were well vascularized at the conclusion of the case.
--- NOTE | 2024-01-07 10:30 | P.CONAN_ITS ---
HPI - Anesthesia Eval Consult details Narrative: for right metacarpal fracture fixation PMFSH Active Problems Active Problems: All Active Problems Fracture of fifth metacarpal bone of right hand (Acute) Fracture of fourth metacarpal bone of right hand (Acute) Impacted cerumen, bilateral (Acute) Elevated liver enzymes (Acute) Medication monitoring encounter (Acute) Blackhead (Acute) Suicide ideation (Acute) Laceration of forehead (Acute) COVID-19 (Acute) Schizophrenia (Acute) Tinea cruris (Acute) Screening for hypothyroidism (Acute) Screening for diabetes mellitus (DM) (Acute) Lumbar radiculopathy, chronic (Acute) Annual physical exam (Acute) Tinea unguium (Acute) Cervical spine pain (Acute) Spondylosis of lumbar joint (Acute) Insomnia, unspecified (Acute) Insomnia (Acute) Redness of both eyes (Acute) Pain, dental (Acute) GERD (gastroesophageal reflux disease) (Acute) Proctitis (Acute) GI bleed (Acute) Anemia (Acute) Arthralgia (Acute) Obese (Acute) HLD (hyperlipidemia) (Acute) Folliculitis (Acute) Annual physical exam (Acute) Past Medical History Medical History Iron deficiency anemia Schizophrenia Family History Family History Father No problems noted. Mother No problems noted. 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 Housing: Other Housing Other:: [facility] Do you presently have visiting nurse or other home services: Yes (lives in a [facility]) Alcohol intake: unknown Comment: obs Patient Tobacco Use Status: Current everyday Tobacco user Tobacco use type: Cigarette Cigarette Packs Per Day: 1 Cigarettes Per Day: 2 Years Smoked: 15 e-Cigarette/Vaping Use: Never Used Date Education Initiated: 01/07/24 Second Hand Smoke Exposure: Yes Use of substances other than those prescribed or required for medical reasons: Yes Substance Use Type: Marijuana Are you DNR?: No Advance Directives: No Advance Directives Information Provided: Yes service: No Current occupational status: unemployed Sexual orientation: Straight/Heterosexual Cognitive needs: No Hearing needs: No Vision needs: No Meds Allergies Allergy/AdvReac Type Severity Reaction Status Date / Time paliperidone [From Invega] Allergy Mild Agitated Verified 01/07/24 07:56 aripiprazole [From Abilify] Allergy Unknown Unknown Verified 01/07/24 07:56 asenapine [From Saphris] Allergy Unknown Unknown Verified 01/07/24 07:56 ziprasidone [From Geodon] Allergy Unknown Unknown Verified 01/07/24 07:56 Active Medications: Current Medications Lactated Ringer's (Lr) 1,000 mls @ 100 mls/hr IVCONT .Q10H EVIN Last Admin: 01/07/24 08:45 Dose: 100 mls/hr Home Medications ?Medication ?Instructions ?Recorded ?Confirmed ?Last Taken ?Type clozapine 100 mg tablet 200 mg PO BEDTIME 12/12/23 01/07/24 12/11/23 20:00 History clozapine 50 mg tablet 100 mg PO BEDTIME 12/12/23 01/07/24 12/11/23 20:00 History melatonin 3 mg tablet 6 mg PO BEDTIME 12/12/23 01/07/24 Unknown History olanzapine 2.5 mg tablet (Zyprexa) 2.5 mg PO BEDTIME 12/12/23 01/07/24 12/11/23 History Exam Height,Weight and Vital Signs: Height 5 ft 8 in Weight 116.12 kg Last Vital Signs Temp 97.3 F 01/07/24 08:05 Pulse 106 H 01/07/24 08:05 Resp 18 01/07/24 08:05 BP 145/88 H 01/07/24 08:05 Pulse Ox 97 01/07/24 08:05 O2 Del Method Room Air 01/07/24 08:05 Airway Mallampati Class: III TM Dist: <=3cm Neck ROM: Limited Heart: rrr Lungs: cta Assessment and Plan Assessment Anesthesia Assessment: Anesthesia Plan Discussed and Chart Reviewed Final Anesthetic Review Family History of Problems with Anesthesia: No History of Problems with Anesthesia: No NPO: Yes ASA Class: III Final Preanesthetic Review: No Changes in Pt Med Stat, Meds/Allgs Chart Reviewed, Consent Obtained/Reviewed and Anes Risks/Benef Reviewed Patient Risk: Intermediate Procedure Risk: Intermediate Anesthetic Plan Anesthetic Plan: GA and Regional Block Disposition: Standard PACU
[2024-01-07 11:54] VITALS: BP 149/90; PULSE 93; RESP 16; TEMP 36.9; O2SAT 96
[2024-01-07 11:59] VITALS: BP 136/83; PULSE 98; RESP 16; O2SAT 96
[2024-01-07 12:04] VITALS: BP 138/79; PULSE 91; RESP 20; O2SAT 94
[2024-01-07 12:09] VITALS: BP 132/71; PULSE 96; RESP 16; O2SAT 95
[2024-01-07 12:24] VITALS: BP 120/77; PULSE 96; RESP 16; TEMP 36.9; O2SAT 96
== END 2024-01-07 13:15 | disposition home or self-care (01) ==
PROVIDERS: PCP Physician Assistant; Visit Provider Orthopaedic Surgery
PROC: (CPT 26615; principal; 2024-01-07 10:00)
DX: S62.324A Displaced fracture of shaft of fourth metacarpal bone, right hand, initial encounter for closed fracture (principal); S62.316A Displaced fracture of base of fifth metacarpal bone, right hand, initial encounter for closed fracture; W22.09XA Striking against other stationary object, initial encounter; Y93.9 Activity, unspecified; Y92.9 Unspecified place or not applicable; Y99.9 Unspecified external cause status
CPT/HCPCS: 26615 ×2; J0665; J0690; J1100; J2250; J2405; J2704; J2795; J3010

== ENCOUNTER → 2024-01-07 07:47 | Outpatient (BNV) | payer OTHER, SELFPAY | PROVIDERS: PCP Physician Assistant; Visit Provider Orthopaedic Surgery | DX: S62.324A Displaced fracture of shaft of fourth metacarpal bone, right hand, initial encounter for closed fracture (principal); S62.316A Displaced fracture of base of fifth metacarpal bone, right hand, initial encounter for closed fracture | CPT/HCPCS: 26615 ==

== ENCOUNTER 2024-01-12 14:44 | Emergency (ER) | payer OTHER, SELFPAY ==
[2024-01-12 14:52] VITALS: BP 118/82; BP 157/93; PULSE 102; PULSE 104; RESP 18; TEMP 36.8; O2SAT 93; O2SAT 95; BMI 38.1
--- NOTE | 2024-01-12 14:57 | ED.EXTPRO ---
HPI - Extremity Problem General Chief complaint: Extremity Injury, Upper Stated complaint: WET CAST S/P R HAND SURGERY 5 DAYS AGO Time Seen by Provider: 01/12/24 14:56 Source: patient Mode of arrival: ambulatory Limitations: no limitations History of Present Illness ED Provider: Yaya Landaverde PA-C HPI Narrative: 28 yold male with known hand fracture presents to the ED for his Cast getting wet. Patient denies any new trauma. Patient states [facility] and they informed him to come their office immediatley for re-evaluation of cast wtih new placement of cast. patient states no arm/hand pain, redness, swelling, numbness, or tingling. Related Data Home Medications ?Medication ?Instructions ?Recorded ?Confirmed clozapine 100 mg tablet 200 mg PO BEDTIME 12/12/23 01/07/24 clozapine 50 mg tablet 100 mg PO BEDTIME 12/12/23 01/07/24 melatonin 3 mg tablet 6 mg PO BEDTIME 12/12/23 01/07/24 olanzapine 2.5 mg tablet (Zyprexa) 2.5 mg PO BEDTIME 12/12/23 01/07/24 Previous Rx's ?Medication ?Instructions ?Recorded acetaminophen 500 mg tablet 500 mg PO Q6H PRN pain #60 tabs 04/06/23 clonazepam 0.5 mg tablet 0.5 mg PO BEDTIME PRN Anxiety 30 04/06/23 days #30 tabs olanzapine 2.5 mg tablet (Zyprexa) 2.5 mg PO BID PRN agitation 30 04/06/23 days #60 tabs ibuprofen 600 mg tablet 600 mg PO Q6-8H PRN pain #20 tabs 01/07/24 oxycodone-acetaminophen 5 mg-325 1 tab PO Q6H PRN pain #20 tabs 01/07/24 mg tablet Allergies Allergy/AdvReac Type Severity Reaction Status Date / Time paliperidone [From Invega] Allergy Mild Agitated Verified 01/12/24 15:19 aripiprazole [From Abilify] Allergy Unknown Unknown Verified 01/12/24 15:19 asenapine [From Saphris] Allergy Unknown Unknown Verified 01/12/24 15:19 ziprasidone [From Geodon] Allergy Unknown Unknown Verified 01/12/24 15:19 Review of Systems Review of Systems: wet cast Yes all other systems are reviewed and are negative PMFSH Past Medical History Medical History Iron deficiency anemia Schizophrenia Surgical History History of dental surgery Family History Family History Father No problems noted. Mother No problems noted. 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 Housing: Other Housing Other:: [facility] Do you presently have visiting nurse or other home services: Yes (lives in a [facility] [employer] [facility] [employer]) Alcohol intake: unknown Comment: obs Patient Tobacco Use Status: Current everyday Tobacco user Tobacco use type: Cigarette Cigarette Packs Per Day: 1 Cigarettes Per Day: 2 Years Smoked: 15 e-Cigarette/Vaping Use: Never Used Second Hand Smoke Exposure: Yes Substance Use Type: Marijuana service: No Current occupational status: unemployed Sexual orientation: Straight/Heterosexual Cognitive needs: No Hearing needs: No Vision needs: No Physical Exam Vital Signs: Vital Signs: Last Vital Signs Temp 98.3 F 01/12/24 15:10 Pulse 102 H 01/12/24 15:10 Resp 18 01/12/24 15:10 BP 157/93 H 01/12/24 15:10 Pulse Ox 97 01/12/24 15:10 O2 Del Method Room Air 01/12/24 15:10 BMI result Body Mass Index 38.1 Const: General: cooperative, healthy appearing, comfortable, no acute distress, well developed, alert, awake and Physically active HEENT: Head: Yes normal to inspection, Yes No palpable skull fracture present, Yes normocephalic and Yes atraumatic Eyes: General: appearance normal, both eyes and all related structures Neck: Neck: Yes normal visual inspection, Yes full ROM, Yes no lymphadenopathy, Yes no meningeal signs, Yes trachea midline, Yes supple, No anterior neck swelling and No tender Chest: Chest palpation & inspection: normal inspection of the chest and normal palpation of entire chest wall Resp: Effort & Inspection: normal respiratory effort and able to speak in complete sentences Auscultation: clear to auscultation bilaterally Cardio: Jugular venous distension: no JVD Heart sounds: S1 normal heart sound present and S2 normal heart sound present GI: Inspection: Yes normal to inspection Palpation (GI): Soft to palpation, not firm, nontender, no guarding and not rigid : General: Yes no CVA tenderness Back/Spine/Pelvis: Back: no CVA tenderness and No back tenderness Skin: General skin exam: no rashes or lesions noted, elasticity normal and turgor normal Neuro: General: gait normal, tone normal, moves all extremities, Normal light touch and pain sensation, no meningeal signs, no focal motor deficits, CN's II-XI intact bilaterally and normal sensation to monofilament Extrem: Other: right hand/extremity negative for erythema, bluish/black disolcration, hotness, coldness, or swelling. vascular and motor exam is intact. Motor exam limited due to recent surgery. General: Yes normal to inspection and Yes full ROM Psych: Appearance: grossly normal, well kempt and not disheveled Medical Decision Making Medical Decision Making MDM Narrative: 28-YEAR-OLD MALE PRESENTS TO ED FOR EVALUATION OF WET CAST. PATIENT HAD SURGERY ON THE . PATIENT DENIES ANY NEW TRAUMA. PATIENT STATES HE CALLED THE ORTHOPEDIC CLINIC AND THEY INFORMED AND WHEN HE REACHED THE HOSPITAL FOR HIM TO COME TO THE CLINIC IMMEDIATELY FOR RE-EVALUATION OF CAST AND HAND. PATIENT DENIES ANY OTHER SYMPTOMS. negative for signs of cellulitis, compartment syndrome, DVT, or new fracture. patient explained worrisome signs and informed to return to the ED if he has them Differential Diagnosis Differential Diagnoses: The differential diagnosis associated with the presentation includes (recehck of cast) Admission/Observation Consideration of admission/observation: Escalation of care including admission/observation considered Independent Historian Clinical information obtained from an independent historian. History obtained from or confirmed by: Other (patient) External Record Review External record reviewed: Other (prior visits) Discharge Plan Discharge Clinical Impression: Cast in place on extremity Patient Disposition: Home, Self-Care Instructions: Cast Care (ED) Additional Instructions: Immediately after discharge go to orthopedic clinic for evaluation of the cast and arm. Presently no signs of infection or compartment syndrome. Return to ED immediately for severe pain, redness, bluish black discoloration, chest pain, shortness of breath, weakness, dizziness, any other concerning symptoms. Prescriptions: No Action acetaminophen 500 mg tablet 500 mg PO Q6H PRN (Reason: pain) Qty: 60 0RF clonazepam 0.5 mg Tablet 0.5 mg PO BEDTIME PRN (Reason: Anxiety) 30 Days Qty: 30 0RF olanzapine [Zyprexa] 2.5 mg tablet 2.5 mg PO BID PRN (Reason: agitation) 30 Days Qty: 60 0RF clozapine 100 mg tablet 200 mg PO BEDTIME Rx Instructions: Take with 75 mg dose melatonin 3 mg tablet 6 mg PO BEDTIME clozapine 50 mg tablet 100 mg PO BEDTIME Rx Instructions: Take with 200mg dose olanzapine [Zyprexa] 2.5 mg Tablet 2.5 mg PO BEDTIME oxycodone-acetaminophen 5-325 mg tablet 1 tab PO Q6H PRN (Reason: pain) Qty: 20 0RF Rx Instructions: Partial Fill upon patient request. ibuprofen 600 mg tablet 600 mg PO Q6-8H PRN (Reason: pain) Qty: 20 0RF Interventions: ED Discharge Assessment Last Done: 01/12/24 15:10 Discharge Date/Time: 01/12/24 15:11 Print Language: Samoan
[2024-01-12 15:10] VITALS: BP 157/93; PULSE 102; RESP 18; TEMP 36.8; O2SAT 97
== END 2024-01-12 15:11 | disposition home or self-care (01) ==
LOC: HO.ED 15:08
PROVIDERS: Emergency Provider Emergency Medicine; PCP Physician Assistant
DX: S62.91XD Unspecified fracture of right hand, subsequent encounter for fracture with routine healing (principal); X58.XXXD Exposure to other specified factors, subsequent encounter
CPT/HCPCS: 99212; 99282

== ENCOUNTER 2024-01-12 15:12 | Outpatient (AMB) | payer OTHER, SELFPAY ==
--- NOTE | 2024-01-12 15:17 | A.OFFVIS_ITS ---
Intake Visit Reasons: P/O RT 4th&5th ORIF 01/07/24 Intake Note: Kris is a 28 year old man who presents today for a dressing change. Patient states his dressings were slightly wet other parrish no concern. Allergies paliperidone [From Invega] Allergy (Mild, Verified 01/12/24 15:19) Agitated aripiprazole [From Abilify] Allergy (Unknown, Verified 01/12/24 15:19) Unknown asenapine [From Saphris] Allergy (Unknown, Verified 01/12/24 15:19) Unknown ziprasidone [From Geodon] Allergy (Unknown, Verified 01/12/24 15:19) Unknown HPI HPI P/O RT 4th&5th ORIF 01/07/24: Details: Kris is a 28 year old right hand dominant man who presents S/p right 4th & 5th metacarpal ORIF, DOS: 01/07/24. He is here for a dressing change. DOI: 12/21/23. He says the proximal aspect of his dressings got wet today while showering. He denies any kind of pain or discomfort. [facility] Medical History Iron deficiency anemia Schizophrenia Surgical History History of dental surgery Family History Father No problems noted. Mother No problems noted. 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 Housing: Other Housing Other:: [facility] Do you presently have visiting nurse or other home services: Yes (lives in a [facility]) Alcohol intake: unknown Comment: obs Patient Tobacco Use Status: Current everyday Tobacco user Tobacco use type: Cigarette Cigarette Packs Per Day: 1 Cigarettes Per Day: 2 Years Smoked: 15 e-Cigarette/Vaping Use: Never Used Second Hand Smoke Exposure: Yes Substance Use Type: Marijuana service: No Current occupational status: unemployed Sexual orientation: Straight/Heterosexual Cognitive needs: No Hearing needs: No Vision needs: No Review of Systems Const All systems reviewed & are unremarkable except as noted in HPI and below Physical Exam Const General: no acute distress and alert Orientation/consciousness: patient oriented x3 Neuro General: patient oriented x3 Extrem Other: The patient was alert oriented and in no acute distress The proximal outer aspect of his dressing was slightly damp today in clinic, but the dressing at the ORIF site and the deeper dressing near the operative site were both completely dry. The inner dressings near the operative site were dry and left intact. Sensation is intact Cap refill is brisk Psych Appearance: grossly normal Affect: normal affect Attitude: cooperative Assessment & Plan Assessment & Plan (1) Fracture of fourth metacarpal bone of right hand: Code(s): S62.304A - Unspecified fracture of fourth metacarpal bone, right hand, initial encounter for closed fracture Category: Medical (2) Fracture of fifth metacarpal bone of right hand: Code(s): S62.306A - Unspecified fracture of fifth metacarpal bone, right hand, initial encounter for closed fracture Category: Medical (3) Schizophrenia: Code(s): F20.9 - Schizophrenia, unspecified Category: Medical Qualifiers: Schizophrenia type: paranoid schizophrenia Qualified Code(s): F20.0 - Paranoid schizophrenia Plan Assessment & Plan: 1. Right 4th metacarpal shaft fracture, S/P ORIF DOI: 12/21/23 DOS: 01/07/24 2. Right 5th metacarpal base fracture intra-articular/CMC joint fracture dislocation, S/P ORIF DOI: 12/21/23 DOS: 01/07/24 He presents today for a dressing change, which got wet while showering today Deeper Dressings near ORIF site were completely dry He was placed in a new outer dressing & volar wrist splint, to be worn until his scheduled follow up appointment next week He said he was just about out of Percocet and want to know if he can have some more. I explained to him that at this point we do not expect him to have much pain and he can take Tylenol or Ibuprofen if needed. Patient did appear to be comfortable in clinic. Scribed for Nathalie Henderson MD by Lio Mensah, certified medical assistant, on 01/12/24 at 3:30 PM, EST. Scribe Plan - Not visible on output: Scribed for Nathalie Henderson MD by Lio Mensah, certified medical assistant, on [ ] at [ ], EST. Coding Level of Care Code Global (71351) Diagnoses Fracture of fourth metacarpal bone of right hand S62.304A Fracture of fifth metacarpal bone of right hand S62.306A Paranoid schizophrenia F20.0 Schizophrenia type: paranoid schizophrenia
== END 2024-01-12 15:31 | disposition home or self-care (01) ==
PROVIDERS: PCP Physician Assistant; Visit Provider Orthopaedic Surgery
DX: S62.304A Unspecified fracture of fourth metacarpal bone, right hand, initial encounter for closed fracture (principal); S62.306A Unspecified fracture of fifth metacarpal bone, right hand, initial encounter for closed fracture; F20.0 Paranoid schizophrenia
CPT/HCPCS: 99024

== ENCOUNTER 2024-01-15 12:54 | Outpatient (REF) | payer OTHER, SELFPAY ==
[2024-01-15 13:06] LABS: MANUAL DIFF FLAG NO
[2024-01-15 13:41] LABS: Basophils Percent Auto 0.4 % (0-2); Eosinophils Absolute Auto 0.1 X10*3/uL (0.0-0.4); Eosinophils Percent Auto 1.1 % (0-4); Hematocrit 43.5 % (42.0-52.0); Hemoglobin 14.2 g/dl (14.0-18.0); Imm Gran Abs Auto 0.04 X10*3/uL (0.00-0.03); Imm Gran Pct Auto 0.4 % (0.0-0.4); Lymphocytes Percent Auto 20.9 % (20-40); Mean Corpuscular HGB Conc 32.6 g/dl (31.0-36.0); Mean Corpuscular Hemoglobin 27.2 pg (27.0-33.0); Mean Corpuscular Volume 83.3 fL (80.0-98.0); Mean Platelet Volume 10.3 fL (9.4-12.4); Monocytes Absolute Auto 0.6 X10*3/uL (0.1-1.2); Monocytes Percent Auto 6.3 % (2-11); Neutrophils Absolute Auto 6.9 x10*3/uL (2.0-8.3); Neutrophils Percent Auto 70.9 % (45-73); Platelet Count 359 X10*3/uL (160-400); Red Blood Count 5.22 X10*6/uL (4.60-5.80); Red Cell Distribution Width 13.3 % (11.0-16.0); White Blood Count 9.8 X10*3/uL (4.8-10.8)
== END 2024-01-15 12:55 | disposition home or self-care (01) ==
LOC: HO.LABR 12:54
PROVIDERS: PCP Physician Assistant; Visit Provider Psychiatry & Neurology Psychiatry
DX: Z79.899 Other long term (current) drug therapy (principal)
CPT/HCPCS: 36415; 85025

== ENCOUNTER 2024-01-17 13:16 | Emergency (ER) | payer OTHER, SELFPAY ==
[2024-01-17 13:39] VITALS: BP 150/90; PULSE 106; RESP 16; TEMP 36.6; O2SAT 97; BMI 32.3
--- NOTE | 2024-01-17 13:46 | ED_ITS ---
HPI - General Adult General Chief complaint: Extremity Injury, Lower Stated complaint: CAST WET FROM SWEATING,?PSYCH PER EMS Time Seen by Provider: 01/17/24 13:43 Source: patient Mode of arrival: ambulatory Limitations: no limitations History of Present Illness ED Provider: Yaya LUNDBERG HPI narrative: 28 yold male presents to the ED for evaluation of right wrist cast due to sweating. Patient concerned his cast is wet due to walking for long and sweating alot. Patient denies any new trauma, redness, numbness, tingling, bluish discoloration, fever, or chills. Patient has appointment with orthopedics this week. Related Data Home Medications ?Medication ?Instructions ?Recorded ?Confirmed clozapine 100 mg tablet 200 mg PO BEDTIME 12/12/23 01/07/24 clozapine 50 mg tablet 100 mg PO BEDTIME 12/12/23 01/07/24 melatonin 3 mg tablet 6 mg PO BEDTIME 12/12/23 01/07/24 olanzapine 2.5 mg tablet (Zyprexa) 2.5 mg PO BEDTIME 12/12/23 01/07/24 Previous Rx's ?Medication ?Instructions ?Recorded acetaminophen 500 mg tablet 500 mg PO Q6H PRN pain #60 tabs 04/06/23 clonazepam 0.5 mg tablet 0.5 mg PO BEDTIME PRN Anxiety 30 04/06/23 days #30 tabs olanzapine 2.5 mg tablet (Zyprexa) 2.5 mg PO BID PRN agitation 30 04/06/23 days #60 tabs oxycodone-acetaminophen 5 mg-325 1 tab PO Q6H PRN pain #20 tabs 01/07/24 mg tablet ibuprofen 600 mg tablet 600 mg PO Q6H PRN pain 14 days #56 01/13/24 tabs Allergies Allergy/AdvReac Type Severity Reaction Status Date / Time paliperidone [From Invega] Allergy Mild Agitated Verified 01/19/24 15:14 aripiprazole [From Abilify] Allergy Unknown Unknown Verified 01/19/24 15:14 asenapine [From Saphris] Allergy Unknown Unknown Verified 01/19/24 15:14 ziprasidone [From Geodon] Allergy Unknown Unknown Verified 01/19/24 15:14 Review of Systems Review of Systems: right hand casast possible wet. Yes all other systems are reviewed and are negative PMFSH Past Medical History Medical History Iron deficiency anemia Schizophrenia Surgical History History of dental surgery Family History Family History Father No problems noted. Mother No problems noted. 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 Housing: Other Housing Other:: [facility]D Do you presently have visiting nurse or other home services: Yes (lives in a [facility]) Alcohol intake: unknown Comment: obs Patient Tobacco Use Status: Current everyday Tobacco user Tobacco use type: Cigarette Cigarette Packs Per Day: 1 Cigarettes Per Day: 2 Years Smoked: 15 e-Cigarette/Vaping Use: Never Used Second Hand Smoke Exposure: Yes Substance Use Type: Marijuana service: No Current occupational status: unemployed Sexual orientation: Straight/Heterosexual Cognitive needs: No Hearing needs: No Vision needs: No Physical Exam ED Vital Signs: Vital Signs - 24 hr 01/17/24 13:39 Temperature 97.9 F Pulse Rate 106 H Respiratory Rate 16 Blood Pressure 150/90 H Pulse Oximetry 97 Oxygen Delivery Method Room Air BMI result Body Mass Index 32.3 Const General: cooperative, healthy appearing, comfortable, no acute distress, well developed, alert, awake and Physically active Orientation/consciousness: patient oriented x3 HENMT Head: Yes normal to inspection, Yes No palpable skull fracture present, Yes normocephalic and Yes atraumatic Ears: hearing grossly normal bilaterally, external ears normal, TM's normal bilaterally, TM normal on the right, TM normal on the left, EAC's normal, mastoids normal and no periauricular adenopathy General nose exam: Normal external nose present and Normal nares present Face and sinus: Yes normal facial exam, Yes sinuses nontender and Yes face symmetric Mouth: Normal oral and palatal mucosa present, lip normal and tongue normal Throat: Yes posterior oropharynx normal, Yes tonsils normal and Yes uvula midline Eyes General: appearance normal, both eyes and all related structures Neck Neck: Yes normal visual inspection, Yes full ROM, Yes no lymphadenopathy, Yes no meningeal signs, Yes trachea midline, Yes supple, No anterior neck swelling and No tender Chest Chest palpation & inspection: normal inspection of the chest and normal palpation of entire chest wall Resp Effort & Inspection: normal respiratory effort and able to speak in complete sentences Auscultation: clear to auscultation bilaterally Cardio Jugular venous distension: no JVD Heart sounds: S1 normal heart sound present and S2 normal heart sound present GI Inspection: Yes normal to inspection and No abdominal wall ecchymosis Palpation (GI): Soft to palpation, not firm, nontender, no guarding and not rigid General: Yes no CVA tenderness Back/Spine/Pelvis Back: no CVA tenderness and No back tenderness Skin General skin exam: no rashes or lesions noted, elasticity normal and turgor normal Neuro General: patient oriented x3, gait normal, tone normal, moves all extremities, Normal light touch and pain sensation, no meningeal signs, no focal motor deficits, CN's II-XI intact bilaterally and normal sensation to monofilament Extrem Other: Right upper extremity: positive for right hand/wrist cast that is not wet. ne gative for bluish/black dilscoration, redness, stiffness, pus discharge, foul odor, red streaks, hotness, or coldness. Vascular and neuro exam is is intact. motor exam limited due repaired fracture. General: Yes normal to inspection, Yes full ROM and Yes capillary refill normal Psych Appearance: grossly normal, well kempt and not disheveled Medical Decision Making Medical Decision Making MDM Narrative: 28 yold male presents to the ED for evaluation for cast on right wrist. worried its wet due to excessive sweating due to walking. Physical exam negative for signs of cellulitis, DVT, compartment syndrome, or arterial occlusion. Not suspecting lymphangitis. Patient explained worrisome signs and informed to return to the ED if he has them. Differential Diagnosis Differential Diagnoses: The differential diagnosis associated with the presentation includes (wet cast, ) Admission/Observation Consideration of admission/observation: Escalation of care including admission/observation considered Independent Historian Clinical information obtained from an independent historian. History obtained from or confirmed by: Other (patient) External Record Review External record reviewed: Other (prior visits) Discharge Plan Discharge Clinical Impression: Encounter for cast care Patient Disposition: Home, Self-Care Instructions: Cast Care (ED) Additional Instructions: Recommend follow-up with your orthopedic appointment on the of this month. Return to the ED immediately for any numbness tingling in right upper extremity, bluish black discoloration, redness, fever, chills, red streaks, pus discharge, foul odor, or any other concerning symptoms. Prescriptions: No Action ibuprofen 600 mg tablet 600 mg PO Q6H PRN (Reason: pain) 14 Days Qty: 56 0RF acetaminophen 500 mg tablet 500 mg PO Q6H PRN (Reason: pain) Qty: 60 0RF clonazepam 0.5 mg Tablet 0.5 mg PO BEDTIME PRN (Reason: Anxiety) 30 Days Qty: 30 0RF olanzapine [Zyprexa] 2.5 mg tablet 2.5 mg PO BID PRN (Reason: agitation) 30 Days Qty: 60 0RF clozapine 100 mg tablet 200 mg PO BEDTIME Rx Instructions: Take with 75 mg dose melatonin 3 mg tablet 6 mg PO BEDTIME clozapine 50 mg tablet 100 mg PO BEDTIME Rx Instructions: Take with 200mg dose olanzapine [Zyprexa] 2.5 mg Tablet 2.5 mg PO BEDTIME oxycodone-acetaminophen 5-325 mg tablet 1 tab PO Q6H PRN (Reason: pain) Qty: 20 0RF Rx Instructions: Partial Fill upon patient request. Referrals: [facility] [Provider Group] (Evaluation of right wrist cast. Recent hand surgery.) Discharge Date/Time: 01/17/24 13:57 Print Language: German
== END 2024-01-17 13:57 | disposition home or self-care (01) ==
PROVIDERS: Emergency Provider Emergency Medicine; PCP Physician Assistant
DX: Z47.89 Encounter for other orthopedic aftercare (principal)
CPT/HCPCS: 99281

== ENCOUNTER 2024-01-19 12:04 | Outpatient (REF) | payer OTHER, SELFPAY ==
--- NOTE | ~2024-01-19 | XR_ITS ---
EXAMINATION: XR HAND, RIGHT CLINICAL INFORMATION: Pain. COMPARISON: X-ray 01/05/2024 TECHNIQUE: PA, lateral, and oblique views of the right hand. FINDINGS: Surgical fixation with a K-wire transfixing a transverse fracture of the mid fourth metacarpal. Improved position and alignment. Fracture plane remains visible. Intact hardware. Surgical fixation with multiple K-wires transfixing a comminuted displaced intra-articular fracture of the base of the fifth metacarpal. Interval improvement in position and alignment. Fracture planes remaining visible. Intact hardware. No new acute fractures identified. XR/XR hand RT min 3V IMPRESSION: Status post surgical fixation of a mid fourth metacarpal fracture, improved position and alignment. Status post surgical fixation of a comminuted intra-articular fracture of the base of the fifth metacarpal. Interval improvement in position and alignment. Study assigned for dictation February 04, 2024.
== END 2024-01-19 12:05 | disposition home or self-care (01) ==
LOC: HO.HOSX 12:04
PROVIDERS: Visit Provider Orthopaedic Surgery
DX: S62.304D Unspecified fracture of fourth metacarpal bone, right hand, subsequent encounter for fracture with routine healing (principal); S62.306D Unspecified fracture of fifth metacarpal bone, right hand, subsequent encounter for fracture with routine healing; F20.0 Paranoid schizophrenia
CPT/HCPCS: 73130; 99212

== ENCOUNTER 2024-01-19 14:33 | Outpatient (AMB) | payer OTHER, SELFPAY ==
--- NOTE | 2024-01-19 14:55 | A.OFFVIS_ITS ---
Vital Signs 01/19/24 15:14 Height 5 ft 6 in Weight 200 lb BMI 32.3 Intake Visit Reasons: PO RT 4th MC/5th MC/CMC ORIF 01/07/24 AR Intake Note: Kris is a 28 year old male who presents today post operatively s/p 4th and 5th metacarpal Fx ORIF 01/07/24. Splint removed and xrays updated. Patient reports he is doing well, states mild pain/discomfort. Allergies paliperidone [From Invega] Allergy (Mild, Verified 01/19/24 15:14) Agitated aripiprazole [From Abilify] Allergy (Unknown, Verified 01/19/24 15:14) Unknown asenapine [From Saphris] Allergy (Unknown, Verified 01/19/24 15:14) Unknown ziprasidone [From Geodon] Allergy (Unknown, Verified 01/19/24 15:14) Unknown HPI HPI PO RT 4th MC/5th MC/CMC ORIF 01/07/24 AR: Details: Kris is a 28 year old right hand dominant man who presents S/p right 4th & 5th metacarpal ORIF, DOS: 01/07/24. He says he is doing well with only mild pain or discomfort He was seen here on 01/12/24 for a dressing change, due to it getting wet. He was seen in the ED on 01/17/24 for a dressing change as he said his dressing was wet with sweat. He denies any symptoms of infection [facility] Medical History Iron deficiency anemia Schizophrenia Surgical History History of dental surgery Family History Father No problems noted. Mother No problems noted. 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 Housing: Other Housing Other:: [facility]D Do you presently have visiting nurse or other home services: Yes ([facility] in a [facility]) Alcohol intake: unknown Comment: obs Patient Tobacco Use Status: Current everyday Tobacco user Tobacco use type: Cigarette Cigarette Packs Per Day: 1 Cigarettes Per Day: 2 Years Smoked: 15 e-Cigarette/Vaping Use: Never Used Second Hand Smoke Exposure: Yes Substance Use Type: Marijuana service: No Current occupational status: unemployed Sexual orientation: Straight/Heterosexual Cognitive needs: No Hearing needs: No Vision needs: No Physical Exam Vital Signs: BMI result Body Mass Index 32.3 Const General: cooperative, healthy appearing and no acute distress Orientation/consciousness: patient oriented x3 HEENT Head: Yes normocephalic and Yes atraumatic Eyes EOM: EOMs intact bilaterally Resp Effort & Inspection: normal respiratory effort and able to speak in complete sentences Cardio Jugular venous distension: no JVD Skin General skin exam: turgor normal Rashes: no rashes Neuro General: patient oriented x3 Extrem Other: Evaluation of Right Upper Extremity: The patient is alert, oriented, and in no acute distress The pin sites are healing well with no erythema, drainage, or evidence of infection. Sutures removed and steri-strips applied. Neuro: Median, Ulnar, Radial nerves motor and sensory intact Vascular: Cap refill brisk Overall swelling and ecchymosis have improved Radiographs: 3 views of the right hand were taken and viewed by me today in clinic. They show a 4th metacarpal shaft fracture with satisfactory fracture alignment and position of all implants. It also shows a displaced 5th metacarpal base fracture with satisfactory fracture alignment and position of all implants. Psych Appearance: grossly normal Affect: normal affect Attitude: cooperative Assessment & Plan Assessment & Plan (1) Fracture of fourth metacarpal bone of right hand: Code(s): S62.304A - Unspecified fracture of fourth metacarpal bone, right hand, initial encounter for closed fracture Category: Medical (2) Fracture of fifth metacarpal bone of right hand: Code(s): S62.306A - Unspecified fracture of fifth metacarpal bone, right hand, initial encounter for closed fracture Category: Medical (3) Schizophrenia: Code(s): F20.9 - Schizophrenia, unspecified Category: Medical Qualifiers: Schizophrenia type: paranoid schizophrenia Qualified Code(s): F20.0 - Paranoid schizophrenia Plan Assessment & Plan: 1. Right 4th metacarpal shaft fracture, S/P ORIF DOI: 12/21/23 DOS: 01/07/24 2. Right 5th metacarpal base fracture intra-articular/CMC joint fracture dislocation, S/P ORIF DOI: 12/21/23 DOS: 01/07/24 The patient appears to be doing well post-operatively I educated him about the post-operative course We placed him in a fiberglass volar wrist splint, to be worn like a cast for the next 2 weeks I explained the signs and symptoms of infection, if the patient develops any new or worsening erythema, drainage, pain, or warmth they should contact the clinic or attend the ED. I discussed activity modifications, he is to lift nothing heavier than a cellphone for the next two weeks He will follow up in 2 weeks, with X-rays 3V attn R hand. Anticipate K-wire removal depending on healing He may benefit from early OT hand therapy. Scribed for Nathalie Henderson MD by Lio Mensah, pesticide use medical coordinator, on 01/19/24 at 3:30 PM, EST. Orders: Orders XR hand RT min 3V Today M79.641 - Pain in right hand Coding Level of Care Code Global (90866) Diagnoses Fracture of fourth metacarpal bone of right hand S62.304A Fracture of fifth metacarpal bone of right hand S62.306A Paranoid schizophrenia F20.0 Schizophrenia type: paranoid schizophrenia
[2024-01-19 15:14] VITALS: BMI 32.3
== END 2024-01-19 16:37 | disposition home or self-care (01) ==
PROVIDERS: PCP Physician Assistant; Visit Provider Orthopaedic Surgery
DX: S62.304A Unspecified fracture of fourth metacarpal bone, right hand, initial encounter for closed fracture (principal); S62.306A Unspecified fracture of fifth metacarpal bone, right hand, initial encounter for closed fracture; F20.0 Paranoid schizophrenia
CPT/HCPCS: 99024

== ENCOUNTER 2024-01-29 11:34 | Outpatient (REF) | payer OTHER, SELFPAY ==
[2024-01-29 11:47] LABS: MANUAL DIFF FLAG NO
[2024-01-29 13:46] LABS: Basophils Absolute Auto 0.1 X10*3/uL (0.0-0.2); Basophils Percent Auto 0.6 % (0-2); Eosinophils Absolute Auto 0.2 X10*3/uL (0.0-0.4); Eosinophils Percent Auto 1.7 % (0-4); Hematocrit 40.7 % (42.0-52.0); Hemoglobin 13.3 g/dl (14.0-18.0); Imm Gran Abs Auto 0.03 X10*3/uL (0.00-0.03); Imm Gran Pct Auto 0.3 % (0.0-0.4); Lymphocytes Absolute Auto 2.8 X10*3/uL (1.2-4.9); Lymphocytes Percent Auto 30.5 % (20-40); Mean Corpuscular HGB Conc 32.7 g/dl (31.0-36.0); Mean Corpuscular Hemoglobin 27.4 pg (27.0-33.0); Mean Corpuscular Volume 83.7 fL (80.0-98.0); Mean Platelet Volume 10.8 fL (9.4-12.4); Monocytes Absolute Auto 0.8 X10*3/uL (0.1-1.2); Monocytes Percent Auto 9.1 % (2-11); Neutrophils Absolute Auto 5.2 x10*3/uL (2.0-8.3); Neutrophils Percent Auto 57.8 % (45-73); Platelet Count 309 X10*3/uL (160-400); Red Blood Count 4.86 X10*6/uL (4.60-5.80); Red Cell Distribution Width 13.2 % (11.0-16.0)
== END 2024-01-29 11:35 | disposition home or self-care (01) ==
LOC: HO.LABR 11:34
PROVIDERS: Visit Provider Psychiatry & Neurology Psychiatry
DX: Z79.899 Other long term (current) drug therapy (principal)
CPT/HCPCS: 36415; 85025

== ENCOUNTER 2024-02-03 08:19 | Outpatient (REF) | payer OTHER, SELFPAY ==
--- NOTE | ~2024-02-03 | XR_ITS ---
EXAMINATION: XR HAND, RIGHT CLINICAL INFORMATION: Pain in the right hand COMPARISON: Possible prior examinations most recent 01/19/2024 TECHNIQUE: PA, lateral, and oblique views of the right hand. FINDINGS: Single K wire extending through the transverse fractures of the mid diaphysis fracture of the fourth metacarpal. There is new or increasing calcification crossing the fracture site. Alignment unchanged. 3 K wires extending through the proximal fifth metacarpal fracture with at least one appearing to extend into the base of the fourth metacarpal. The fracture is visualized and unchanged in alignment with minimal displacement but still visible. No callus identified. Remaining bones joints and soft tissues are unremarkable. XR/XR hand RT min 3V IMPRESSION: Healing fourth metacarpal fracture with unchanged alignment. Fifth metacarpal fracture: No change in alignment compared with 01/19/2024. No callus formation identified.
== END 2024-02-03 08:20 | disposition home or self-care (01) ==
LOC: HO.HOSX 08:19
PROVIDERS: Visit Provider Orthopaedic Surgery
DX: S62.324D Displaced fracture of shaft of fourth metacarpal bone, right hand, subsequent encounter for fracture with routine healing (principal); S62.316D Displaced fracture of base of fifth metacarpal bone, right hand, subsequent encounter for fracture with routine healing
CPT/HCPCS: 73130; 99212

== ENCOUNTER 2024-02-03 13:59 | Outpatient (AMB) | payer OTHER, SELFPAY ==
--- NOTE | 2024-02-03 14:16 | MHC.OFFVIS ---
Vital Signs 02/03/24 14:19 Height 5 ft 6 in Weight 200 lb BMI 32.3 Handedness Right Intake Visit Reasons: PO RT 4th MC/5th MC/CMC ORIF 01/07/24 AR Intake Note: Kris is a 28 year old male who presents today post operatively s/p 4th and 5th metacarpal Fx ORIF 01/07/24. Patient reports intermittent aching in his hand and stiffness in the ring and pinky finger but no other concerns. He expresses a 1 out of 10 on pain scale. He would like to see his xrays from last visit and today and would also like to know if he has any hardware in his hand beside the pin. Allergies paliperidone [From Invega] Allergy (Mild, Verified 02/03/24 14:21) Agitated aripiprazole [From Abilify] Allergy (Unknown, Verified 02/03/24 14:21) Unknown asenapine [From Saphris] Allergy (Unknown, Verified 02/03/24 14:21) Unknown ziprasidone [From Geodon] Allergy (Unknown, Verified 02/03/24 14:21) Unknown HPI HPI PO RT 4th MC/5th MC/CMC ORIF 01/07/24 AR: Details: Kris is a 28 year old right hand dominant man who presents S/P right 4th & 5th metacarpal ORIF, DOS: 01/07/24. He says he is doing well with only mild pain or discomfort. He does complain of stiffness in his ring & small fingers. He would like to see a copy of his radiographs today, and wants to know if he has any retained hardware besides his K-wires. He has a hx of schizophrenia. [facility] Medical History Iron deficiency anemia Schizophrenia Surgical History History of dental surgery Family History Father No problems noted. Mother No problems noted. 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 Housing: Other Housing Other:: CHD Do you presently have visiting nurse or other home services: Yes (lives in a [facility]) Alcohol intake: unknown Comment: obs Patient Tobacco Use Status: Current everyday Tobacco user Tobacco use type: Cigarette Cigarette Packs Per Day: 1 Cigarettes Per Day: 2 Years Smoked: 15 e-Cigarette/Vaping Use: Never Used Second Hand Smoke Exposure: Yes Substance Use Type: Marijuana service: No Current occupational status: unemployed Sexual orientation: Straight/Heterosexual Cognitive needs: No Hearing needs: No Vision needs: No Review of Systems Const All systems reviewed & are unremarkable except as noted in HPI and below Physical Exam Vital Signs: BMI result Body Mass Index 32.3 Const General: no acute distress and alert Orientation/consciousness: patient oriented x3 Neuro General: patient oriented x3 Extrem Other: Evaluation of Right Upper Extremity: The patient is alert, oriented, and in no acute distress The pin sites are healing well with no erythema, drainage, or evidence of infection. Sutures removed and steri-strips applied. K-wires removed today in clinic, which he tolerated well Neuro: Median, Ulnar, Radial nerves motor and sensory intact Vascular: Cap refill brisk Swelling & ecchymosis resolved ROM: He had some hand & wrist stiffness, as expected after wearing his splint for several weeks We worked on ROM exercises today in clinic, and he had good improvement before leaving clinic. Radiographs: 3 views of the right hand were taken and viewed by me today in clinic. They show a 4th metacarpal shaft fracture with satisfactory fracture alignment and position of all implants. It also shows a displaced 5th metacarpal base fracture with satisfactory fracture alignment and position of all implants. With good evidence of interval bony healing for both fractures Psych Appearance: grossly normal Affect: normal affect Attitude: cooperative Assessment & Plan Assessment & Plan (1) Fracture of fourth metacarpal bone of right hand: Code(s): S62.304A - Unspecified fracture of fourth metacarpal bone, right hand, initial encounter for closed fracture Category: Medical (2) Fracture of fifth metacarpal bone of right hand: Code(s): S62.306A - Unspecified fracture of fifth metacarpal bone, right hand, initial encounter for closed fracture Category: Medical (3) Schizophrenia: Code(s): F20.9 - Schizophrenia, unspecified Category: Medical Qualifiers: Schizophrenia type: paranoid schizophrenia Qualified Code(s): F20.0 - Paranoid schizophrenia Plan Assessment & Plan: 1. Right 4th metacarpal shaft fracture, S/P ORIF DOI: 12/21/23 DOS: 01/07/24 K-wires removed: 02/03/24 2. Right 5th metacarpal base fracture intra-articular/CMC joint fracture dislocation, S/P ORIF DOI: 12/21/23 DOS: 01/07/24 K-wires removed: 02/03/24 The patient appears to be doing well post-operatively I educated him about the post-operative course I discussed activity modifications, he is to begin to use his hand for lightweight activities, and to work on ROM exercises at home. He is to avoid any heavy impact activities or activities prone to falling for at least the next 4 weeks. I ordered OT hand therapy to work on ROM & normalizing function He may shower starting tomorrow, but is to avoid any underwater activities until at least this weekend. He will follow up in 4-5 weeks for [id number] check. No radiographs Scribed for Nathalie Henderson MD by Lio Mensah, medical front desk coordinator, on 01/19/24 at 3:30 PM, EST. Orders: Orders XR hand RT min 3V Today M79.641 - Pain in right hand OT Evaluation and Treatment Today F20.0 - Paranoid schizophrenia, S62.304A - Unspecified fracture of fourth metacarpal bone, right hand, initial encounter for closed fracture, S62.306A - Unspecified fracture of fifth metacarpal bone, right hand, initial encounter for closed fracture Scribe Plan - Not visible on output: Scribed for Nathalie Henderson MD by Lio Mensah medical front desk coordinator, on [ ] at [ ], EST. Coding Level of Care Code Global (71687) Diagnoses Fracture of fourth metacarpal bone of right hand S62.304A Fracture of fifth metacarpal bone of right hand S62.306A Paranoid schizophrenia F20.0 Schizophrenia type: paranoid schizophrenia
[2024-02-03 14:19] VITALS: BMI 32.3
== END 2024-02-03 15:00 | disposition home or self-care (01) ==
PROVIDERS: PCP Physician Assistant; Visit Provider Orthopaedic Surgery
DX: S62.304A Unspecified fracture of fourth metacarpal bone, right hand, initial encounter for closed fracture (principal); S62.306A Unspecified fracture of fifth metacarpal bone, right hand, initial encounter for closed fracture; F20.0 Paranoid schizophrenia
CPT/HCPCS: 99024

== ENCOUNTER 2024-02-12 12:57 | Outpatient (REF) | payer OTHER, SELFPAY ==
[2024-02-12 13:09] LABS: MANUAL DIFF FLAG NO
[2024-02-12 14:05] LABS: Basophils Percent Auto 0.5 % (0-2); Eosinophils Percent Auto 1.8 % (0-4); Hematocrit 41.4 % (42.0-52.0); Hemoglobin 13.6 g/dl (14.0-18.0); Imm Gran Pct Auto 0.2 % (0.0-0.4); Lymphocytes Percent Auto 25.1 % (20-40); Mean Corpuscular HGB Conc 32.9 g/dl (31.0-36.0); Mean Corpuscular Hemoglobin 27.3 pg (27.0-33.0); Mean Corpuscular Volume 83.1 fL (80.0-98.0); Mean Platelet Volume 10.5 fL (9.4-12.4); Monocytes Percent Auto 7.6 % (2-11); Neutrophils Percent Auto 64.8 % (45-73); Platelet Count 322 X10*3/uL (160-400); Red Blood Count 4.98 X10*6/uL (4.60-5.80); Red Cell Distribution Width 13.3 % (11.0-16.0); White Blood Count 8.2 X10*3/uL (4.8-10.8)
[2024-02-12 14:06] LABS: Eosinophils Absolute Auto 0.2 X10*3/uL (0.0-0.4); Imm Gran Abs Auto 0.02 X10*3/uL (0.00-0.03); Lymphocytes Absolute Auto 2.1 X10*3/uL (1.2-4.9); Monocytes Absolute Auto 0.6 X10*3/uL (0.1-1.2); Neutrophils Absolute Auto 5.3 x10*3/uL (2.0-8.3)
== END 2024-02-12 12:58 | disposition home or self-care (01) ==
LOC: HO.LABR 12:57
PROVIDERS: Visit Provider Psychiatry & Neurology Psychiatry
DX: Z79.899 Other long term (current) drug therapy (principal)
CPT/HCPCS: 36415; 85025

== ENCOUNTER 2024-02-25 12:40 | Outpatient (REF) | payer OTHER, SELFPAY ==
[2024-02-25 12:50] LABS: MANUAL DIFF FLAG NO
[2024-02-25 13:07] LABS: Basophils Percent Auto 0.4 % (0-2); Eosinophils Absolute Auto 0.2 X10*3/uL (0.0-0.4); Eosinophils Percent Auto 1.6 % (0-4); Hematocrit 41.6 % (42.0-52.0); Hemoglobin 13.8 g/dl (14.0-18.0); Imm Gran Abs Auto 0.04 X10*3/uL (0.00-0.03); Imm Gran Pct Auto 0.4 % (0.0-0.4); Lymphocytes Absolute Auto 2.3 X10*3/uL (1.2-4.9); Lymphocytes Percent Auto 22.9 % (20-40); Mean Corpuscular HGB Conc 33.2 g/dl (31.0-36.0); Mean Corpuscular Hemoglobin 27.6 pg (27.0-33.0); Mean Corpuscular Volume 83.2 fL (80.0-98.0); Mean Platelet Volume 10.1 fL (9.4-12.4); Monocytes Absolute Auto 0.8 X10*3/uL (0.1-1.2); Monocytes Percent Auto 8.2 % (2-11); Neutrophils Absolute Auto 6.6 x10*3/uL (2.0-8.3); Neutrophils Percent Auto 66.5 % (45-73); Platelet Count 318 X10*3/uL (160-400); Red Cell Distribution Width 13.3 % (11.0-16.0); White Blood Count 9.9 X10*3/uL (4.8-10.8)
== END 2024-02-25 12:41 | disposition home or self-care (01) ==
LOC: HO.LABR 12:40
PROVIDERS: Visit Provider Psychiatry & Neurology Psychiatry
DX: Z79.899 Other long term (current) drug therapy (principal)
CPT/HCPCS: 36415; 85025

== ENCOUNTER 2024-03-10 15:09 | Outpatient (REF) | payer OTHER, SELFPAY ==
[2024-03-10 15:22] LABS: MANUAL DIFF FLAG NO
[2024-03-10 15:56] LABS: Basophils Percent Auto 0.4 % (0-2); Eosinophils Absolute Auto 0.2 X10*3/uL (0.0-0.4); Eosinophils Percent Auto 2.1 % (0-4); Hematocrit 42.8 % (42.0-52.0); Hemoglobin 13.8 g/dl (14.0-18.0); Imm Gran Abs Auto 0.03 X10*3/uL (0.00-0.03); Imm Gran Pct Auto 0.3 % (0.0-0.4); Lymphocytes Absolute Auto 2.6 X10*3/uL (1.2-4.9); Lymphocytes Percent Auto 26.8 % (20-40); Mean Corpuscular HGB Conc 32.2 g/dl (31.0-36.0); Mean Corpuscular Hemoglobin 26.9 pg (27.0-33.0); Mean Corpuscular Volume 83.4 fL (80.0-98.0); Mean Platelet Volume 10.3 fL (9.4-12.4); Monocytes Absolute Auto 0.8 X10*3/uL (0.1-1.2); Monocytes Percent Auto 8.2 % (2-11); Neutrophils Absolute Auto 5.9 x10*3/uL (2.0-8.3); Neutrophils Percent Auto 62.2 % (45-73); Platelet Count 344 X10*3/uL (160-400); Red Blood Count 5.13 X10*6/uL (4.60-5.80); Red Cell Distribution Width 13.7 % (11.0-16.0); White Blood Count 9.6 X10*3/uL (4.8-10.8)
== END 2024-03-10 15:10 | disposition home or self-care (01) ==
LOC: HO.LABR 15:09
PROVIDERS: PCP Physician Assistant; Visit Provider Psychiatry & Neurology Psychiatry
DX: Z79.899 Other long term (current) drug therapy (principal)
CPT/HCPCS: 36415; 85025

== ENCOUNTER 2024-03-31 14:30 | Outpatient (REF) | payer OTHER, SELFPAY ==
[2024-03-31 15:04] LABS: MANUAL DIFF FLAG NO
[2024-03-31 15:48] LABS: Basophils Percent Auto 0.2 % (0-2); Eosinophils Absolute Auto 0.8 X10*3/uL (0.0-0.4); Eosinophils Percent Auto 8.4 % (0-4); Hematocrit 41.6 % (42.0-52.0); Hemoglobin 13.5 g/dl (14.0-18.0); Imm Gran Abs Auto 0.05 X10*3/uL (0.00-0.03); Imm Gran Pct Auto 0.6 % (0.0-0.4); Lymphocytes Absolute Auto 2.1 X10*3/uL (1.2-4.9); Lymphocytes Percent Auto 23.7 % (20-40); Mean Corpuscular HGB Conc 32.5 g/dl (31.0-36.0); Mean Corpuscular Volume 83.2 fL (80.0-98.0); Mean Platelet Volume 9.9 fL (9.4-12.4); Monocytes Absolute Auto 0.8 X10*3/uL (0.1-1.2); Monocytes Percent Auto 9.3 % (2-11); Neutrophils Absolute Auto 5.2 x10*3/uL (2.0-8.3); Neutrophils Percent Auto 57.8 % (45-73); Platelet Count 351 X10*3/uL (160-400); Red Cell Distribution Width 14.6 % (11.0-16.0)
[2024-03-31 16:26] LABS: Alanine Aminotransferase 25 U/L (0-40); Albumin Level 3.8 g/dL (3.5-5.0); Alkaline Phosphatase 138 U/L (39-117); Anion Gap 12 (12-20); Aspartate Amino Transferase 15 U/L (5-37); Bilirubin Total 0.3 mg/dL (0.0-1.0); Blood Urea Nitrogen 4 mg/dL (9-16); Calcium 9.4 mg/dL (8.4-10.2); Carbon Dioxide 27 mmol/L (22-29); Chloride 105 mmol/L (96-108); Cholesterol 162 mg/dL (<200); Estimated Glomerular Filt Rate > 60; Glucose Random 94 mg/dL (60-115); HDL Cholesterol 39 mg/dL (>40); LDL Cholesterol Calculated 100 mg/dL (<100); Sodium 140 mmol/L (135-145); Total Protein 7.5 g/dL (6.5-8.0); Triglycerides 116 mg/dL (<150)
[2024-03-31 16:43] LABS: Vitamin D 25-OH Total 35.9 ng/mL (>30)
== END 2024-03-31 14:31 | disposition home or self-care (01) ==
LOC: HO.LAB 14:30
PROVIDERS: PCP Physician Assistant; Visit Provider Nurse Practitioner Psychiatric/Mental Health
DX: Z79.899 Other long term (current) drug therapy (principal)
CPT/HCPCS: 36415; 80053; 80061; 82306; 84443; 85025

== ENCOUNTER 2024-04-27 10:37 | Outpatient (REF) | payer OTHER, SELFPAY | END 2024-04-27 10:38 | disposition home or self-care (01) | LOC: HO.HOSX 10:37 | PROVIDERS: Visit Provider Orthopaedic Surgery | DX: Z13.89 Encounter for screening for other disorder (principal) ==

== ENCOUNTER → 2024-05-02 15:25 | Outpatient (BNVA) | payer OTHER, SELFPAY | PROVIDERS: PCP Physician Assistant; Visit Provider Physician Assistant ==

== ENCOUNTER 2024-05-25 15:18 | Outpatient (REF) | payer OTHER, SELFPAY ==
[2024-05-25 15:42] LABS: MANUAL DIFF FLAG NO
[2024-05-25 16:10] LABS: Basophils Absolute Auto 0.1 X10*3/uL (0.0-0.2); Basophils Percent Auto 0.6 % (0-2); Eosinophils Absolute Auto 0.3 X10*3/uL (0.0-0.4); Eosinophils Percent Auto 3.3 % (0-4); Hematocrit 40.7 % (42.0-52.0); Hemoglobin 13.2 g/dl (14.0-18.0); Imm Gran Abs Auto 0.03 X10*3/uL (0.00-0.03); Imm Gran Pct Auto 0.3 % (0.0-0.4); Lymphocytes Absolute Auto 2.3 X10*3/uL (1.2-4.9); Lymphocytes Percent Auto 25.6 % (20-40); Mean Corpuscular HGB Conc 32.4 g/dl (31.0-36.0); Mean Corpuscular Hemoglobin 27.2 pg (27.0-33.0); Mean Corpuscular Volume 83.7 fL (80.0-98.0); Mean Platelet Volume 9.9 fL (9.4-12.4); Monocytes Absolute Auto 0.7 X10*3/uL (0.1-1.2); Monocytes Percent Auto 7.6 % (2-11); Neutrophils Absolute Auto 5.6 x10*3/uL (2.0-8.3); Neutrophils Percent Auto 62.6 % (45-73); Platelet Count 374 X10*3/uL (160-400); Red Blood Count 4.86 X10*6/uL (4.60-5.80); Red Cell Distribution Width 13.9 % (11.0-16.0)
== END 2024-05-25 15:19 | disposition home or self-care (01) ==
LOC: HO.LABR 15:18
PROVIDERS: Visit Provider Nurse Practitioner Psychiatric/Mental Health
DX: Z79.899 Other long term (current) drug therapy (principal)
CPT/HCPCS: 36415; 85025

== ENCOUNTER 2024-06-13 02:26 | Emergency (ER) | payer OTHER, SELFPAY ==
[2024-06-13 02:39] VITALS: BP 117/87; PULSE 108; RESP 18; TEMP 36.6; O2SAT 99; BMI 34.6
[2024-06-13 02:44] VITALS: BP 117/87; PULSE 108; RESP 18; TEMP 36.6; O2SAT 99
--- NOTE | 2024-06-13 02:51 | ED.PSYCH ---
HPI - Psych General Chief Complaint: Psychiatric Symptoms Stated Complaint: SI Time Seen by Provider: 06/13/24 02:48 Source: patient and EMS Mode of arrival: EMS Limitations: no limitations History of Present Illness ED Provider: Dr. More Boyd HPI Narrative: patient comes to the emergency room by ambulance. According to EMS, PD was on scene, seems that patient was in a [place], punched a wall and made SI statements. Initially when patient came in, told the triage nurse that he is not SI or HI. However when I spoke with the patient, patient states that he meant the SI statements he made which he refused to repeat. Related Data Home Medications ?Medication ?Instructions ?Recorded ?Confirmed clozapine 100 mg tablet 200 mg PO BEDTIME 12/12/23 05/02/24 clozapine 50 mg tablet 100 mg PO BEDTIME 12/12/23 05/02/24 melatonin 3 mg tablet 6 mg PO BEDTIME 12/12/23 05/02/24 olanzapine 2.5 mg tablet (Zyprexa) 2.5 mg PO BEDTIME 12/12/23 05/02/24 Previous Rx's ?Medication ?Instructions ?Recorded acetaminophen 500 mg tablet 500 mg PO Q6H PRN pain #60 tabs 04/06/23 clonazepam 0.5 mg tablet 0.5 mg PO BEDTIME PRN Anxiety 30 04/06/23 days #30 tabs olanzapine 2.5 mg tablet (Zyprexa) 2.5 mg PO BID PRN agitation 30 04/06/23 days #60 tabs ibuprofen 600 mg tablet 600 mg PO Q6H PRN pain 14 days #56 01/13/24 tabs Allergies Allergy/AdvReac Type Severity Reaction Status Date / Time paliperidone [From Invega] Allergy Mild Agitated Verified 06/13/24 02:42 aripiprazole [From Abilify] Allergy Unknown Unknown Verified 06/13/24 02:42 asenapine [From Saphris] Allergy Unknown Unknown Verified 06/13/24 02:42 ziprasidone [From Geodon] Allergy Unknown Unknown Verified 06/13/24 02:42 Review of Systems Review of Systems: Constitutional : No Weight loss, No Fever, No Chills, No Night Sweats, No Fatigue, No Malaise ENT/Mouth : No Hearing loss, No Ear Pain, No Nasal Congestion, No Sinus Pain, No Hoarseness, No sore throat, No Rhinorrhea, No Swallowing Difficulty Eyes: No Eye Pain, No Swelling, No Redness, No Foreign Body, No Discharge, No Vision Changes Cardiovascular : No Chest Pain, No SOB, No Dyspnea on Exertion, No Orthopnea, No Edema, No Palpitations Respiratory : No Cough, No Sputum, No Wheezing, No Smoke Exposure, No Dyspnea Gastrointestinal : No Nausea, No Vomiting, No Diarrhea, No Constipation, No abdominal Pain, No Hematochezia, No Melena Genitourinary : no irregular bleeding, No Dysuria, No Urinary Frequency, No Hematuria, No Urinary Incontinence, No Urgency, No Flank Pain, No Urinary Flow Changes, No Hesitancy Musculoskeletal : No joint pain, No Myalgias, No Joint Swelling Skin : No Skin Lesions, No rash Neuro : No Weakness, No Numbness, No Paresthesias, No Loss of Consciousness, No Dizziness, No Headache Psych : SI vague, no HI, complaining of feeling angry Heme/Lymph: No Bruising, No Bleeding,No Lymphadenopathy Endocrine : No Polyuria, No Polydipsia, No Temperature Intolerance PMFSH Past Medical History Medical History Iron deficiency anemia Schizophrenia Surgical History History of dental surgery Family History Family History Father No problems noted. Mother No problems noted. 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 Housing: Other Housing Other:: [facility] Do you presently have visiting nurse or other home services: Yes (lives in a [facility]) Alcohol intake: unknown Comment: obs Patient Tobacco Use Status: Current everyday Tobacco user Tobacco use type: Cigarette Cigarette Packs Per Day: 1 Cigarettes Per Day: 2 Years Smoked: 15 Smoked in Last 30 Days: Yes e-Cigarette/Vaping Use: Never Used Second Hand Smoke Exposure: Yes Use of substances other than those prescribed or required for medical reasons: No Substance Use Type: Marijuana Advance Directives: No Advance Directives Information Provided: Yes Do you have a plan to hurt others: No Plan service: No Current occupational status: unemployed Sexual orientation: Straight/Heterosexual Cognitive needs: No Hearing needs: No Vision needs: No Physical Exam Vital Signs: Vital Signs: Last Vital Signs Temp 97.9 F 06/13/24 02:44 Pulse 108 H 06/13/24 02:44 Resp 18 06/13/24 02:44 BP 117/87 06/13/24 02:44 Pulse Ox 99 06/13/24 02:44 O2 Del Method Room Air 06/13/24 02:44 BMI result Body Mass Index 34.6 Const: Other: Appearance: Alert. Oriented X3. No acute distress. Eyes: Pupils equal, round and reactive to light. ENT: Pharynx normal. Neck: Normal inspection. Neck supple. No lymph nodes noted. No crepitus CVS: Normal heart rate and rhythm. Pulses normal. Normal S1 and S2 Respiratory: No respiratory distress. Breath sounds normal. No Wheezing. No rales Abdomen: Soft and nontender. No rigidity. No distention. Skin: Skin warm and dry. Normal skin color. Normal skin turgor. Extremities: No lower extremity edema. No Lacerations. No Rash Neuro: Oriented X 3. No motor deficit. No sensory deficit. Moving all extremities. No slurred speech. CN 2 through 12 grossly intact Psych: calm, cooperative, initially a bit combative but easily redirectable Course Course Course Narrative: - all of patient's labs pending - care team consult pending - patient is on a Section 12 - physician observation started at 02:50 Medical Decision Making Differential Diagnosis Differential Diagnoses: The differential diagnosis associated with the presentation includes ( anxiety, depression, polysubstance abuse, aggressive behavior) Admission/Observation Consideration of admission/observation: Escalation of care including admission/observation considered ( patient is on a Section 12 waiting to be seen by the care team) Discharge Plan Discharge Clinical Impression: Suicidal ideation, Aggressive behavior Patient Disposition: Still a Patient Prescriptions: No Action ibuprofen 600 mg tablet 600 mg PO Q6H PRN (Reason: pain) 14 Days Qty: 56 0RF acetaminophen 500 mg tablet 500 mg PO Q6H PRN (Reason: pain) Qty: 60 0RF clonazepam 0.5 mg Tablet 0.5 mg PO BEDTIME PRN (Reason: Anxiety) 30 Days Qty: 30 0RF olanzapine [Zyprexa] 2.5 mg tablet 2.5 mg PO BID PRN (Reason: agitation) 30 Days Qty: 60 0RF clozapine 100 mg tablet 200 mg PO BEDTIME Rx Instructions: Take with 75 mg dose melatonin 3 mg tablet 6 mg PO BEDTIME clozapine 50 mg tablet 100 mg PO BEDTIME Rx Instructions: Take with 200mg dose olanzapine [Zyprexa] 2.5 mg Tablet 2.5 mg PO BEDTIME Interventions: [place]-Suicide Risk Severity Scale Last Done: 06/13/24 02:44 Print Language: Belarusian
[2024-06-13 02:59] LABS: MANUAL DIFF FLAG NO
[2024-06-13 03:00] LABS: Basophils Percent Auto 0.5 % (0-2); Eosinophils Absolute Auto 0.3 X10*3/uL (0.0-0.4); Eosinophils Percent Auto 3.7 % (0-4); Hematocrit 39.2 % (42.0-52.0); Hemoglobin 12.7 g/dl (14.0-18.0); Imm Gran Abs Auto 0.02 X10*3/uL (0.00-0.03); Imm Gran Pct Auto 0.2 % (0.0-0.4); Lymphocytes Absolute Auto 2.6 X10*3/uL (1.2-4.9); Lymphocytes Percent Auto 29.1 % (20-40); Mean Corpuscular HGB Conc 32.4 g/dl (31.0-36.0); Mean Corpuscular Hemoglobin 27.2 pg (27.0-33.0); Mean Corpuscular Volume 83.9 fL (80.0-98.0); Monocytes Absolute Auto 0.8 X10*3/uL (0.1-1.2); Monocytes Percent Auto 9.2 % (2-11); Neutrophils Absolute Auto 5.1 x10*3/uL (2.0-8.3); Neutrophils Percent Auto 57.3 % (45-73); Platelet Count 305 X10*3/uL (160-400); Red Blood Count 4.67 X10*6/uL (4.60-5.80); White Blood Count 8.8 X10*3/uL (4.8-10.8)
[2024-06-13 03:30] LABS: Alanine Aminotransferase 49 U/L (0-40); Albumin Level 3.8 g/dL (3.5-5.0); Anion Gap 13 (12-20); Aspartate Amino Transferase 40 U/L (5-37); Bilirubin Total 0.2 mg/dL (0.0-1.0); Blood Urea Nitrogen 11 mg/dL (9-16); Calcium 9.7 mg/dL (8.4-10.2); Carbon Dioxide 20 mmol/L (22-29); Chloride 113 mmol/L (96-108); Creatinine Clr Calc Pharmacy 159.6; Estimated Glomerular Filt Rate > 60; Ethanol < 10 mg/dL; Glucose Random 100 mg/dL (60-115); Potassium 3.8 mmol/L (3.3-5.1); Sodium 142 mmol/L (135-145)
[2024-06-13 03:35] LABS: Alkaline Phosphatase 115 U/L (39-117)
[2024-06-13 07:51] VITALS: BP 105/72; PULSE 89; RESP 18; TEMP 36.6; O2SAT 97
[2024-06-13 09:08] LABS: Appearance Urine Clear; Color Urine Yellow; Glucose Urine UA Negative (Negative); Leukocyte Esterase Urine Negative (Negative); Nitrite Urine Negative (Negative); Specific Gravity - Urine >= 1.030 (1.005-1.025); Urine Blood Negative (Negative); Urine Ketones Negative (Negative); Urine Protein Negative (Neg-Trace)
[2024-06-13 09:18] LABS: Amphetamine Screen Urine Not Detected (Not Detect); Barbiturates, Urine Not Detected (Not Detect); Benzodiazepines Screen Urine Not Detected (Not Detect); Buprenorphine Scr Not Detected (Not Detect); Cannabinoid Screen Urine Not Detected (Not Detect); Cocaine Screen Urine Not Detected (Not Detect); Fentanyl, urine Not Detected (Not Detect); Methadone Screen, Urine Not Detected (Not Detect); Opiate Screen Urine Not Detected (Not Detect); Oxycodone Screen Urine Not Detected (Not Detect); Phencyclidine Screen Urine Not Detected (Not Detect)
--- NOTE | 2024-06-13 09:27 | PC.NURSE ---
previously had requested medication for anxiety, Ativan ordered. attempted to administer however patient declines. awaiting care team consult. patient observer remains at bedside at this time.
--- NOTE | 2024-06-13 13:29 | MHC.CARE ---
Patient evaluated by the CARE Team, disposition [facility]S bed search. ED provider, Dr. Blum updated
--- NOTE | 2024-06-13 16:48 | MHC.CARE ---
Patient information faxed to [facility] in [place], is under review at this time.
--- NOTE | 2024-06-13 17:58 | MHC.CARE ---
Sara Kapadia from [facility] contacted the care team and indicated that they are not able to accept Orthodoxy at this time as they feel he would be better secondary to a short term stabilization and being stabilized on medications. Sara indicated that they would re consider him as a step from inpatient. She indicated that the unit is very acute at this time and does not appear to be a good fit.
[2024-06-13 21:45] VITALS: BP 143/77; PULSE 100; RESP 16; TEMP 37.6; O2SAT 98
[2024-06-13] MEDS: cloZAPine 200 MG, cloZAPine 25 MG 225 MG PO (21:56)
--- NOTE | 2024-06-13 22:16 | PC.NURSE ---
patient was resistant to taking meds this makes me feel like im on fire and i want to get naked i aksed to lower them which t/w reiterated they were lowered, and that he was on these meds bc others had a history of not working.
--- NOTE | 2024-06-13 23:37 | MHC.CARE ---
This typewriters functional tester spoke briefly to Corry from [facility] who stated that she is not currently in the office however, to her knowledge pt is currently on a nelson's order at this time and has been complaint with his medications. She requested that we wait to send him to [facility] until they are able to further collaborate with the Care Team tomorrow morning as they prefer [facility] however, are aware that he has been declined at this time. She indicated that she will follow up with the Care Team first thing tomorrow morning and will provide a copy of his nelson's order once accessible from her office. She indicated that she can be reached at the [phone]. Pt is now a follow up at the request of [facility] as they requested he not be referred to [facility] until further conversation in the morning occurs. Information will be passed to first shift care team. Further follow up will occur as needed moving forward.
--- NOTE | 2024-06-13 23:57 | PC.NURSE ---
patient observed self stimulating in room, redirected.
--- NOTE | 2024-06-14 07:46 | PC.NURSE ---
Assumed care of patient at 0645, patient appears to be in no apparent distress this am, sleeping, respirations even and unlabored. continue plan of care for respite bedsearch
--- NOTE | 2024-06-14 14:30 | MHC.CARE ---
Patient does not require an inpatient psychiatric admission at this time. Ongoing communication with patient's [facility] Team, they want patient either on a higher dose of Clozaril, which patient declined, or adding another medication that is listed as an alternative per [facility] Barry's Order. Prescriber Bernadette Delacruz, METAL CLEANER reviewed Barry's Order and spoke directly with patient about medication option recommended patient be started on Abilify Aistada injection here in the ED and patient agreed to this plan. He will need a dose today and another tomorrow. Dr. Zavala updated Copy of Kiet vaughn and medication recommendation faxed to the CARE Team and scanned into patient's chart.
--- NOTE | 2024-06-14 15:41 | MHC.CARE ---
Outside pharmacy to deliver patient's medication for administration while patient is in the ED, when it arrives, contact Netta Aaron, psychiatric provider via [place] [employer] to put in orders. Dr. Zavala updated
[2024-06-14] MEDS: ARIPIPRAZOLE LAUROXIL 1 EACH IM (19:21)
--- NOTE | 2024-06-14 20:35 | PHA.MEDREC ---
Addendum entered by Jose Garvey RPh 06/14/24 20:59: Reviewed by [facility] Original Note: Pharmacy Consult ? Medication Reconciliation Pharmacy has completed the medication reconciliation. Spoke with patient and he confirmed he is taking the Clozapine 100mg tab and Clozapine 25mg tabs and confirmed he is taking a total of 225mg daily and states he took it yesterday before coming in the hospital. We also got a aristada initio 675mg injection for the patient and he stated that is a brand new medication and is not sure how he was taking it, where he got it from and when he filled it, but the patient and nurse states he takes it today and speaking with pharmacy we put the directions once a month.
[2024-06-14] MEDS: cloZAPine 200 MG, cloZAPine 25 MG 225 MG PO (21:09)
[2024-06-15 06:26] VITALS: RESP 16
--- NOTE | 2024-06-15 08:44 | PC.NURSE ---
patient is awake and alert, ate breakfast this morning, can often be found pacing unit or in room, patient talks with staff, able to make needs known. resp equal and unlabored, patient is calm and cooperative
--- NOTE | 2024-06-15 11:42 | PC.NURSE ---
Verbal order from CLARE Chadwick for IM dose of Aristada brought in from home. verbal order placed in the computer, pharmacy aware at this time. Pt is aware that he is to receive one more IM dose at this time
[2024-06-15] MEDS: ARIPIPRAZOLE LAUROXIL 1 EACH IM (12:20)
--- NOTE | 2024-06-15 12:25 | PC.NURSE ---
pt received IM dose of Aristada to the right deltoid, no complications noted. Pt offers no complaints at this time
--- NOTE | 2024-06-15 13:06 | PC.NURSE ---
Patient aware of plan of care for discharge
--- NOTE | 2024-06-15 13:09 | MHC.CARE ---
[facility] Team in support of patient transport home via [facility], they will meet him there.
[2024-06-15 13:44] VITALS: BP 117/87; PULSE 78; RESP 16; TEMP 36.9; O2SAT 97
[2024-06-16 05:14] LABS: Clozapine (Clozaril) 270 mcg/L; Norclozapine 73 mcg/L (25-400)
== END 2024-06-15 13:58 | disposition home or self-care (01) ==
PROVIDERS: Emergency Provider Emergency Medicine; PCP Internal Medicine
DX: R45.6 Violent behavior (principal); R45.851 Suicidal ideations; F20.9 Schizophrenia, unspecified; E78.5 Hyperlipidemia, unspecified; F17.210 Nicotine dependence, cigarettes, uncomplicated; F12.90 Cannabis use, unspecified, uncomplicated; Z79.899 Other long term (current) drug therapy
CPT/HCPCS: 36415; 80053; 80159; 80307; 81003; 85025; 99285; S9485

== ENCOUNTER 2024-06-24 01:16 | Emergency (ER) | payer OTHER, SELFPAY ==
--- NOTE | 2024-06-24 01:29 | ED_ITS ---
HPI - General Adult General Stated complaint: SI no ateempt, refused vitals Time Seen by Provider: 06/24/24 01:29 History of Present Illness ED Provider: Donald ESPANA narrative: The patient is a 28-year-old male with a history of schizophrenia. I believe he receives depot aripiprazole once a month. He is also prescribed clozapine. He is staying at a motel. He says that he was at the motel tonight and he was feeling agitated and started to feel like he might do something to hurt himself. He did not do anything to hurt himself. He did not overdose or cut himself or do anything else to harm himself. Related Data Home Medications ?Medication ?Instructions ?Recorded ?Confirmed melatonin 3 mg tablet 6 mg PO BEDTIME 12/12/23 06/14/24 aripiprazole lauroxil,submicr. 675 675 mg IM QMONTH 06/14/24 06/14/24 mg/2.4 mL susp,ext.rel.IM syringe (Aristada Initio) clozapine 100 mg tablet 200 mg PO BEDTIME 06/14/24 06/14/24 clozapine 25 mg tablet 25 mg PO BEDTIME 06/14/24 06/14/24 Allergies Allergy/AdvReac Type Severity Reaction Status Date / Time paliperidone [From Invega] Allergy Mild Agitated Verified 06/24/24 01:32 aripiprazole [From Abilify] Allergy Unknown Unknown Verified 06/24/24 01:32 asenapine [From Saphris] Allergy Unknown Unknown Verified 06/24/24 01:32 ziprasidone [From Geodon] Allergy Unknown Unknown Verified 06/24/24 01:32 Review of Systems Review of Systems: Yes all other systems are reviewed and are negative [facility] Past Medical History Medical History Iron deficiency anemia Schizophrenia Surgical History History of dental surgery Family History Family History Father No problems noted. Mother No problems noted. 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 Housing: Other Housing Other:: [facility] Do you presently have visiting nurse or other home services: Yes (lives in a [facility]) Alcohol intake: unknown Comment: obs Patient Tobacco Use Status: Current everyday Tobacco user Tobacco use type: Cigarette Cigarette Packs Per Day: 1 Cigarettes Per Day: 2 Years Smoked: 15 e-Cigarette/Vaping Use: Never Used Second Hand Smoke Exposure: Yes Substance Use Type: Marijuana service: No Current occupational status: unemployed Sexual orientation: Straight/Heterosexual Cognitive needs: No Hearing needs: No Vision needs: No Physical Exam ED Const Other: The patient is awake and alert. He has a somewhat flattened affect. He is calm and cooperative. HENMT Other: Face is symmetrical. Mucous membranes moist. Eyes Other: Pupils are round equal, conjunctivae are clear, extraocular movements intact Neck Other: Moving his neck easily Resp Effort & Inspection: normal respiratory effort Auscultation: clear to auscultation bilaterally Cardio Rate: regular rate Rhythm: regular rhythm Heart sounds: S1 normal heart sound present and S2 normal heart sound present GI Other: Abdomen is soft and nontender Skin Other: Skin is dry and unremarkable Neuro Other: The patient is awake and alert. Cranial nerves are grossly intact. He moves his extremities symmetrically and appropriately. His gait is steady. He seems neurologically intact. Extrem Other: No peripheral edema Medical Decision Making Medical Decision Making MDM Narrative: The patient is a 28-year-old with chronic schizophrenia. He is on monthly depot aripiprazole and also on clozapine. He presents with a sense of having suicidal thoughts. He called the ambulance and therefore came to the emergency room voluntarily. He seems medically stable. I suspect he is having an exacerbation of his chronic mental illness. We will do screening labs and have him seen by the care team. I have a low suspicion for any acute medical process. The patient will be placed in physician observation pending disposition by the care team. Discharge Plan Discharge Clinical Impression: Schizophrenia Patient Disposition: Still a Patient Prescriptions: No Action melatonin 3 mg tablet 6 mg PO BEDTIME clozapine 100 mg tablet 200 mg PO BEDTIME clozapine 25 mg tablet 25 mg PO BEDTIME Aristada Initio 675 mg/2.4 mL Suspension,Extended Rel Syring 675 mg IM QMONTH Print Language: Ukrainian
[2024-06-24 01:31] VITALS: BP 141/74; PULSE 86; RESP 16; TEMP 36.8; O2SAT 98; BMI 30.4
--- NOTE | 2024-06-24 01:42 | PC.NURSE ---
Patient changed over into hospital attire, 1:1 initiated, belongings secured in [facility] on [address].
[2024-06-24 01:48] LABS: MANUAL DIFF FLAG NO
[2024-06-24 01:54] LABS: Basophils Absolute Auto 0.1 X10*3/uL (0.0-0.2); Basophils Percent Auto 0.6 % (0-2); Eosinophils Absolute Auto 0.3 X10*3/uL (0.0-0.4); Eosinophils Percent Auto 3.4 % (0-4); Hematocrit 37.3 % (42.0-52.0); Hemoglobin 12.2 g/dl (14.0-18.0); Imm Gran Abs Auto 0.02 X10*3/uL (0.00-0.03); Imm Gran Pct Auto 0.2 % (0.0-0.4); Lymphocytes Absolute Auto 2.4 X10*3/uL (1.2-4.9); Lymphocytes Percent Auto 26.9 % (20-40); Mean Corpuscular HGB Conc 32.7 g/dl (31.0-36.0); Mean Corpuscular Hemoglobin 27.1 pg (27.0-33.0); Mean Corpuscular Volume 82.7 fL (80.0-98.0); Mean Platelet Volume 9.8 fL (9.4-12.4); Monocytes Absolute Auto 0.7 X10*3/uL (0.1-1.2); Monocytes Percent Auto 7.4 % (2-11); Neutrophils Absolute Auto 5.5 x10*3/uL (2.0-8.3); Neutrophils Percent Auto 61.5 % (45-73); Platelet Count 331 X10*3/uL (160-400); Red Blood Count 4.51 X10*6/uL (4.60-5.80); Red Cell Distribution Width 13.6 % (11.0-16.0); White Blood Count 8.9 X10*3/uL (4.8-10.8)
[2024-06-24 02:01] LABS: Amphetamine Screen Urine Not Detected (Not Detect); Barbiturates, Urine Not Detected (Not Detect); Benzodiazepines Screen Urine Not Detected (Not Detect); Buprenorphine Scr Not Detected (Not Detect); Cannabinoid Screen Urine Not Detected (Not Detect); Cocaine Screen Urine Not Detected (Not Detect); Fentanyl, urine Not Detected (Not Detect); Methadone Screen, Urine Not Detected (Not Detect); Opiate Screen Urine Not Detected (Not Detect); Oxycodone Screen Urine Not Detected (Not Detect); Phencyclidine Screen Urine Not Detected (Not Detect)
[2024-06-24 02:03] LABS: Alanine Aminotransferase 59 U/L (0-40); Albumin Level 3.7 g/dL (3.5-5.0); Alkaline Phosphatase 106 U/L (39-117); Anion Gap 12 (12-20); Aspartate Amino Transferase 35 U/L (5-37); Bilirubin Direct 0.2 mg/dL (0.0-0.5); Bilirubin Total 0.3 mg/dL (0.0-1.0); Blood Urea Nitrogen 6 mg/dL (9-16); Calcium 9.2 mg/dL (8.4-10.2); Carbon Dioxide 25 mmol/L (22-29); Chloride 108 mmol/L (96-108); Creatinine Clr Calc Pharmacy 140.2; Estimated Glomerular Filt Rate > 60; Ethanol < 10 mg/dL; Glucose Random 114 mg/dL (60-115); Potassium 3.4 mmol/L (3.3-5.1); Sodium 142 mmol/L (135-145); Total Protein 6.8 g/dL (6.5-8.0)
[2024-06-24 04:00] VITALS: BP 140/77; PULSE 86; RESP 18; O2SAT 97
--- NOTE | 2024-06-24 08:04 | PC.NURSE ---
Pt is calm. no complaints at this time. Awaits Care team and needs frequent reminders to be patient and not wander. Ate breakfast.
[2024-06-24 10:02] VITALS: BP 137/87; PULSE 107; RESP 16; TEMP 36.9; O2SAT 98
--- NOTE | 2024-06-24 12:50 | MHC.CARE ---
Pt has been placed on alert with [facility] and will be a 3 day follow up
== END 2024-06-24 10:06 | disposition home or self-care (01) ==
PROVIDERS: Emergency Provider Emergency Medicine; PCP Physician Assistant
DX: F25.9 Schizoaffective disorder, unspecified (principal); R45.851 Suicidal ideations; F17.210 Nicotine dependence, cigarettes, uncomplicated; Z79.899 Other long term (current) drug therapy; Z51.81 Encounter for therapeutic drug level monitoring
CPT/HCPCS: 36415; 80048; 80076; 80307; 85025; 99285

== ENCOUNTER 2024-07-12 12:31 | Outpatient (REF) | payer OTHER, SELFPAY ==
[2024-07-12 12:39] LABS: MANUAL DIFF FLAG NO
[2024-07-12 13:44] LABS: Basophils Percent Auto 0.4 % (0-2); Eosinophils Absolute Auto 0.3 X10*3/uL (0.0-0.4); Eosinophils Percent Auto 2.8 % (0-4); Hematocrit 38.1 % (42.0-52.0); Hemoglobin 12.4 g/dl (14.0-18.0); Imm Gran Abs Auto 0.03 X10*3/uL (0.00-0.03); Imm Gran Pct Auto 0.3 % (0.0-0.4); Lymphocytes Percent Auto 20.2 % (20-40); Mean Corpuscular HGB Conc 32.5 g/dl (31.0-36.0); Mean Platelet Volume 10.6 fL (9.4-12.4); Monocytes Absolute Auto 0.6 X10*3/uL (0.1-1.2); Monocytes Percent Auto 6.3 % (2-11); Platelet Count 332 X10*3/uL (160-400); Red Blood Count 4.59 X10*6/uL (4.60-5.80); Red Cell Distribution Width 13.7 % (11.0-16.0); White Blood Count 9.9 X10*3/uL (4.8-10.8)
== END 2024-07-12 12:32 | disposition home or self-care (01) ==
LOC: HO.LABR 12:31
PROVIDERS: PCP Physician Assistant; Visit Provider Nurse Practitioner Psychiatric/Mental Health
DX: Z79.899 Other long term (current) drug therapy (principal)
CPT/HCPCS: 36415; 85025

== ENCOUNTER 2024-08-16 22:59 | Emergency (ER) | payer OTHER, SELFPAY ==
[2024-08-16 23:11] VITALS: BP 119/73; PULSE 90; RESP 16; TEMP 37.2; O2SAT 97; BMI 31.9
[2024-08-17 01:42] LABS: Appearance Urine Clear; Color Urine Yellow; Glucose Urine UA Negative (Negative); Leukocyte Esterase Urine Negative (Negative); Nitrite Urine Negative (Negative); Urine Blood Negative (Negative); Urine Ketones Negative (Negative); Urine Protein Negative (Neg-Trace)
--- NOTE | 2024-08-17 02:24 | ED_ITS ---
HPI - Male Genitourinary General Chief complaint: Urogenital-Male Stated complaint: genital pain Time Seen by Provider: 08/16/24 23:05 History of Present Illness ED Provider: Donald ESPANA Narrative: The patient is a 29-year-old male with a history of schizophrenia comes to the emergency room tonight by ambulance complaining of pain in his penis. He says he does not have any testicular pain. He says the pain is not worse with urination. He says that he had a similar episode of pain about a year ago. He came to the emergency department at that time but says that no particular diagnosis was ever made. He is not sexually active with men or women. He says he last was sexually active with a woman several years ago but nothing more recently. No penile discharge. No fever, sweats, chills. No nausea or vomiting. Related Data Home Medications ?Medication ?Instructions ?Recorded ?Confirmed melatonin 3 mg tablet 6 mg PO BEDTIME 12/12/23 06/14/24 aripiprazole lauroxil,submicr. 675 675 mg IM QMONTH 06/14/24 06/14/24 mg/2.4 mL susp,ext.rel.IM syringe (Aristada Initio) clozapine 100 mg tablet 200 mg PO BEDTIME 06/14/24 06/14/24 clozapine 25 mg tablet 25 mg PO BEDTIME 06/14/24 06/14/24 Previous Rx's ?Medication ?Instructions ?Recorded ibuprofen 400 mg tablet 400 mg PO Q6H PRN pain #14 tabs 08/17/24 Allergies Allergy/AdvReac Type Severity Reaction Status Date / Time paliperidone [From Invega] Allergy Mild Agitated Verified 08/16/24 23:14 aripiprazole [From Abilify] Allergy Unknown Unknown Verified 08/16/24 23:14 asenapine [From Saphris] Allergy Unknown Unknown Verified 08/16/24 23:14 ziprasidone [From Geodon] Allergy Unknown Unknown Verified 08/16/24 23:14 Review of Systems Review of Systems: Yes all other systems are reviewed and are negative [facility] Past Medical History Medical History Iron deficiency anemia Schizophrenia Surgical History History of dental surgery Family History Family History Father No problems noted. Mother No problems noted. 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 Housing: Other Housing Other:: [facility] Do you presently have visiting nurse or other home services: Yes (lives in a [facility]) Alcohol intake: unknown Comment: obs Patient Tobacco Use Status: Current everyday Tobacco user Tobacco use type: Cigarette Cigarette Packs Per Day: 1 Cigarettes Per Day: 2 Years Smoked: 15 Smoked in Last 30 Days: No e-Cigarette/Vaping Use: Never Used Second Hand Smoke Exposure: Yes Use of substances other than those prescribed or required for medical reasons: No Substance Use Type: Marijuana Advance Directives: No Advance Directives Information Provided: Yes Do you have a plan to hurt others: No Plan service: No Current occupational status: unemployed Sexual orientation: Straight/Heterosexual Cognitive needs: No Hearing needs: No Vision needs: No Physical Exam Vital Signs: Vital Signs: Last Vital Signs Temp 97.8 F 08/17/24 03:03 Pulse 89 08/17/24 03:03 Resp 17 08/17/24 03:03 BP 145/69 H 08/17/24 03:03 Pulse Ox 96 08/17/24 03:03 O2 Del Method Room Air 08/17/24 03:03 BMI result Body Mass Index 31.9 Const: Other: The patient is awake and alert, pleasant cooperative. He has a somewhat unusual affect but he does not seem in acute distress. HEENT: Other: Face is symmetrical. Mucous membranes moist. Eyes: Other: Pupils are round equal, conjunctivae are clear, extraocular movements intact. Neck: Neck: Yes full ROM Resp: Effort & Inspection: normal respiratory effort Auscultation: clear to auscultation bilaterally Cardio: Rate: regular rate Rhythm: regular rhythm Heart sounds: S1 normal heart sound present and S2 normal heart sound present GI: Other: Abdomen is soft and nontender : Other: The patient is an uncircumcised male. He seems to have unremarkable external genitalia. There is no scrotal swelling. No testicular tenderness. The patient's foreskin is easily retractable. There is no edema or any lesion on the force skin. No penile discharge. Skin: Other: Skin is dry and unremarkable Neuro: Other: The patient is awake and alert. Cranial nerves are intact. He moves his extremities normally. Gait is steady. Extrem: Other: No peripheral edema. Medications Administered Discontinued Medications Generic Name Dose Route Start Last Admin Trade Name Juan David PRN Reason Stop Dose Admin Acetaminophen 975 mg 08/17/24 02:38 08/17/24 02:46 Acetaminophen 325 Mg Tablet PO 08/17/24 02:39 975 mg ONCE ONE Administration Ibuprofen 400 mg 08/17/24 02:38 08/17/24 02:47 Ibuprofen 400 Mg Tablet PO 08/17/24 02:39 Not Given ONCE ONE Medical Decision Making Medical Decision Making MDM Narrative: The patient is a 29-year-old male with a history of chronic schizophrenia who arrived by ambulance complaining of pain in the penis that started 1-1/2 hours prior to arrival. He denies dysuria. Urination does not make the pain worse. He denies testicular pain. He reports having a similar episode of pain about a year ago when he came to the emergency room. He had a negative workup at that time. The patient is not sexually active. I do not think an STD is likely. He has no testicular pain, I do not think testicular torsion is an issue here. Overall I do not have a very good explanation for the patient's pain but I do not think he has an acute emergency. He will be treated symptomatically with ibuprofen and acetaminophen. He should follow up with his PCP. Lab Data Labs: Lab Results 08/17/24 Range/Units 01:25 Urine Color Yellow Urine Appearance Clear Urine pH 7.0 (5.0-9.0) Ur Specific [place] 1.020 (1.005-1.025) Urine Protein Negative (Neg-Trace) mg/dL Urine Glucose (UA) Negative (Negative) mg/dL Urine Ketones Negative (Negative) mg/dL Urine Blood Negative (Negative) Urine Nitrite Negative (Negative) Ur Leukocyte Esterase Negative (Negative) Chlam trachomat DNA PCR NOT DETECTED (Not Detect.) N.gonorrhoeae DNA (PCR) NOT DETECTED (Not Detect.) Discharge Plan Discharge Clinical Impression: Penis pain Patient Disposition: Home, Self-Care Additional Instructions: Your urinalysis testing today is showing no problems. Your physical exam is also reassuring. I do not have a good explanation for why you are experiencing this pain tonight. I have sent a prescription to your pharmacy for ibuprofen. You may use the ibuprofen as needed for pain. Please follow up with your regular doctor to discuss this pain further. Return to the emergency room if you feel significantly worse. Prescriptions: New ibuprofen 400 mg tablet 400 mg PO Q6H PRN (Reason: pain) Qty: 14 0RF No Action melatonin 3 mg tablet 6 mg PO BEDTIME clozapine 100 mg tablet 200 mg PO BEDTIME clozapine 25 mg tablet 25 mg PO BEDTIME Aristada Initio 675 mg/2.4 mL Suspension,Extended Rel Syring 675 mg IM QMONTH Referrals: Claus Mendez PA-C [Primary Care Provider] - (Penile pain) Interventions: ED Discharge Assessment Last Done: 08/17/24 03:03 Discharge Date/Time: 08/17/24 03:04 Print Language: Ukrainian
[2024-08-17] MEDS: Acetaminophen 325 MG TABLET 975 MG PO (02:46)
[2024-08-17 02:55] VITALS: BP 145/69; PULSE 89; RESP 17; TEMP 36.6; O2SAT 96
--- NOTE | 2024-08-17 02:56 | PC.NURSE ---
provider into assess pt and to complete examination, medicated by katherine, reviewed discharge instructions with pt.
[2024-08-17 03:03] VITALS: BP 145/69; PULSE 89; RESP 17; TEMP 36.6; O2SAT 96
[2024-08-17 03:09] LABS: CT PCR NOT DETECTED (Not Detect.); NG PCR NOT DETECTED (Not Detect.)
== END 2024-08-17 03:04 | disposition home or self-care (01) ==
PROVIDERS: Emergency Provider Emergency Medicine; PCP Physician Assistant
DX: N50.811 Right testicular pain (principal); N50.812 Left testicular pain; Z79.899 Other long term (current) drug therapy; F17.210 Nicotine dependence, cigarettes, uncomplicated
CPT/HCPCS: 81003; 87491; 87591; 99283; 99284

== ENCOUNTER 2024-08-31 11:22 | Outpatient (REF) | payer OTHER, SELFPAY ==
[2024-08-31 11:38] LABS: MANUAL DIFF FLAG NO
[2024-08-31 11:52] LABS: Basophils Absolute Auto 0.1 X10*3/uL (0.0-0.2); Basophils Percent Auto 0.6 % (0-2); Eosinophils Absolute Auto 0.7 X10*3/uL (0.0-0.4); Eosinophils Percent Auto 7.5 % (0-4); Hematocrit 41.7 % (42.0-52.0); Hemoglobin 13.1 g/dl (14.0-18.0); Imm Gran Abs Auto 0.03 X10*3/uL (0.00-0.03); Imm Gran Pct Auto 0.3 % (0.0-0.4); Lymphocytes Absolute Auto 3.2 X10*3/uL (1.2-4.9); Lymphocytes Percent Auto 32.4 % (20-40); Mean Corpuscular HGB Conc 31.4 g/dl (31.0-36.0); Mean Corpuscular Hemoglobin 26.5 pg (27.0-33.0); Mean Corpuscular Volume 84.2 fL (80.0-98.0); Mean Platelet Volume 10.1 fL (9.4-12.4); Monocytes Absolute Auto 0.8 X10*3/uL (0.1-1.2); Monocytes Percent Auto 8.3 % (2-11); Neutrophils Percent Auto 50.9 % (45-73); Platelet Count 316 X10*3/uL (160-400); Red Blood Count 4.95 X10*6/uL (4.60-5.80); Red Cell Distribution Width 14.8 % (11.0-16.0); White Blood Count 9.8 X10*3/uL (4.8-10.8)
== END 2024-08-31 11:23 | disposition home or self-care (01) ==
LOC: HO.LABR 11:22
PROVIDERS: PCP Physician Assistant; Visit Provider Nurse Practitioner Psychiatric/Mental Health
DX: Z79.899 Other long term (current) drug therapy (principal)
CPT/HCPCS: 36415; 85025

== ENCOUNTER 2024-09-29 13:22 | Outpatient (REF) | payer OTHER, SELFPAY ==
[2024-09-29 13:34] LABS: MANUAL DIFF FLAG NO
[2024-09-29 14:33] LABS: Basophils Percent Auto 0.4 % (0-2); Eosinophils Absolute Auto 0.5 X10*3/uL (0.0-0.4); Hematocrit 40.6 % (42.0-52.0); Hemoglobin 13.3 g/dl (14.0-18.0); Imm Gran Abs Auto 0.01 X10*3/uL (0.00-0.03); Imm Gran Pct Auto 0.1 % (0.0-0.4); Lymphocytes Absolute Auto 1.6 X10*3/uL (1.2-4.9); Lymphocytes Percent Auto 20.8 % (20-40); Mean Corpuscular HGB Conc 32.8 g/dl (31.0-36.0); Mean Corpuscular Hemoglobin 27.1 pg (27.0-33.0); Mean Corpuscular Volume 82.7 fL (80.0-98.0); Mean Platelet Volume 10.4 fL (9.4-12.4); Monocytes Absolute Auto 0.9 X10*3/uL (0.1-1.2); Monocytes Percent Auto 11.4 % (2-11); Neutrophils Absolute Auto 4.6 x10*3/uL (2.0-8.3); Neutrophils Percent Auto 61.3 % (45-73); Platelet Count 339 X10*3/uL (160-400); Red Blood Count 4.91 X10*6/uL (4.60-5.80); White Blood Count 7.5 X10*3/uL (4.8-10.8)
--- OUTSIDE RECORDS SUMMARY | 2024-09-29 16:17 | XMS_ITS | Encounter Summary ---
Author Organization [facility] Address [address] [place] [address] Phone Care Team Providers Care Skate Hop Name Role Phone Adolfo Burton MD Primary Care Provider [phone] Encounter Details Date Type Department Care Team (Late st Contact Info) Description 06/10/2013 Documentation EM Family Medicine [address] [place], [place] [id number] Family Medicine, Physician [address] [place] [address] Social History Tobacco Use Types Packs/Day Years Used Date Smoking Tobacco: Never Assessed Sex and Gender Information Value Date Recorded Sex Assigned at Not on file Legal Sex Male 4:38 PM EDT Gender Identity Not on file Sexual Orientation Not on file documented as of this encounter Plan of Treatment Not on file documented as of this encounter Visit Diagnoses Not on filedocumented in this encounter Care Teams Skate Hop Relationship Specialty Start Date End Date Adolfo Burton MD [address] [place] [address] PCP - General 03/06/17 12/31/22 documented as of this encounter
--- OUTSIDE RECORDS SUMMARY | 2024-09-29 16:17 | XMS_ITS | Encounter Summary ---
Author Organization [facility] Address [address] [place] [address] Phone Care Team Providers Care Receivable Executive Name Role Phone Adolfo Burton MD Primary Care Provider [phone] Encounter Details Date Type Department Care Team (Late st Contact Info) Description 08/21/2011 Documentation EM Family Medicine [address] [place] [address] Family Medicine, Physician [address] [place] [address] Social History Tobacco Use Types Packs/Day Years [...] on filedocumented in this encounter Care Teams Receivable Executive Relationship Specialty Start Date End Date Adolfo Burton MD [address] [place] [address] PCP - General 03/06/17 12/31/22 documented as of this encounter
--- OUTSIDE RECORDS SUMMARY | 2024-09-29 16:17 | XMS_ITS | Encounter Summary ---
Author Organization [facility] Address [address] [place] [address] Phone Care Team Providers Care Home Service Technician Name Role Phone Adolfo Burton MD Primary Care Provider Encounter Details Date Type Department Care Team (Late st Contact Info) Description 10/19/2012 Documentation EM Family Medicine [address] [place], [place] [id number] Family Medicine, Physician [address] [place] [address] Social History Tobacco Use Types Packs/Day Years [...] on filedocumented in this encounter Care Teams Home Service Technician Relationship Specialty Start Date End Date Adolfo Burton MD [address] [place] [address] PCP - General 03/06/17 12/31/22 documented as of this encounter
--- OUTSIDE RECORDS SUMMARY | 2024-09-29 16:17 | XMS_ITS | Clinical Summary ---
Author Organization [facility] Address [address] [place] [address] Phone Care Team Providers Care Work Measurement Engineer Name Role Phone Unavailable Primary Care Provider Unavailabl e Immunizations Immunization Administration Dates Next Due DTaP 5 12/25/1999, 7,10/25/1995, 995,1994 H1N1 08/23/2009 HPV, Quadrivalent 08/20/2011 Hep B, ped/adol 04/25/1995,1994,1994 Hib (HbOC) 10/25/1995,04/25/1995,1994 IPV 12/25/1999, 6,04/25/1995, 995 Influenza, injectable, trivalent 08/23/2009,04/27 Influenza, intranasal, quadrivalent 06/09/2013 Influenza, intranasal, trivalent 08/20/2011 MMR 11/23/1998,09/27/1996 Meningococcal Conj (Menactra) MCV4P 04/22/2007 Tdap 04/02/2006 Family History Relation Name Status Comments Brother Alive Brother: Asthma , Alive and well Father Alive Father: Asthma Half-Brother Alive Half brother (M ): Alive and well Mother Alive Mother: Hyperte nsion Other Family history of arthritis, Family history of Hyperlipidemia, Family history of Thyroid disease Sister 1 Alive Sister: Alive a nd well, Alive and well Sister 2 Alive Sister: Alive a nd well, Alive and well Social History Tobacco Use Types Packs/Day Years Used Date Smoking Tobacco: Never Comments:Never smoker Sex and Gender Information Value Date Recorded Sex Assigned at Not on file Legal Sex Male 4:38 PM EDT Gender Identity Not on file Sexual Orientation Not on file Last Filed Vital Signs Vital Sign Reading Time Taken Comments Blood Pressure 124/81 08/01/2013 12:00 AM EST Pulse - - Temperature 36.1 ??C (96.9 ??F) 08/01/2013 1 2:00 AM EST Respiratory Rate - - Oxygen Saturation - - Inhaled Oxygen Concentration - - Weight 62.1 kg (136 lb 12.8 oz) 014 12:00 AM EST Height 169.2 cm (5' 6.6 ) 08/01/2013 12 :00 AM EST Body Mass Index 21.68 08/01/2013 12:00 AM EST Plan of Treatment Health Maintenance Due Date Last Done Comments HPV Vaccines (2 - Male 3-dose series) 09/17/2011 08/20/2011 Varicella Vaccines (1 of 2 - 13+ 2-dose series) 07/07/2013 DTaP,Tdap,and Td Vaccines (7 - Td or Tdap) 04/02/2016 04/02/2006, 12/25/1999, 09/27/1996, Additional history exists Influenza Vaccines (#1) 2024 06/09/20 13, 08/20/2011, 08/23/2009, Additional history exists COVID-19 Vaccine ( - 2023- season) 2024 Hepatitis B Vaccines Completed 04/25/1995, 1994, 1994 HIB Vaccines Completed 10/25/1995, 03/29, 1994 MMR Vaccines Completed 11/23/1998, 09/27/1996 IPV Vaccines Completed 12/25/1999, 09/26, 04/25/1995, Additional history exists Meningococcal Vaccine Aged Out 04/22/2007 No betty anne-marie eligible based on patient's age to complete this topic Hepatitis A Vaccines Aged Out No long er eligible based on patient's age to complete this topic Men B Vaccine Aged Out No longer elig ible based on patient's age to complete this topic Pneumococcal Vaccine Aged Out No long er eligible based on patient's age to complete this topic
--- OUTSIDE RECORDS SUMMARY | 2024-09-29 16:17 | XMS_ITS | Encounter Summary ---
Author Organization [facility] Address [address] [place] [address] Phone Care Team Providers Care Rotor Assembler Name Role Phone Adolfo Burton MD Primary Care Provider [phone] Encounter Details Date Type Department Care Team (Late st Contact Info) Description 08/21/2011 Documentation EM Family Medicine [address] [place] [address] Family Medicine, Physician [address] [place] [address] Social History Tobacco Use Types Packs/Day Years [...] on filedocumented in this encounter Care Teams Rotor Assembler Relationship Specialty Start Date End Date Adolfo Burton MD [address] [place] [address] PCP - General 03/06/17 12/31/22 documented as of this encounter
--- OUTSIDE RECORDS SUMMARY | 2024-09-29 16:17 | XMS_ITS | Encounter Summary ---
Author Organization [facility] Address [address] [place] [address] Phone Care Team Providers Care Wrecking Supervisor Name Role Phone Adolfo Burton MD Primary Care Provider [phone] Encounter Details Date Type Department Care Team (Late st Contact Info) Description 08/21/2011 Documentation EM Family Medicine [address] [place] [address] Family Medicine, Physician [address] [place] [address] Social History Tobacco Use Types Packs/Day Years [...] on filedocumented in this encounter Care Teams Wrecking Supervisor Relationship Specialty Start Date End Date Adolfo Burton MD [address] [place] [address] PCP - General 03/06/17 12/31/22 documented as of this encounter
--- OUTSIDE RECORDS SUMMARY | 2024-09-29 16:17 | XMS_ITS | Encounter Summary ---
Author Organization [facility] Address [address] [place] [address] Phone Care Team Providers Care Oil Heater Operator Name Role Phone Adolfo Burton MD Primary Care Provider [phone] Encounter Details Date Type Department Care Team (Late st Contact Info) Description 08/21/2011 Documentation EM Family Medicine [address] [place] [address] Family Medicine, Physician [address] [place] [address] Social History Tobacco Use Types Packs/Day Years [...] on filedocumented in this encounter Care Teams Oil Heater Operator Relationship Specialty Start Date End Date Adolfo Burton MD [address] [place] [address] PCP - General 03/06/17 12/31/22 documented as of this encounter
--- OUTSIDE RECORDS SUMMARY | 2024-09-29 16:17 | XMS_ITS | Encounter Summary ---
Author Organization [facility] Address [address] [place] [address] Phone Care Team Providers Care Welder Oxyhydrogen Name Role Phone Adolfo Burton MD Primary Care Provider [phone] Encounter Details Date Type Department Care Team (Late st Contact Info) Description 03/07/2014 Documentation EM Family Medicine [address] [place], [place] [id number] Family Medicine, Physician [address] [place] [address] Social History Tobacco Use Types Packs/Day Years [...] on filedocumented in this encounter Care Teams Welder Oxyhydrogen Relationship Specialty Start Date End Date Adolfo Burton MD [address] [place] [address] PCP - General 03/06/17 12/31/22 documented as of this encounter
--- OUTSIDE RECORDS SUMMARY | 2024-09-29 16:17 | XMS_ITS | Patient Health Record ---
Author Organization [facility] Address [address] [place] [phone] Care Team Providers Care Cnc Lathe Programmer Name Role Phone Claus Mendez Primary Care Provider Unavailab Jasvir Kent Jr Unavailable Reason For Referral No Information Plan Of Treatment No Information Insurance Providers Payer Name Payer Address Payer Phone Subscriber Number Group Number Insured Name Patient Relationship to Insured Coverage Start Date Coverage End Date [facility] [address] [address] [place], [place] [id number] MIKE JOSHUA Self - patient is the insured
--- OUTSIDE RECORDS SUMMARY | 2024-09-29 16:17 | XMS_ITS | Encounter Summary ---
Author Organization [facility] Address [address] [place] [address] Phone Care Team Providers Care Managing Partner Name Role Phone Adolfo Burton MD Primary Care Provider [phone] Encounter Details Date Type Department Care Team (Late st Contact Info) Description 03/12/2017 Conversion Encounter [facility] [place] [address] [place] [address] Social History Tobacco Use Types Packs/Day Years [...] on filedocumented in this encounter Care Teams Managing Partner Relationship Specialty Start Date End Date Adolfo Burton MD [address] [place] [address] PCP - General 03/06/17 12/31/22 documented as of this encounter
--- OUTSIDE RECORDS SUMMARY | 2024-09-29 16:17 | XMS_ITS | Encounter Summary ---
Author Organization [facility] Address [address] [place] [address] Phone Care Team Providers Care Checkroom Attendant Name Role Phone Adolfo Burton MD Primary Care Provider [phone] Encounter Details Date Type Department Care Team (Late st Contact Info) Description 06/10/2013 Documentation EM Family Medicine [address] [place], [place] [phone] Family Medicine, Physician [address] [place] [address] Social History Tobacco Use Types Packs/Day Years [...] on filedocumented in this encounter Care Teams Checkroom Attendant Relationship Specialty Start Date End Date Adolfo Burton MD [address] [place] [address] PCP - General 03/06/17 12/31/22 documented as of this encounter
--- OUTSIDE RECORDS SUMMARY | 2024-09-29 16:17 | XMS_ITS | Encounter Summary ---
Author Organization [facility] Address [address] [place] [address] Phone Care Team Providers Care Manager Exchange Name Role Phone Adolfo Burton MD Primary Care Provider [phone] Encounter Details Date Type Department Care Team (Late st Contact Info) Description 01/08/2011 Documentation EM Family Medicine [address] [place] [address] Family Medicine, Physician [address] [place] [address] Social History Tobacco Use Types Packs/Day Years [...] on filedocumented in this encounter Care Teams Manager Exchange Relationship Specialty Start Date End Date Adolfo Burton MD [address] [place] [address] PCP - General 03/06/17 12/31/22 documented as of this encounter
--- OUTSIDE RECORDS SUMMARY | 2024-09-29 16:17 | XMS_ITS | Encounter Summary ---
Author Organization [facility] Address [address] [place] [address] Phone Care Team Providers Care Staff Psychiatrist Name Role Phone Adolfo Burton MD Primary Care Provider [phone] Encounter Details Date Type Department Care Team (Late st Contact Info) Description 03/07/2014 Documentation EM Family Medicine [address] [place], [place] [phone] Family Medicine, Physician [address] [place] [address] Social History Tobacco Use Types Packs/Day Years [...] on filedocumented in this encounter Care Teams Staff Psychiatrist Relationship Specialty Start Date End Date Adolfo Burton MD [address] [place] [address] PCP - General 03/06/17 12/31/22 documented as of this encounter
== END 2024-09-29 13:23 | disposition home or self-care (01) ==
LOC: HO.LABR 13:22
PROVIDERS: PCP Physician Assistant; Visit Provider Nurse Practitioner Psychiatric/Mental Health
DX: Z79.899 Other long term (current) drug therapy (principal)
CPT/HCPCS: 36415; 85025

== ENCOUNTER 2024-10-12 14:15 | Outpatient (AMB) | payer OTHER, SELFPAY ==
[2024-10-12 15:15] VITALS: BP 142/92; PULSE 86; TEMP 36.3; O2SAT 97; BMI 37.5
--- NOTE | 2024-10-12 15:15 | MHC.PC.OV ---
Vital Signs 10/12/24 15:15 Height 5 ft 8 in Weight 246 lb 8 oz BMI 37.5 BP 142/92 H Blood Pressure Location Lt brachial Position Sitting Pulse 86 Pulse Source Pulse Oximeter Temp 97.3 F Temp Source Temporal Artery Scan Pulse Oximetry (%) 97 Oxygen Delivery Method Room Air Intake Visit Reasons: Patient accident f/up Hydrometer Calibrator Required: No Accompanied by: Self / Same As Patient Allergies paliperidone [From Invega] Allergy (Mild, Verified 10/12/24 15:39) Agitated aripiprazole [From Abilify] Allergy (Unknown, Verified 10/12/24 15:39) Unknown asenapine [From Saphris] Allergy (Unknown, Verified 10/12/24 15:39) Unknown ziprasidone [From Geodon] Allergy (Unknown, Verified 10/12/24 15:39) Unknown Medication List - Last Reconciled 10/12/24 by Claus Mendez PA-C aripiprazole lauroxil,submicr. ER ([facility]) 675 mg IM QMONTH clozapine 200 mg PO BEDTIME clozapine 25 mg PO BEDTIME ibuprofen 400 mg PO Q6H PRN melatonin 6 mg PO BEDTIME Tobacco use date assessed: 10/12/24 Dental Screening Dental Screen Date: 10/12/24 Did you have a dental visit in the last 12 months?: Yes Did you have a dental problem in the last 6 months where you did not have access to dental care?: No Was dental information given to patient?: Patient has dentist HPI Patient accident f/up HPI Details Patient is a 29-year-old male here today for a follow-up visit.? Patient has a past medical history significant for schizophrenia, insomnia, GERD, history of anemia secondary to GI blood loss, history of severe scalp folliculitis, hyperlipidemia, obesity. Recently seen at the ER for acute anxiety about swallowing glass. She a crack pipe that was cracked in try to smoke and felt like he may have ingested glass. Concern--> he reports by low ear congestion and itchiness. Today in office flushed both ears. .. Schizophrenia:? Continues to follow a psychiatrist whom has patient on Abilify IM injections monthly. He has a home visiting nurse whom get some his IM injections He also continues on Clozaril. White blood cell count has been stable .. Hyperlipidemia--:=> Does have a distant history of hyperlipidemia those been able to reduce his cholesterol with lifestyle management.? Has gained weight since last year. [facility] Medical History Iron deficiency anemia Schizophrenia Surgical History History of dental surgery Family History Father No problems noted. Mother No problems noted. 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 Housing: Other Housing Other:: [facility] Do you presently have visiting nurse or other home services: Yes (lives in a [facility]) Alcohol intake: unknown Comment: obs Patient Tobacco Use Status: Current everyday Tobacco user Tobacco use type: Cigarette Cigarette Packs Per Day: 1 Cigarettes Per Day: 2 Years Smoked: 15 e-Cigarette/Vaping Use: Never Used Second Hand Smoke Exposure: Yes Substance Use Type: Marijuana service: No Current occupational status: unemployed Sexual orientation: Straight/Heterosexual Cognitive needs: No Hearing needs: No Vision needs: No Questionnaire PHQ-9 Over the last 2 weeks, how often have you been bothered by any of the following problems? 1. Little interest or pleasure in doing things: not at all 2. Feeling down, depressed, or hopeless: not at all 3. Trouble falling or staying asleep, or sleeping too much: not at all 4. Feeling tired or having little energy: not at all 5. Poor appetite or overeating: not at all 6. Feeling bad about yourself - or that you are a failure or have let yourself or your family down: not at all 7. Trouble concentrating on things, such as reading the newspaper or watching television: not at all 8. Moving or speaking so slowly that other people could have noticed. Or the opposite - being so fidgety or restless that you have been moving around a lot more than usual: not at all 9. Thoughts that you would be better off or of hurting yourself in some way: not at all Total score: 0 Depression Screening Interpretation: Negative Depression Screening Done: Yes 55655 - PHQ-9 Billing: Yes Source: Developed by Drs. Devon Foy, Dallas Dodge and colleagues, with an educational ambrosio from [employer]. Thrive Questionnaire Date Thrive assessed: 10/12/24 I am a: Patient What is your living situation today?: I have a steady place to live Within the past 12 months, did the food you bought not last and you didn't have the money to get more?: Never true Within the past 12 months, did you worry whether your food would run out before you got money to buy more?: Never true Do you have trouble paying for medicines?: No Do you have trouble getting transportation to medical appointments?: No Do you have trouble paying your heating and electricity bill?: No Do you have trouble taking care of your child, family member or friend?: No Do you have trouble with day-to-day activities such as bathing, preparing meals, shopping, managing finances, etc.?: No Are you currently unemployed and looking for a job?: No Are you interested in more education?: No Please select the resources that you would like help with: None Currently or been in a relationship where the following occur: No concerns reported THRIVE Score: 0 AUDIT C Alcohol Use Questionnaire (AUDIT-C) 1. How often do you have a drink containing alcohol?: Never 3. How often do you have six or more drinks on one occasion?: Never Total Score: 0 Score Reviewed/Action Taken: No DANA-7 AMB Questionnaire DANA-7 Date DANA - 7 assessed: 10/12/24 Feeling nervous, anxious, or on edge: 0 = Not at all Not being able to stop or control worryin = Not at all Worrying too much about different things: 0 = Not at all Trouble relaxin = Not at all Being so restless that it is hard to sit still: 0 = Not at all Becoming easily annoyed or irritable: 0 = Not at all Feeling afraid as if something awful might happen: 0 = Not at all Total DANA-7 score (0-4 normal; 5-9 mild; 10-14 moderate; 15-21 severe): 0 Source: Developed by Jennifer Blue Kurt Kroenke and colleagues, with an educational ambrosio from [employer]. DANA-7 Assessment Billing DANA-7 Assessment Tool: DANA-7 Assessment 51307 Review of Systems Const Denies headache(s) Eyes Denies loss of vision ENT Denies vertigo, Denies dizziness, Denies headache(s) and Denies sore throat Card Denies chest pain, Denies leg edema and Denies lightheadedness Resp Denies cough, Denies hemoptysis and Denies wheezing GI Denies abdominal pain, Denies melena, Denies constipation, Denies diarrhea and Denies vomiting Denies dysuria, Denies urinary frequency and Denies urinary urgency Musc Denies arthralgias, Denies joint swelling, Denies numbness and Denies tingling Neuro Denies Abnormal speech present, Denies behavioral changes, Denies vertigo, Denies dizziness, Denies headache(s), Denies loss of vision, Denies memory loss, Denies numbness and Denies tingling Psych Denies anxiety, Denies behavioral changes, Denies depression, Denies memory loss and Denies panic attacks Juan David/Lymph Denies easy bleeding and Denies easy bruising Aller/Immun Denies wheezing Physical exam (Primary Care) Vital Signs: Last Vital Signs Temp 97.3 F 10/12/24 15:15 Pulse 86 10/12/24 15:15 BP 142/92 H 10/12/24 15:15 Pulse Ox 97 10/12/24 15:15 Oxygen Delivery Method Room Air 10/12/24 15:15 BMI result Body Mass Index 37.5 BMI Assessment/Plan discussion: High BMI High, discussed plan: lifestyle, weight reduction, dietary and physical activity Tobacco/Smoking Status: Tobacco use Status Tobacco use date assessed 10/12/24 10/12/24 15:21 Patient Tobacco Use Status Current everyday Tobacco 10/12/24 15:21 Tobacco use type Cigarette 10/12/24 15:21 e-Cigarette/Vaping Use Never Used 10/12/24 15:21 PHQ-9: PHQ-9 Score PHQ-9: Total score 0 10/12/24 15:21 Depression Screening Interpretation: Negative Thrive Assessment: Date of Thrive Assessment Date Thrive assessed 10/12/24 10/12/24 15:21 Currently or been in a relationship where the following occur: No concerns reported Const General: healthy appearing, no acute distress, alert and awake Nutritional Appearance: well nourished Orientation/consciousness: oriented to person, oriented to place and oriented to time HENMT Ears: TM's normal bilaterally General nose exam: Normal nasal mucous membranes and turbinates present Eyes Conjunctivae: conjunctivae normal Sclerae: sclerae normal Pupils: Equal, round and reactive pupils present Neck Neck: Yes no lymphadenopathy and Yes no JVD Thyroid: Thyroid normal Carotids: no bruits Resp Effort & Inspection: normal respiratory effort and not tachypneic Auscultation: no crackles, no rales, no rhonchi and no wheezes Cardio Rate: regular rate Rhythm: regular rhythm Heart sounds: no murmurs and normal S1 and S2 GI Palpation (GI): Soft to palpation, nontender, no hepatomegaly and no splenomegaly Auscultation: normal bowel sounds Skin General skin exam: no rashes or lesions noted and dry skin Neuro General: oriented to person, oriented to place and oriented to time Cranial nerves: Yes Equal, round and reactive pupils present Speech: No Abnormal speech present Gait exam (Neuro): Normal gait present Motor exam (neuro): no tremor noted Extrem Right upper extremity: full ROM Left upper extremity: full ROM Right lower extremity: full ROM; no edema Left lower extremity: full ROM; no edema Psych Mental Status: mental status grossly normal Speech and movement: Normal speech and movement present Affect: normal affect Attitude: cooperative Thought process: Normal thought process present Coding Level of Care Code Est Pt Level 4 (33341) Diagnoses Pure hypertriglyceridemia E78.1 Hyperlipidemia type: pure hypertriglyceridemia Paranoid schizophrenia F20.0 Schizophrenia type: paranoid schizophrenia Screening for diabetes mellitus (DM) Z13.1 Class 2 obesity E66.812 Additional Codes DANA-7 Assessment Billing - DANA-7 Assessment Tool: DANA-7 Assessment 52365 ([id number]) PHQ-9 - 28297 - PHQ-9 Billing: Yes ([id number]) Assessment & Plan Assessment & Plan (1) HLD (hyperlipidemia): Code(s): E78.5 - Hyperlipidemia, unspecified Category: Medical Qualifiers: Hyperlipidemia type: pure hypertriglyceridemia Qualified Code(s): E78.1 - Pure hyperglyceridemia Plan: Most recent lipid panel showing good control his total cholesterol and LDL. He has had history of high cholesterol likely secondary to psychiatric medication. (2) Schizophrenia: Code(s): F20.9 - Schizophrenia, unspecified Category: Medical Qualifiers: Schizophrenia type: paranoid schizophrenia Qualified Code(s): F20.0 - Paranoid schizophrenia Plan: Patient is on Abilify once per month. Does have a visiting nurse who gives him his IM injections of Abilify. (3) Screening for diabetes mellitus (DM): Code(s): Z13.1 - Encounter for screening for diabetes mellitus Category: Medical Plan: As per HPI (4) Class 2 obesity: Code(s): E66.812 - Obesity, class 2 Category: Medical Plan: Patient does understand his BMI is 35 and will work on being more physically active and adapt to better eating habits to reduce his weight Orders: Orders Complete Blood Count no Diff Today K21.9 - Gastro-esophageal reflux disease without esophagitis IRON PROFILE Today D50.0 - Iron deficiency anemia secondary to blood loss (chronic), D50.9 - Iron deficiency anemia, unspecified Lipid Panel Today E78.1 - Pure hyperglyceridemia Comprehensive [place]. Panel Fast Today Z13.1 - Encounter for screening for diabetes mellitus
== END 2024-10-12 15:48 | disposition home or self-care (01) ==
LOC: HO.HMCH 14:16
PROVIDERS: PCP Physician Assistant; Visit Provider Physician Assistant
DX: E78.1 Pure hyperglyceridemia (principal); F20.0 Paranoid schizophrenia; E66.812 Obesity, class 2; Z68.37 Body mass index [BMI] 37.0-37.9, adult; Z13.1 Encounter for screening for diabetes mellitus

== ENCOUNTER → 2024-10-12 14:15 | Outpatient (BNVA) | payer OTHER, SELFPAY | PROVIDERS: PCP Physician Assistant; Visit Provider Physician Assistant | DX: E78.1 Pure hyperglyceridemia (principal); F20.0 Paranoid schizophrenia; E66.812 Obesity, class 2 | CPT/HCPCS: 96127; 99212 ==

== ENCOUNTER 2024-11-01 10:13 | Outpatient (REF) | payer OTHER, SELFPAY ==
[2024-11-01 10:25] LABS: MANUAL DIFF FLAG NO
[2024-11-01 10:34] LABS: Basophils Absolute Auto 0.1 X10*3/uL (0.0-0.2); Basophils Percent Auto 0.6 % (0-2); Eosinophils Absolute Auto 0.3 X10*3/uL (0.0-0.4); Eosinophils Percent Auto 3.8 % (0-4); Hematocrit 41.4 % (42.0-52.0); Hemoglobin 13.1 g/dl (14.0-18.0); Imm Gran Abs Auto 0.02 X10*3/uL (0.00-0.03); Imm Gran Pct Auto 0.2 % (0.0-0.4); Lymphocytes Absolute Auto 1.9 X10*3/uL (1.2-4.9); Lymphocytes Percent Auto 21.8 % (20-40); Mean Corpuscular HGB Conc 31.6 g/dl (31.0-36.0); Mean Corpuscular Hemoglobin 26.7 pg (27.0-33.0); Mean Corpuscular Volume 84.3 fL (80.0-98.0); Mean Platelet Volume 10.1 fL (9.4-12.4); Monocytes Absolute Auto 0.7 X10*3/uL (0.1-1.2); Monocytes Percent Auto 7.8 % (2-11); Neutrophils Absolute Auto 5.8 x10*3/uL (2.0-8.3); Neutrophils Percent Auto 65.8 % (45-73); Platelet Count 331 X10*3/uL (160-400); Red Blood Count 4.91 X10*6/uL (4.60-5.80); Red Cell Distribution Width 15.1 % (11.0-16.0); White Blood Count 8.8 X10*3/uL (4.8-10.8)
--- OUTSIDE RECORDS SUMMARY | 2024-11-01 12:02 | XMS_ITS | Encounter Summary ---
Author Organization [facility] Address [address] [place] [address] Phone Care Team Providers Care Color Printer Operator Name Role Phone Adolfo Burton MD Primary Care Provider [phone] Encounter Details Date Type Department Care Team (Late st Contact Info) Description 01/08/2011 Documentation EM Family Medicine [address] [place] [address] Family Medicine, Physician [address] [place] [address] Social History Tobacco Use Types Packs/Day Years [...] on filedocumented in this encounter Care Teams Color Printer Operator Relationship Specialty Start Date End Date Adolfo Burton MD [address] [place] [address] PCP - General 03/06/17 12/31/22 documented as of this encounter
--- OUTSIDE RECORDS SUMMARY | 2024-11-01 12:02 | XMS_ITS | Encounter Summary ---
Author Organization [facility] Address [address] [place] [address] Phone Care Team Providers Care Internet Systems Administrator Name Role Phone Adolfo Burton MD Primary Care Provider [phone] Encounter Details Date Type Department Care Team (Late st Contact Info) Description 08/21/2011 Documentation EM Family Medicine [address] [place] [address] Family Medicine, Physician [address] [place] [address] Social History Tobacco Use Types Packs/Day Years [...] on filedocumented in this encounter Care Teams Internet Systems Administrator Relationship Specialty Start Date End Date Adolfo Burton MD [address] [place] [address] PCP - General 03/06/17 12/31/22 documented as of this encounter
--- OUTSIDE RECORDS SUMMARY | 2024-11-01 12:02 | XMS_ITS | Encounter Summary ---
Author Organization [facility] Address [address] [place] [address] Phone Care Team Providers Care Railroad Car Cleaning Supervisor Name Role Phone Adolfo Burton MD Primary Care Provider [phone] Encounter Details Date Type Department Care Team (Late st Contact Info) Description 06/10/2013 Documentation EM Family Medicine [address] [place], [place] [id number] Family Medicine, Physician [address] [place] [address] Social History Tobacco Use Types Packs/Day Years [...] on filedocumented in this encounter Care Teams Railroad Car Cleaning Supervisor Relationship Specialty Start Date End Date Adolfo Burton MD [address] [place] [address] PCP - General 03/06/17 12/31/22 documented as of this encounter
--- OUTSIDE RECORDS SUMMARY | 2024-11-01 12:02 | XMS_ITS | Encounter Summary ---
Author Organization [facility] Address [address] [place] [address] Phone Care Team Providers Care Workers Compensation Claims Specialist Name Role Phone Adolfo Burton MD Primary Care Provider [phone] Encounter Details Date Type Department Care Team (Late st Contact Info) Description 03/07/2014 Documentation EM Family Medicine [address] [place] [address] Family Medicine, Physician [address] [place] [address] Social History Tobacco Use Types Packs/Day Years [...] on filedocumented in this encounter Care Teams Workers Compensation Claims Specialist Relationship Specialty Start Date End Date Adolfo Burton MD [address] [place] [address] PCP - General 03/06/17 12/31/22 documented as of this encounter
--- OUTSIDE RECORDS SUMMARY | 2024-11-01 12:02 | XMS_ITS | Encounter Summary ---
Author Organization [facility] Address [address] [place] [address] Phone Care Team Providers Care Automotive Customer Experience Advisor Name Role Phone Adolfo Burton MD Primary Care Provider [phone] Encounter Details Date Type Department Care Team (Late st Contact Info) Description 08/21/2011 Documentation EM Family Medicine [address] [place] [address] Family Medicine, Physician [address] [place] [address] Social History Tobacco Use Types Packs/Day Years [...] on filedocumented in this encounter Care Teams Automotive Customer Experience Advisor Relationship Specialty Start Date End Date Adolfo Burton MD [address] [place] [address] PCP - General 03/06/17 12/31/22 documented as of this encounter
--- OUTSIDE RECORDS SUMMARY | 2024-11-01 12:02 | XMS_ITS | Clinical Summary ---
Author Organization [facility] Address [address] [place] [address] Phone Care Team Providers Care Insurance Processor Name Role Phone Unavailable Primary Care Provider [...]
--- OUTSIDE RECORDS SUMMARY | 2024-11-01 12:02 | XMS_ITS | Encounter Summary ---
Author Organization [facility] Address [address] [place] [address] Phone Care Team Providers Care Transportation Services Representative Name Role Phone Adolfo Burton MD Primary Care Provider [phone] Encounter Details Date Type Department Care Team (Late st Contact Info) Description 10/19/2012 Documentation EM Family Medicine [address] [place], [place] [id number] Family Medicine, Physician [address] [place] [address] Social History Tobacco Use Types Packs/Day Years [...] on filedocumented in this encounter Care Teams Transportation Services Representative Relationship Specialty Start Date End Date Adolfo Burton MD [address] [place] [address] PCP - General 03/06/17 12/31/22 documented as of this encounter
--- OUTSIDE RECORDS SUMMARY | 2024-11-01 12:02 | XMS_ITS | Encounter Summary ---
Author Organization [facility] Address [address] [place] [address] Phone Care Team Providers Care Law Enforcement Director Name Role Phone Adolfo Burton MD Primary Care Provider [phone] Encounter Details Date Type Department Care Team (Late st Contact Info) Description 06/10/2013 Documentation EM Family Medicine [address] [place], [place] [phone] Family Medicine, Physician [address] [place] [address] Social History Tobacco Use Types Packs/Day Years [...] on filedocumented in this encounter Care Teams Law Enforcement Director Relationship Specialty Start Date End Date Adolfo Burton MD [address] [place] [address] PCP - General 03/06/17 12/31/22 documented as of this encounter
--- OUTSIDE RECORDS SUMMARY | 2024-11-01 12:02 | XMS_ITS | Encounter Summary ---
Author Organization [facility] Address [address] [place] [address] Phone Care Team Providers Care Speech Language Assistant Name Role Phone Adolfo Burton MD Primary Care Provider [phone] Encounter Details Date Type Department Care Team (Late st Contact Info) Description 03/07/2014 Documentation EM Family Medicine [address] [place] [address] Family Medicine, Physician [address] [place] [address] Social History Tobacco Use Types Packs/Day Years [...] on filedocumented in this encounter Care Teams Speech Language Assistant Relationship Specialty Start Date End Date Adolfo Burton MD [address] [place] [address] PCP - General 03/06/17 12/31/22 documented as of this encounter
--- OUTSIDE RECORDS SUMMARY | 2024-11-01 12:02 | XMS_ITS | Encounter Summary ---
Author Organization [facility] Address [address] [place] [address] Phone Care Team Providers Care Citrus Fruit Colorer Name Role Phone Adolfo Burton MD Primary Care Provider [phone] Encounter Details Date Type Department Care Team (Late st Contact Info) Description 08/21/2011 Documentation EM Family Medicine [address] [place] [address] Family Medicine, Physician [address] [place] [address] Social History Tobacco Use Types Packs/Day Years [...] on filedocumented in this encounter Care Teams Citrus Fruit Colorer Relationship Specialty Start Date End Date Adolfo Burton MD [address] [place] [address] PCP - General 03/06/17 12/31/22 documented as of this encounter
--- OUTSIDE RECORDS SUMMARY | 2024-11-01 12:02 | XMS_ITS | Encounter Summary ---
Author Organization [facility] Address [address] [place] [address] Phone Care Team Providers Care Patcher Helper Name Role Phone Adolfo Burton MD Primary Care Provider [phone] Encounter Details Date Type Department Care Team (Late st Contact Info) Description 08/21/2011 Documentation EM Family Medicine [address] [place] [address] Family Medicine, Physician [address] [place] [address] Social History Tobacco Use Types Packs/Day Years [...] on filedocumented in this encounter Care Teams Patcher Helper Relationship Specialty Start Date End Date Adolfo Burton MD [address] [place] [phone] PCP - General 03/06/17 12/31/22 documented as of this encounter
--- OUTSIDE RECORDS SUMMARY | 2024-11-01 12:02 | XMS_ITS | Patient Health Record ---
Author Organization [facility] Address [address] [place] [phone] Care Team Providers Care Land Title Examiner Name Role Phone Claus Mendez Primary Care Provider Unavailab Jasvir Kent Jr Unavailable [phone] Reason For Referral No Information Plan Of Treatment No Information Insurance Providers Payer Name Payer Address Payer Phone Subscriber Number Group Number Insured Name Patient Relationship to Insured Coverage Start Date Coverage End Date [facility] [address] [address] [place], [place] [id number] MIKE JOSHUA Self - patient is the insured
--- OUTSIDE RECORDS SUMMARY | 2024-11-01 12:02 | XMS_ITS | Encounter Summary ---
Author Organization [facility] Address [address] [place] [address] Phone Care Team Providers Care Stencil Cutter Name Role Phone Adolfo Burton MD Primary Care Provider [phone] Encounter Details Date Type Department Care Team (Late st Contact Info) Description 03/12/2017 Conversion Encounter [facility] [address] [place] [address] Social History Tobacco Use Types Packs/Day Years [...] on filedocumented in this encounter Care Teams Stencil Cutter Relationship Specialty Start Date End Date Adolfo Burton MD [address] [place] [address] PCP - General 03/06/17 12/31/22 documented as of this encounter
== END 2024-11-01 10:14 | disposition home or self-care (01) ==
LOC: HO.LABR 10:13
PROVIDERS: PCP Physician Assistant; Visit Provider Nurse Practitioner Psychiatric/Mental Health
DX: Z79.899 Other long term (current) drug therapy (principal)
CPT/HCPCS: 36415; 85025

== ENCOUNTER 2024-12-08 14:10 | Outpatient (AMB) | payer OTHER, SELFPAY ==
--- NOTE | 2024-12-08 14:25 | A.OFFPC_ITS ---
Vital Signs 12/08/24 14:32 Height 5 ft 8 in Weight 249 lb BMI 37.9 BP 136/86 Blood Pressure Location Lt brachial Position Sitting Pulse 105 H Pulse Source Pulse Oximeter Temp 97.3 F Temp Source Temporal Artery Scan Pulse Oximetry (%) 97 Oxygen Delivery Method Room Air Intake Visit Reasons: discuss scar Autoclave Operator Required: No Accompanied by: Self / Same As Patient Allergies paliperidone [From Invega] Allergy (Mild, Verified 12/08/24 14:38) Agitated aripiprazole [From Abilify] Allergy (Unknown, Verified 12/08/24 14:38) Unknown asenapine [From Saphris] Allergy (Unknown, Verified 12/08/24 14:38) Unknown ziprasidone [From Geodon] Allergy (Unknown, Verified 12/08/24 14:38) Unknown Medication List - Last Reconciled 12/08/24 by Claus Mendez PA-C aripiprazole lauroxil ER (Aristada) mg IM aripiprazole lauroxil,submicr. ER (Aristada Initio) 675 mg IM QMONTH clozapine 200 mg PO BEDTIME clozapine 25 mg PO BEDTIME ibuprofen 400 mg PO Q6H PRN melatonin 6 mg PO BEDTIME Tobacco use date assessed: 10/12/24 Dental Screening Dental Screen Date: 10/12/24 HPI discuss scar HPI Details Patient is a 29-year-old male here today for problem visit. Originally was supposed to discuss a scar over his right hand though has healed using [id number] cream. Additionally patient has experienced significant auditory impairment in the left ear due to wax build-up over the last week and a half. Unsuccessful self- treatment led him to seek ear irrigation during this visit. The ear issue has impaired auditory function, persisting since its onset. [facility] Medical History Iron deficiency anemia Schizophrenia Surgical History History of dental surgery Family History Father No problems noted. Mother No problems noted. 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 Housing: Other Housing Other:: [facility] Do you presently have visiting nurse or other home services: Yes (lives in a [facility]) Alcohol intake: unknown Comment: obs Patient Tobacco Use Status: Current everyday Tobacco user Tobacco use type: Cigarette Cigarette Packs Per Day: 1 Cigarettes Per Day: 2 Years Smoked: 15 e-Cigarette/Vaping Use: Never Used Second Hand Smoke Exposure: Yes Substance Use Type: Marijuana service: No Current occupational status: unemployed Sexual orientation: Straight/Heterosexual Cognitive needs: No Hearing needs: No Vision needs: No Questionnaire PHQ-9 Over the last 2 weeks, how often have you been bothered by any of the following problems? 1. Little interest or pleasure in doing things: several days 2. Feeling down, depressed, or hopeless: several days 3. Trouble falling or staying asleep, or sleeping too much: not at all 4. Feeling tired or having little energy: several days 5. Poor appetite or overeating: not at all 6. Feeling bad about yourself - or that you are a failure or have let yourself or your family down: not at all 7. Trouble concentrating on things, such as reading the newspaper or watching television: not at all 8. Moving or speaking so slowly that other people could have noticed. Or the opposite - being so fidgety or restless that you have been moving around a lot more than usual: not at all 9. Thoughts that you would be better off or of hurting yourself in some way: several days Total score: 4 78467 - PHQ-9 Billing: Yes Source: Developed by Drs. Devon Foy, Jennifer Stanley, Dallas Villegas and colleagues, with an educational ambrosio from [employer]. Thrive Questionnaire Date Thrive assessed: 12/08/24 I am a: Patient What is your living situation today?: I do not have a steady places to live I am temporarily staying with others Within the past 12 months, did the food you bought not last and you didn't have the money to get more?: Sometimes True Within the past 12 months, did you worry whether your food would run out before you got money to buy more?: Sometimes True Do you have trouble paying for medicines?: No Do you have trouble getting transportation to medical appointments?: No Do you have trouble paying your heating and electricity bill?: No Do you have trouble taking care of your child, family member or friend?: No Do you have trouble with day-to-day activities such as bathing, preparing meals, shopping, managing finances, etc.?: No Are you currently unemployed and looking for a job?: No Are you interested in more education?: No Please select the resources that you would like help with: None Currently or been in a relationship where the following occur: I choose not to answer THRIVE Score: 3 AUDIT C Alcohol Use Questionnaire (AUDIT-C) 1. How often do you have a drink containing alcohol?: Monthly or less 2. How many drinks containing alcohol do you have on a typical day when you are drinking?: 1 or 2 3. How often do you have six or more drinks on one occasion?: Less than monthly Total Score: 2 DANA-7 AMB Questionnaire DANA-7 Date DANA - 7 assessed: 12/08/24 Feeling nervous, anxious, or on edge: 0 = Not at all Not being able to stop or control worryin = Several days Worrying too much about different things: 1 = Several days Trouble relaxin = Not at all Being so restless that it is hard to sit still: 0 = Not at all Becoming easily annoyed or irritable: 0 = Not at all Feeling afraid as if something awful might happen: 0 = Not at all Total DANA-7 score (0-4 normal; 5-9 mild; 10-14 moderate; 15-21 severe): 2 Source: Developed by Drs. Devon Foy, Jennifer Stanley, Dallas Villegas and colleagues, with an educational ambrosio from [employer]. DANA-7 Assessment Billing DANA-7 Assessment Tool: DANA-7 Assessment 91862 Review of Systems Const Denies headache(s) Eyes Denies loss of vision ENT Denies vertigo, Denies dizziness, Denies headache(s) and Denies sore throat Card Denies chest pain, Denies leg edema and Denies lightheadedness Resp Denies cough, Denies hemoptysis and Denies wheezing GI Denies abdominal pain, Denies melena, Denies constipation, Denies diarrhea and Denies vomiting Denies dysuria, Denies urinary frequency and Denies urinary urgency Musc Denies arthralgias, Denies joint swelling, Denies numbness and Denies tingling Neuro Denies Abnormal speech present, Denies behavioral changes, Denies vertigo, Denies dizziness, Denies headache(s), Denies loss of vision, Denies memory loss, Denies numbness and Denies tingling Psych Denies anxiety, Denies behavioral changes, Denies depression, Denies memory loss and Denies panic attacks Juan David/Lymph Denies easy bleeding and Denies easy bruising Aller/Immun Denies wheezing Physical exam (Primary Care) Vital Signs: Last Vital Signs Temp 97.3 F 12/08/24 14:32 Pulse 105 H 12/08/24 14:32 BP 136/86 12/08/24 14:32 Pulse Ox 97 12/08/24 14:32 Oxygen Delivery Method Room Air 12/08/24 14:32 BMI result Body Mass Index 37.9 Tobacco/Smoking Status: Tobacco use Status Tobacco use date assessed 10/12/24 12/08/24 14:25 Patient Tobacco Use Status Current everyday Tobacco 12/08/24 14:25 Tobacco use type Cigarette 12/08/24 14:25 e-Cigarette/Vaping Use Never Used 12/08/24 14:25 PHQ-9: PHQ-9 Score PHQ-9: Total score 4 12/08/24 14:30 Thrive Assessment: Date of Thrive Assessment Date Thrive assessed 12/08/24 12/08/24 14:30 Currently or been in a relationship where the following occur: I choose not to answer Const General: healthy appearing, no acute distress, alert and awake Nutritional Appearance: well nourished Orientation/consciousness: oriented to person, oriented to place and oriented to time HENMT Other: LEFT EAR IMPACTED WITH CERUMEN, AFTER LAVAGE DISIMPACTED IN EAR CANAL CLEAR. Ears: TM's normal bilaterally General nose exam: Normal nasal mucous membranes and turbinates present Eyes Conjunctivae: conjunctivae normal Sclerae: sclerae normal Pupils: Equal, round and reactive pupils present Neck Neck: Yes no lymphadenopathy and Yes no JVD Thyroid: Thyroid normal Carotids: no bruits Resp Effort & Inspection: normal respiratory effort and not tachypneic Auscultation: no crackles, no rales, no rhonchi and no wheezes Cardio Rate: regular rate Rhythm: regular rhythm Heart sounds: no murmurs and normal S1 and S2 GI Palpation (GI): Soft to palpation, nontender, no hepatomegaly and no splenomegaly Auscultation: normal bowel sounds Skin General skin exam: no rashes or lesions noted and dry skin Neuro General: oriented to person, oriented to place and oriented to time Cranial nerves: Yes Equal, round and reactive pupils present Speech: No Abnormal speech present Gait exam (Neuro): Normal gait present Motor exam (neuro): no tremor noted Extrem Right upper extremity: full ROM Left upper extremity: full ROM Right lower extremity: full ROM; no edema Left lower extremity: full ROM; no edema Psych Mental Status: mental status grossly normal Speech and movement: Normal speech and movement present Affect: normal affect Attitude: cooperative Thought process: Normal thought process present Office Procedures Cerumen Removal From which ear canal was the cerumen removed: left Removal: irrigation and otoscope w/curette Notes: patient tolerated procedure well 07930-Slv Irrigation/Lavage Coding Level of Care Code Est Pt Level 3 (24830) Diagnoses Impacted cerumen of left ear H61.22 CPT Codes Office Procedure - CPT: 49610-Lyq Irrigation/Lavage ([id number]) Additional Codes DANA-7 Assessment Billing - DANA-7 Assessment Tool: DANA-7 Assessment 52839 ([id number]) PHQ-9 - 99329 - PHQ-9 Billing: Yes ([id number]) Assessment & Plan Assessment & Plan (1) Impacted cerumen of left ear: Code(s): H61.22 - Impacted cerumen, left ear Category: Medical Plan: Patient underwent ear lavage on his left ear. Patient did tolerate procedure well in larger amounts of cerumen
[2024-12-08 14:32] VITALS: BP 136/86; PULSE 105; TEMP 36.3; O2SAT 97; BMI 37.9
--- OUTSIDE RECORDS SUMMARY | 2024-12-08 14:50 | XMS_ITS | Encounter Summary ---
Author Organization [facility] Address [address] [place] [address] Phone Care Team Providers Care Can Repairer Name Role Phone Adolfo Burton MD Primary Care Provider [phone] Encounter Details Date Type Department Care Team (Late st Contact Info) Description 06/10/2013 Documentation EM Family Medicine [address] [place], [place] [id number] Family Medicine, Physician [address] [place] [address] Social History Tobacco Use Types Packs/Day Years [...] on filedocumented in this encounter Care Teams Can Repairer Relationship Specialty Start Date End Date Adolfo Burton MD [address] [place] [address] PCP - General 03/06/17 12/31/22 documented as of this encounter
--- OUTSIDE RECORDS SUMMARY | 2024-12-08 14:50 | XMS_ITS | Encounter Summary ---
Author Organization [facility] Address [address] [place] [address] Phone Care Team Providers Care Personal Lines Account Executive Name Role Phone Adolfo Burton MD Primary Care Provider [phone] Encounter Details Date Type Department Care Team (Late st Contact Info) Description 08/21/2011 Documentation EM Family Medicine [address] [place] [address] Family Medicine, Physician [address] [place] [address] Social History Tobacco Use Types Packs/Day Years [...] on filedocumented in this encounter Care Teams Personal Lines Account Executive Relationship Specialty Start Date End Date Adolfo Burton MD [address] [place] [address] PCP - General 03/06/17 12/31/22 documented as of this encounter
--- OUTSIDE RECORDS SUMMARY | 2024-12-08 14:50 | XMS_ITS | Clinical Summary ---
Author Organization [facility] Address [address] [place] [address] Phone Care Team Providers Care Healthcare Science Specialist Name Role Phone Unavailable Primary Care Provider [...]
--- OUTSIDE RECORDS SUMMARY | 2024-12-08 14:50 | XMS_ITS | Encounter Summary ---
Author Organization [facility] Address [address] [place] [address] Phone Care Team Providers Care Scrap Iron Cutter Name Role Phone Adolfo Burton MD Primary Care Provider [phone] Encounter Details Date Type Department Care Team (Late st Contact Info) Description 03/12/2017 Conversion Encounter [facility] [place] [address] [place] [address] Social History Tobacco Use Types Packs/Day Years [...] on filedocumented in this encounter Care Teams Scrap Iron Cutter Relationship Specialty Start Date End Date Adolfo Burton MD [address] [place] [address] PCP - General 03/06/17 12/31/22 documented as of this encounter
--- OUTSIDE RECORDS SUMMARY | 2024-12-08 14:50 | XMS_ITS | Encounter Summary ---
Author Organization [facility] Address [address] [place] [address] Phone Care Team Providers Care Life Enrichment Director Name Role Phone Adolfo Burton MD Primary Care Provider [phone] Encounter Details Date Type Department Care Team (Late st Contact Info) Description 08/21/2011 Documentation EM Family Medicine [address] [place] [address] Family Medicine, Physician [address] [place] [address] Social History Tobacco Use Types Packs/Day Years [...] on filedocumented in this encounter Care Teams Life Enrichment Director Relationship Specialty Start Date End Date Adolfo Burton MD [address] [place] [address] PCP - General 03/06/17 12/31/22 documented as of this encounter
--- OUTSIDE RECORDS SUMMARY | 2024-12-08 14:50 | XMS_ITS | Encounter Summary ---
Author Organization [facility] Address [address] [place] [address] Phone Care Team Providers Care Meat And Poultry Inspector Name Role Phone Adolfo Burton MD Primary Care Provider [phone] Encounter Details Date Type Department Care Team (Late st Contact Info) Description 10/19/2012 Documentation EM Family Medicine [address] [place], [place] [id number] Family Medicine, Physician [address] [place] [address] Social History Tobacco Use Types Packs/Day Years [...] on filedocumented in this encounter Care Teams Meat And Poultry Inspector Relationship Specialty Start Date End Date Adolfo Burton MD [address] [place] [address] PCP - General 03/06/17 12/31/22 documented as of this encounter
--- OUTSIDE RECORDS SUMMARY | 2024-12-08 14:51 | XMS_ITS | Encounter Summary ---
Author Organization [facility] Address [address] [place] [address] Phone Care Team Providers Care Director Of Exhibit Development Name Role Phone Adolfo Burton MD Primary Care Provider [phone] Encounter Details Date Type Department Care Team (Late st Contact Info) Description 08/21/2011 Documentation EM Family Medicine [address] [place] [address] Family Medicine, Physician [address] [place] [address] Social History Tobacco Use Types Packs/Day Years [...] on filedocumented in this encounter Care Teams Director Of Exhibit Development Relationship Specialty Start Date End Date Adolfo Burton MD [address] [place] [address] PCP - General 03/06/17 12/31/22 documented as of this encounter
--- OUTSIDE RECORDS SUMMARY | 2024-12-08 14:51 | XMS_ITS | Encounter Summary ---
Author Organization [facility] Address [address] [place] [address] Phone Care Team Providers Care Highwall Drill Operator Name Role Phone Adolfo Burton MD Primary Care Provider [phone] Encounter Details Date Type Department Care Team (Late st Contact Info) Description 01/08/2011 Documentation EM Family Medicine [address] [place] [address] Family Medicine, Physician [address] [place] [address] Social History Tobacco Use Types Packs/Day Years [...] on filedocumented in this encounter Care Teams Highwall Drill Operator Relationship Specialty Start Date End Date Adolfo Burton MD [address] [place] [address] PCP - General 03/06/17 12/31/22 documented as of this encounter
--- OUTSIDE RECORDS SUMMARY | 2024-12-08 14:51 | XMS_ITS | Encounter Summary ---
Author Organization [facility] Address [address] [place] [address] Phone Care Team Providers Care Assembler Molded Frames Name Role Phone Adolfo Burton MD Primary Care Provider [phone] Encounter Details Date Type Department Care Team (Late st Contact Info) Description 06/10/2013 Documentation EM Family Medicine [address] [place], [place] [phone] Family Medicine, Physician [address] [place] [address] Social History Tobacco Use Types Packs/Day Years [...] on filedocumented in this encounter Care Teams Assembler Molded Frames Relationship Specialty Start Date End Date Adolfo Burton MD [address] [place] [address] PCP - General 03/06/17 12/31/22 documented as of this encounter
--- OUTSIDE RECORDS SUMMARY | 2024-12-08 14:51 | XMS_ITS | Encounter Summary ---
Author Organization [facility] Address [address] [place] [address] Phone Care Team Providers Care Internist Medical Doctor Md Name Role Phone Adolfo Burton MD Primary Care Provider [phone] Encounter Details Date Type Department Care Team (Late st Contact Info) Description 08/21/2011 Documentation EM Family Medicine [address] [place] [address] Family Medicine, Physician [address] [place] [address] Social History Tobacco Use Types Packs/Day Years [...] on filedocumented in this encounter Care Teams Internist Medical Doctor Md Relationship Specialty Start Date End Date Adolfo Burton MD [address] [place] [address] PCP - General 03/06/17 12/31/22 documented as of this encounter
--- OUTSIDE RECORDS SUMMARY | 2024-12-08 14:51 | XMS_ITS | Encounter Summary ---
Author Organization [facility] Address [address] [place] [address] Phone Care Team Providers Care Orchestra Teacher Name Role Phone Adolfo Burton MD Primary Care Provider [phone] Encounter Details Date Type Department Care Team (Late st Contact Info) Description 03/07/2014 Documentation EM Family Medicine [address] [place] [address] Family Medicine, Physician [address] [place] [address] Social History Tobacco Use Types Packs/Day Years [...] on filedocumented in this encounter Care Teams Orchestra Teacher Relationship Specialty Start Date End Date Adolfo Burton MD [address] [place] [address] PCP - General 03/06/17 12/31/22 documented as of this encounter
--- OUTSIDE RECORDS SUMMARY | 2024-12-08 14:51 | XMS_ITS | Encounter Summary ---
Author Organization [facility] Address [address] [place] [address] Phone Care Team Providers Care Clinical Programmer Name Role Phone Adolfo Burton MD Primary Care Provider [phone] Encounter Details Date Type Department Care Team (Late st Contact Info) Description 03/07/2014 Documentation EM Family Medicine [address] [place] [address] Family Medicine, Physician [address] [place] [address] Social History Tobacco Use Types Packs/Day Years [...] on filedocumented in this encounter Care Teams Clinical Programmer Relationship Specialty Start Date End Date Adolfo Burton MD [address] [place] [address] PCP - General 03/06/17 12/31/22 documented as of this encounter
== END 2024-12-08 14:52 | disposition home or self-care (01) ==
PROVIDERS: PCP Physician Assistant; Visit Provider Physician Assistant
DX: H61.22 Impacted cerumen, left ear (principal)

== ENCOUNTER → 2024-12-08 14:10 | Outpatient (BNVA) | payer OTHER, SELFPAY | PROVIDERS: PCP Physician Assistant; Visit Provider Physician Assistant | DX: H61.22 Impacted cerumen, left ear (principal) | CPT/HCPCS: 69210; 96127; 99212 ==

== ENCOUNTER 2025-05-11 08:47 | Outpatient (AMB) | payer OTHER, SELFPAY ==
--- NOTE | 2025-05-11 09:21 | MHC.PC.OV ---
Vital Signs 05/11/25 09:22 Height 5 ft 8 in Weight 272 lb BMI 41.4 BP 130/62 Blood Pressure Location Lt brachial Position Sitting Pulse 94 Pulse Source Pulse Oximeter Temp 97.3 F Temp Source Temporal Artery Scan Pulse Oximetry (%) 96 Oxygen Delivery Method Room Air Intake Visit Reasons: [facility] 04/30 Intake Note: Patient is here to follow-up after a visit the emergency department at [facility] on 04/30/25 Clinical Rn Manager Required: No Pack Train Driver: Not Required per policy Accompanied by: Self / Same As Patient Allergies paliperidone (From Invega) Allergy (Mild, Verified 05/11/25 09:32) Agitated aripiprazole (From Abilify) Allergy (Unknown, Verified 05/11/25 09:32) Unknown asenapine (From Saphris) Allergy (Unknown, Verified 05/11/25 09:32) Unknown ziprasidone (From Geodon) Allergy (Unknown, Verified 05/11/25 09:32) Unknown Medication List - Last Reconciled 05/11/25 by KEVAN Barragan aripiprazole lauroxil ER ([place]) mg IM aripiprazole lauroxil,submicr. ER ([place] Initio) 675 mg IM QMONTH clozapine 200 mg PO BEDTIME clozapine 25 mg PO BEDTIME ibuprofen 400 mg PO Q6H PRN melatonin 6 mg PO BEDTIME Tobacco use date assessed: 05/11/25 Dental Screening Dental Screen Date: 10/12/24 HPI [facility] 04/30 HPI Details The patient is a 29-year-old male presenting for hospital follow up due to hand pain The patient reported slamming his hand a couple of times due to frustration, which resulted in pain but no fractures or significant injuries were found upon examination. An x-ray was performed [facility] ED, which showed no fractures, bone lesions, or arthritic changes, and the soft tissue appeared normal. The patient was advised to take tiuh-bmo-ddfwceg analgesics like Motrin for pain management and to expect some residual inflammation. [facility] Medical History Iron deficiency anemia Schizophrenia Surgical History History of hand surgery History of dental surgery Family History Father No problems noted. Mother No problems noted. 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 Housing: Other Housing Other:: [facility] Do you presently have visiting nurse or other home services: Yes (lives in a [facility]) Alcohol intake: unknown Comment: obs Patient Tobacco Use Status: Former Tobacco user Tobacco use type: Cigarette Cigarette Packs Per Day: 1 Cigarettes Per Day: 2 Years Smoked: 15 Packs Per Year: 15 Packs per year/per ci.50 e-Cigarette/Vaping Use: Never Used Second Hand Smoke Exposure: Yes Substance Use Type: Marijuana Substance Use Frequency: Daily service: No Current occupational status: unemployed Sexual orientation: Straight/Heterosexual Cognitive needs: No Hearing needs: No Vision needs: No Questionnaire Thrive Questionnaire Date Thrive assessed: 12/08/24 I am a: Patient What is your living situation today?: I do not have a steady places to live I am temporarily staying with others Within the past 12 months, did the food you bought not last and you didn't have the money to get more?: Sometimes True Within the past 12 months, did you worry whether your food would run out before you got money to buy more?: Sometimes True Do you have trouble paying for medicines?: No Do you have trouble getting transportation to medical appointments?: No Do you have trouble paying your heating and electricity bill?: No Do you have trouble taking care of your child, family member or friend?: No Do you have trouble with day-to-day activities such as bathing, preparing meals, shopping, managing finances, etc.?: No Are you currently unemployed and looking for a job?: No Are you interested in more education?: No Please select the resources that you would like help with: None Currently or been in a relationship where the following occur: I choose not to answer THRIVE Score: 3 DANA-7 AMB Questionnaire DANA-7 Date DANA - 7 assessed: 12/08/24 Source: Developed by Drs. Devon Foy, Jennifer Stanley, Dallas Villegas and colleagues, with an educational ambrosio from [employer]. Review of Systems Const Denies body aches, Denies chills, Denies fever(s), Denies headache(s) and Denies poor appetite Eyes Reports no additional complaints ENT Denies dysphagia, Denies dizziness, Denies headache(s) and Denies odynophagia Card Denies chest pain, Denies syncope, Denies edema, Denies irregular heart rhythm, Denies lightheadedness and Denies dyspnea Resp Denies cough and Denies dyspnea GI Denies abdominal pain, Denies constipation, Denies dysphagia, Denies diarrhea, Denies nausea, Denies odynophagia and Denies vomiting Reports no additional complaints Musc Reports other (complain of right hand pain) Skin/Breast Reports system reviewed and no additional complaints, except as documented Neuro Denies dizziness, Denies syncope and Denies headache(s) Psych Reports no additional complaints Physical exam (Primary Care) Vital Signs: Last Vital Signs Temp 97.3 F 05/11/25 09:22 Pulse 94 05/11/25 09:22 BP 130/62 05/11/25 09:22 Pulse Ox 96 05/11/25 09:22 Oxygen Delivery Method Room Air 05/11/25 09:22 BMI result Body Mass Index 41.4 Tobacco/Smoking Status: Tobacco use Status Tobacco use date assessed 05/11/25 05/11/25 09:28 Patient Tobacco Use Status Former Tobacco user 05/11/25 09:28 Tobacco use type Cigarette 05/11/25 09:28 e-Cigarette/Vaping Use Never Used 05/11/25 09:28 Thrive Assessment: Date of Thrive Assessment Date Thrive assessed 12/08/24 05/11/25 09:28 Currently or been in a relationship where the following occur: I choose not to answer Const General: cooperative, healthy appearing, comfortable and no acute distress Orientation/consciousness: patient oriented x3 HENMT Head: Yes normocephalic Ears: hearing grossly normal bilaterally General nose exam: Normal external nose present Eyes General: appearance normal, both eyes and all related structures Conjunctivae: conjunctivae normal Neck Neck: Yes full ROM and Yes no lymphadenopathy Resp Effort & Inspection: normal respiratory effort Auscultation: clear to auscultation bilaterally, no crackles, no rales, no rhonchi and no wheezes Cardio Rate: regular rate Rhythm: regular rhythm Skin General skin exam: no rashes or lesions noted Neuro General: patient oriented x3 Gait exam (Neuro): Normal gait present Extrem General: Yes normal to inspection, Yes full ROM and No edema Right upper extremity: Extremity exam: right hand Details: abnormal to inspection, normal capillary refill, normal ROM of fingers and no swelling; no tenderness Psych Affect: normal affect Attitude: cooperative Insight: Good insight present (Psych) Judgement: Good judgement present (Psych) Coding Level of Care Code Est Pt Level 3 (11889) Diagnoses Right hand pain M79.641 Time Spent (min) 29 Assessment & Plan Assessment & Plan (1) Right hand pain: Code(s): M79.641 - Pain in right hand Category: Medical Plan: The patient was advised to manage the hand contusion with udmd-eiz-tdgyhng analgesics such as Motrin to alleviate pain and reduce inflammation. The patient is scheduled for his an annual physical on 05/15/25. We will reevaluate then.
[2025-05-11 09:22] VITALS: BP 130/62; PULSE 94; TEMP 36.3; O2SAT 96; BMI 41.4
--- OUTSIDE RECORDS SUMMARY | 2025-05-11 09:39 | XMS_ITS | Encounter Summary ---
Author Organization [facility] Address [address] [place] [address] Phone Care Team Providers Care Roads Superintendent Name Role Phone Adolfo Burton MD Primary Care Provider [phone] Encounter Details Date Type Department Care Team (Late st Contact Info) Description 08/21/2011 Documentation EM Family Medicine [address] [place] [address] Family Medicine, Physician [address] [place] [address] Social History Tobacco Use Types Packs/Day Years [...] on filedocumented in this encounter Care Teams Roads Superintendent Relationship Specialty Start Date End Date Adolfo Burton MD [address] [place] [address] PCP - General 03/06/17 12/31/22 documented as of this encounter
--- OUTSIDE RECORDS SUMMARY | 2025-05-11 09:39 | XMS_ITS | Encounter Summary ---
Author Organization [facility] Address [address] [place] [address] Phone Care Team Providers Care Mine Analyst Name Role Phone Adolfo Burton MD Primary Care Provider [phone] Encounter Details Date Type Department Care Team (Late st Contact Info) Description 03/12/2017 Conversion Encounter [facility] [place] [address] [place] [address] Social History Tobacco Use Types Packs/Day Years [...] on filedocumented in this encounter Care Teams Mine Analyst Relationship Specialty Start Date End Date Adolfo Burton MD [address] [place] [address] PCP - General 03/06/17 12/31/22 documented as of this encounter
--- OUTSIDE RECORDS SUMMARY | 2025-05-11 09:39 | XMS_ITS | Encounter Summary ---
Author Organization [facility] Address [address] [place] [address] Phone Care Team Providers Care Rv Technician Name Role Phone Adolfo Burton MD Primary Care Provider [phone] Encounter Details Date Type Department Care Team (Late st Contact Info) Description 08/21/2011 Documentation EM Family Medicine [address] [place] [address] Family Medicine, Physician [address] [place] [address] Social History Tobacco Use Types Packs/Day Years [...] on filedocumented in this encounter Care Teams Rv Technician Relationship Specialty Start Date End Date Adolfo Burton MD [address] [place] [address] PCP - General 03/06/17 12/31/22 documented as of this encounter
--- OUTSIDE RECORDS SUMMARY | 2025-05-11 09:39 | XMS_ITS | Clinical Summary ---
Author Organization [facility] Address [address] [place] [address] Phone Care Team Providers Care Blender Helper Name Role Phone Unavailable Primary Care Provider [...] AM EST Pulse - - Temperature 36.1 C (96.9 F) 08/01/2013 12:00 AM EST Respiratory Rate - - Oxygen [...] 09/27/1996, Additional history exists Influenza Vaccines (#1) 2025 06/09/20 13, 08/20/2011, 08/23/2009, Additional history exists COVID-19 Vaccine (2024- season) 2025 Hepatitis B Vaccines Completed 04/25/1995, 1994, 1994 [...]
--- OUTSIDE RECORDS SUMMARY | 2025-05-11 09:40 | XMS_ITS | Encounter Summary ---
Author Organization [facility] Address [address] [place] [address] Phone Care Team Providers Care Pharmacy Manager Name Role Phone Adolfo Burton MD Primary Care Provider [phone] Encounter Details Date Type Department Care Team (Late st Contact Info) Description 06/10/2013 Documentation EM Family Medicine [address] [place], [place] [id number] Family Medicine, Physician [address] [place] [address] Social History Tobacco Use Types Packs/Day Years [...] on filedocumented in this encounter Care Teams Pharmacy Manager Relationship Specialty Start Date End Date Adolfo Burton MD [address] [place] [address] PCP - General 03/06/17 12/31/22 documented as of this encounter
--- OUTSIDE RECORDS SUMMARY | 2025-05-11 09:40 | XMS_ITS | Encounter Summary ---
Author Organization [facility] Address [address] [place] [address] Phone Care Team Providers Care Cover Stitch Machine Operator Name Role Phone Adolfo Burton MD Primary Care Provider [phone] Encounter Details Date Type Department Care Team (Late st Contact Info) Description 01/08/2011 Documentation EM Family Medicine [address] [place] [address] Family Medicine, Physician [address] [place] [address] Social History Tobacco Use Types Packs/Day Years [...] on filedocumented in this encounter Care Teams Cover Stitch Machine Operator Relationship Specialty Start Date End Date Adolfo Burton MD [address] [place] [address] PCP - General 03/06/17 12/31/22 documented as of this encounter
--- OUTSIDE RECORDS SUMMARY | 2025-05-11 09:40 | XMS_ITS | Encounter Summary ---
Author Organization [facility] Address [address] [place] [address] Phone Care Team Providers Care Band Nailer Name Role Phone Adolfo Burton MD Primary Care Provider [phone] Encounter Details Date Type Department Care Team (Late st Contact Info) Description 03/07/2014 Documentation EM Family Medicine [address] [place], [place] [id number] Family Medicine, Physician [address] [place] [address] Social History Tobacco Use Types Packs/Day Years [...] on filedocumented in this encounter Care Teams Band Nailer Relationship Specialty Start Date End Date Adolfo Burton MD [address] [place] [address] PCP - General 03/06/17 12/31/22 documented as of this encounter
--- OUTSIDE RECORDS SUMMARY | 2025-05-11 09:40 | XMS_ITS | Encounter Summary ---
Author Organization [facility] Address [address] [place] [address] Phone Care Team Providers Care Attic Fans Mechanic Name Role Phone Adolfo Burton MD Primary Care Provider [phone] Encounter Details Date Type Department Care Team (Late st Contact Info) Description 06/10/2013 Documentation EM Family Medicine [address] [place], [place] [id number] Family Medicine, Physician [address] [place] [address] Social History Tobacco Use Types Packs/Day Years [...] on filedocumented in this encounter Care Teams Attic Fans Mechanic Relationship Specialty Start Date End Date Adolfo Burton MD [address] [place] [address] PCP - General 03/06/17 12/31/22 documented as of this encounter
--- OUTSIDE RECORDS SUMMARY | 2025-05-11 09:40 | XMS_ITS | Encounter Summary ---
Author Organization [facility] Address [address] [place] [address] Phone Care Team Providers Care Pipe Cutter Name Role Phone Adolfo Burton MD Primary Care Provider Encounter Details Date Type Department Care Team (Late st Contact Info) Description 08/21/2011 Documentation EM Family Medicine [address] [place] [address] Family Medicine, Physician [address] [place] [address] Social History Tobacco Use Types Packs/Day Years [...] on filedocumented in this encounter Care Teams Pipe Cutter Relationship Specialty Start Date End Date Adolfo Burton MD [address] [place] [address] PCP - General 03/06/17 12/31/22 documented as of this encounter
--- OUTSIDE RECORDS SUMMARY | 2025-05-11 09:40 | XMS_ITS | Encounter Summary ---
Author Organization [facility] Address [address] [place] [address] Phone Care Team Providers Care Convenience Recycle Center Tech Name Role Phone Adolfo Burton MD Primary Care Provider [phone] Encounter Details Date Type Department Care Team (Late st Contact Info) Description 08/21/2011 Documentation EM Family Medicine [address] [place] [address] Family Medicine, Physician [address] [place] [address] Social History Tobacco Use Types Packs/Day Years [...] on filedocumented in this encounter Care Teams Convenience Recycle Center Tech Relationship Specialty Start Date End Date Adolfo Burton MD [address] [place] [address] PCP - General 03/06/17 12/31/22 documented as of this encounter
--- OUTSIDE RECORDS SUMMARY | 2025-05-11 09:40 | XMS_ITS | Encounter Summary ---
Author Organization [facility] Address [address] [place] [address] Phone Care Team Providers Care Pulpwood Buyer Name Role Phone Adolfo Burton MD Primary Care Provider [phone] Encounter Details Date Type Department Care Team (Late st Contact Info) Description 10/19/2012 Documentation EM Family Medicine [address] [place], [place] [phone] Family Medicine, Physician [address] [place] [address] Social History Tobacco Use Types Packs/Day Years [...] on filedocumented in this encounter Care Teams Pulpwood Buyer Relationship Specialty Start Date End Date Adolfo Burton MD [address] [place] [address] PCP - General 03/06/17 12/31/22 documented as of this encounter
--- OUTSIDE RECORDS SUMMARY | 2025-05-11 09:40 | XMS_ITS | Encounter Summary ---
Author Organization [facility] Address [address] [place] [address] Phone Care Team Providers Care Paper Feeder Name Role Phone Adolfo Burton MD Primary Care Provider [phone] Encounter Details Date Type Department Care Team (Late st Contact Info) Description 03/07/2014 Documentation EM Family Medicine [address] [place], [place] [phone] Family Medicine, Physician [address] [place] [address] Social History Tobacco Use Types Packs/Day Years [...] on filedocumented in this encounter Care Teams Paper Feeder Relationship Specialty Start Date End Date Adolfo Burton MD [address] [place] [address] PCP - General 03/06/17 12/31/22 documented as of this encounter
== END 2025-05-11 09:39 | disposition home or self-care (01) ==
LOC: HO.HMCH 08:48
PROVIDERS: PCP Physician Assistant
DX: M79.641 Pain in right hand (principal)

== ENCOUNTER → 2025-05-11 08:47 | Outpatient (BNVA) | payer OTHER, SELFPAY | PROVIDERS: PCP Physician Assistant | DX: M79.641 Pain in right hand (principal) | CPT/HCPCS: 99212 ==